=== PATIENT | female | born 1970 | race Caucasian/White ===

== ENCOUNTER 2024-01-29 08:41 | Outpatient (OUT) | payer BC, SELFPAY ==
--- NOTE | 2024-01-29 08:55 | NM_ITS ---
Patient Name: MATEUS CARMICHAEL MR#: [id number] : 1970 Exam Date: 01/29/2024 Ordering Doctor: DR JAN PETIT M.D. RADIOLOGY REPORT PROCEDURE: NM ISAURA PERF SPECT REST STR COMPARISON: None. INDICATIONS: PRE PROCEDURE CARDIOVASCULAR EXAM, DYSPNEA, LBBB TECHNIQUE: Exam Description: Stress/Rest two day protocol gated SPECT Rest Imagin.2 mCi Tc-99m Cardiolite IV on 01/29/2024 Stress Imaging 25.9 mCi Tc-99m Cardiolite IV on 01/30/2024 Exercise Protocol: 0.4 mg Lexiscan given IV Heart Rate (bpm): Rest: 75 Max: 106 PMHR: 63 Blood Pressure: Rest: 152/86 Max: 164/90 Symptoms: Rest and peak stress ECG findings were pending and the exercise portion of the study was pending per attending physician Dr. COLLIER . For more details please see separate cardiac stress test report. FINDINGS: QUALITY OF STUDY: Good. PERFUSION DEFECT: None. LOCATION: Mid-anterior. Apical anterior. [place]. SIZE: Medium (3-4 segments). SEVERITY: Moderate. TYPE: Persistent. WALL MOTION: Normal. LV SIZE: Normal. 110 mL. TID / TCD: None; 0.8 LVEF: Normal. Calculated EF 55%. SUMMARY: Myocardial perfusion imaging study has ABNORMAL findings. CONCLUSION: 1. Fixed defect anterior wall, RCA distribution 2. No redistribution Dictated by: Ronald Gonzales MD on 01/31/2024 at 10:57 Approved by: Ronald Gonzales MD on 01/31/2024 at 11:02
== END 2024-01-29 08:42 | disposition home or self-care (01) ==
PROVIDERS: PCP Internal Medicine; Visit Provider Internal Medicine Interventional Cardiology
DX: Z01.818 Encounter for other preprocedural examination (principal); R06.00 Dyspnea, unspecified
CPT/HCPCS: 78452; A9500

== ENCOUNTER 2024-01-30 08:23 | Outpatient (OUT) | payer BC, SELFPAY ==
--- NOTE | 2024-01-30 | PCN_ITS ---
CARDIAC STRESS TEST Requesting Physician: Sherry Watkins M.D. Procedure Date: 01/30/2024 PERFORMING PROVIDER: Kaylen Jacques M.D. INDICATION: Pre-surgical clearance. STRESS TEST PROTOCOL: Lexiscan myocardial perfusion scan. Resting heart rate: 77 beats per minute. Resting blood pressure: 152/86 Resting EKG: Sinus rhythm with left bundle branch block. CONCLUSION: 1. This is a non-diagnostic EKG stress test due to underlying left bundle branch block. 2. Please refer to separately interpreted and reported nuclear myocardial perfusion imaging. MTDD
--- NOTE | 2024-01-30 09:11 | PC.NURSE ---
Nursing Note Cardiac Stress Test Reviewed: Medication, allergies and patient history reviewed. Stress Test: [ x] Patient tolerated stress test well. [ ] Patient unable to tolerate walking on treadmill. Switched to Lexiscan stress test. [x ] No chest pain noted per patient [ ] Chest pain that resolved prior to leaving stress lab. [ x] No dyspnea noted. [ ] Dyspnea that resolved prior to leaving stress lab. [x ] Patient left stress lab asymptomatic and hemodynamically stable. [ ] Patient taken to the Emergency Room due to non-resolving symptoms following stress test. [x ] Patient achieved target heart rate. [ ] Patient unable to achieve target heart rate. [ ] Aminophylline administered as reversal agent to Lexiscan (Regadenoson). [ ] Nitro administered. Nursing Comments:
[2024-01-30] MEDS: REGADENOSON 0.4 MG/5 ML SYRINGE IV (09:12)
== END 2024-01-30 08:24 | disposition home or self-care (01) ==
LOC: CARD 08:23
PROVIDERS: PCP Internal Medicine; Visit Provider Internal Medicine Interventional Cardiology
DX: R06.00 Dyspnea, unspecified (principal); Z01.810 Encounter for preprocedural cardiovascular examination
CPT/HCPCS: 93017; J2785

== ENCOUNTER 2024-06-02 05:38 | Emergency (ER) | payer BC, SELFPAY ==
[2024-06-02 05:43] VITALS: BP 124/95; PULSE 99; TEMP 36.8; O2SAT 97; BMI 41.0
--- OUTSIDE RECORDS SUMMARY | 2024-06-02 05:47 | XMS_ITS | CCD ---
Author Organization [facility] Care Team Providers Care Lathe Operator Name Role Phone ORTEGA MERRITT Primary Care Physician [phone] SANTIAGO FRY Admitting Unavailable SANTIAGO FRY Attending Unavailable SELF, REFERRED Referring Unavailable ORTEGA MERRITT Primary Care Unavailable SELF, REFERRED Referring Unavailable OANH GOETZ Admitting Unavailable OANH GOETZ Attending Unavailable UNKNOWN, PHYSICIAN Primary Care Unavailable SHANICE NAVARRO Attending Unavailable ORTEGA MERRITT Primary Care Unavailable ORTEGA MERRITT Referring Unavailable SHANICE NAVARRO Admitting Unavailable CARLTON HAHN Admitting Unavailable SELF, REFERRED Referring Unavailable ORTEGA MERRITT Primary Care Unavailable GLORIA KHANNA Attending Unavailable Bryan [place] Unavailable GELACIO Merritt Primary Care Provider [phone] ASHWINI Sharpe Attending Provider ASHWINI Guevara Attending Provider GELACIO Merritt Primary Care Provider ASHWINI Sharpe Attending Provider ABEBA GUEVARA Attending Unavailable ABEBA GUEVARA Consulting Unavailable ABEBA GUEVARA Admitting Unavailable DR ORTEGA MERRITT Primary Care Unavailable GELACIO Merritt Primary Care Provider [phone] MD Porfirio Galvin Referring Provider ASHWINI Sharpe Attending Provider GELACIO Merritt Attending Provider MD Richie Galvin Referring Provider [phone] GELACIO Merritt Primary Care Provider MD Richie Galvin Attending Provider [phone] GELACIO Merritt Primary Care Provider [phone] ObASHWINI kern Attending Provider Ortega Merritt MD Unavailable [phone] HemAbeba Roy Primary Care Provider Ortega Merritt MD Primary Care Provider Hemmer Abeba CHEN Unavailable Brown, DO Gavin A Referring Unavailable Brown, DO Gavni A Admitting Unavailable Brown, DO Gavin A Attending Unavailable Brown, DO Gavin A Referring Unavailable Brown, DO Gavin A Admitting Unavailable Brown, DO Gavin A Attending Unavailable Lolis Bush Unavailable Unavailable Brown, Gavin A Referring Unavailable Brown, Gavin A Attending Unavailable Brown, Gavin A Admitting Unavailable Brown, Gavin A Admitting Unavailable Brown, Gavin A Attending Unavailable Brown, Gavin A Referring Unavailable Ortega Merritt II [facility] Care Provider [phone] Abeba Santillan Attending Provider [phone] Abeba Guevara Admitting Unavailable Abeba Guevara Attending Unavailable Ortega Merritt [facility] Unavailable Ortega Merritt [facility] Unavailable Maggie Sharpe Admitting Unavailable Maggie Sharpe Attending Unavailable Ortega Merritt [facility] Unavailable Richie Galvin Admanisha Unavailable Richie Galvin Attending Unavailable Ortega Merritt II [facility] Provider HemAbeba Gonzales Attending Provider Antoinette Kelley APRN Attending Provider SHANICE NAVARRO Attending Unavailable JAN PETIT Attending Unavailable LOLIS MENJIVAR Attending Unavailable BROWN, GAVIN A Referring Unavailable NIYA FREY Attending Unavailable BROWN, GAVIN A Referring Unavailable NIYA FREY Attending Unavailable BROWN, GAVIN A Referring Unavailable EMANUEL BEASLEY Referring Unavailable EMANUEL BEASLEY Attending Unavailable BROWN, GAVIN A Referring Unavailable JOSE J TRISTAN Attending Unavailable ABEBA GUEVARA Referring Unavailable LOLIS MENJIVAR Attending Unavailable BROWN, GAVIN A Referring Unavailable NIYA FREY Attending Unavailable BROWN, GAVIN A Referring Unavailable AMBRCOIO MAJORA Attending Unavailable BROWN, GAVIN A Referring Unavailable BRINKNIYA Attending Unavailable BROWN, GAVIN A Referring Unavailable KELBLEY, LOLIS Attending Unavailable BROWN, GAVIN A Referring Unavailable LORELEIJEFFREY Attending Unavailable BROWN, GAVIN A Referring Unavailable BRINKNIYA Attending Unavailable BROWN, GAVIN A Referring Unavailable HEMMER, ABEBA Canas Attending Unavailable KELBLEY, LOLIS Attending Unavailable BROWN, GAVIN A Referring Unavailable BRINK, NIYA Attending Unavailable BROWN, GAVIN A Referring Unavailable KELBLEY, LOLIS Attending Unavailable BROWN, GAVIN A Referring Unavailable CHANO GANNON Attending Unavailable HEMMER, ABEBA Canas Referring Unavailable MAJOR, SARAH Attending Unavailable BROWN, GAVIN A Referring Unavailable CHRISTYYJOSE J Attending Unavailable KELBLEY, LOLIS Attending Unavailable BROWN, GAVIN A Referring Unavailable BRINK, NIYA Attending Unavailable BROWN, GAVIN A Referring Unavailable MAJOR, SARAH Attending Unavailable BROWN, GAVIN A Referring Unavailable BRINK, NIYA Attending Unavailable BROWN, GAVIN A Referring Unavailable BROWN, GAVIN A Referring Unavailable BROWN, GAVIN A Attending Unavailable KELBLEY, LOLIS Attending Unavailable BROWN, GAVIN A Referring Unavailable MAJORSARAH Attending Unavailable BROWN, GAVIN A Referring Unavailable LORELEIJEFFREY Attending Unavailable BROWN, GAVIN A Referring Unavailable HEMMER, ABEBA Canas Attending Unavailable BROWN, GAVIN A Referring Unavailable BROWN, GAVIN A Attending Unavailable BROWN, GAVIN A Referring Unavailable HEMMER, ABEBA Canas Attending Unavailable BROWN, GAVIN A Referring Unavailable HEMMER, ABEBA Canas Attending Unavailable BROWN, GAVIN A Attending Unavailable HEMMER, ABEBA Canas Attending Unavailable PETITTICATALINA Attending Unavailable BROWN, GAVIN A Attending Unavailable PETITTICATALINA Attending Unavailable HEMMER, ABEBA Canas Attending Unavailable NORTHEIMJULIANA Attending Unavailable BROWN, GAVIN A Attending Unavailable HEMMER, ABEBA Canas Attending Unavailable BROWN, GAVIN A Attending Unavailable HEMMER, ABEBA Canas Referring Unavailable CELE CARO Attending Unavailable BROWN, GAVIN A Referring Unavailable CHANDLERRAFAEL Attending Unavailable BROWN, GAVIN A Referring Unavailable BROWN, GAVIN A Referring Unavailable BROWN, GAVIN A Attending Unavailable BROWN, GAVIN A Referring Unavailable CHANDLERRAFAEL SESAY Attending Unavailable BROWN, GAVIN A Referring Unavailable CHANDLERRAFAEL SESAY Attending Unavailable BROWN, GAVIN A Referring Unavailable HEMMER, ABEBA M Attending Unavailable RAFAEL CHANDLER Attending Unavailable BROWN, GAVIN A Referring Unavailable JEFFREY MOSELEY Attending Unavailable OSKAR, GAVIN A Referring Unavailable NIYA FREY Attending Unavailable BROWN, GAVIN A Referring Unavailable BROWN, GAVIN A Referring Unavailable LOLIS MENJIVAR Attending Unavailable JEFFREY MOSELEY Attending Unavailable OSKAR, GAVIN A Referring Unavailable SARAH MAJOR Attending Unavailable OSKAR, GAVIN A Referring Unavailable NIYA FREY Attending Unavailable OSKAR, GAVIN A Referring Unavailable SARAH MAJOR Attending Unavailable OSKAR, GAVIN A Referring Unavailable NIYA FREY Attending Unavailable BROWN, GAVIN A Referring Unavailable LOLIS MENJIVAR Attending Unavailable OSKAR, GAVIN A Referring Unavailable SARAH MAJOR Attending Unavailable OSKAR, GAVIN A Referring Unavailable Allergies Allergy Classification Reported Allergen(s) Allergy Type Date of Onset Reaction(s) Facility (20 sources) Chlorhexidine; Translations: [chlorhexidine topical] Drug Allergy 3 Other [facility] (20 sources) Meperidine; Translations: [meperidine] Drug Allergy 1 Vomiting (disorder) [facility] Other (20 sources) Morphine; Translations: [morphine] Drug Allergy 3 Vomiting (disorder), GI intolerance [facility] (20 sources) Nalbuphine; Translations: [nalbuphine] Drug Allergy [address] Other (1 source) Meperidine Drug Allergy [facility] Repository (1 source) Nalbuphine Drug Allergy 3 [facility] Repository (20 sources) Meperidine Drug Allergy 3 GI intolerance [facility] (20 sources) nabumetone; Translations: [NABUMETONE] Drug Allergy 2 Unknown [facility] (1 source) Meperidine Drug Allergy 5 [facility] Repository (1 source) Nalbuphine Drug Allergy 5 [facility] Repository Medications Current Medications Medication Drug Class(es) Dates Sig (Normalized) Sig (Original) acetaminophen 500 mg oral tablet (20 sources) Start: 03-15-2024 Acetaminophen 500 mg tablet Active MG PO March 15, 2024 1:00am Start: 02-27-2024 End: 03-08-2024 take 1 tablet by mouth every four hours for pain acetaminophen (Tylenol Extra Strength) 500 MG tablet Indications: Primary osteoarthritis of left knee Take 1 tablet (500 mg) by mouth every 4 (four) hours if needed for mild pain for up to 10 days 40 tablet 02/27/2024 03/08/2024 Active Start: 02-14-2024 take 1 tablet by monica every four hours acetaminophen 500 mg Tab 500 mg = 1 tab(s), Oral, q4hr, # 60 tab(s), Refills(s) 0, Pharmacy: [facility]/pharmacy #[id number], 166, cm, 02/02/24 8:04:00 EST, Height/Length Dosing, 122, kg, 02/02/24 8:04:00 EST, Weight Dosing Start Date: 02/14/24 Status: Ordered take 2 tablets by mo uth every six hours acetaminophen (Tylenol) 325 MG tablet Take 2 tablets every 6 hours by oral route. Active Ultracet (2 sources) Opioid Agonist Start: 05-24-2018 take 1 tablet by mouth every twelve hours Ultracet 1 tab(s), Oral, q12hr, Refill(s) 0, Pain Start Date: 05/24/18 Status: Ordered Airsupra 90-80 MCG/ACT aerosol (20 sources) Start: 03-15-2024 take 2 puff(s) by inhalation four times daily as needed Airsupra 90-80 MCG/ACT aerosol INHALE 2 PUFFS FOUR TIMES DAILY NEEDED FOR SHORTNESS OF BREATH 03/15/2024 Active [id number] 200 actuat albuterol 0.09 mg/actuat metered dose inhaler (20 sources) beta2-Adrenergi c Agonist Start: 03-15-2024 take 1 puff(s) by inhalation every six hours as needed Albuterol Sulfate 90 mcg/actuation HFA aerosol inhaler Active 2 PUFF INHALATION Every 6 hours as needed March 15, 2024 1:00am take 1 puff(s) by in halation every four hours for wheezing albuterol HFA 90 mcg/act inhaler Inhale 1 puff every 4 (four) hours if needed for wheezing or shortness of breath. Active take 1 puff(s) by in halation every four hours as needed Ventolin HFA 108 (90 Base) MCG/ACT 1 puf f as needed Inhalation every 4 hrs Active albuterol HFA 90 mcg/inh MDI (3 sources) Start: 05-24-2018 take 1 puff(s) by inhalation four times daily albuterol HFA 90 mcg/inh MDI 1 puff(s), Inhalation, QID Shortness of breath or wheezing, Refill(s) 0, Shortness of breath or wheezing Start Date: 05/24/18 Status: Ordered Albuterol-Budesonide (Airsupra) 90-80 mcg/actuation HFA aerosol inhaler (4 sources) Start: 03-15-2024 Albuterol-[place] sonide (Airsupra) 90-80 mcg/actuation HFA aerosol inhaler Active 2 INH INHALATION Four times daily as needed for shortness of breath 10.7 March 15, 2024 1:00am Start: 03-15-2024 Albuterol-[place] sonide (Airsupra) 90-80 mcg/actuation HFA aerosol inhaler Active 2 INH INHALATION Four times daily as needed for shortness of breath 10.7 March 15, 2024 12:00am aspirin 81 mg delayed release oral tablet (20 sources) Platelet Aggregation Inhibitor, Nonsteroidal Anti-inflammatory Drug Start: 02-14-2024 End: 04-14-2024 Aspirin 81 mg tablet,delayed release (DR/EC) Active MG PO March 15, 2024 1:00am azithromycin 250 mg oral tablet (4 sources) Macrolide Antimicrobial Start: 03-04-2024 End: 03-08-2024 take 2 tablets by mouth once daily, then take 1 tablet by mouth once daily azithromycin (Zithromax) 250 MG tablet Indications: Acute bronchitis, unspecified organism Take 2 tablets (500 mg) by mouth Daily for 1 day, THEN 1 tablet (250 mg) Daily for 4 days. 6 tablet 03/04/2024 03/08/2024 Active carvedilol 12.5 mg oral tablet (20 sources) alpha-Adrenergic Maria G, beta-Adrenergic Maria G Start: 03-15-2024 Carvedilol 12.5 mg tablet Active MG PO March 15, 2024 1:00am Start: 10-26-2022 End: 11-27-2023 take 1 tablet by mouth in the morning carvedilol (Coreg) 12.5 MG tablet Indications: Paroxysmal SVT (supraventricular tachycardia) (CMS/HCC) TAKE 1 TABLET BY MOUTH IN THE MORNING AND 1 TABLET IN THE EVENING WITH FOOD 200 tablet 3 11/27/2023 Active take 1 tablet by monica th every twelve hours Carvedilol 12.5 MG 1 tablet with food Orally Twice a day Active celecoxib 200 mg oral capsule (1 source) Nonsteroidal Anti-inflammatory Drug Start: 02-14-2024 End: 02-28-2024 CeleBREX 200 mg Cap 0 = 1 cap(s), Oral, Daily, X 14 day(s), # 14 cap(s), Refills(s) 0, Pharmacy: [facility]/pharmacy #[id number], 166, cm, 02/02/24 8:04:00 EST, Height/Length Dosing, 122, kg, 02/02/24 8:04:00 EST, Weight Dosing Start Date: 02/14/24 Stop Date: 02/28/24 Status: Ordered cephalexin 500 mg oral capsule (1 source) Cephalosporin Antibacterial Start: 02-14-2024 End: 02-21-2024 take 1 capsule by mouth every eight hours Keflex 500 mg Cap 500 mg = 1 cap(s), Oral, q8hr, X 7 day(s), # 21 cap(s), Refills(s) 0, Pharmacy: [facility]/pharmacy #[id number], 166, cm, 02/02/24 8:04:00 EST, Height/Length Dosing, 122, kg, 02/02/24 8:04:00 EST, Weight Dosing Start Date: 02/14/24 Stop Date: 02/21/24 Status: Ordered cholecalciferol 0.05 mg oral capsule (20 sources) Vitamin D Start: 03-15-2024 take 1 capsule by mouth once daily Cholecalciferol (Vitamin D3) 50 mcg (2,000 unit) capsule Active 50 MCG PO Daily March 15, 2024 1:00am take 1 tablet by mouth once uli y cholecalciferol (Vitamin D-3) 50 MCG (2000 UT) tablet Take 1 tablet by mouth. Once a day Active clindamycin 10 mg/ml topical lotion (20 sources) Lincosamide Antibacterial Start: 08-24-2023 clindamycin (Cleocin T) 1 % lotion Indications: Hidradenitis suppurativa Apply thin later to affected areas on the body during flares, 30 day supply 60 mL 11 08/24/2023 Active dicyclomine hydrochloride 20 mg oral tablet (2 sources) Anticholinergic Start: 09-22-2020 take 1 tablet by mouth every eight hours Dicyclomine HCl 20 MG 1 tablet Orally Three times a day for 30 day(s) Aug, Active docusate sodium 100 mg oral capsule (3 sources) Start: 02-14-2024 take 1 capsule by mouth twice daily as needed for constipation Colace 100 mg Cap 100 mg = 1 cap(s), Oral, BID, PRN for constipation, # 20 cap(s), Refills(s) 0, Pharmacy: [facility]/pharmacy #[id number], 166, cm, 02/02/24 8:04:00 EST, Height/Length Dosing, 122, kg, 02/02/24 8:04:00 EST, Weight Dosing Start Date: 02/14/24 Status: Ordered Start: 06-22-2018 take 1 capsule by mo [facility] twice daily as needed for constipation Colace 100 mg Cap 100 mg = 1 cap(s), Oral, BID, PRN for constipation, # 20 cap(s), Refills(s) 0 Start Date: 06/22/18 Status: Ordered doxycycline hyclate 100 mg oral capsule (4 sources) Tetracycline-class Drug Start: 03-15-2024 take 1 capsule by mouth twice daily Doxycycline Hyclate 100 mg capsule Active 100 MG PO Twice daily 16 12March 15, 2024 1:00am esomeprazole 40 mg delayed release oral capsule (2 sources) Proton Pump Inhibitor Start: 05-24-2018 take 1 capsule by mouth at bedtime Nexium 40 mg Cap-EC 40 mg = 1 cap(s), Oral, Bedtime, Refills(s) 0, Control of stomach acid Start Date: 05/24/18 Status: Ordered famotidine 20 mg oral tablet (20 sources) Histamine-2 Receptor Antagonist Start: 04-23-2024 End: 07-22-2024 take 1 tablet by mouth once daily at bedtime Famotidine 20 mg tablet Active 20 MG PO Daily at bedtime May 31, 2024 12:00am Ferric Maltol (4 sources) Start: 03-15-2024 Ferric Maltol (Accrufer) 30 mg capsule Active MG PO March 15, 2024 1:00am Start: 03-15-2024 Ferric Maltol (Accrufer) 30 mg capsule Active MG PO March 15, 2024 12:00am Ferric Maltol (ACCRUFeR) 30 MG capsule (20 sources) Start: 01-04-2024 take 1 capsule by mouth once daily Ferric Maltol (ACCRUFeR) 30 MG capsule Indications: Other iron deficiency anemia Take 30 mg by mouth Daily 90 capsule 3 01/04/2024 Active Start: 01-16-2023 End: 01-04-2024 take 1 capsule by mouth in the morning Ferric Maltol (ACCRUFeR) 30 MG capsule Indications: Other iron deficiency anemia Take 30 mg by mouth in the morning. 90 capsule 3 01/16/2023 01/04/2024 Discontinued (Reorder) Start: 01-16-2023 take 1 capsule by mo ut in the morning Ferric Maltol (ACCRUFeR) 30 MG capsule Indications: Other iron deficiency anemia Take 30 mg by mouth in the morning. 90 capsule 3 01/16/2023 Active ferric maltol 30 MG Oral Capsule [Accrufer] (2 sources) Start: 01-31-2024 take 1 capsule by mouth once daily Accrufer 30 mg oral capsule 30 mg = 1 cap(s), Oral, Daily, Refills(s) 0 Start Date: 01/31/24 Status: Ordered ferrous sulfate 325 mg oral tablet (2 sources) take 1 tablet by mouth every twenty-four hours Ferrous Sulfate 325 (65 Fe) MG 1 tablet Orally Once a day Active fluconazole 150 mg oral tablet (20 sources) Azole Antifungal Start: 03-15-2024 Fluconazole 1 50 mg tablet Active 150 MG PO Q3D March 15, 2024 1:00am Start: 03-04-2024 End: 03-05-2024 fluconazole (Diflucan) 150 M G tablet Indications: Acute bronchitis, unspecified organism Take 1 tablet (150 mg) by mouth Daily for 1 day, THEN 1 tablet (150 mg) Daily for 1 day. Take doses 3 days apart. 2 tablet 03/04/2024 03/05/2024 Active Start: 08-18-2023 End: 02-01-2024 fluconazole (Diflucan) 150 M G tablet Indications: Yeast infection Take 1 tablet wait three days if still having syptoms take other tablet if needed 2 tablet 08/18/2023 02/01/2024 Discontinued Start: 03-17-2023 End: 07-21-2023 fluconazole (Diflucan) 150 M G tablet Indications: Yeast infection Take 1 tablet wait three days if still having syptoms take other tablet if needed 2 tablet 03/17/2023 07/21/2023 Discontinued (Reorder) fluticasone propionate 0.05 mg/actuat metered dose nasal spray (20 sources) Corticosteroid take 2 spray(s) nasa l route once daily fluticasone (Flonase) 50 MCG/ACT nasal spray Administer 2 sprays into each nostril. Once a day Active take 2 spray(s) nasal route once daily Flonase 50 MCG/DOSE 2 SPRAYS Nasally Once a day Active Fluticasone Prp-Sod.Chl,Bica rb 50 mcg- 0.9 % kit,spray suspension and spray (4 sources) Start: 03-15-2024 Fluticasone Pr p-Sod.Chl,Bicarb 50 mcg- 0.9 % kit,spray suspension and spray Active EACH INTRANASAL March 15, 2024 1:00am Start: 03-15-2024 Fluticasone Pr p-Sod.Chl,Bicarb 50 mcg- 0.9 % kit,spray suspension and spray Active EACH INTRANASAL March 15, 2024 12:00am gabapentin 300 mg oral capsule (20 sources) Anti-epileptic Agent Start: 02-14-2024 End: 04-17-2024 Gabapentin 300 mg capsule Active MG PO March 15, 2024 1:00am hydroCHLOROthiazide 25 mg / triamterene 37.5 mg oral capsule (20 sources) Potassium-sparing Diuretic, Thiazide Diuretic Start: 05-24-2018 take 1 capsule by mouth once daily Triamterene-Hyd rochlorothiazid 37.5-25 mg capsule Active 1 CAP PO Daily March 15, 2024 1:00am take 1 capsule by [facility] once daily in the morning Dyazide 37.5-25 MG 1 capsule in the morning Orally Once a day PRN Active HYDROmorphone hydrochloride 2 mg oral tablet (1 source) Opioid Agonist Start: 06-22-2018 take 1 tablet by mouth every four hours as needed for pain Dilaudid 2 mg Tab 2 mg = 1 tab(s), Oral, q4hr, PRN for pain, # 30 tab(s), Refills(s) 0 Start Date: 06/22/18 Status: Ordered hydroxychloroquine sulfate 200 mg oral tablet (20 sources) Antimalarial, Antirheumatic Agent Start: 05-24-2018 Hydroxychloroquine 200 mg tablet Active MG PO March 15, 2024 1:00am levothyroxine sodium 0.15 mg oral tablet (20 sources) l-Thyroxine Start: 01-31-2024 take 150 ug by mouth once daily levothyroxine 150 mcg, Oral, Daily, Refills(s) 0, Thyroid Start Date: 01/31/24 Status: Ordered Start: 12-14-2023 Levothyroxine 150 mcg tablet Active MCG PO March 15, 2024 1:00am Start: 11-02-2023 take 1 tablet by monica th before mealtime levothyroxine (Synthroid) 150 MCG tablet Indications: Acquired hypothyroidism (CMS/HCC) Take 1 tablet (150 mcg) by mouth in the morning. Take before meals. 30 tablet 2 11/02/2023 Active Start: 01-03-2023 End: 07-10-2023 take 1 tablet by mouth once daily before mealtime levothyroxine (Synthroid, Levoxyl) 175 MCG tablet Indications: Acquired hypothyroidism (CMS/HCC) TAKE 1 TABLET BY MOUTH EVERY MORNING BEFORE A MEAL. 100 tablet 3 07/10/2023 Active meloxicam 15 mg oral tablet (1 source) Nonsteroidal Anti-inflammatory Drug Start: 06-22-2018 take 1 tablet by mouth once daily meloxicam 15 mg Tab 15 mg = 1 tab(s), Oral, Daily, # 30 tab(s), Refills(s) 0 Start Date: 06/22/18 Status: Ordered nebivolol 5 mg oral tablet (1 source) Start: 05-24-2018 take 1 tablet by mouth once daily Bystolic 5 mg Tab 5 mg = 1 tab(s), Oral, Daily, Refills(s) 0, High blood pressure Start Date: 05/24/18 Status: Ordered Nexium 40 mg Cap-EC (1 source) Start: 05-24-2018 take 1 capsule by mouth at bedtime Nexium 40 mg Cap-EC 40 mg = 1 cap(s), Oral, Bedtime, Refills(s) 0, Control of stomach acid Start Date: 05/24/18 Status: Ordered nystatin 800040 unt/ml topical cream (20 sources) Polyene Antifungal Start: 03-15-2024 Nystatin 100,000 unit/gram cream Active 1 APPLIC TOPICAL Daily March 15, 2024 1:00am Start: 06-23-2023 nystatin (Myco statin) cream Indications: Yeast infection APPLY 1 APPLICATION EXTERNALLY TWICE A DAY 45 g 2 06/23/2023 Active Start: 03-23-2023 End: 11-01-2023 Nyamyc [id number] UNIT/GM powder Indications: Intertrigo APPLY TO AFFECTED AREA TWICE A DAY 45 g 3 03/23/2023 11/01/2023 Discontinued (Other) omeprazole 40 mg delayed release oral capsule (20 sources) Proton Pump Inhibitor Start: 08-18-2022 End: 05-03-2025 Omeprazole 40 mg capsule,delayed release(DR/EC) Active MG PO March 15, 2024 1:00am take 1 capsule by mouth once [facility]an [facility] Omeprazole 40 MG 1 capsule 30 minutes before morning meal Orally Once a day Active ondansetron 4 mg disintegrating oral tablet (20 sources) Serotonin-3 Receptor Antagonist Start: 05-31-2024 take 1 tablet by mouth once daily as needed Ondansetron 4 mg tablet,disintegrating Active 4 MG PO Daily as needed May 31, 2024 12:00am Start: 12-03-2020 End: 04-17-2024 Ondansetron Hcl 4 mg tablet Active MG PO March 15, 2024 1:00am Start: 06-22-2018 take 1 tablet by monica th three times daily as needed for nausea Zofran ODT 4 mg Tab 4 mg = 1 tab(s), Oral, TID, PRN Nausea/Vomiting, # 30 tab(s), Refills(s) 0 Start Date: 06/22/18 Status: Ordered Ostomy Supplies (Adapt Lubricating Deodorant) liquid (20 sources) Start: 10-26-2022 Ostomy Supplies (Adapt Lubricating Deodorant) liquid Indications: Colostomy present (CMS/HCC) 1 application in the morning. 236 mL 5 10/26/2022 Active oxyCODONE hydrochloride 5 mg oral tablet (1 source) Opioid Agonist Start: 02-14-2024 take 1-2 tablets by mouth every four hours as needed for pain oxyCODONE 5 mg Tab See Instructions, PRN for pain, 1-2 tab(s) Oral q4hr, # 40 tab(s), Refills(s) 0, Pharmacy: [facility]/pharmacy #[id number], 166, cm, 02/02/24 8:04:00 EST, Height/Length Dosing, 122, kg, 02/02/24 8:04:00 EST, Weight Dosing Start Date: 02/14/24 Status: Ordered pantoprazole 40 mg delayed release oral tablet (19 sources) Proton Pump Inhibitor Start: 04-17-2024 take 1 tablet by mouth once daily pantoprazole (ProtoNix) 40 MG EC tablet Indications: Gastroesophageal reflux disease without esophagitis Take 1 tablet (40 mg) by mouth Daily Do not crush, chew, or split. 30 tablet 2 04/17/2024 Active predniSONE 10 mg oral tablet (2 sources) take 1 tablet by mouth every twenty-four hours predniSONE 10 MG 1 tablet Orally Once a day Active promethazine hydrochloride 25 mg oral tablet (1 source) Phenothiazine Start: 02-16-2024 take 1 tablet by mouth every six hours as needed for nausea promethazine 25 mg Tab 25 mg = 1 tab(s), Oral, q6hr, PRN Nausea, # 20 tab(s), Refills(s) 0, Pharmacy: [facility]/pharmacy #[id number], 166, cm, 02/02/24 8:04:00 EST, Height/Length Dosing, 122, kg, 02/02/24 8:04:00 EST, Weight Dosing Start Date: 02/16/24 Status: Ordered rizatriptan 10 mg disintegrating oral tablet (20 sources) Serotonin-1b and Serotonin-1d Receptor Agonist Start: 03-04-2024 Rizatriptan 10 mg tablet,disintegrating Active MG PO March 15, 2024 1:00am Start: 05-24-2018 Maxalt 10 mg T ab 10 mg = 1 tab(s), Oral, Once, PRN Migraine headache, may repeat dose once in 2 hours, Refills(s) 0, Migraine headache Start Date: 05/24/18 Status: Ordered End: 03-04-2024 rizatriptan RAILROAD FIRER (Maxalt-RAILROAD FIRER) 10 MG disintegrating tablet Take 10 mg by mouth. And place on top of tongue where it will dissolve, then swallow x1, may repeat at 2 hour intervals; do not exceed 30 mg in 24 hours 03/04/2024 Discontinued (Reorder) 72 hr scopolamine 0.0139 mg/hr transdermal system (20 sources) Anticholinergic Start: 01-31-2024 scopolamine 1 mg/72 hr transdermal film, extended release 1 patch(es), TransDermal, q72hr Nausea, Refill(s) 0 Start Date: 01/31/24 Status: Ordered Start: 04-01-2021 End: 03-26-2024 scopolamine (Transderm-Scop) 1 mg/72 hr patch 72 hour patch Indications: Nausea Place 1 patch on the skin every 3rd (third) day 10 patch 03/26/2024 Active Scopolamine Base 1 mg over 3 days patch 3 day (4 sources) Start: 03-15-2024 Scopolamine Ba se 1 mg over 3 days patch 3 day Active TRANSDERML March 15, 2024 1:00am Start: 03-15-2024 Scopolamine Ba se 1 mg over 3 days patch 3 day Active TRANSDERML March 15, 2024 12:00am tofacitinib 10 mg oral tablet (3 sources) Start: 05-24-2018 take 1 tablet by mouth at bedtime Xeljanz 10 mg oral tablet 10 mg = 1 tab(s), Oral, Bedtime, Refills(s) 0, Arthritis Start Date: 05/24/18 Status: Ordered take 1 tablet by [facility] every twenty-four hours Xeljanz 5 MG 1 tablet Orally qd Active traMADol hydrochloride 50 mg oral tablet (20 sources) Opioid Agonist Start: 03-15-2024 End: 04-02-2024 Tramadol 50 mg tablet Active MG PO March 15, 2024 1:00am Start: 02-16-2024 End: 03-05-2024 take 1-2 tablets by mouth every four hours traMADol (Ultram) 50 MG tablet Indications: Primary osteoarthritis of left knee Take 1-2 tablets (50-100 mg) by mouth every 4 (four) hours if needed (pain) for up to 7 days 40 tablet 02/27/2024 03/05/2024 Active Start: 06-22-2018 End: 03-04-2024 take 1-2 tablets by mouth every six hours as needed for pain traMADOL 50 mg Tab 1-2 tabs, Oral, q6hr, PRN Pain, # 40 tab(s), Refills(s) 0 Start Date: 06/22/18 Status: Ordered take 1 tablet by [facility] every twenty-four hours traMADol HCl 50 MG 1 tablet as needed Orally Once a day PRN Active triamcinolone acetonide 1 mg/ml topical cream (20 sources) Corticosteroid Start: 04-17-2024 triamcinolone (Kenalog) 0.1 % cream APPLY TO AFFECTED AREA TWICE A DAY FOR 14 DAYS 04/17/2024 Active Start: 04-17-2024 End: 05-01-2024 triamcinolone (Kenalog) 0.1 % cream Indications: Dry skin dermatitis Apply topically 2 (two) times a day for 14 days 45 g 04/17/2024 05/01/2024 Active Tylenol Sinus Congestion/Pain 5-325-200 MG (2 sources) take 2 tablets by mouth every four hours as needed, then take 5-325 tablets by mouth five times daily as needed Tylenol Sinus Congestion/Pain 5-325-200 MG 2 tablets may be given every 4 hours as needed Orally Five times a day Active Vitamin D (2 sources) Vitamin D Active Vitamin D3 5000 intl units oral capsule (3 sources) Start: 05-24-2018 take 1 capsule by mouth at mealtime Vitamin D3 5000 intl units oral capsule 250 mcg = 2 cap(s), Oral, Bedtime, with food, # 100 cap(s), Refills(s) 0, Arthritis Start Date: 05/24/18 Status: Ordered Start: 05-24-2018 take 1 capsule by [facility] at mealtime Vitamin D3 5000 intl units oral capsule 5,000 International_Unit = 1 cap(s), Oral, Bedtime, with food, # 100 cap(s), Refills(s) 0, Arthritis Start Date: 05/24/18 Status: Ordered Completed/Discontinued Medications Medication Drug Class(es) Dates Sig (Normalized) Sig (Original) aclidinium bromide 0.4 MG/ACTUAT Dry Powder Inhaler (1 source) Start: 05-24-2018 take 1 puff(s) by inhalation twice daily as needed for wheezing Tudorza Pressair 400 mcg/inh inhalation powder 400 microgram = 1 puff(s), Inhalation, BID, PRN Shortness of breath or wheezing, # 1 EA, Refills(s) 6, Shortness of breath or wheezing Start Date: 05/24/18 Status: Ordered benzonatate 200 mg oral capsule (10 sources) Non-narcotic Antitussive Start: 03-15-2024 End: 05-31-2024 Benzonatate 200 mg capsule Discontinued MG PO March 15, 2024 1:00am May 31, 2024 1:05pm Start: 03-04-2024 End: 03-11-2024 take 1 capsule by mouth three times daily as needed for cough benzonatate (Tessalon) 200 MG capsule Indications: Acute bronchitis, unspecified organism Take 1 capsule (200 mg) by mouth 3 (three) times a day as needed for cough for up to 7 days Do not crush or chew. 21 capsule 03/04/2024 03/11/2024 Active cholecalciferol 0.094 mg / folic acid 1 mg oral tablet (8 sources) Vitamin D End: 11-01-2023 take 1 tablet by mouth once daily Folic Acid-Cholecalciferol 1-5000 MG-UNIT tablet Take 1 tablet by mouth 1 (one) time each day at the same time. 11/01/2023 Discontinued (Other) Tudorza Pressair 400 mcg/inh inhalation powder (2 sources) Start: 05-24-2018 take 1 puff(s) by inhalation twice daily as needed for wheezing Tudorza Pressair 400 mcg/inh inhalation powder 400 microgram = 1 puff(s), Inhalation, BID, PRN Shortness of breath or wheezing, # 1 EA, Refills(s) 6, Shortness of breath or wheezing Start Date: 05/24/18 Status: Ordered Problems Active Problems Problem Classification Problem Date Documented Da te Episodic/Chronic Acute bronchitis (2 sources) Acute bronchitis; Translations: [Acute bronchitis, unspecified] 03-04-2024 Episodic Cardiac dysrhythmias (20 sources) Paroxysmal supraventricular tachycardia; Translations: [Paroxysmal SVT (supraventricular tachycardia)] Onset: 3 07-12-2022 Chronic Conduction disorders (20 sources) Left bundle branch block; Translations: [Left bundle-branch block, unspecified] Onset: 3 07-12-2022 Chronic Deficiency and other anemia (20 sources) Iron deficiency anemia; Translations: [Iron deficiency anemia, unspecified] Onset: 3 07-12-2022 Episodic Disorders of lipid metabolism (20 sources) Pure hyperglyceridemia; Translations: [Pure hyperglyceridemia] Onset: 3 07-12-2022 Chronic Diverticulosis and diverticulitis (20 sources) Diverticula of intestine; Translations: [Diverticulosis of large intestine without perforation or abscess without bleeding] Onset: 1 Resolved: 3 Chronic Esophageal disorders (20 sources) Gastroesophageal reflux disease; Translations: [Gastro-esophageal reflux disease without esophagitis] Onset: 9 07-12-2022 Chronic Essential hypertension (20 sources) Hypertensive disorder; Translations: [Benign essential hypertension] Onset: 3 Resolved: 5 05-24-2018 Chronic Genitourinary symptoms and ill-defined conditions (2 sources) Dysuria; Translations: [Dysuria] 05-31-2024 Episodic Headache; including migraine (20 sources) Migraine; Translations: [Migraine, unspecified, not intractable, without status migrainosus] Onset: 3 07-12-2022 Chronic Headache; including migraine (2 sources) Headache; Translations: [Nonintractable episodic headache, unspecified headache type] 04-17-2024 Episodic Immunizations and screening for infectious disease (2 sources) Patient encounter status; Translations: [Encounter for screening for human papillomavirus (HPV)] 03-26-2024 Episodic Joint disorders and dislocations; trauma-related (20 sources) Derangement of right knee; Translations: [Unspecified internal derangement of right knee] Onset: 3 07-12-2022 Chronic Joint disorders and dislocations; trauma-related (3 sources) Tear of meniscus of knee 05-24-2018 Episodic Comment on above: right Menopausal disorders (20 sources) Menopausal symptom; Translations: [Menopausal and female climacteric states] Onset: 3 07-12-2022 Chronic Miscellaneous mental health disorders (20 sources) Primary insomnia; Translations: [Primary insomnia] Onset: 5 04-17-2024 Chronic Nausea and vomiting (9 sources) Nausea; Translations: [Nausea] Onset: 1 Resolved: 1 Episodic Neoplasms of unspecified nature or uncertain behavior (4 sources) Neoplasm of uncertain behavior of skin; Translations: [Neoplasm of uncertain behavior of skin] 10-20-2023 Episodic Osteoarthritis (20 sources) Osteoarthritis of knee; Translations: [Osteoarthritis of knee, unspecified] Onset: 3 07-12-2022 Chronic Other circulatory disease (20 sources) Blood vessel finding; Translations: [Presence of other vascular implants and grafts] Onset: 2 10-26-2022 Chronic Other connective tissue disease (20 sources) History of total knee arthroplasty; Translations: [Presence of left artificial knee joint] Onset: 4 02-18-2024 Chronic Other endocrine disorders (3 sources) Polycystic ovaries 05-24-2018 Chronic Other endocrine disorders (20 sources) Polycystic ovary; Translations: [Polycystic ovarian syndrome] Onset: 9 07-12-2022 Chronic Other gastrointestinal disorders (20 sources) Colostomy present; Translations: [Colostomy status] Onset: 3 Chronic Other gastrointestinal disorders (4 sources) Dysphagia; Translations: [Dysphagia, unspecified] 05-31-2024 Episodic Other hereditary and degenerative nervous system conditions (20 sources) Restless legs; Translations: [Restless legs syndrome] Onset: 5 04-17-2024 Chronic Other liver diseases (20 sources) Steatosis of liver; Translations: [Fatty (change of) liver, not elsewhere classified] Onset: 3 07-12-2022 Chronic Other nervous system disorders (20 sources) Difficulty walking; Translations: [Difficulty in walking, not elsewhere classified] Onset: 4 02-18-2024 Chronic Other nervous system disorders (20 sources) Other acute postprocedural pain; Translations: [Pain in joint, lower leg] Onset: 4 02-18-2024 Episodic Other non-traumatic joint disorders (2 sources) Pain in right knee; Translations: [Pain in joint, lower leg] 07-04-2023 Episodic Other nutritional; endocrine; and metabolic disorders (20 sources) Morbid obesity; Translations: [Morbid (severe) obesity due to excess calories] Onset: 3 11-01-2023 Chronic Other nutritional; endocrine; and metabolic disorders (20 sources) Body mass index 40+ - severely obese; Translations: [Body mass index (BMI) 40.0-44.9, adult] Onset: 4 11-01-2023 Chronic Other nutritional; endocrine; and metabolic disorders (4 sources) Obesity; Translations: [Obesity, unspecified] Onset: 3 07-12-2022 Chronic Other skin disorders (2 sources) Dry skin dermatitis; Translations: [Xerosis cutis] 04-17-2024 Episodic Other upper respiratory disease (20 sources) Allergic rhinitis; Translations: [Allergic rhinitis, unspecified] Onset: 3 07-12-2022 Chronic Other upper respiratory disease (2 sources) Allergic rhinitis due to pollen; Translations: [Allergic rhinitis due to pollen] 11-01-2023 Chronic Other upper respiratory disease (2 sources) Chronic laryngitis; Translations: [Chronic laryngitis] 04-23-2024 Chronic Other upper respiratory disease (6 sources) Hoarse; Translations: [Dysphonia] 04-17-2024 Episodic Other upper respiratory infections (6 sources) Acute sinusitis; Translations: [Acute sinusitis, unspecified] 03-15-2024 Episodic Ovarian cyst (6 sources) Cyst of left ovary; Translations: [Unspecified ovarian cyst, left side] 03-27-2024 Episodic Residual codes; unclassified (2 sources) History of severe nausea and vomiting following administration of anesthetic agent; Translations: [Personal history of other specified conditions] 01-31-2024 Episodic Rheumatoid arthritis and related disease (20 sources) Rheumatoid arthritis; Translations: [Rheumatoid arthritis of multiple joints] Onset: 3 05-24-2018 Chronic Spondylosis; intervertebral disc disorders; other back problems (20 sources) Arthritis of lumbosacral spine; Translations: [Other spondylosis with radiculopathy, lumbosacral region] Onset: 8 07-12-2022 Chronic Thyroid disorders (20 sources) Acquired hypothyroidism; Translations: [Hypothyroidism, unspecified] Onset: 3 07-27-2022 Chronic Unclassified (1 source) Rheumatoid arthritis with rheumatoid factor of multiple sites without organ or systems involvement; Translations: [Rheumatoid arthritis with rheumatoid factor of multiple sites without organ or systems involvement] Onset: Past or Other Problems Problem Classification Problem Date Documented Date Episodic/Chronic Abdominal hernia (20 sources) Hiatal hernia; Translations: [Diaphragmatic hernia without obstruction or gangrene] Onset: 05-30-2018 05-24-2018 Episodic Administrative/social admission (20 sources) Counseling procedure with explicit context; Translations: [Dietary counseling and surveillance] Onset: 08-03-2021 Resolved: 11-01-2023 Episodic Bacterial infection; unspecified site (20 sources) Bacterial infection due to Proteus mirabilis; Translations: [Proteus (mirabilis) (morganii) as the cause of diseases classified elsewhere] Onset: 03-30-2021 Resolved: 11-01-2023 11-01-2023 Episodic Blindness and vision defects (20 sources) Presbyopia; Translations: [Presbyopia] Onset: 07-12-2022 07-12-2022 Episodic Cardiac dysrhythmias (20 sources) Palpitations; Translations: [Palpitations] Onset: 04-27-2023 04-27-2023 Episodic Diabetes mellitus without complication (20 sources) Impaired glucose tolerance; Translations: [Impaired glucose tolerance (oral)] Onset: 12-31-2015 Resolved: 01-26-2023 07-12-2022 Episodic Fluid and electrolyte disorders (20 sources) Hypokalemia; Translations: [Hypokalemia] Onset: 07-12-2022 07-12-2022 Episodic Inflammatory diseases of female pelvic organs (20 sources) Abscess of female pelvis; Translations: [Female pelvic inflammatory disease, unspecified] Onset: 04-07-2021 Resolved: 11-01-2023 11-01-2023 Episodic Other aftercare (20 sources) Surgical follow-up; Translations: [Encounter for surgical aftercare following surgery on the digestive system] Onset: 03-30-2021 Resolved: 11-01-2023 11-01-2023 Episodic Other connective tissue disease (2 sources) Muscle pain; Translations: [Myalgia, unspecified site] 11-01-2023 Episodic Other inflammatory condition of skin (20 sources) Intertrigo; Translations: [Erythema intertrigo] Onset: 10-26-2022 10-26-2022 Episodic Other lower respiratory disease (20 sources) Disorder of lung; Translations: [Other disorders of lung] Onset: 07-12-2022 07-12-2022 Episodic Other lower respiratory disease (2 sources) Dyspnea, unspecified; Translations: [Dyspnea, unspecified] Onset: 01-10-2024 Episodic Other nutritional; endocrine; and metabolic disorders (20 sources) Obese class II; Translations: [Class 2 obesity] Onset: 07-12-2022 Resolved: 07-27-2022 07-27-2022 Chronic Other screening for suspected conditions (not mental disorders or infectious disease) (20 sources) Mammography abnormal; Translations: [Other abnormal and inconclusive findings on diagnostic imaging of breast] Onset: 05-30-2018 07-12-2022 Episodic Other upper respiratory infections (20 sources) Sinusitis; Translations: [Chronic sinusitis, unspecified] Onset: 07-12-2022 Resolved: 07-27-2022 07-27-2022 Chronic Peritonitis and intestinal abscess (20 sources) Abscess of peritoneum; Translations: [Peritoneal abscess] Onset: 03-30-2021 Resolved: 11-01-2023 11-01-2023 Episodic Residual codes; unclassified (20 sources) Presence of other specified devices; Translations: [Other postprocedural status] Onset: 03-30-2021 10-26-2022 Episodic Residual codes; unclassified (20 sources) Bilateral lower limb edema; Translations: [Localized edema] Onset: 07-26-2023 07-26-2023 Episodic Spondylosis; intervertebral disc disorders; other back problems (20 sources) Acute back pain with sciatica; Translations: [Lumbago with sciatica, left side] Onset: 07-05-2017 07-12-2022 Episodic Results Test Name Value Interpretation Reference Range Facility Follow-Upon 05-29-2024 Follow-Up [id number] Mateus Carmichael 1970 F Date Provider Department Center 05/29/2024 SHANICE VIERA [facility] SURG [place] Family History Problem Relation Age of Onset Coronary artery disease Father Heart disease Father Family Status - Relation Status Age at Father Level of Service:16021 [place] OFFICE/OUTPATIENT ESTABLISHED LOW MDM 20 MIN Reason for Visit and Comments: Nausea [70] Normal [facility] CA 125on 04-18-2024 CA 125 9 U/mL Normal <35 [facility] Comment on above: Order Comment: FASTI NG:YES FASTING: YES Result Comment: This test was performed using the Siemens Chemiluminescent method. Values obtained from different assay methods cannot be used interchangeably. CA 125 levels, regardless of value, should not be interpreted as absolute evidence of the presence or absence of disease. Performed By: #### 2 [id number] #### [facility] [address], [address] [place] [address] Work From Home: Walter Comer MD XR Knee - left 3 [facility] Result: 03/26/2024: AP, LAT and Mccammon views of left knee showed surgical position and alignment of prosthetic components without evidence of loosening or wear to the femoral, tibial, or patellar components. The alignment appeared to be anatomic. There was no evidence of accelerated or asymmetric wear to the patellar button or tibial tray. There was no evidence of fracture and/or dislocation Impression: Stable LT TKA Emanuel Aiyana MAID CLEANING COOKING-NEWS COMMENTATOR [facility] Radiology Study observation (narrative) [facility] MM screening mammo BI w/CADo n 03-25-2024 MM screening mammo BI w/CAD [facility] [place] [address] Mammography Report Signed Patient: Mateus Carmichael MR#: [id number] : 1970 Acct:[id number] Age/Sex: 54 / F ADM Date: 03/25/24 Loc: [place] Room: Type: [facility] Attending Dr: Abeba Guevara SENIOR TREASURY ANALYST-C Copies to: MD Abeba Bonilla II, PA-C Ordering Provider: Abeba Guevara PA-C Date of Service: 03/25/24 MM/MM screening mammo BI w/CAD: SCREENING CLINICAL DATA: Screening for malignancy. SCREENING MAMMOGRAM - FULL FIELD DIGITAL WITH TOMOSYNTHESIS AND CAD COMPARISON:Mammograms dating back to 2015 Tomosynthesis craniocaudal and mediolateral oblique views of both breasts were obtained using low- dose digital technique. This examination was reviewed with the aid of CAD. FINDINGS: The breast tissue is composed of scattered fibroglandular densities. There are no dominant masses, typically malignant calcifications or architectural distortion. There has been no significant interval change. MM/MM screening mammo BI w/CAD IMPRESSION: NO MAMMOGRAPHIC EVIDENCE OF MALIGNANCY. ROUTINE FOLLOW-UP IS RECOMMENDED IN ONE YEAR. RESULT CODE: 1 Negative DENSITY CODE: 2 (approximately 25-50% glandular) FOLLOW UP: 1YR The false-negative rate of mammography is approximately 10-percent. Management of a palpable abnormality must be based on clinical grounds. Patient was entered into a reminder system with a target due date for the next mammogram. Impression dictated by: Deshawn Cazares Jr., D.O.03/25/2024 1:04 PM Dictation Location: [facility] Transcribed By: VINI 03/25/24 1304 Dictated By: Deshawn Cazraes Jr, DO 03/25/24 1303 Signed By: 03/25/24 1304 Normal [facility] Mammography reportOrdered By : Deshawn Cazares on 03-25-2024 Diagnostic imaging study [facility] [place] [address] Mammography Report Signed Patient: Mateus Carmichael MR#: [id number] : 1970 Acct:[id number] Age/Sex: 54 / F ADM Date: 5 Loc: [place] Room: Type: [facility] Attending Dr: Abeba MARADIAGA Copies to: MD Abeba Bonilla II, PA-C~ Ordering Provider: Abeba Guevara PA-C Date of Service: 03/25/24 MM/MM screening mammo BI w/CAD: SCREENING CLINICAL DATA: Screening for malignancy. SCREENING MAMMOGRAM - FULL FIELD DIGITAL WITH TOMOSYNTHESIS AND CAD COMPARISON:Mammograms dating back to 2015 Tomosynthesis craniocaudal and mediolateral oblique views of both breasts were obtained using low-dose digital technique. This examination was reviewed with the aid of CAD. FINDINGS: The breast tissue is composed of scattered fibroglandular densities. There are no dominant masses, typically malignant calcifications or architectural distortion. There has been no significant interval change. MM/MM screening mammo BI w/CAD IMPRESSION: NO MAMMOGRAPHIC EVIDENCE OF MALIGNANCY. ROUTINE FOLLOW-UP IS RECOMMENDED IN ONE YEAR. RESULT CODE: 1 Negative DENSITY CODE: 2 (approximately 25-50% glandular) FOLLOW UP: 1YR The false-negative rate of mammography is approximately 10-percent. Management of a palpable abnormality must be based on clinical grounds. Patient was entered into a reminder system with a target due date for the next mammogram. Impression dictated by: Deshawn Cazares Jr., DTeddyOTeddy03/25/2024 1:04 PM Dictation Location: [facility] Transcribed By: VINI 03/25/24 1304 Dictated By: Deshawn Cazares Jr, DO 03/25/24 1303 Signed By: 03/25/24 1304 [facility] XR Knee - left 3 [facility] Result: Three views, bilateral PA weight-bearing/sunris e/lateral left knee, taken today and saved to the permanent medical record are reviewed. Prosthesis is unchanged in position and alignment. No signs of prosthetic wear or loosening. No periprosthetic fractures. [facility] Radiology Study observation (narrative) [facility] Surgical Pathology Reporton 02-20-2024 Surgical Pathology Report [address] [place] [address]- Surgical Pathology Report Collected Date/Time: 02/14/2024 09:35 EST Pathologist: Christopher Bacon MD Received Date/Time: 02/14/2024 12:41 EST Gavin Schmitt DO, DO, Jason A 07 Surgical Pathology Report - 02/20/2024 15:12 EST - Auth (Verified) Final Diagnosis LEFT KNEE BONE AND SOFT TISSUE, ARTHROPLASTY: DEGENERATIVE OSTEOARTHRITIS (Electronic Signature) Christopher Bacon MD 02/20/2024 15:12 Clinical Information Degenerative arthritis left knee Pre-Op Diagnosis: Degenerative arthritis left knee Procedure: Robot assisted left total knee arthroplasty Post-Op Diagnosis: Advanced degenerative osteoarthrosis, left knee Specimen(s) Received Left knee bone and soft tissue Gross Description Received in formalin labeled with patient name, number, and left knee bone and soft tissue. The specimen consists of an assortment of fragments of yellowish-white fibrofatty tissue and osseous tissue which in aggregate measure 10 x 9.5 x 4.5 cm. Among the segments is a recognizable tibial plateau and crescent-shaped meniscal fibrocartilage. The osseous segments are in part covered by articular surface which is thin and rough with osteophyte formation present. Racing Mechanic portion is submitted in two cassettes: 1 - Soft tissue 2 - Bone after decalcification (DC) DC:MCA Microscopic Description Microscopic examination performed unless gross only specified. Normal [facility] Comment on above: Performed By: #### [id number] #### [facility] [address] [place] [address] BUNon 02-17-2024 Urea nitrogen [Mass/Vol] 12 mg/dL Normal - [facility] Comment on above: Performed By: #### 2 [id number] #### [facility] [address] [place] [id number] CBC w/ Auto Diffon 4 Basophils/100 WBC (Bld) 0.4 % Normal 0.0-2.0 [facility] Comment on above: Performed By: #### 2 [id number] #### [facility] [address] [place] [address] Erythrocyte distribution width (RBC) [Ratio] 14.6 % High 10.9-14.2 [facility] Comment on above: Performed By: #### 2 [id number] #### [facility] [address] [place] [address] Hematocrit (Bld) [Volume fraction] 32.8 % Low 34.0-46.0 [facility] Comment on above: Performed By: #### 2 [id number] #### [facility] [address] [place] [address] Lymphocytes/100 WBC (Bld) 24.5 % Normal 14.0-50.0 [facility] Comment on above: Performed By: #### 2 [id number] #### [facility] [address] [place] [address] Neutrophils/100 WBC (Bld) 60.4 % Normal 36.0-75.0 [facility] Comment on above: Performed By: #### 2 [id number] #### [facility] [address] [place] [address] Platelet mean volume (Bld) [Entitic vol] 7.7 fL Normal 6.4-10.8 [facility] Comment on above: Performed By: #### 2 [id number] #### [facility] [address] [place] [address] Basophils/Leukocytes Auto (Bld) [Pure # fraction] 0.0 E9/L Normal 0.0-0.2 [facility] Comment on above: Performed By: #### 2 [id number] #### [facility] [address] [place] [address] Eosinophils (Bld) [#/Vol] 0.2 E9/L Normal 0.0-0.5 [facility] Comment on above: Performed By: #### 2 [id number] #### [facility] [address] [place] [address] Eosinophils/100 WBC (Bld) 1.8 % Normal 0.0-8.0 [facility] Comment on above: Performed By: #### 2 [id number] #### [facility] [address] [place] [address] Hemoglobin (Bld) [Mass/Vol] 11.7 g/dL Low 12.0-16.0 [facility] Comment on above: Performed By: #### 2 [id number] #### [facility] [address] [place] [address] Lymphocytes (Bld) [#/Vol] 2.3 E9/L Normal 1.0-4.0 [facility] Comment on above: Performed By: #### 2 [id number] #### [facility] [address] [place] [address] MCH (RBC) [Entitic mass] 28.1 pg Normal 27.0-34.0 [facility] Comment on above: Performed By: #### 2 [id number] #### [facility] [address] [place] [address] MCHC (RBC) [Mass/Vol] 35.6 g/dL Normal 31.4-36.0 [facility] Comment on above: Performed By: #### 2 [id number] #### [facility] [address] [place] [address] MCV (RBC) [Entitic vol] 79.0 fL Low 80.0-100.0 [facility] Comment on above: Performed By: #### 2 [id number] #### [facility] [address] [place] [address] Monocytes (Bld) [#/Vol] 1.2 E9/L High 0.2-1.0 [facility] Comment on above: Performed By: #### 2 [id number] #### [facility] [address] [place] [address] Neutrophils (Bld) [#/Vol] 5.6 E9/L Normal 2.0-7.5 [facility] Comment on above: Performed By: #### 2 [id number] #### [facility] [address] [place] [address] Platelet 282.0 E9/L Normal 150.0-500.0 [facility] Comment on above: Performed By: #### 2 [id number] #### [facility] [address] [place] [address] RBC (Bld) [#/Vol] 4.2 E12/L Low 4.3-5.9 [facility] Comment on above: Performed By: #### 2 [id number] #### [facility] [address] [place] [address] WBC corrected for nucl RBC Auto (Bld) [#/Vol] 9.2 E9/L Normal 4.0-11.0 [facility] Comment on above: Performed By: #### 2 [id number] #### [facility] [address] [place] [address] CHEMISTRYOrdered By: SYSTEM SYSTEM on 02-17-2024 Anion gap [Moles/Vol] 13 mmol/L Normal 6 - 16 mEq/L [facility] Chloride [Moles/Vol] 98 mmol/L Low 101 - 1 11 mmol/L [facility] CO2 [Moles/Vol] 29 mmol/L Normal 21 - 31 mmol/L [facility] Creatinine [Mass/Vol] 0.6 mg/dL Normal 0.5 - 1.3 mg/dL [facility] eGFR 107 mL/min/1.73 m2 Normal >=59mL/mi n/ 1.73 m2 [facility] Potassium [Moles/Vol] 3.7 mmol/L Normal 3.5 - 5.3 mmol/L [facility] Sodium [Moles/Vol] 136 mmol/L Normal 135 - 145 mmol/L [facility] Urea nitrogen [Mass/Vol] 12 mg/dL Normal 5 - 21 mg/dL [facility] Creatinineon 02-17-2024 Creatinine [Mass/Vol] 0.6 mg/dL Normal 0.5-1.3 [facility] Comment on above: Performed By: #### 2 [id number] #### [facility] [address] [place] [address] Discharge Note-Nursingon Discharge Note-Nursing Discharge Note-Nursing CARMICHAELMATEUS :1970 Visit Date:02/14/2024 Inpatient Discharge Instructions Your Care Team Admitting Physician - Gavin Schmitt DO Referring Physician - Gavin Schmitt DO Reason for Your Visit LEFT KNEE OA Your Diagnosis Degenerative arthritis of left knee Tests Performed XR Knee 1 or 2 Views Left This Is Your Medications List acetaminophen (acetaminophen 500 mg Tab) aclidinium (Tudorza Pressair 400 mcg/inh inhalation powder) albuterol (albuterol HFA 90 mcg/inh MDI) aspirin (aspirin 81 mg Oral EC Tab) carvedilol (carvedilol 12.5 mg Tab) celecoxib (CeleBREX 200 mg Cap) cephalexin (Keflex 500 mg Cap) cholecalciferol (Vitamin D3 5000 intl units oral capsule) docusate (Colace 100 mg Cap) esomeprazole (Nexium 40 mg Cap-EC) ferric maltol (Accrufer 30 mg oral capsule) gabapentin (gabapentin 300 mg Cap) hydrochlorothiazide-t riamterene (Dyazide 25 mg-37.5 mg Cap) hydroxychloroquine (Plaquenil) levothyroxine ondansetron (Zofran ODT 4 mg Tab) oxycodone (oxyCODONE 5 mg Tab) promethazine (promethazine 25 mg Tab) rizatriptan (Maxalt 10 mg Tab) scopolamine (scopolamine 1 mg/72 hr transdermal film, extended release) tramadol (traMADOL 50 mg Tab) [Image Removed: STOP]Stop taking these medications acetaminophen-tramado l (Ultracet) Procedure History Total knee replacement (02/15/2024), Arthroscopy of knee (06/22/2018), breast cyst excision, Carpal tunnel release, excion of sebaceous from side, Excision of lesion of skin, FESS (functional endoscopic sinus surgery) anterior ethmoidectomy and frontal recess dissection, Hysterectomy, Large bowel resection, repair of laceration of thumb. Discharge Vitals Temperature (Oral) 36.7 ???C Heart Rate (Monitored) 75 Respiratory Rate 18 Blood Pressure 135/84 What to do next Instructions From Your Doctor Event Name Event Result Pending Diagnostic Test Results None New Follow Up Appointments after Discharge Follow Up with Gavin Schmitt When: 02/27/2024 08:45 AM EST Where: [address] [place] [address]- Business (1) Follow Up with ORTEGA MERRITT When: Comments: No need to see PCP at this time unless symptoms worsen. Where: [address] [place] [address]- Business (1) Medications What How Much When Instructions Next Dose New promethazine (promethazine 25 mg Tab) 1 Tablets By Mouth Every 6 hours as needed for Nausea Pickup at [facility]/pharmacy #6177 As needed Changed tramadol (traMADOL 50 mg Tab) See instructions 1-2 tab(s) Oral q4hr Pickup at [facility]/pharmacy #6177 As needed Unchanged acetaminophen (acetaminophen 500 mg Tab) 1 Tablets By Mouth Every 4 hours Pickup at [facility]/pharmacy #6108 Today at 5:00 PM Unchanged aclidinium (Tudorza Pressair 400 mcg/ inh inhalation powder) 1 Puffs Inhalation 2 times a day as needed for Shortness of breath or wheezing As needed Unchanged albuterol (albuterol HFA 90 mcg/ inh MDI) 1 Puffs Inhalation 4 times a day as needed for Shortness of breath or wheezing As needed Unchanged aspirin (aspirin 81 mg Oral EC Tab) 1 Tablets By Mouth Every day Duration: 60 Days Pickup at [facility]/pharmacy #6177 Resume 02/18/2024 Unchanged carvedilol (carvedilol 12.5 mg Tab) 1 Tablets By Mouth 2 times a day Tonight at 9:00 PM Unchanged celecoxib (CeleBREX 200 mg Cap) 1 Capsules By Mouth Every day Duration: 14 Days Pickup at [facility]/pharmacy #6177 Resume 02/18/2024 Unchanged cephalexin (Keflex 500 mg Cap) 1 Capsules By Mouth Every 8 hours Duration: 7 Days Pickup at [facility]/pharmacy #6177 Resume as before Unchanged cholecalciferol (Vitamin D3 5000 intl units oral capsule) 2 Capsules By Mouth At bedtime with food Resume tonight at bedtime Unchanged docusate (Colace 100 mg Cap) 1 Capsules By Mouth 2 times a day as needed for for constipation Pickup at [facility]/pharmacy #6177 As needed Unchanged esomeprazole (Nexium 40 mg Cap-EC) 1 Capsules By Mouth At bedtime Tonight at bedtime Unchanged ferric maltol (Accrufer 30 mg oral capsule) 1 Capsules By Mouth Every day 02/18/2024 Unchanged gabapentin (gabapentin 300 mg Cap) 1 Capsules By Mouth 3 times a day Duration: 14 Days Pickup at [facility]/pharmacy #6177 Today at 2:00 PM Unchanged hydrochlorothiazide-t riamterene (Dyazide 25 mg-37.5 mg Cap) 1 Capsules By Mouth Every day 02/18/2024 Unchanged hydroxychloroquine (Plaquenil) 200 Milligram By Mouth 2 times a day Tonight at 9:00 PM Unchanged levothyroxine 150 Microgram By Mouth Every day 02/18/2024 Unchanged ondansetron (Zofran ODT 4 mg Tab) 1 Tablets By Mouth Every 8 hours as needed for Nausea/Vomiting Pickup at [facility]/pharmacy #6177 As needed Unchanged oxycodone (oxyCODONE 5 mg Tab) See instructions 1-2 tab(s) Oral q4hr Pickup at [facility]/pharmacy #6177 As needed Unchanged rizatriptan (Maxalt 10 mg Tab) 1 Tablets By Mouth Once as needed for Migraine headache may repeat dose once in 2 hours As needed Unchanged scopolamine (scopolamine 1 mg/ 72 h (more content not included)... Normal [facility] CBC W/ AUTO DIFFon 01-28 EOSINOPHILS/100 LEUKOCYTES:NFR:PT:BLD:Q N:AUTOMATED COUNT 1.8 % 0.0 - 8.0 % [facility] EOSINOPHILS:NCNC:PT:BLD :QN: 0.2 [facility] BASOPHILS/LEUKOCYTES:NF R.DF:PT:BLD:QN:AUTOMATE D COUNT 0 [facility] ERYTHROCYTE MEAN CORPUSCULAR HEMOGLOBIN CONCENTRATION:MCNC:PT:R BC:QN 35.6 [facility] ERYTHROCYTE MEAN CORPUSCULAR HEMOGLOBIN:ENTMASS:PT:R BC:QN 28.1 pg 27.0 - 34.0 pg [facility] ERYTHROCYTE MEAN CORPUSCULAR VOLUME:ENTVOL:PT:RBC:QN :AUTOMATED COUNT 79 fL Low 80.0 - 100.0 fL [facility] ERYTHROCYTES:NCNC:PT:BL D:QN:AUTOMATED COUNT 4.2 Low [facility] HEMOGLOBIN:MCNC:PT:BLD: QN: 11.7 Low [facility] LEUKOCYTES 9.2 [facility] MONOCYTES:NCNC:PT:BLD:Q N:AUTOMATED COUNT 1.2 High [facility] NEUTROPHILS:NCNC:PT:BLD :QN:AUTOMATED COUNT 5.6 [facility] Interpretation and review of laboratory results Abnormal [facility] LYMPHOCYTES:NCNC:PT:BLD :QN: 2.3 [facility] Platelets (Bld) [#/Vol] 282 10*3/uL [facility] Original Ordering Provider: DO Gavin Schmitt [facility] HEMATOLOGYOrdered By: SYSTEM SYSTEM on 02-17-2024 Basophils/100 WBC (Bld) 0.4 % Normal 0.0 - 2.0 % [facility] Basophils/Leukocytes Auto (Bld) [Pure # fraction] 0.0 E9/L Normal 0.0 - 0.2 E9/L [facility] Eosinophils (Bld) [#/Vol] 0.2 E9/L Normal 0.0 - 0.5 E9/L [facility] Eosinophils/100 WBC (Bld) 1.8 % Normal 0.0 - 8.0 % [facility] Erythrocyte distribution width (RBC) [Ratio] 14.6 % High 10.9 - 14.2 % [facility] Hematocrit (Bld) [Volume fraction] 32.8 % Low 34.0 - 46.0 % [facility] Hemoglobin (Bld) [Mass/Vol] 11.7 g/dL Low 12.0 - 16.0 gm/dL [facility] Lymphocytes (Bld) [#/Vol] 2.3 E9/L Normal 1.0 - 4.0 E9/L [facility] Lymphocytes/100 WBC (Bld) 24.5 % Normal 14.0 - 50.0 % [facility] MCH (RBC) [Entitic mass] 28.1 pg Normal 27.0 - 34.0 pg [facility] MCHC (RBC) [Mass/Vol] 35.6 g/dL Normal 31.4 - 36.0 gm/dL [facility] MCV (RBC) [Entitic vol] 79.0 fL Low 80.0 - 100.0 fL [facility] Monocytes (Bld) [#/Vol] 1.2 E9/L High 0.2 - 1.0 E9/L [facility] Monocytes/100 WBC (Bld) 12.9 % Normal 4.0 - 14.0 % [facility] Neutrophils (Bld) [#/Vol] 5.6 E9/L Normal 2.0 - 7.5 E9/L [facility] Neutrophils/100 WBC (Bld) 60.4 % Normal 36.0 - 75.0 % [facility] Platelet 282.0 E9/L Normal 150.0 - 500.0 E9/L [facility] Platelet mean volume (Bld) [Entitic vol] 7.7 fL Normal 6.4 - 10.8 fL [facility] RBC (Bld) [#/Vol] 4.2 E12/L Low 4.3 - 5.9 E12/L [facility] WBC corrected for nucl RBC Auto (Bld) [#/Vol] 9.2 E9/L Normal 4.0 - 11.0 E9/L [facility] Lyteson 02-17-2024 Anion gap [Moles/Vol] 13 mmol/L Normal 6-16 [facility] Comment on above: Performed By: #### 2 [id number] #### [facility] [address] [place] [address] Chloride [Moles/Vol] 98 mmol/L Low 101-111 [facility] Comment on above: Performed By: #### 2 [id number] #### [facility] [address] [place] [address] CO2 [Moles/Vol] 29 mmol/L Normal 21-31 [facility] Comment on above: Performed By: #### 2 [id number] #### [facility] [address] [place] [address] Potassium [Moles/Vol] 3.7 mmol/L Normal 3.5-5.3 [facility] Comment on above: Performed By: #### 2 [id number] #### [facility] [address] [place] [address] Sodium [Moles/Vol] 136 mmol/L Normal 135-145 [facility] Comment on above: Performed By: #### 2 [id number] #### [facility] [address] [place] [address] eGFRon 02-17-2024 eGFR 107 mL/min/1.73 m2 Normal >=59 [facility] Comment on above: Performed By: #### 1 [id number] #### [facility] [address] [place] [address] BUNon 02-16-2024 Urea nitrogen [Mass/Vol] 14 mg/dL Normal 5-21 [facility] Comment on above: Performed By: #### 2 [id number] #### [facility] [address] [place] [address] CBC w/ Auto Diffon 4 Basophils/100 WBC (Bld) 0.4 % Normal 0.0-2.0 [facility] Comment on above: Performed By: #### 2 [id number] #### [facility] [address] [place] [address] Basophils/Leukocytes Auto (Bld) [Pure # fraction] 0.0 E9/L Normal 0.0-0.2 [facility] Comment on above: Performed By: #### 2 [id number] #### [facility] [address] [place] [address] Eosinophils (Bld) [#/Vol] 0.1 E9/L Normal 0.0-0.5 [facility] Comment on above: Performed By: #### 2 [id number] #### [facility] [address] [place] [address] Eosinophils/100 WBC (Bld) 0.8 % Normal 0.0-8.0 [facility] Comment on above: Performed By: #### 2 [id number] #### [facility] [address] [place] [address] Erythrocyte distribution width (RBC) [Ratio] 14.4 % High 10.9-14.2 [facility] Comment on above: Performed By: #### 2 [id number] #### [facility] [address] [place] [address] Hematocrit (Bld) [Volume fraction] 34.9 % Normal 34.0-46.0 [facility] Comment on above: Performed By: #### 2 [id number] #### [facility] [address] [place] [address] Hemoglobin (Bld) [Mass/Vol] 11.9 g/dL Low 12.0-16.0 [facility] Comment on above: Performed By: #### 2 [id number] #### [facility] [address] [place] [address] Lymphocytes (Bld) [#/Vol] 2.1 E9/L Normal 1.0-4.0 [facility] Comment on above: Performed By: #### 2 159139 #### [facility] [address] [place] [address] Lymphocytes/100 WBC (Bld) 21.5 % Normal 14.0-50.0 [facility] Comment on above: Performed By: #### 2 [id number] #### [facility] [address] [place] [address] MCH (RBC) [Entitic mass] 27.5 pg Normal 27.0-34.0 [facility] Comment on above: Performed By: #### 2 [id number] #### [facility] [address] [place] [address] MCHC (RBC) [Mass/Vol] 34.1 g/dL Normal 31.4-36.0 [facility] Comment on above: Performed By: #### 2 [id number] #### [facility] [address] [place] [address] MCV (RBC) [Entitic vol] 80.7 fL Normal 80.0-100.0 [facility] Comment on above: Performed By: #### 2 548405 #### [facility] [address] [place] [address] Monocytes (Bld) [#/Vol] 1.5 E9/L High 0.2-1.0 [facility] Comment on above: Performed By: #### 2 [id number] #### [facility] [address] [place] [address] Neutrophils (Bld) [#/Vol] 5.9 E9/L Normal 2.0-7.5 [facility] Comment on above: Performed By: #### 2 [id number] #### [facility] [address] [place] [address] Neutrophils/100 WBC (Bld) 61.2 % Normal 36.0-75.0 [facility] Comment on above: Performed By: #### 2 [id number] #### [facility] [address] [place] [address] Platelet mean volume (Bld) [Entitic vol] 7.5 fL Normal 6.4-10.8 [facility] Comment on above: Performed By: #### 2 [id number] #### [facility] [address] [place] [address] Platelets (Bld) [#/Vol] 272.0 E9/L Normal 150.0-500.0 [facility] Comment on above: Performed By: #### 2 [id number] #### [facility] [address] [place] [address] RBC (Bld) [#/Vol] 4.3 E12/L Normal 4.3-5.9 [facility] Comment on above: Performed By: #### 2 [id number] #### [facility] [address] [place] [address] WBC corrected for nucl RBC Auto (Bld) [#/Vol] 9.6 E9/L Normal 4.0-11.0 [facility] Comment on above: Performed By: #### 2 [id number] #### [facility] [address] [place] [address] CHEMISTRYOrdered By: SYSTEM SYSTEM on 02-16-2024 Anion gap [Moles/Vol] 12 mmol/L Normal 6 - 16 mEq/L [facility] Chloride [Moles/Vol] 101 mmol/L Normal 101 - 1 11 mmol/L [facility] CO2 [Moles/Vol] 29 mmol/L Normal 21 - 31 mmol/L [facility] Creatinine [Mass/Vol] 0.6 mg/dL Normal 0.5 - 1.3 mg/dL [facility] eGFR 107 mL/min/1.73 m2 Normal >=59mL/mi n/ 1.73 m2 [facility] Potassium [Moles/Vol] 3.8 mmol/L Normal 3.5 - 5.3 mmol/L [facility] Sodium [Moles/Vol] 138 mmol/L Normal 135 - 145 mmol/L [facility] Urea nitrogen [Mass/Vol] 14 mg/dL Normal 5 - 21 mg/dL [facility] Creatinineon 02-16-2024 Creatinine [Mass/Vol] 0.6 mg/dL Normal 0.5-1.3 [facility] Comment on above: Performed By: #### 2 [id number] #### [facility] [address] [place] [address] [facility] CBC W/ AUTO DIFFon 01-28 EOSINOPHILS/100 LEUKOCYTES:NFR:PT:BLD:Q N:AUTOMATED COUNT 0.8 % 0.0 - 8.0 % [facility] EOSINOPHILS:NCNC:PT:BLD :QN: 0.1 [facility] BASOPHILS/LEUKOCYTES:NF R.DF:PT:BLD:QN:AUTOMATE D COUNT 0 [facility] ERYTHROCYTE MEAN CORPUSCULAR HEMOGLOBIN CONCENTRATION:MCNC:PT:R BC:QN 34.1 [facility] ERYTHROCYTE MEAN CORPUSCULAR HEMOGLOBIN:ENTMASS:PT:R BC:QN 27.5 pg 27.0 - 34.0 pg [facility] ERYTHROCYTE MEAN CORPUSCULAR VOLUME:ENTVOL:PT:RBC:QN :AUTOMATED COUNT 80.7 fL 80.0 - 100.0 fL [facility] ERYTHROCYTES:NCNC:PT:BL D:QN:AUTOMATED COUNT 4.3 [facility] HEMOGLOBIN:MCNC:PT:BLD: QN: 11.9 Low [facility] LEUKOCYTES 9.6 [facility] MONOCYTES:NCNC:PT:BLD:Q N:AUTOMATED COUNT 1.5 High [facility] NEUTROPHILS:NCNC:PT:BLD :QN:AUTOMATED COUNT 5.9 [facility] PLATELETS:NCNC:PT:BLD:Q N:AUTOMATED COUNT 272 [facility] Interpretation and review of laboratory results Abnormal [facility] LYMPHOCYTES:NCNC:PT:BLD :QN: 2.1 [facility] Original Ordering Provider: DO Gavin Schmitt [facility] HEMATOLOGYOrdered By: SYSTEM SYSTEM on 02-16-2024 Basophils/100 WBC (Bld) 0.4 % Normal 0.0 - 2.0 % [facility] Basophils/Leukocytes Auto (Bld) [Pure # fraction] 0.0 E9/L Normal 0.0 - 0.2 E9/L [facility] Eosinophils (Bld) [#/Vol] 0.1 E9/L Normal 0.0 - 0.5 E9/L [facility] Eosinophils/100 WBC (Bld) 0.8 % Normal 0.0 - 8.0 % [facility] Erythrocyte distribution width (RBC) [Ratio] 14.4 % High 10.9 - 14.2 % [facility] Hematocrit (Bld) [Volume fraction] 34.9 % Normal 34.0 - 46.0 % [facility] Hemoglobin (Bld) [Mass/Vol] 11.9 g/dL Low 12.0 - 16.0 gm/dL [facility] Lymphocytes (Bld) [#/Vol] 2.1 E9/L Normal 1.0 - 4.0 E9/L [facility] Lymphocytes/100 WBC (Bld) 21.5 % Normal 14.0 - 50.0 % [facility] MCH (RBC) [Entitic mass] 27.5 pg Normal 27.0 - 34.0 pg [facility] MCHC (RBC) [Mass/Vol] 34.1 g/dL Normal 31.4 - 36.0 gm/dL [facility] MCV (RBC) [Entitic vol] 80.7 fL Normal 80.0 - 100.0 fL [facility] Monocytes (Bld) [#/Vol] 1.5 E9/L High 0.2 - 1.0 E9/L [facility] Monocytes/100 WBC (Bld) 16.1 % High 4.0 - 14.0 % [facility] Neutrophils (Bld) [#/Vol] 5.9 E9/L Normal 2.0 - 7.5 E9/L [facility] Neutrophils/100 WBC (Bld) 61.2 % Normal 36.0 - 75.0 % [facility] Platelet mean volume (Bld) [Entitic vol] 7.5 fL Normal 6.4 - 10.8 fL [facility] Platelets (Bld) [#/Vol] 272.0 E9/L Normal 150. 0 - 500.0 E9/L [facility] RBC (Bld) [#/Vol] 4.3 E12/L Normal 4.3 - 5.9 E12/L [facility] WBC corrected for nucl RBC Auto (Bld) [#/Vol] 9.6 E9/L Normal 4.0 - 11.0 E9/L [facility] Inpatient Clinical Summaryon 02-16-2024 Inpatient Clinical Summary Inpatient Clinical Summary [address] [address] Clinical Summary Person Information: Name: MATEUS CARMICHAEL Age: 54 Years : 1970 Sex: Female PCP: ORTEGA MERRITT MD Marital Status: Race: White Ethnicity: Non- or Language: [place]alander Visit Id: Visit Reason: LEFT KNEE OA Speciality: Acuity: Enc Type: Observation Med Service: Medical Arrival: 02/14/2024 06:17:09 Discharge: Dispo Type: Address: [address] [place] [id number] Provider Notes: Diagnosis: Degenerative arthritis of left knee Problems No Problems Documented Smoking Status: Functional Status: Sensory Deficits: History of Falls: Mobility Assistance Prior to Admission: ADLs: Minimal assistance Current Level of Assistance for Self-Care/Mobility: Cognitive Status: Allergies Nubain (Airway constriction) (Tongue swelling) Demerol (Vomiting) morphine (Vomiting) Chlorhexidine Gluconate (burning) Measurements: Height: Weight: Blood Pressure: 168 mmHg / 70 mmHg BMI: Procedures Total knee replacement (02/15/2024) Immunizations No Immunizations Documented This Visit Final Med List: acetaminophen (acetaminophen 500 mg Tab) 1 Tablets By Mouth every 4 hours. Refills: 0. aclidinium (Tudorza Pressair 400 mcg/inh inhalation powder) 1 Puffs Inhalation 2 times a day as needed Shortness of breath or wheezing. albuterol (albuterol HFA 90 mcg/inh MDI) 1 Puffs Inhalation 4 times a day as needed Shortness of breath or wheezing. aspirin (aspirin 81 mg Oral EC Tab) 1 Tablets By Mouth every day for 60 Days. Refills: 0. carvedilol (carvedilol 12.5 mg Tab) 1 Tablets By Mouth 2 times a day. celecoxib (CeleBREX 200 mg Cap) 1 Capsules By Mouth every day for 14 Days. Refills: 0. cephalexin (Keflex 500 mg Cap) 1 Capsules By Mouth every 8 hours for 7 Days. Refills: 0. cholecalciferol (Vitamin D3 5000 intl units oral capsule) 2 Capsules By Mouth at bedtime. with food. docusate (Colace 100 mg Cap) 1 Capsules By Mouth 2 times a day as needed for constipation. Refills: 0. esomeprazole (Nexium 40 mg Cap-EC) 1 Capsules By Mouth at bedtime. ferric maltol (Accrufer 30 mg oral capsule) 1 Capsules By Mouth every day. gabapentin (gabapentin 300 mg Cap) 1 Capsules By Mouth 3 times a day for 14 Days. Refills: 0. hydrochlorothiazide-t riamterene (Dyazide 25 mg-37.5 mg Cap) 1 Capsules By Mouth every day. hydroxychloroquine (Plaquenil) 200 Milligram By Mouth 2 times a day. levothyroxine 150 Microgram By Mouth every day. ondansetron (Zofran ODT 4 mg Tab) 1 Tablets By Mouth every 8 hours as needed Nausea/Vomiting. Refills: 0. oxycodone (oxyCODONE 5 mg Tab) 1-2 tab(s) Oral q4hr; as needed for pain. Refills: 0. promethazine (promethazine 25 mg Tab) 1 Tablets By Mouth every 6 hours as needed Nausea. Refills: 0. rizatriptan (Maxalt 10 mg Tab) 1 Tablets By Mouth Once as needed Migraine headache. may repeat dose once in 2 hours. scopolamine (scopolamine 1 mg/72 hr transdermal film, extended release) 1 Patches Transdermal every 72 hours as needed Nausea. tramadol (traMADOL 50 mg Tab) 1-2 tab(s) Oral q4hr; as needed for pain. Refills: 0. Care Team Members: Attending Physician: Gavin Schmitt DO Consulting Physician: Referring Physician: Gavin Schmitt DO Follow up: With: Address: When: Gavin Schmitt [address] [place], [place] [id number] Business (1) 02/27/2024 8:45 AM With: Address: When: OTREGA MERRITT [address] [place] [address] Business (1) Comments: No need to see PCP at this time unless symptoms worsen. Patient Education Information: Oz Schmitt - Total Knee Arthroplasty (Custom) Normal [facility] Inpatient Patient Summaryon 02-16-2024 Inpatient Patient Summary Inpatient Patient Summary [address] [address] Patient Discharge Instructions PERSON INFORMATION Name: MATEUS CARMICHAEL Date of : 1970 Current Date: 02/16/2024 17:56:30 PHYSICIANS Admitting Physician: Gavin Schmitt DO Primary Care Physician: ORTEGA MERRITT MD PCP Comment: Discharge Diagnosis: Degenerative arthritis of left knee Condition at Discharge: Improved MATEUS CARMICHAEL has been given the following list of follow-up instructions, prescriptions, and patient education materials: PATIENT FOLLOW-UP INFORMATION Diet: Discharge Activity: Discharge Restrictions: Wound Care Instructions: Remove Your Dressing In Days Call Your Doctor For: IF UNABLE TO CONTACT YOUR PHYSICIAN AND YOU FEEL IT IS AN EMERGENCY, GO TO THE NEAREST EMERGENCY ROOM OR CALL 911 Home Treatment: Devices/Equipment: Special Services: Additional Instructions: Primary Care Physician to provide the following pending test results: None Follow up: With: Address: When: Gavin Schmitt [address] [place] [address] Business (1) 02/27/2024 8:45 AM With: Address: When: ORTEGA MERRITT [address] [place], [place] [phone] Business (1) Comments: No need to see PCP at this time unless symptoms worsen. In the event that this physician does not participate in your insurance network, please consult with your insurance company to find a nearby participating provider. Comment: IAMOL MICHELLE A, have received the attached patient education materials/instruction s and have verbalized understanding: Patient Signature Date Clinican/Nurse Signature Date HERE ARE THE MEDICATION CHANGES THAT OCCURRED DURING YOUR HOSPITAL STAY New Medications [id number], [address], [place] [id number], [phone] promethazine (promethazine 25 mg Tab) 1 Tablets By Mouth every 6 hours as needed Nausea. Refills: 0. Last Dose: ____Next Dose: ____ Medications to Continue Taking That Have Changed [id number], [address], [place] [id number], [phone] START: tramadol (traMADOL 50 mg Tab) 1-2 tab(s) Oral q4hr; as needed for pain. Refills: 0. Last Dose: ____Next Dose: ____ STOP: tramadol (traMADOL 50 mg Tab) 1-2 tabs By Mouth every 6 hours as needed Pain. Refills: 0. Medications to Continue with No Changes [id number], [address], [place] [id number], [phone] acetaminophen (acetaminophen 500 mg Tab) 1 Tablets By Mouth every 4 hours. Refills: 0. Last Dose: ____Next Dose: ____ aspirin (aspirin 81 mg Oral EC Tab) 1 Tablets By Mouth every day for 60 Days. Refills: 0. Last Dose: ____Next Dose: ____ celecoxib (CeleBREX 200 mg Cap) 1 Capsules By Mouth every day for 14 Days. Refills: 0. Last Dose: ____Next Dose: ____ cephalexin (Keflex 500 mg Cap) 1 Capsules By Mouth every 8 hours for 7 Days. Refills: 0. Last Dose: ____Next Dose: ____ docusate (Colace 100 mg Cap) 1 Capsules By Mouth 2 times a day as needed for constipation. Refills: 0. Last Dose: ____Next Dose: ____ gabapentin (gabapentin 300 mg Cap) 1 Capsules By Mouth 3 times a day for 14 Days. Refills: 0. Last Dose: ____Next Dose: ____ ondansetron (Zofran ODT 4 mg Tab) 1 Tablets By Mouth every 8 hours as needed Nausea/Vomiting. Refills: 0. Last Dose: ____Next Dose: ____ oxycodone (oxyCODONE 5 mg Tab) 1-2 tab(s) Oral q4hr; as needed for pain. Refills: 0. Last Dose: ____Next Dose: ____ Other Medications aclidinium (Tudorza Pressair 400 mcg/inh inhalation powder) 1 Puffs Inhalation 2 times a day as needed Shortness of breath or wheezing., only uses when sick Last Dose: ____Next Dose: ____ albuterol (albuterol HFA 90 mcg/inh MDI) 1 Puffs Inhalation 4 times a day as needed Shortness of breath or wheezing., only uses when sick Last Dose: ____Next Dose: ____ carvedilol (carvedilol 12.5 mg Tab) 1 Tablets By Mouth 2 times a day. Last Dose: ____Next Dose: ____ cholecalciferol (Vitamin D3 5000 intl units oral capsule) 2 Capsules By Mouth at bedtime. with food. Last Dose: ____Next Dose: ____ esomeprazole (Nexium 40 mg Cap-EC) 1 Capsules By Mouth at bedtime. Last Dose: ____Next Dose: ____ ferric maltol (Accrufer 30 mg oral capsule) 1 Capsules By Mouth every day. Last Dose: ____ (more content not included)... Normal [facility] Interdisciplinary Note - Pantera e Manageron 02-16-2024 Interdisciplinary Note - Support Coordinator Interdisciplinary Note - Support Coordinator CRM to room 309 Patient is awake, alert and oriented. Patient is from home with his spouse. He is present in room. He is her transport at DC. Patient verified PCP, DME and insurance. Patient is here following Left TKA. Patient stayed 02/14 due to nausea. Patient is still with Nausea today. Patient DC plan is Ortho 360 and FWW. She has a FWW in room. Her spouse purchased her sock aide. Patient will continue work with PT/OT. Patient was provided CRM contact, emy board updated. CRM following Patient should DC home today if improved, awaiting Ortho Normal [facility] Comment on above: Result Comment: Elec tronically Signed By: Val Veras\.br\Date and Time Signed: 02/16/24 09:55 EST Flaquita 02-16-2024 Anion gap [Moles/Vol] 12 mmol/L Normal 6-16 [facility] Comment on above: Performed By: #### 2 [id number] #### [facility] [address] [place] [address] Chloride [Moles/Vol] 101 mmol/L Normal 101-111 [facility] Comment on above: Performed By: #### 2 [id number] #### [facility] [address] [place] [address] CO2 [Moles/Vol] 29 mmol/L Normal 21-31 [facility] Comment on above: Performed By: #### 2 [id number] #### [facility] [address] [place] [address] Potassium [Moles/Vol] 3.8 mmol/L Normal 3.5-5.3 [facility] Comment on above: Performed By: #### 2 [id number] #### [facility] [address] [place] [address] Sodium [Moles/Vol] 138 mmol/L Normal 135-145 [facility] Comment on above: Performed By: #### 2 [id number] #### [facility] [address] [place] [address] Main OR Intraoperative Recor rosalind 02-16-2024 Main OR Intraoperative Record Main OR Intraoperative Record IntraOp Document Type FT Summary Primary Physician: Gavin Schmitt DO Finalized Date/Time: 02/16/24 12:59:03 Pt. Name: MATEUS CARMICHAEL/Sex: 1970 Female Med Rec #: [id number] Physician: Gavin Schmitt DO Financial #: [id number] Pt. Type: O Room/Bed: N3/ Admit/Disch: 02/14/24 06:17:09 - Institution: Case Times FT Entry 1 Patient Times In Room 02/14/24 09:24:00 Out Room 02/14/24 11:50:00 Procedure Times Start 02/14/24 10:18:00 Stop 02/14/24 11:45:00 Anesthesia Times Start 02/14/24 09:24:00 Stop 02/14/24 11:50:00 Block Timeout w/ 02/14/24 08:08:00 Anesthesia Last Modified By: Wayne Jorge 02/14/24 11:50:54 General Comments: 0808 PREOP BLOCK BY Benjamín CASTRO CRNA WITH Kemi BORREGO RN ASSISTING. PATIENT TOLERATED WELL. HEART RATE 72, SPO2 97%. Kaila JORGE RN. 12/17/23 Chart opened to review and send charges [facility] CSFA Case Attendance FT Entry 1 Entry 2 Entry 3 Case Attendee Nicky Castro CRNA, DO, Gavin Lopez FISHING ROD MARKER, Leslie Heath Role Performed DIRECTOR COST Surgeon - Primary FISHING ROD MARKER/SA Time In 02/14/24 09:24:00 02/14/24 09:24:00 02/14/24 09:24:00 Time Out 02/14/24 11:50:00 02/14/24 11:37:00 02/14/24 11:50:00 Procedure KNEE TOTAL ROBOT KNEE TOTAL ROBOT KNEE TOTAL ROBOT ARTHROPLASTY(Left) ARTHROPLASTY(Left) ARTHROPLASTY(Left) Comments Last Modified By: Andre MOYER, Wayne Junior Terry T 02/16/24 12:56:19 02/14/24 11:50:55 02/14/24 11:50:55 Entry 4 Entry 5 Entry 6 Case Attendee Wayne Jorge CST, Ben Garg Role Performed Dining Room Attendant Cafeteria - Primary Scrub - Primary Staff - Other Time In 02/14/24 09:24:00 02/14/24 09:24:00 02/14/24 09:24:00 Time Out 02/14/24 11:40:00 02/14/24 11:50:00 02/14/24 09:58:00 Procedure KNEE TOTAL ROBOT KNEE TOTAL ROBOT KNEE TOTAL ROBOT ARTHROPLASTY(Left) ARTHROPLASTY(Left) ARTHROPLASTY(Left) Comments ROOM ASSIST Last Modified By: Wayne Jorge Terry T Sweene, Terry T 02/14/24 11:50:55 02/14/24 11:50:55 02/14/24 11:50:55 Entry 7 Case Attendee Soto HALEY, Марина Felton Role Performed Dining Room Attendant Cafeteria - Relief Time In 02/14/24 11:38:00 Time Out 02/14/24 11:50:00 Procedure KNEE TOTAL ROBOT ARTHROPLASTY(Left) Comments Last Modified By: Wayne Jorge 02/14/24 11:50:55 General Comments: JOAQUIM YA - 4TH YEAR RESIDENT HERE FOR CASE. MONIK VALLES/DEVAUGHN REP HERE FOR CASE. RHYS VALLES REP HERE FOR CASE. Kaila JORGE RN. Perioperative Protocols FT Pre-Care Text: Implements protective measures prior to operative or invasive procedure, confirms identity before the operative or invasive procedure, verifies operative procedure, surgical site, and laterality Entry 1 Procedure(s) KNEE TOTAL ROBOT Patient Identity Birthday, ID Band ARTHROPLASTY(Left) Verified (select at Check, Patient least 2): Participation Consents / H and P Anesthesia Consent, Operative Site Present Verified H&P, Surgery/Procedure Marking Verified Consent Surgical Site Yes Laterality Verified Yes Verified Procedure Verified Yes Correct Patient Yes Position Verified Availability Equipment, Implant, Prep Dry n/a Verified (If Medication Applicable) PreOp Antibiotic Yes Time Out Nicky Castro CRNA, Given Participants Gavin Schmitt DO, Leslie Lopez CST, Sweene, Terry T, Dent CST, Jorge Time Out Complete 02/14/24 10:16:00 Outcomes Met? Yes Last Modified By: Wayne Jorge 02/14/24 10:25:45 Post-Care Text: The patient is free from signs and symptoms of injury caused by extraneous objects Allergy Information FT Pre-Care Text: Verifies allergies Entry 1 Allergies Reviewed? Yes Allergies Reviewed Self/Patient With Outcomes Met? Yes Last Modified By: Wayne Jorge 02/14/24 10:25:53 Post-Care Text: The patient received appropriate medication(s) safely administered during the perioperative period Surgical Procedures FT Entry 1 Procedure Description Procedure KNEE TOTAL ROBOT Modifiers Left ARTHROPLASTY Surgeon Description ROBOT ASSISTED LEFT KNEE ARTHROPLASTY Primary Procedure Yes Primary Surgeon Gavin Schmitt DO Start 02/14/24 10:18:00 Stop 02/14/24 11:45:00 Anesthesia Type General Surgical Service Orthopedics Wound Class 1 - Clean Last Modified By: Ayesha Powell CST 02/16/24 12:56:28 General Case Data FT Pre-Care Text: Classifies surgical wound, implements aseptic technique, initiates traffic control Entry 1 Case Information OR OR 7 FT Case Level Level 6 Wound Class 1 - Clean Specialty Orthopedics ASA Class 3 Preop Diagnosis LEFT KNEE OSTEOARTHRITIS Postop Same As Preop Yes Postop Diagnosis LEFT KNEE OSTEOARTHRITIS Outcomes Met? Yes Last Modified By: Wayne Jorge 02/14/24 10:31:56 Post-Care Text: The patient is free from signs and symptoms of infection Skin Assessment (Pre Procedure) FT Pre-Care Text: Implements protective measures to prevent skin/ tissue injury (more content not included)... Normal [facility] eGFRon 02-16-2024 eGFR 107 mL/min/1.73 m2 Normal >=59 [facility] Comment on above: Performed By: #### 1 [id number] ####[facility] [id number] [place] [address] BUNon 02-15-2024 Urea nitrogen [Mass/Vol] 10 mg/dL Normal 5-21 [facility] Comment on above: Performed By: #### 2 [id number] #### [facility] [address] [place] [address] CBC w/ Auto Diffon 4 Basophils/100 WBC (Bld) 0.5 % Normal 0.0-2.0 [facility] Comment on above: Performed By: #### 2 [id number] #### [facility] [address] [place] [address] Basophils/Leukocytes Auto (Bld) [Pure # fraction] 0.1 E9/L Normal 0.0-0.2 [facility] Comment on above: Performed By: #### 2 [id number] #### [facility] [address] [place] [address] Eosinophils (Bld) [#/Vol] 0.0 E9/L Normal 0.0-0.5 [facility] Comment on above: Performed By: #### 2 [id number] #### [facility] [address] [place] [address] Eosinophils/100 WBC (Bld) 0.0 % Normal 0.0-8.0 [facility] Comment on above: Performed By: #### 2 [id number] #### [facility] [address] [place] [address] Erythrocyte distribution width (RBC) [Ratio] 14.5 % High 10.9-14.2 [facility] Comment on above: Performed By: #### 2 [id number] #### [facility] [address] [place] [address] Hematocrit (Bld) [Volume fraction] 36.2 % Normal 34.0-46.0 [facility] Comment on above: Performed By: #### 2 [id number] #### [facility] [address] [place] [address] Hemoglobin (Bld) [Mass/Vol] 12.3 g/dL Normal 12.0-16.0 [facility] Comment on above: Performed By: #### 2 [id number] #### [facility] [address] [place] [address] Lymphocytes (Bld) [#/Vol] 1.4 E9/L Normal 1.0-4.0 [facility] Comment on above: Performed By: #### 2 [id number] #### [facility] [address] [place] [address] Lymphocytes/100 WBC (Bld) 11.3 % Low 14.0-50.0 [facility] Comment on above: Performed By: #### 2 [id number] #### [facility] [address] [place] [address] MCH (RBC) [Entitic mass] 27.3 pg Normal 27.0-34.0 [facility] Comment on above: Performed By: #### 2 [id number] #### [facility] [address] [place] [address] MCHC (RBC) [Mass/Vol] 34.1 g/dL Normal 31.4-36.0 [facility] Comment on above: Performed By: #### 2 [id number] #### [facility] [address] [place] [address] MCV (RBC) [Entitic vol] 80.1 fL Normal 80.0-100.0 [facility] Comment on above: Performed By: #### 2 [id number] #### [facility] [address] [place] [address] Monocytes (Bld) [#/Vol] 1.2 E9/L High 0.2-1.0 [facility] Comment on above: Performed By: #### 2 [id number] #### [facility] [address] [place] [address] Neutrophils (Bld) [#/Vol] 9.4 E9/L High 2.0-7.5 [facility] Comment on above: Performed By: #### 2 [id number] #### [facility] [address] [place] [address] Neutrophils/100 WBC (Bld) 77.9 % High 36.0-75.0 [facility] Comment on above: Performed By: #### 2 [id number] #### [facility] [address] [place] [address] Platelet mean volume (Bld) [Entitic vol] 7.9 fL Normal 6.4-10.8 [facility] Comment on above: Performed By: #### 2 [id number] #### [facility] [address] [place] [address] Platelets (Bld) [#/Vol] 295.0 E9/L Normal 150.0-500.0 [facility] Comment on above: Performed By: #### 2 [id number] #### [facility] [address] [place] [address] RBC (Bld) [#/Vol] 4.5 E12/L Normal 4.3-5.9 [facility] Comment on above: Performed By: #### 2 [id number] #### [facility] [address] [place] [address] WBC corrected for nucl RBC Auto (Bld) [#/Vol] 12.1 E9/L High 4.0-11.0 [facility] Comment on above: Performed By: #### 2 [id number] #### [facility] [address] [place] [address] CHEMISTRYOrdered By: SYSTEM SYSTEM on 02-15-2024 Anion gap [Moles/Vol] 13 mmol/L Normal 6 - 16 mEq/L [facility] Chloride [Moles/Vol] 102 mmol/L Normal 101 - 1 11 mmol/L [facility] CO2 [Moles/Vol] 27 mmol/L Normal 21 - 31 mmol/L [facility] Creatinine [Mass/Vol] 0.6 mg/dL Normal 0.5 - 1.3 mg/dL [facility] eGFR 107 mL/min/1.73 m2 Normal >=59mL/mi n/ 1.73 m2 [facility] Potassium [Moles/Vol] 3.9 mmol/L Normal 3.5 - 5.3 mmol/L [facility] Sodium [Moles/Vol] 138 mmol/L Normal 135 - 145 mmol/L [facility] Urea nitrogen [Mass/Vol] 10 mg/dL Normal 5 - 21 mg/dL [facility] Creatinineon 02-15-2024 Creatinine [Mass/Vol] 0.6 mg/dL Normal 0.5-1.3 [facility] Comment on above: Performed By: #### 2 [id number] #### [facility] [address] [place], [place] [id number] [place] [address] CBC W/ AUTO DIFFon 01-27 EOSINOPHILS/100 LEUKOCYTES:NFR:PT:BLD:Q N:AUTOMATED COUNT 0 % 0.0 - 8.0 % [facility] EOSINOPHILS:NCNC:PT:BLD :QN: 0 [facility] BASOPHILS/LEUKOCYTES:NF R.DF:PT:BLD:QN:AUTOMATE D COUNT 0.1 [facility] ERYTHROCYTE MEAN CORPUSCULAR HEMOGLOBIN CONCENTRATION:MCNC:PT:R BC:QN 34.1 [facility] ERYTHROCYTE MEAN CORPUSCULAR HEMOGLOBIN:ENTMASS:PT:R BC:QN 27.3 pg 27.0 - 34.0 pg [facility] ERYTHROCYTE MEAN CORPUSCULAR VOLUME:ENTVOL:PT:RBC:QN :AUTOMATED COUNT 80.1 fL 80.0 - 100.0 fL [facility] ERYTHROCYTES:NCNC:PT:BL D:QN:AUTOMATED COUNT 4.5 [facility] HEMOGLOBIN:MCNC:PT:BLD: QN: 12.3 [facility] LEUKOCYTES 12.1 High [facility] MONOCYTES:NCNC:PT:BLD:Q N:AUTOMATED COUNT 1.2 High [facility] NEUTROPHILS:NCNC:PT:BLD :QN:AUTOMATED COUNT 9.4 High [facility] PLATELETS:NCNC:PT:BLD:Q N:AUTOMATED COUNT 295 [facility] Interpretation and review of laboratory results Abnormal [facility] LYMPHOCYTES:NCNC:PT:BLD :QN: 1.4 [facility] Original Ordering Provider: DO Gavin Schmitt [facility] HEMATOLOGYOrdered By: SYSTEM SYSTEM on 02-15-2024 Basophils/100 WBC (Bld) 0.5 % Normal 0.0 - 2.0 % [facility] Basophils/Leukocytes Auto (Bld) [Pure # fraction] 0.1 E9/L Normal 0.0 - 0.2 E9/L [facility] Eosinophils (Bld) [#/Vol] 0.0 E9/L Normal 0.0 - 0.5 E9/L [facility] Eosinophils/100 WBC (Bld) 0.0 % Normal 0.0 - 8.0 % [facility] Erythrocyte distribution width (RBC) [Ratio] 14.5 % High 10.9 - 14.2 % [facility] Hematocrit (Bld) [Volume fraction] 36.2 % Normal 34.0 - 46.0 % [facility] Hemoglobin (Bld) [Mass/Vol] 12.3 g/dL Normal 12.0 - 16.0 gm/dL [facility] Lymphocytes (Bld) [#/Vol] 1.4 E9/L Normal 1.0 - 4.0 E9/L [facility] Lymphocytes/100 WBC (Bld) 11.3 % Low 14.0 - 50.0 % [facility] MCH (RBC) [Entitic mass] 27.3 pg Normal 27.0 - 34.0 pg [facility] MCHC (RBC) [Mass/Vol] 34.1 g/dL Normal 31.4 - 36.0 gm/dL [facility] MCV (RBC) [Entitic vol] 80.1 fL Normal 80.0 - 100.0 fL [facility] Monocytes (Bld) [#/Vol] 1.2 E9/L High 0.2 - 1.0 E9/L [facility] Monocytes/100 WBC (Bld) 10.3 % Normal 4.0 - 14.0 % [facility] Neutrophils (Bld) [#/Vol] 9.4 E9/L High 2.0 - 7.5 E9/L [facility] Neutrophils/100 WBC (Bld) 77.9 % High 36.0 - 75.0 % [facility] Platelet mean volume (Bld) [Entitic vol] 7.9 fL Normal 6.4 - 10.8 fL [facility] Platelets (Bld) [#/Vol] 295.0 E9/L Normal 150. 0 - 500.0 E9/L [facility] RBC (Bld) [#/Vol] 4.5 E12/L Normal 4.3 - 5.9 E12/L [facility] WBC corrected for nucl RBC Auto (Bld) [#/Vol] 12.1 E9/L High 4.0 - 11.0 E9/L [facility] Interdisciplinary Note - Pantera e Manageron 02-15-2024 Interdisciplinary Note - Support Coordinator Interdisciplinary Note - Support Coordinator CRM to room 309 Patient is awake, alert and oriented. Patient is from home with his spouse. He is present in room. He is her transport at DC. Patient verified PCP, DME and insurance. Patient is here following Left TKA. Patient will stay today and plan for DC 02/14. Patient DC plan is Ortho 360 and FWW. She has a FWW in room. Patient will work with PT/OT. Patient was provided CRM contact, white board updated. CRM following Patient should DC home today, awaiting Ortho Normal [facility] Comment on above: Result Comment: Elec tronically Signed By: Val Veras\.br\Date and Time Signed: 02/15/24 11:41 EST Devoralakshmiseamus 02-15-2024 Anion gap [Moles/Vol] 13 mmol/L Normal 6-16 [facility] Comment on above: Performed By: #### 2 [id number] #### [facility] [address] [place] [address] Chloride [Moles/Vol] 102 mmol/L Normal 101-111 [facility] Comment on above: Performed By: #### 2 [id number] #### [facility] [address] [place] [address] CO2 [Moles/Vol] 27 mmol/L Normal 21-31 [facility] Comment on above: Performed By: #### 2 [id number] #### [facility] [address] [place] [address] Potassium [Moles/Vol] 3.9 mmol/L Normal 3.5-5.3 [facility] Comment on above: Performed By: #### 2 [id number] #### [facility] [address] [place] [address] Sodium [Moles/Vol] 138 mmol/L Normal 135-145 [facility] Comment on above: Performed By: #### 2 [id number] #### [facility] [address] [place] [address] eGFRon 02-15-2024 eGFR 107 mL/min/1.73 m2 Normal >=59 [facility] Comment on above: Performed By: #### 1 [id number] #### [facility] [address] [place] [address] ABO/Rhon 02-14-2024 ABO/Rh Positive Invalid Interpretation Code [facility] Comment on above: Performed By: #### 2 [id number] #### [facility] [address] [place] [address] ABO/Rh History Checkon 02-13 ABO/Rh History Check Verified Hx Blood Type Normal [facility] Comment on above: Performed By: #### 1 [id number] #### [facility] [address] [place] [address] ABSCon 02-14-2024 ABSC Gel Interp Negative Normal [facility] Comment on above: Performed By: #### 1 [id number] #### [facility] [address] [place] [address] BLOOD BANKOrdered By: Agustin Vital on 02-14-2024 ABO/Rh Interp Positive Invalid Interpretation Code [facility] BB Subsection ABSC Gel Interp Negative (02/14/24 7:09 AM) Normal [facility] BB Subsection Blood Bank ID#on 02-14-2024 BBID# [id number] Invalid Interpretation Code [facility] Comment on above: Performed By: #### 1 [id number] #### [facility] [address] [place] [address] CHEMISTRYOrdered By: Lab ROP User on 02-14-2024 Glucose [Mass/Vol] 161 mg/dL High 55 - 99 mg/dL [facility] POC Subsection Comment on above: Result Comment: Run Lab Confirmation POC Device SN [id number] 1 Invalid Interpretation Code [facility] POC Subsection POC User ID [id number] 1 Invalid Interpretation Code [facility] POC Subsection POC Username JOSE A LINARES Invalid Interpretation Code [facility] POC Subsection Glucose [Mass/Vol] 141 mg/dL High 55 - 99 mg/dL [facility] POC Subsection Comment on above: Result Comment: Robert PURI POC Device SN [id number] 1 Invalid Interpretation Code [facility] POC Subsection POC User ID [id number] 1 Invalid Interpretation Code [facility] POC Subsection POC Username CADENCE CEBALLOS Invalid Interpretation Code [facility] POC Subsection Glucose [Mass/Vol] 119 mg/dL High 55 - 99 mg/dL [facility] POC Subsection POC Device SN [id number] 1 Invalid Interpretation Code [facility] POC Subsection POC User ID [id number] 1 Invalid Interpretation Code [facility] POC Subsection POC Username JENIFER BELL Invalid Interpretation Code [facility] POC Subsection Capillary Glucose POCon 01-27 Glucose [Mass/Vol] 161 mg/dL High 55-99 [facility] Comment on above: Result Comment: Run Lab Confirmation Performed By: #### 2 [id number] #### [facility] [address] [place] [address] Glucose [Mass/Vol] 141 mg/dL High 55-99 [facility] Comment on above: Result Comment: Robert PURI Performed By: #### 2 [id number] #### [facility] [address] [place] [address] Glucose [Mass/Vol] 119 mg/dL High 55-99 [facility] Comment on above: Performed By: #### 2 [id number] #### [facility] [address] [place] [address] [facility] CAPILLARY GLUCOSE POCon 02-14-2024 Glucose [Mass/Vol] 119 mg/dL High 55 - 99 mg/dL [facility] Interpretation and review of laboratory results Abnormal [facility] Healthcare Original Ordering Provider: DO Gavin Schmitt [facility] Healthcare Inpatient Clinical Summaryon 02-14-2024 Inpatient Clinical Summary Inpatient Clinical Summary [address] [address] Clinical Summary Person Information: Name: MATEUS CARMICHAEL Age: 54 Years : 1970 Sex: Female PCP: ORTEGA MERRITT MD Marital Status: Race: White Ethnicity: Non- or Language: [place]alander Visit Id: Visit Reason: LEFT KNEE OA Speciality: Acuity: Enc Type: Outpatient in a Bed Med Service: Surgery Arrival: 02/14/2024 06:17:09 Discharge: Dispo Type: Address: [address] [place] [phone] Provider Notes: Diagnosis: Degenerative arthritis of left knee Problems No Problems Documented Smoking Status: Functional Status: Sensory Deficits: History of Falls: Mobility Assistance Prior to Admission: ADLs: Moderate assistance Current Level of Assistance for Self-Care/Mobility: Cognitive Status: Allergies Nubain (Airway constriction) (Tongue swelling) Demerol (Vomiting) morphine (Vomiting) Chlorhexidine Gluconate (burning) Measurements: Height: Weight: Blood Pressure: 145 mmHg / 81 mmHg BMI: Procedures No Procedures Documented Immunizations No Immunizations Documented This Visit Final Med List: acetaminophen (acetaminophen 500 mg Tab) 1 Tablets By Mouth every 4 hours. Refills: 0. aclidinium (Tudorza Pressair 400 mcg/inh inhalation powder) 1 Puffs Inhalation 2 times a day as needed Shortness of breath or wheezing. albuterol (albuterol HFA 90 mcg/inh MDI) 1 Puffs Inhalation 4 times a day as needed Shortness of breath or wheezing. aspirin (aspirin 81 mg Oral EC Tab) 1 Tablets By Mouth every day for 60 Days. Refills: 0. carvedilol (carvedilol 12.5 mg Tab) 1 Tablets By Mouth 2 times a day. celecoxib (CeleBREX 200 mg Cap) 1 Capsules By Mouth every day for 14 Days. Refills: 0. cephalexin (Keflex 500 mg Cap) 1 Capsules By Mouth every 8 hours for 7 Days. Refills: 0. cholecalciferol (Vitamin D3 5000 intl units oral capsule) 2 Capsules By Mouth at bedtime. with food. docusate (Colace 100 mg Cap) 1 Capsules By Mouth 2 times a day as needed for constipation. Refills: 0. docusate (Colace 100 mg Cap) 1 Capsules By Mouth 2 times a day as needed for constipation. Refills: 0. esomeprazole (Nexium 40 mg Cap-EC) 1 Capsules By Mouth at bedtime. ferric maltol (Accrufer 30 mg oral capsule) 1 Capsules By Mouth every day. gabapentin (gabapentin 300 mg Cap) 1 Capsules By Mouth 3 times a day for 14 Days. Refills: 0. hydrochlorothiazide-t riamterene (Dyazide 25 mg-37.5 mg Cap) 1 Capsules By Mouth every day. hydroxychloroquine (Plaquenil) 200 Milligram By Mouth 2 times a day. levothyroxine 150 Microgram By Mouth every day. ondansetron (Zofran ODT 4 mg Tab) 1 Tablets By Mouth 3 times a day as needed Nausea/Vomiting. Refills: 0. ondansetron (Zofran ODT 4 mg Tab) 1 Tablets By Mouth every 8 hours as needed Nausea/Vomiting. Refills: 0. oxycodone (oxyCODONE 5 mg Tab) 1-2 tab(s) Oral q4hr; as needed for pain. Refills: 0. rizatriptan (Maxalt 10 mg Tab) 1 Tablets By Mouth Once as needed Migraine headache. may repeat dose once in 2 hours. scopolamine (scopolamine 1 mg/72 hr transdermal film, extended release) 1 Patches Transdermal every 72 hours as needed Nausea. Care Team Members: Attending Physician: Gavin Schmitt DO Consulting Physician: Referring Physician: Gavin Schmitt DO Follow up: With: Address: When: Gavin Schmitt [address] [phone] Business (1) Patient Education Information: Oz Schmitt - Total Knee Arthroplasty (Custom) [facility] Inpatient Patient Summaryon 02-14-2024 Inpatient Patient Summary Inpatient Patient Summary [address] [address] Patient Discharge Instructions PERSON INFORMATION Name: MATEUS CARMICHAEL Date of : 1970 Current Date: 02/14/2024 15:00:23 PHYSICIANS Admitting Physician: Gavin Schmitt DO Primary Care Physician: RENÉ VIDES, ORTEGA Ambrose PCP Comment: Discharge Diagnosis: Degenerative arthritis of left knee Condition at Discharge: Improved MATEUS CARMICHAEL has been given the following list of follow-up instructions, prescriptions, and patient education materials: PATIENT FOLLOW-UP INFORMATION Diet: Discharge Activity: Discharge Restrictions: Wound Care Instructions: Remove Your Dressing In Days Call Your Doctor For: IF UNABLE TO CONTACT YOUR PHYSICIAN AND YOU FEEL IT IS AN EMERGENCY, GO TO THE NEAREST EMERGENCY ROOM OR CALL 911 Home Treatment: Devices/Equipment: Special Services: Additional Instructions: Primary Care Physician to provide the following pending test results: None Follow up: With: Address: When: [place] [address] Business (1) In the event that this physician does not participate in your insurance network, please consult with your insurance company to find a nearby participating provider. Comment: AMOL Pineda MICHELLE A, have received the attached patient education materials/instruction s and have verbalized understanding: Patient Signature Date Clinican/Nurse Signature Date HERE ARE THE MEDICATION CHANGES THAT OCCURRED DURING YOUR HOSPITAL STAY New Medications [id number], [address], [place] [id number], [phone] acetaminophen (acetaminophen 500 mg Tab) 1 Tablets By Mouth every 4 hours. Refills: 0. Last Dose: ____Next Dose: ____ aspirin (aspirin 81 mg Oral EC Tab) 1 Tablets By Mouth every day for 60 Days. Refills: 0. Last Dose: ____Next Dose: ____ celecoxib (CeleBREX 200 mg Cap) 1 Capsules By Mouth every day for 14 Days. Refills: 0. Last Dose: ____Next Dose: ____ cephalexin (Keflex 500 mg Cap) 1 Capsules By Mouth every 8 hours for 7 Days. Refills: 0. Last Dose: ____Next Dose: ____ gabapentin (gabapentin 300 mg Cap) 1 Capsules By Mouth 3 times a day for 14 Days. Refills: 0. Last Dose: ____Next Dose: ____ oxycodone (oxyCODONE 5 mg Tab) 1-2 tab(s) Oral q4hr; as needed for pain. Refills: 0. Last Dose: ____Next Dose: ____ Medications to Continue Taking That Have Changed [facility]/pharmacy #[id number], [address], [place] [phone], [phone] START: docusate (Colace 100 mg Cap) 1 Capsules By Mouth 2 times a day as needed for constipation. Refills: 0. Last Dose: ____Next Dose: ____ START: ondansetron (Zofran ODT 4 mg Tab) 1 Tablets By Mouth every 8 hours as needed Nausea/Vomiting. Refills: 0. Last Dose: ____Next Dose: ____ Other Medications START: docusate (Colace 100 mg Cap) 1 Capsules By Mouth 2 times a day as needed for constipation. Refills: 0. Last Dose: ____Next Dose: ____ START: ondansetron (Zofran ODT 4 mg Tab) 1 Tablets By Mouth 3 times a day as needed Nausea/Vomiting. Refills: 0. Last Dose: ____Next Dose: ____ Medications to Continue with No Changes Other Medications aclidinium (Tudorza Pressair 400 mcg/inh inhalation powder) 1 Puffs Inhalation 2 times a day as needed Shortness of breath or wheezing., only uses when sick Last Dose: ____Next Dose: ____ albuterol (albuterol HFA 90 mcg/inh MDI) 1 Puffs Inhalation 4 times a day as needed Shortness of breath or wheezing., only uses when sick Last Dose: ____Next Dose: ____ carvedilol (carvedilol 12.5 mg Tab) 1 Tablets By Mouth 2 times a day. Last Dose: ____Next Dose: ____ cholecalciferol (Vitamin D3 5000 intl units oral capsule) 2 Capsules By Mouth at bedtime. with food. Last Dose: ____Next Dose: ____ esomeprazole (Nexium 40 mg Cap-EC) 1 Capsules By Mouth at bedtime. Last Dose: ____Next Dose: ____ ferric maltol (Accrufer 30 mg oral capsule) 1 Capsules By Mouth every day. Last Dose: ____Next Dose: ____ hydrochlorothiazide-t riamterene (Dyazide 25 mg-37.5 mg Cap) 1 Capsules By Mouth every day. Last Dose: ____Next Dose: ____ hydroxychloroquine (Plaquenil) 200 Milligram By Mouth 2 times a day. Last Dose: ____Next Dose:____ (more content not included)... Normal [facility] Inpatient Patient Summary Inpatient Patient Summary [address] [address] [facility] Clinical Discharge Instructions PERSON INFORMATION Name: MATEUS CARMICHAEL PHYSICIANS Admitting Physician: Gavin Schmitt DO Attending Physician: Gavin Schmitt DO PCP: ORTEGA MERRITT MD Discharge Diagnosis: Degenerative arthritis of left knee Comment: PATIENT EDUCATION INFORMATION Instructions: Oz Schmitt - Total Knee Arthroplasty (Custom) Medication Leaflets: Follow up: With: Address: When: Gavin Schmitt [address] [place] [address] [facility] (1) MEDICATION LIST New Medications [facility]/pharmacy #[id number], [address], [place] [phone], [phone] acetaminophen (acetaminophen 500 mg Tab) 1 Tablets By Mouth every 4 hours. Refills: 0. aspirin (aspirin 81 mg Oral EC Tab) 1 Tablets By Mouth every day for 60 Days. Refills: 0. celecoxib (CeleBREX 200 mg Cap) 1 Capsules By Mouth every day for 14 Days. Refills: 0. cephalexin (Keflex 500 mg Cap) 1 Capsules By Mouth every 8 hours for 7 Days. Refills: 0. gabapentin (gabapentin 300 mg Cap) 1 Capsules By Mouth 3 times a day for 14 Days. Refills: 0. oxycodone (oxyCODONE 5 mg Tab) 1-2 tab(s) Oral q4hr; as needed for pain. Refills: 0. Medications to Continue Taking That Have Changed [facility]/pharmacy #[id number], [address], [place] [phone], [phone] START: docusate (Colace 100 mg Cap) 1 Capsules By Mouth 2 times a day as needed for constipation. Refills: 0. START: ondansetron (Zofran ODT 4 mg Tab) 1 Tablets By Mouth every 8 hours as needed Nausea/Vomiting. Refills: 0. Other Medications START: docusate (Colace 100 mg Cap) 1 Capsules By Mouth 2 times a day as needed for constipation. Refills: 0. START: ondansetron (Zofran ODT 4 mg Tab) 1 Tablets By Mouth 3 times a day as needed Nausea/Vomiting. Refills: 0. Medications to Continue with No Changes Other Medications aclidinium (Tudorza Pressair 400 mcg/inh inhalation powder) 1 Puffs Inhalation 2 times a day as needed Shortness of breath or wheezing., only uses when sick albuterol (albuterol HFA 90 mcg/inh MDI) 1 Puffs Inhalation 4 times a day as needed Shortness of breath or wheezing., only uses when sick carvedilol (carvedilol 12.5 mg Tab) 1 Tablets By Mouth 2 times a day. cholecalciferol (Vitamin D3 5000 intl units oral capsule) 2 Capsules By Mouth at bedtime. with food. esomeprazole (Nexium 40 mg Cap-EC) 1 Capsules By Mouth at bedtime. ferric maltol (Accrufer 30 mg oral capsule) 1 Capsules By Mouth every day. hydrochlorothiazide-t riamterene (Dyazide 25 mg-37.5 mg Cap) 1 Capsules By Mouth every day. hydroxychloroquine (Plaquenil) 200 Milligram By Mouth 2 times a day. levothyroxine 150 Microgram By Mouth every day. rizatriptan (Maxalt 10 mg Tab) 1 Tablets By Mouth Once as needed Migraine headache. may repeat dose once in 2 hours. scopolamine (scopolamine 1 mg/72 hr transdermal film, extended release) 1 Patches Transdermal every 72 hours as needed Nausea. No Longer Take the Following Medications acetaminophen-tramado l (Ultracet) 1 Tablets By Mouth every 12 hours., 50 mg tramadol (traMADOL 50 mg Tab) 1-2 tabs By Mouth every 6 hours as needed Pain. Refills: 0. Comment: Normal [facility] Interdisciplinary Note - Pantera e Manageron 02-14-2024 Interdisciplinary Note - Support Coordinator Interdisciplinary Note - Support Coordinator CRM to room 309 Patient is awake, alert and oriented. Patient is from home with his spouse. He is present in room. He is her transport at DC. Patient verified PCP, DME and insurance. Patient is here following Left TKA. Patient will stay today and plan for DC 02/14. Patient DC plan is [facility] and FWW. She has a FWW in room. Patient will work with PT/OT. Patient was provided CRM contact, white board updated. CRM following Normal [facility] Comment on above: Result Comment: Elec tronically Signed By: Val Veras\.br\Date and Time Signed: 02/14/24 14:23 EST Main OR Intraoperative Recor don 02-14-2024 Main OR Intraoperative Record Main OR Intraoperative Record IntraOp Document Type FT Summary Primary Physician: Gavin Schmitt DO Finalized Date/Time: 02/14/24 11:54:20 Pt. Name: MATEUS CARMICHAEL/Sex: 1970 Female Med Rec #: [id number] Physician: Gavin Schmitt DO Financial #: [id number] Pt. Type: A Room/Bed: [facility] Admit/Disch: 02/14/24 06:17:09 - Institution: Case Times FT Entry 1 Patient Times In Room 02/14/24 09:24:00 Out Room 02/14/24 11:50:00 Procedure Times Start 02/14/24 10:18:00 Stop 02/14/24 11:45:00 Anesthesia Times Start 02/14/24 09:24:00 Stop 02/14/24 11:50:00 Block Timeout w/ 02/14/24 08:08:00 Anesthesia Last Modified By: Wayne Jorge 02/14/24 11:50:54 General Comments: 0808 PREOP BLOCK BY Benjamín CASTRO CRNA WITH Kemi BORREGO RN ASSISTING. PATIENT TOLERATED WELL. HEART RATE 72, SPO2 97%. Kaila JORGE RN. Case Attendance FT Entry 1 Entry 2 Entry 3 Case Attendee Matthew TUBBS, Nicky Schmitt DO, Gavin Lopez FISHING ROD MARKER, Leslie Heath Role Performed Anesthesiologist Surgeon - Primary FISHING ROD MARKER/SA Certified Tumor Registrar Time In 02/14/24 09:24:00 02/14/24 09:24:00 02/14/24 09:24:00 Time Out 02/14/24 11:50:00 02/14/24 11:37:00 02/14/24 11:50:00 Procedure KNEE TOTAL ROBOT KNEE TOTAL ROBOT KNEE TOTAL ROBOT ARTHROPLASTY(Left) ARTHROPLASTY(Left) ARTHROPLASTY(Left) Comments Last Modified By: Wayne Jorge Terry T Sweene, Terry T 02/14/24 11:50:55 02/14/24 11:50:55 02/14/24 11:50:55 Entry 4 Entry 5 Entry 6 Case Attendee Wayne Jorge FISHING ROD MARKER, Ben Garg Role Performed Dining Room Attendant Cafeteria - Primary Scrub - Primary Staff - Other Time In 02/14/24 09:24:00 02/14/24 09:24:00 02/14/24 09:24:00 Time Out 02/14/24 11:40:00 02/14/24 11:50:00 02/14/24 09:58:00 Procedure KNEE TOTAL ROBOT KNEE TOTAL ROBOT KNEE TOTAL ROBOT ARTHROPLASTY(Left) ARTHROPLASTY(Left) ARTHROPLASTY(Left) Comments ROOM ASSIST Last Modified By: Wayne Jorge Terry T Sweene, Terry T 02/14/24 11:50:55 02/14/24 11:50:55 02/14/24 11:50:55 Entry 7 Case Attendee Soto HALEY, Марина Felton Role Performed Dining Room Attendant Cafeteria - Relief Time In 02/14/24 11:38:00 Time Out 02/14/24 11:50:00 Procedure KNEE TOTAL ROBOT ARTHROPLASTY(Left) Comments Last Modified By: Wayne Jorge 02/14/24 11:50:55 General Comments: JOAQUIM YA - 4TH YEAR RESIDENT HERE FOR CASE. MONIK VALLES/DEVAUGHN REP HERE FOR CASE. RHYS VALLES REP HERE FOR CASE. Kaila JORGE RN. Perioperative Protocols FT Pre-Care Text: Implements protective measures prior to operative or invasive procedure, confirms identity before the operative or invasive procedure, verifies operative procedure, surgical site, and laterality Entry 1 Procedure(s) KNEE TOTAL ROBOT Patient Identity Birthday, ID Band ARTHROPLASTY(Left) Verified (select at Check, Patient least 2): Participation Consents / H and P Anesthesia Consent, Operative Site Present Verified H&P, Surgery/Procedure Marking Verified Consent Surgical Site Yes Laterality Verified Yes Verified Procedure Verified Yes Correct Patient Yes Position Verified Availability Equipment, Implant, Prep Dry n/a Verified (If Medication Applicable) PreOp Antibiotic Yes Time Out Nicky Castro CRNA, Given Participants Gavin Schmitt DO, John MOYER, Leslie Heath, Wayne Jorge, Etelvina MOYER, Jorge Time Out Complete 02/14/24 10:16:00 Outcomes Met? Yes Last Modified By: Wayne Jorge 02/14/24 10:25:45 Post-Care Text: The patient is free from signs and symptoms of injury caused by extraneous objects Allergy Information FT Pre-Care Text: Verifies allergies Entry 1 Allergies Reviewed? Yes Allergies Reviewed Self/Patient With Outcomes Met? Yes Last Modified By: Wayne Jorge 02/14/24 10:25:53 Post-Care Text: The patient received appropriate medication(s) safely administered during the perioperative period Surgical Procedures FT Entry 1 Procedure Description Procedure KNEE TOTAL ROBOT Modifiers Left ARTHROPLASTY Surgeon Description ROBOT ASSISTED LEFT KNEE ARTHROPLASTY Primary Procedure Yes Primary Surgeon Gavin Schmitt DO Start 02/14/24 10:18:00 Stop 02/14/24 11:45:00 Anesthesia Type [facility] Surgical Service Orthopedics Wound Class 1 - Clean Last Modified By: Wayne Jorge 02/14/24 11:46:32 General Case Data FT Pre-Care Text: Classifies surgical wound, implements aseptic technique, initiates traffic control Entry 1 Case Information OR OR 7 FT Case Level Level 6 Wound Class 1 - Clean Specialty Orthopedics ASA Class 3 Preop Diagnosis LEFT KNEE OSTEOARTHRITIS Postop Same As Preop Yes Postop Diagnosis LEFT KNEE OSTEOARTHRITIS Outcomes Met? Yes Last Modified By: Wayne Jorge 02/14/24 10:31:56 Post-Care Text: The patient is free from signs and symptoms of infection Skin Assessment (Pre Procedure) FT Pre-Care Text: Implements protective measures to prevent skin/ tissue injury due to thermal or mechanical sources Evalua (more content not included)... Normal [facility] Main OR PACU I Recordon 01-27 Main OR PACU I Record Main OR PACU I Rec ord PACU Phase I Document Type FT Summary Primary Physician: Gavin Schmitt DO Finalized Date/Time: 02/14/24 13:18:50 Pt. Name: MATEUS CARMICHAEL/Sex: 1970 Female Med Rec #: [id number] Physician: Gavin Schmitt DO Financial #: [id number] Pt. Type: O Room/Bed: [id number] Admit/Disch: 02/14/24 06:17:09 - Institution: Case Times PACU I FT Pre-Care Text: Identifies barriers to communication and implements measures to provide psychological support Develops individualized plan of care, and ensures continuity of care Maintains patient's dignity and privacy, and maintains patient confidentiality Identifies and reports philosophical, cultural, and spiritual beliefs and values Identifies individual values and wishes concerning care Implements aseptic technique, and administers prescribed antibiotic therapy and immunizing agents as ordered Evaluates postoperative tissue perfusion Implements thermoregulation measures, and monitors body temperature Evaluates postoperative respiratory status Evaluates postoperative cardiac status Evaluates postoperative neurological status Assesses pain control, collaborated in initiating patient-controlled analgesia and implements alternative methods of pain control Verifies allergies, administers prescribed medications and solutions, evaluates response to medications Entry 1 In PACU I 02/14/24 11:52:00 Discharge from PACU 02/14/24 12:30:00 I Outcomes Met? Yes Last Modified By: Diann Hines RN 02/14/24 13:18:11 Post-Care Text: The patient demonstrates knowledge of the expected response to the operative or invasive procedure The patient's care is consistent with the individualized perioperative plan of care The patient's right to privacy is maintained The patient's value system, lifestyle, ethnicity, and culture are considered, respected, and incorporated into the perioperative plan of care The patient participates in decisions affecting his or her perioperative plan of care The patient is free from signs and symptoms of infection The patient has wound/tissue perfusion consistent with or improved from baseline levels established preoperatively The patient is at or returning to normothermia at the conclusion of the immediate postoperative period The patient's respiratory function is consistent with or improved from baseline levels established preoperatively The patient's cardiovascular status is consistent with or improved from baseline levels established preoperatively The patient's cardiovascular status is consistent with or improved from baseline levels established preoperatively The patient demonstrates and/or reports adequate pain control throughout the perioperative period The patient received appropriate medication(s), safely administered during the perioperative period Acuity Level PACU I FT Entry 1 Start Time 02/14/24 11:52:00 Stop Time 02/14/24 12:30:00 Acuity Level Acuity Level I Last Modified By: Diann Hines RN 02/14/24 13:18:32 Finalized By: Diann Hines RN Document Signatures Signed By: Diann Hines RN 02/14/24 13:18 Diann Hines RN 02/14/24 13:18 Normal [facility] Main OR Preoperative Recordo n 02-14-2024 Main OR Preoperative Record Main OR Preoperative Record PreOp Document Type FT Summary Primary Physician: Gavin Schmitt DO Finalized Date/Time: 02/14/24 14:44:34 Pt. Name: MATEUS CARMICHAEL/Sex: 1970 Female Med Rec #: [id number] Physician: Gavin Schmitt DO Financial #: [id number] Pt. Type: O Room/Bed: [place] [address] Admit/Disch: 02/14/24 06:17:09 - Institution: Case Times PreOp FT Pre-Care Text: Verifies consent for planned procedure, identifies individual values and wishes concerning care, includes family members in perioperative teaching Entry 1 Patient Times. In Pre Surgery 02/14/24 06:25:00 Out Pre Surgery 02/14/24 09:22:00 Outcomes Met? Yes Last Modified By: Wayne Jorge 02/14/24 14:44:33 Post-Care Text: The patient participates in decisions affecting his or her perioperative plan of care Finalized By: Wayne Jorge Document Signatures Signed By: Wayne Jorge 02/14/24 14:44 Normal [facility] Operative Reporton Operative Report Operative Report Patient: MATEUS CARMICHAEL Age: 54 years Sex: Female : 1970 Associated Diagnoses: None Author: Gavin Schmitt DO DATE OF SURGERY: 02/14/2024 SURGEON: Gavin Schmitt D.O. DIRECTOR OF OPTIMIZATION: Leslie Lopez CFA PREOPERATIVE DIAGNOSIS: Advanced degenerative osteoarthrosis, left knee POSTOPERATIVE DIAGNOSIS: Advanced degenerative osteoarthrosis, left knee OPERATION: Left total knee arthroplasty utilizing Gege DEVAUGHN robotic arm assistance compounded by obesity with BMI > 40 ANESTHESIA: Spinal + regional block ASSEMBLER FOR PULLER OVER MACHINE: Nicky Castro CRNA and Quirino Wright DO IMPLANTS USED: [place] [employer] Total Knee System 1. size 2 cruciate retaining cementless femur 2. Size 10 mm X3 CS polyethylene 3. Size 2 Tritanium cementless tibial baseplate 4. Size 29 mm asymmetric Tritanium cementless patella OPERATIVE INDICATIONS: Mateus is a 54-year-old female who has had persistent left knee pain despite numerous conservative measures. Her pain interferes with her activities of daily living, ability to sleep at night, and quality of life. Her pain has gotten progressively worse over time. She agreed to proceed with the above procedure after a discussion of the risks, benefits, complications, alternatives, and expectations. Please see office notes for further details. The patient's surgery was preplanned utilizing CT scan and [employer] software. This included the planned implant sizes and positions, bone resection, and ligament balancing. Modifications to the plan were made intraoperatively as appropriate. PROCEDURE: The correct operative site was identified and marked in the preoperative holding area. The patient was administered intravenous antibiotics in accordance with SCIP Protocol. She was also given a gram of tranexamic acid intravenously about 15 minutes prior to incision. She was transported to the Regional Anesthetic Block Room and administered a regional anesthetic nerve block by the anesthesiologist. I requested the nerve block to assist with intraoperative and postoperative pain control. She was transported to the Operating Room and administered a spinal anesthetic. She was then placed supine on the operating room table and a well padded tourniquet was applied to the operative upper thigh. The left upper extremity was secured across the patient's torso. The operative lower extremity was then prepped and draped in the usual sterile fashion. The foot was placed into a padded díaz and secured in the Elect[employer] knee positioner. Surgical time-out was performed with all required personnel present. The limb was exsanguinated with an Esmarch. Tourniquet was inflated to 300 mm Hg. A longitudinal incision over the anterior knee was made. Medial and lateral skin flaps were developed. Dissection was carried down through the subcutaneous layers. Medial parapatellar arthrotomy was performed and normal appearing joint fluid was encountered and suctioned. The intermeniscal ligament was then cut and soft tissue at the medial tibial plateau was peeled off of the bone with Bovie electrocautery. The fat pad was sharply excised. Tourniquet was deflated at 9 minutes and adequate perfusion was noted to return to the extremity. Areas of active bleeding were cauterized with the Bovie and Aquamantys. The tibial pins for the tibial array were placed through 2 stab incisions along the medial aspect of the proximal tibia. The tibial array was placed onto the pins and secured. The distal femoral pins for the femoral array were placed in the medial femoral condyle. The femoral array was affixed to the pins. The registration device was then placed into the distal femur just distal to the array pins along the medial femoral condyle. The tibial registration device was placed along the medial tibia distal to the planned tibial resection. The hip center, medial and lateral malleoli were registered. Registration points along the distal femur and proximal tibia were captured. Osteophytes were removed with a rongeur. Range of motion of the knee was then assessed with the computer. The patient had 1 degree of recurvatum and 6 degrees of varus. Preliminary ligament balancing was performed with the tensioning spoons in both flexion and extension and these values were captured by the computer. Adjustments to the planned resection were made to balance the ligaments. The self-retaining medial and lateral retractors were then placed and secured to the leg díaz. Bone resection was then performed with computer guidance using the saw attached to the [employer] robotic arm. Femoral cuts were made including anterior, posterior, and chamfer cuts. The tibial cut was then made in the same fashion. The resected bone fragments were removed with osteotomes and freed from tissue with the bovie. Lamina product applications engineer was placed into the joint. Remaining meniscus and soft tissue were removed from the medial and lateral (more content not included)... Normal [facility] Comment on above: Result Comment: Elec tronically Signed By: Gavin Schmitt DO\.br\Date and Time Signed: 02/14/24 14:59 EST Outpatient Surgery Discharge Instructionon 02-14-2024 Outpatient Surgery Discharge Instruction Outpatient Surgery Discharge Instruction [address] [address] Patient Discharge Instructions PERSON INFORMATION Name: MATEUS CARMICHAEL [place] Date of : 1970 Current Date: 02/14/2024 07:42:23 PHYSICIANS Admitting Physician: Gavin Schmitt DO Discharge Diagnosis: Degenerative arthritis of left knee MATEUS CARMICHAEL has been given the following list of follow-up instructions, prescriptions, and patient education materials: IF UNABLE TO CONTACT YOUR PHYSICIAN AND YOU FEEL IT IS AN EMERGENCY, GO TO THE NEAREST EMERGENCY ROOM OR CALL 911 I, MATEUS CARMICHAEL, have received the attached patient education materials/instruction s and have verbalized understanding: May we do a follow up call? Yes No I was present when discharge instructions were given Patient Signature Date Clinican/Nurse Signature Date Follow up: With: Address: When: Gavin Schmitt [address] [place] [address] Business (1) Pharmacy Information: You may receive a survey from Iain Garcia asking you to rate your care experience. Your feedback is important and will help us understand what we do well and how we can improve the quality of care we provide to you, your loved ones and our community. It???s an honor to serve you. Thank you for choosing [facility] HERE ARE THE MEDICATION CHANGES THAT OCCURRED DURING YOUR HOSPITAL STAY New Medications [facility]/pharmacy #[id number], [address], [place] [id number], [phone] acetaminophen (acetaminophen 500 mg Tab) 1 Tablets By Mouth every 4 hours. Refills: 0. aspirin (aspirin 81 mg Oral EC Tab) 1 Tablets By Mouth every day for 60 Days. Refills: 0. celecoxib (CeleBREX 200 mg Cap) 1 Capsules By Mouth every day for 14 Days. Refills: 0. cephalexin (Keflex 500 mg Cap) 1 Capsules By Mouth every 8 hours for 7 Days. Refills: 0. gabapentin (gabapentin 300 mg Cap) 1 Capsules By Mouth 3 times a day for 14 Days. Refills: 0. oxycodone (oxyCODONE 5 mg Tab) 1-2 tab(s) Oral q4hr; as needed for pain. Refills: 0. Medications to Continue Taking That Have Changed [facility]/pharmacy #[id number], [address] [place], [place] [id number], [phone] START: docusate (Colace 100 mg Cap) 1 Capsules By Mouth 2 times a day as needed for constipation. Refills: 0. START: ondansetron (Zofran ODT 4 mg Tab) 1 Tablets By Mouth every 8 hours as needed Nausea/Vomiting. Refills: 0. Other Medications START: docusate (Colace 100 mg Cap) 1 Capsules By Mouth 2 times a day as needed for constipation. Refills: 0. START: ondansetron (Zofran ODT 4 mg Tab) 1 Tablets By Mouth 3 times a day as needed Nausea/Vomiting. Refills: 0. Medications to Continue with No Changes Other Medications aclidinium (Tudorza Pressair 400 mcg/inh inhalation powder) 1 Puffs Inhalation 2 times a day as needed Shortness of breath or wheezing., only uses when sick albuterol (albuterol HFA 90 mcg/inh MDI) 1 Puffs Inhalation 4 times a day as needed Shortness of breath or wheezing., only uses when sick carvedilol (carvedilol 12.5 mg Tab) 1 Tablets By Mouth 2 times a day. cholecalciferol (Vitamin D3 5000 intl units oral capsule) 2 Capsules By Mouth at bedtime. with food. esomeprazole (Nexium 40 mg Cap-EC) 1 Capsules By Mouth at bedtime. ferric maltol (Accrufer 30 mg oral capsule) 1 Capsules By Mouth every day. hydrochlorothiazide-t riamterene (Dyazide 25 mg-37.5 mg Cap) 1 Capsules By Mouth every day. hydroxychloroquine (Plaquenil) 200 Milligram By Mouth 2 times a day. levothyroxine 150 Microgram By Mouth every day. rizatriptan (Maxalt 10 mg Tab) 1 Tablets By Mouth Once as needed Migraine headache. may repeat dose once in 2 hours. scopolamine (scopolamine 1 mg/72 hr transdermal film, extended release) 1 Patches Transdermal every 72 hours as needed Nausea. No Longer Take the Following Medications acetaminophen-tramado l (Ultracet) 1 Tablets By Mouth every 12 hours., 50 mg tramadol (traMADOL 50 mg Tab) 1-2 tabs By Mouth every 6 hours as needed Pain. Refills: 0. PATIENT EDUCATION INFORMATION Instructions: [place], [place] [facility] DISCHARGE INSTRUCTIONS: TOTAL KNEE ARTHROPLASTY INCISION CARE: The bandage may be changed by your home Physical Therapist at 7 days postoperatively and worn an additional 7 days. A new Mepilex bandage should then be placed. The bandage is waterproof, so you may shower at home. Steri-strips (paper tape strips) may be applied to the incision if any slight wound separation is noted. These should remain in place for five days and then they may come off in the (more content not included)... Normal [facility] Proceduralon 02-14-2024 Procedural Procedural Patient: MATEUS CARMICHAEL Age: 54 years Sex: Female : 1970 Associated Diagnoses: None Author: Nicky Castro CRNA Procedure Nerve Block Block Type: Adductor canal block. Laterality: Left. Informed consent for anesthesia management: Anesthesia options discussed including nerve block, Description of the procedure, risks, benefits, and alternatives was provided, The patient's questions were addressed. Time out: Confirmed correct patient, procedure and site. Time: Date/Time 02/14/2024 08:08:00. Indication: Block for postoperative pain management as requested by surgeon. Anesthesia Method: IV Sedation with monitored anesthesia care, The patient remained awake and able to interact in a meaningful way throughout the procedure. Preparation: The patient was placed in the following position Supine, Continuous pulse oximetry applied, Guidance (Ultrasound used to identify anatomical landmarks, Permanent image retained, Using sterile gel, probe cleansed with antibacterial wipe.), The site was prepped with Betadine. Procedure: Anesthetic Agent (Total volume: 20 ml, Ropivacaine 0.5%, Decadron PF 4 mg), Needle was inserted without pain or parasthesia in the conscious patient, Number of attempts 1, Negative attempt at aspiration for blood, Periodic negative attempts at aspiration of blood were made as the local was injected, No pain or parathesia were elicited with injection of the anesthetic in the conscious patient, It was idetified that the correct anesthetic agent was administered to the correct site. Complications: The patient tolerated the procedure as expected. Normal [facility] XR Knee 1 or 2 Views Lefton 02-14-2024 XR Knee 1 or 2 Views Left Exam Date/Time: 02/14/2024 12:16 EST Reason for Exam: Post-op evaluation;Other (please specify) Report IMPRESSION: NEGATIVE POSTOPERATIVE LEFT KNEE. CLINICAL HISTORY: Post-op evaluation COMPARISON: MRI knee, April 12, 2018 FINDINGS: Placement of bipolar noncemented left knee replacement. No fracture. No abnormal lucency bone prosthetic interface. Ordering Provider: Gavin Schmitt FINAL REPORT Dictated: 02/14/2024 12:37 pm Danilo Johansen MD Signed (Electronic Signature): 02/14/2024 12:37 pm Signed by: Danilo Johansen MD Transcribed by: VIOLETA Technologist: LANDON Technical Comments Radiation Dose: Ka,r in mGy = na DAP = na Normal [facility] US PELVISon 02-08-2024 US PELVIS EXAM: Pelvic Ultrasound, Transabdominal: REASON FOR EXAM: Adnexal cyst. COMPARISON: None. TECHNIQUE: Transabdominal scanning was performed, including color Doppler. FINDINGS: Bladder: Smooth, normal margins. No obvious masses or diverticula. Uterus and cervix: Status post hysterectomy. Cul-de-sac: No significant free fluid present. Right Ovary: Absent. Left Ovary: A simple cyst measures 4.3 x 2.6 x 4.0 cm. Blood flow is intact to the left ovary. Measurements: Uterus: Absent Right Ovary: Absent Left Ovary: 4.9 x 4.4 x 4.4 cm IMPRESSION, Transabdominal Pelvic Ultrasound: Cyst or cystic mass of the left ovary. Followup is recommended. *This report is generated using voice recognition reporting ([employer]). On occasion [employer] erroneously drops words from the report or replaces the spoken word with similar sounding words. Please call with any questions/concerns regarding this report.* Dictated and transcribed 02/09/2024/pao This report has been electronically signed and approved by the interpreting radiologist. Normal Not Available CT Lower Extremity w/o Contr ast Lefton 02-05-2024 CT Lower Extremity w/o Contrast Left Exam Date/Time: 01/31/2024 13:42 EST Reason for Exam: LEFT KNEE OA Report IMPRESSION: LEFT KNEE OSTEOARTHRITIS. LEFT ADNEXAL CYSTIC STRUCTURE MOST LIKELY REPRESENTS AN OVARIAN CYST HOWEVER PELVIC ULTRASOUND IS RECOMMENDED TO FURTHER EVALUATE. EXAMINATION: CT Lower Extremity w/o Contrast Left HISTORY: Left knee osteoarthritis TECHNIQUE: Multiple contiguous axial images were obtained of the left lower extremity utilizing Devaughn protocol. Multiplanar reformats were obtained. COMPARISON: None available FINDINGS: Degenerative changes including joint space narrowing and marginal osteophyte formation of the right knee. No acute fracture. Small knee joint effusion. Mild Achilles tendinosis. A 5 cm cystic lesion within the left adnexa is most likely an ovarian cyst however is incompletely evaluated on this examination. All CT scans at this facility use dose modulation, iterative reconstruction, and/or weight based dosing when appropriate to reduce radiation dose to as low as reasonably achievable. Ordering Provider: Gavin Schmitt FINAL REPORT Dictated: 02/05/2024 2:37 pm Christopher Stallworth DO Signed (Electronic Signature): 02/05/2024 2:37 pm Signed by: Christopher Stallworth DO Transcribed by: VIOLETA Technologist: ANNA Normal [facility] 36on 02-02-2024 36 Regarding stress lakshmi t result from 01/29/2024: MD Rochelle Maier MA Her stress test is nonischemic, she would be at acceptable risk to proceed with surgery with no further cardiovascular testing needed. Recommend strict heart rate and blood pressure control and avoidance of major fluid shifts perioperatively. Thanks Note faxed to GUZMAN Garcia. Normal [facility] ABO/Rh Retypeon 01-31-2024 ABO/Rh Retype Interp Positive Invalid Interpretation Code [facility] Comment on above: Performed By: #### 1 [id number] #### [facility] [address] [place] [address] BLOOD BANKOrdered By: Shiela Gibson on 01-31-2024 ABO/Rh Retype Interp Positive Invalid Interpretation Code [facility] BB Subsection CHEMISTRYOrdered By: SYSTEM SYSTEM on 01-31-2024 Anion gap [Moles/Vol] 13 mmol/L Normal 6 - 16 mEq/L [facility] Calcium [Mass/Vol] 9.0 mg/dL Normal 8.9 - 11. 1 mg/dL [facility] Chloride [Moles/Vol] 102 mmol/L Normal 101 - 1 11 mmol/L [facility] CO2 [Moles/Vol] 27 mmol/L Normal 21 - 31 mmol/L [facility] Creatinine [Mass/Vol] 0.6 mg/dL Normal 0.5 - 1.3 mg/dL [facility] Chem eGFR 107 mL/min/1.73 m2 Normal >=59mL/mi n/ 1.73 m2 [facility] Glucose [Mass/Vol] 171 mg/dL Normal 55 - 199 mg/dL [facility] Potassium [Moles/Vol] 3.6 mmol/L Normal 3.5 - 5.3 mmol/L [facility] Sodium [Moles/Vol] 138 mmol/L Normal 135 - 145 mmol/L [facility] Urea nitrogen [Mass/Vol] 9 mg/dL Normal 5 - 21 mg/dL [facility] Urea nitrogen/Creatinine [Mass ratio] 15 mg/mg Normal 10 - 20 [facility] Chem HEMATOLOGYOrdered By: SYSTEM SYSTEM on 01-31-2024 Basophils/100 WBC (Bld) 0.6 % Normal 0.0 - 2.0 % [facility]e Basophils/Leukocytes Auto (Bld) [Pure # fraction] 0.0 E9/L Normal 0.0 - 0.2 E9/L [facility] Eosinophils (Bld) [#/Vol] 0.2 E9/L Normal 0.0 - 0.5 E9/L [facility] Eosinophils/100 WBC (Bld) 3.0 % Normal 0.0 - 8.0 % [facility] Erythrocyte distribution width (RBC) [Ratio] 14.7 % High 10.9 - 14.2 % [facility] Hematocrit (Bld) [Volume fraction] 39.5 % Normal 34.0 - 46.0 % [facility] Hemoglobin (Bld) [Mass/Vol] 13.3 g/dL Normal 12.0 - 16.0 gm/dL [facility] Lymphocytes (Bld) [#/Vol] 2.4 E9/L Normal 1.0 - 4.0 E9/L [facility] Lymphocytes/100 WBC (Bld) 32.1 % Normal 14.0 - 50.0 % [facility] MCH (RBC) [Entitic mass] 26.9 pg Low 27.0 - 34.0 pg [facility] MCHC (RBC) [Mass/Vol] 33.7 g/dL Normal 31.4 - 36.0 gm/dL [facility] MCV (RBC) [Entitic vol] 80.0 fL Normal 80.0 - 100.0 fL [facility] Monocytes (Bld) [#/Vol] 0.7 E9/L Normal 0.2 - 1.0 E9/L [facility] Monocytes/100 WBC (Bld) 9.0 % Normal 4.0 - 14.0 % [facility] Neutrophils (Bld) [#/Vol] 4.2 E9/L Normal 2.0 - 7.5 E9/L [facility] Neutrophils/100 WBC (Bld) 55.3 % Normal 36.0 - 75.0 % [facility] Platelet 312.0 E9/L Normal 150.0 - 500.0 E9/L [facility] Platelet mean volume (Bld) [Entitic vol] 7.8 fL Normal 6.4 - 10.8 fL [facility] RBC (Bld) [#/Vol] 4.9 E12/L Normal 4.3 - 5.9 E12/L [facility] WBC corrected for nucl RBC Auto (Bld) [#/Vol] 7.5 E9/L Normal 4.0 - 11.0 E9/L [facility] URINALYSISOrdered By: SYSTEM SYSTEM on 01-31-2024 Bilirubin Ql (U) Negative Normal Negativemg/ dL [facility] UA Auto SS Clarity (U) Clear (01/31/24 1:10 PM) Normal Clear [facility] UA Auto SS Color (U) Colorless 1 *ABN* (01/31/24 1:10 PM) Invalid Interpretation Code Yellow [facility] Auto SS Comment on above: Interpretive Data: M icroscopic readings are only performed on those samples that meet specific criteria set forth by [facility]. Glucose Ql (U) Negative Normal Negativemg/ dL [facility] UA Auto SS Hemoglobin Auto test strip (U) [Mass/Vol] Negative Normal Negativemg/ dL [facility] UA Auto SS Ketones Auto test strip Ql (U) Negative Normal Negativemg/ dL [facility] UA Auto SS Leukocyte esterase Auto test strip Ql (U) Negative Normal NegativeLeu /uL [facility]A Auto SS Nitrite Auto test strip Ql (U) Negative Normal Negativemg/ dL [facility] UA Auto SS pH (U) 6.0 *NA* (01/31/24 1:10 PM) Invalid Interpretation Code 5.0 - 9.0 [facility] UA Auto SS Protein Ql (U) Negative Normal Negativemg/ dL [facility] UA Auto SS Specific gravity (U) [Rel density] 1.006 *NA* (01/31/24 1:10 PM) Invalid Interpretation Code 1.005 - 1.030 [facility] UA Auto SS Urobilinogen (U) [Mass/Vol] Negative Normal Negativemg/ dL [facility] UA Auto SS URINALYSISOrdered By: Ramon Mccauley on 01-31-2024 UA Spec Desc Clean Catch (01/31/24 1:10 PM) Normal [facility] UA Auto SS Office Visiton 01-10-2024 Follow-up visit [id number] Mateus Carmichael 1970 F Date Provider Department Center 01/10/2024 [facility]JAN [facility] Family History Problem Relation Age of Onset Coronary artery disease Father Heart disease Father Family Status - Relation Status Age at Father Level of Service:[address] [place] OFFICE/OUTPATIENT ESTABLISHED MOD MDM 30 MIN Normal [facility] Alanine aminotransferase [En zymatic activity/volume] in Serum or PlasmaOrdered By: Maggie Sharpe on 11-15-2023 ALT [Catalytic activity/Vol] 29 U/L Normal 7-52 [facility] Comment on above: Performed By: #### E SR, CMP, CBC #### [facility] [address] [place] [address] [place] Albumin [Mass/volume] in Ser um or Plasma by Bromocresol green (BCG) dye binding methoOrdered By: Maggie Sharpe on 11-15-2023 Albumin BCG dye [Mass/Vol] 4.4 g/dL 3.5-5.7 [facility] Alkaline phosphatase [Enzyma tic activity/volume] in Serum or PlasmaOrdered By: Maggie Sharpe on 11-15-2023 ALP [Catalytic activity/Vol] 73 U/L Normal 34-104 [facility] Comment on above: Result Comment: PERF ORMED BY: [place] [address] PATHOLOGIST FEED CRUSHER ANAT QUINN M.D. Performed By: #### E SR, CMP, CBC #### [facility] [address] [place] [address] Aspartate aminotransferase [ Enzymatic activity/volume] in Serum or PlasmaOrdered By: Maggie Sharpe on 11-15-2023 AST [Catalytic activity/Vol] 25 U/L Normal 13-39 [facility] Comment on above: Performed By: #### E SR, CMP, CBC #### [facility] [address] [place] [address] [place] Automated basophil %Ordered By: Maggie Sharpe on 11-15-2023 Basophils/100 WBC (Bld) 0.7 % Normal . [facility] Comment on above: Performed By: #### E SR, CMP, CBC #### [facility] [address] [place] [address] [place] Automated basophil countOrde red By: Maggie Sharpe on 11-15-2023 Basophils (Bld) [#/Vol] 0.1 10*3/uL Normal 0.0-0.2 [facility] Comment on above: Performed By: #### E SR, CMP, CBC #### [address] Automated blood monocyte cou ntOrdered By: Maggie Sharpe on 11-15-2023 Monocytes (Bld) [#/Vol] 0.7 10*3/uL Normal 0.0-0.8 [facility] Comment on above: Performed By: #### E SR, CMP, CBC #### [address] Automated eosinophil %Ordere d By: Maggie Sharpe on 11-15-2023 Eosinophils/100 WBC (Bld) 2.6 % Normal . [facility] Comment on above: Performed By: #### E SR, CMP, CBC #### [address] Automated eosinophil countOr dered By: Maggie Sharpe on 11-15-2023 Eosinophils (Bld) [#/Vol] 0.2 10*3/uL Normal 0.0-0.45 [facility] Comment on above: Performed By: #### E SR, CMP, CBC #### [address] Automated monocyte %Ordered By: Maggie Sharpe on 11-15-2023 Monocytes/100 WBC (Bld) 8.0 % Normal . [facility] Comment on above: Performed By: #### E SR, CMP, CBC #### [address] Automated neutrophil %Ordere d By: Maggie Sharpe on 11-15-2023 Neutrophils/100 WBC (Bld) 60.4 % Normal . [facility] Comment on above: Performed By: #### E SR, CMP, CBC #### [address] Bilirubin.total [Mass/volume ] in Serum or PlasmaOrdered By: Maggie Sharpe on 11-15-2023 Bilirubin [Mass/Vol] 0.5 mg/dL Normal 0.3-1.0 [facility] Comment on above: Performed By: #### E SR, CMP, CBC #### [address] Calcium [Mass/volume] in Ser um or PlasmaOrdered By: Maggie Sharpe on 11-15-2023 Calcium [Mass/Vol] 9.7 mg/dL Normal 8.6-10.3 [facility] Comment on above: Performed By: #### E SR, CMP, CBC #### [address] Carbon dioxide, total [Moles /volume] in Serum or PlasmaOrdered By: Maggie Sharpe on 11-15-2023 CO2 [Moles/Vol] 27.5 mmol/L Normal 21.0-31.0 [facility] Comment on above: Performed By: #### E SR, CMP, CBC #### [address] Chloride [Moles/volume] in S thompson or PlasmaOrdered By: Maggie Sharpe on 11-15-2023 Chloride [Moles/Vol] 102 mmol/L Normal 98-107 [facility] Comment on above: Performed By: #### E SR, CMP, CBC #### [address] Complete Blood Count Auto Di ffon 11-15-2023 Mean Corpuscular HGB Conc 33.3 g/dL Normal 32.0-35.0 [facility] Comment on above: Performed By: #### E SR, CMP, CBC #### [address] NRBC% 0.2 /100{WBC} Normal 0-0.5 [facility] Comment on above: Performed By: #### E SR, CMP, CBC #### [place] [address] Comprehensive Metabolic Pane ragini 11-15-2023 Albumin [Mass/Vol] 4.4 g/dL Normal 3.5-5.7 [facility] Comment on above: Performed By: #### E SR, CMP, CBC #### [address] GFR/1.73 sq M.predicted MDRD (S/P/Bld) [Vol rate/Area] mL/min/{1.73_m2} Normal [facility] Comment on above: Performed By: #### E SR, CMP, CBC #### [address] Creatinine [Mass/volume] in Serum or PlasmaOrdered By: Maggie Sharpe on 11-15-2023 Creatinine [Mass/Vol] 0.54 mg/dL Low 0.60-1.20 [facility] Comment on above: Performed By: #### E SR CMP, CBC #### [address] Erythrocyte Sedimentation Ra bandar 11-15-2023 ESR (Bld) [Velocity] 15 mm/h Normal 0-29 [facility] Comment on above: Result Comment: PERF ORMED BY: [place] [address] PATHOLOGIST FEED CRUSHER ANAT QUINN M.D. Performed By: #### E SR, CMP, CBC #### [address] Erythrocyte distribution wid th [Ratio] by Automated countOrdered By: Maggie Sharpe on 11-15-2023 Erythrocyte distribution width (RBC) [Ratio] 14.5 % Normal 11.9-15.3 [facility] Comment on above: Performed By: #### E SR, CMP, CBC #### [address] Erythrocyte sedimentation ra te by Photometric methodOrdered By: Maggie Sharpe on 11-15-2023 ESR Photometric method (Bld) [Velocity] 15 mm/hr 0-29 [facility] Erythrocytes [#/volume] in B lood by Automated countOrdered By: Maggie Sharpe on 11-15-2023 RBC (Bld) [#/Vol] 4.89 10*6/uL Normal 3.60-5.00 [facility] Comment on above: Performed By: #### E SR, CMP, CBC #### [facility] [address] [place] [address] [place] Glucose [Mass/volume] in Ser um or PlasmaOrdered By: Maggie Sharpe on 11-15-2023 Glucose [Mass/Vol] 132 mg/dL High 70-100 [facility] Comment on above: ADA recommended refe rence rangeRandom Glucose Reference Range is dependent on time and content of last meal. Glucose of more than 200 mg/dL in a nonstressed, ambulatory subject supports the diagnosis of Diabetes Mellitus. Result Comment: [place] Glucose Reference Range is dependent on time and content of last meal. Glucose of more than 200 mg/dL in a nonstressed, ambulatory subject supports the diagnosis of Diabetes Mellitus. ADA recommended reference range Performed By: #### E SR CMP, CBC #### [facility] [address] [place] [address] [place] Hematocrit [Volume Fraction] of Blood by Automated countOrdered By: Maggie Sharpe on 11-15-2023 Hematocrit (Bld) [Volume fraction] 39.1 % Normal 34.0-46.4 [facility] Comment on above: Performed By: #### E SR CMP, CBC #### [facility] [address] [place] [id number] [place] Hemoglobin [Mass/volume] in BloodOrdered By: Maggie Sharpe on 11-15-2023 Hemoglobin (Bld) [Mass/Vol] 13.0 g/dL Normal 11.8-15.4 [facility] Comment on above: Performed By: #### E SR, CMP, CBC #### [facility] [address] [place] [id number] [place] Leukocytes [#/volume] correc brandi for nucleated erythrocytes in Blood by Automated counOrdered By: Maggie Sharpe on 11-15-2023 WBC corrected for nucl RBC Auto (Bld) [#/Vol] 8.5 10*3/uL 3.8-11.6 [facility] Leukocytes [#/volume] in Blo od by Automated countOrdered By: Maggie Sharpe on 11-15-2023 WBC (Bld) [#/Vol] 8.5 10*3/uL Normal 3.8-11.6 [facility] Comment on above: Performed By: #### E SR, CMP, CBC #### [facility] [address] Lymphocytes [#/volume] in Bl ood by Automated countOrdered By: Maggie Sharpe on 11-15-2023 Lymphocytes (Bld) [#/Vol] 2.4 10*3/uL Normal 1.00-4.8 [facility] Comment on above: Performed By: #### E SR, CMP, CBC #### [facility] [address] [place] [address] [place] Lymphocytes/100 leukocytes i n Blood by Automated countOrdered By: Maggie Sharpe on 11-15-2023 Lymphocytes/100 WBC (Bld) 28.3 % Normal . [facility] Comment on above: Performed By: #### E SR, CMP, CBC #### [facility] [address] MCH [Entitic mass] by Automa brandi countOrdered By: Maggie Sharpe on 11-15-2023 MCH (RBC) [Entitic mass] 26.6 pg Normal 24.7-34.3 [facility] Comment on above: Performed By: #### E SR, CMP, CBC #### [facility] [address] [place] [address] MCHC Auto (RBC) [Mass/Vol]Or dered By: Maggie Sharpe on 11-15-2023 MCHC (RBC) [Mass/Vol] 33.3 g/dL 32.0-35.0 [facility] MCV [Entitic volume] by Auto mated countOrdered By: Maggie Sharpe on 11-15-2023 MCV (RBC) [Entitic vol] 80.0 fL Normal 80-100 [facility] Comment on above: Performed By: #### E SR, CMP, CBC #### [facility] [address] [place] [address] Neutrophils [#/volume] in Bl ood by Automated countOrdered By: Maggie Sharpe on 11-15-2023 Neutrophils (Bld) [#/Vol] 5.1 10*3/uL Normal 1.8-7.7 [facility] Comment on above: Performed By: #### E SR, CMP, CBC #### [facility] [address] [place] [address] No Panel InformationOrdered By: Maggie Sharpe on 11-15-2023 Estimated GFR (CKD-EPI) > 60.0 mL/Min [facility] Creatinine Clearance (Chem N/A [facility] Nucleated erythrocytes [Pres ence] in Blood by Automated countOrdered By: Maggie Sharpe on 11-15-2023 Nucleated RBC Auto Ql (Bld) 0.2 /100{WBC} 0-0.5 [facility] Platelet mean volume [Entiti c volume] in Blood by Automated countOrdered By: Maggie Sharpe on 11-15-2023 Platelet mean volume (Bld) [Entitic vol] 8.1 fL Normal 6.3-10.7 [facility] Comment on above: Performed By: #### E SR, CMP, CBC #### [facility] [address] [place] [address] Platelets [#/volume] in Bloo d by Automated countOrdered By: Maggie Sharpe on 11-15-2023 Platelets (Bld) [#/Vol] 327 10*3/uL Normal 150-450 [facility] Comment on above: Performed By: #### E SR, CMP, CBC #### [facility] [address] [place] [address] Potassium [Moles/volume] in Serum or PlasmaOrdered By: Maggie Sharpe on 11-15-2023 Potassium [Moles/Vol] 4.1 mmol/L Normal 3.5-5.1 [facility] Comment on above: Performed By: #### E GA WALKER, CBC #### [address] Protein [Mass/volume] in Ser um or PlasmaOrdered By: Maggie Sharpe on 11-15-2023 Protein [Mass/Vol] 7.0 g/dL Normal 6.4-8.9 [facility] Comment on above: Performed By: #### E SR CMP, CBC #### [address] Serum globulin measurement b y calculation (mass/volume)Ordered By: Maggie Sharpe on 11-15-2023 Globulin (S) [Mass/Vol] 2.6 g/dL Normal [facility] Comment on above: Performed By: #### E GA WALKER, CBC #### [address] Serum or plasma albumin/glob ulin mass ratioOrdered By: Maggie Sharpe on 11-15-2023 Albumin/Globulin [Mass ratio] 1.7 {ratio} Normal [facility] Comment on above: Performed By: #### E GA WALKER, CBC #### [address] Serum or plasma anion gap de terminationOrdered By: Maggie Sharpe on 11-15-2023 Anion gap [Moles/Vol] 13.6 mmol/L Normal 6.0-15.[address] [facility] Comment on above: Performed By: #### E SR CMP, CBC #### [place] [address] [place] Sodium [Moles/volume] in Ser um or PlasmaOrdered By: Maggie Sharpe on 11-15-2023 Sodium [Moles/Vol] 139 mmol/L Normal 136-145 [facility] Comment on above: Performed By: #### E SR CMP, CBC #### [address] Urea nitrogen [Mass/volume] in Serum or PlasmaOrdered By: Maggie Sharpe on 11-15-2023 Urea nitrogen [Mass/Vol] 9 mg/dL Normal 7-25 [facility] Comment on above: Performed By: #### E SR, CMP, CBC #### [facility] [address] [id number] [facility] No Panel Informationon 10-19 Lesion length (cm): 1.5 Lesion width (cm): 1.3 Margin per side (cm): 0.3 Total excision diameter (cm): 2.1 Informed consent: discussed and consent obtained Informed consent comment: Risks and possible complications were discussed as noted on the consent form. The consent form was signed prior to the procedure. Timeout: patient name, date of , surgical site, and procedure verified Timeout comment: Patient and provider identified site. Site was marked and excision was drawn out. Photo was taken and shown to patient, patient verified this is the correct site. Procedure prep: Patient was prepped and draped in usual sterile fashion (The planned incision lines were drawn along relaxed skin tension lines, if possible, to minimize scarring and deformity of surrounding structures.) Prep type: Chlorhexidine Anesthesia: the lesion was anesthetized in a standard fashion Anesthesia comment: The local anesthetic was injected to create a field block at the site of the procedure. Anesthetic: 1% lidocaine w/ epinephrine 1-100,000 buffered w/ 8.4% NaHCO3 Instrument used: #15 blade Instrument used comment: Incisions were made as drawn, and the surrounding tissue was undermined until the skin edges could be approximated without undue tension. Any tissue redundancies were removed. Hemostasis achieved with: electrodesiccation Additional details: Amount of lidocaine used: 7 ml Estimated blood loss: < 1 ml [facility] Healthcare Complexity: Intermediate Final length (cm): 3.5 Reason for type of repair: allow closure of the large defect Undermining: edges undermined Undermining comment: The surrounding tissue was undermined until the skin edges could be approximated without undue tension. Any tissue redundancies were removed. Subcutaneous layers (deep stitches): Suture size: 3-0 (Biosyn) Stitches: Buried horizontal mattress (Closure was performed in a layered fashion with subcutaneous tissue closed first using tension-bearing absorbable sutures to the level of the superficial fascia.) Fine/surface layer approximation (top stitches): Fine approximation suture size: Cheko. Suture removal (days): 14 Outcome: patient tolerated procedure well with no complications Post-procedure details: sterile dressing applied and wound care instructions given Post-procedure details comment: It was emphasized to the patient to contact the office for any signs of infection, uncontrollable bleeding, or complications. Dressing type: bandage [facility] MR KNEE LEFT WO IV CONTRASTo n 07-25-2023 MR KNEE LEFT WO IV CONTRAST Exam: MR KNEE LEFT WO IV CONTRAST History: Lateral knee pain. Meniscus tear. Technique: Multiplanar multisequence MRI of the knee was performed without contrast. Comparison: Radiographs July 04, 2023 Findings: Quadriceps and patellar tendons are intact. Small joint effusion. Anterior and posterior cruciate ligaments are intact. The medial collateral ligament, lateral collateral ligament, and popliteus are intact. Evaluation of the menisci is suboptimal secondary to motion artifact on the coronal proton density sequence. Horizontal tear of the body through posterior horn of the medial meniscus. No definitive tear of the lateral meniscus. 12 mm high-grade partial-thickness if not full-thickness cartilage defect of the medial tibial plateau. Similar-sized high-grade partial-thickness cartilage loss of the outer weightbearing medial femoral condyle. Full-thickness cartilage loss of the superior median patellar ridge and lateral patellar facet with multiple tiny foci of subcortical bone marrow edema. High-grade partial-thickness cartilage loss of the lateral femoral trochlea. Popliteal fossa structures are intact. Tiny Polanco cyst. IMPRESSION: Horizontal tear of the body through posterior horn of the medial meniscus. Osteoarthritis most significantly involving the patellofemoral compartment. ELECTRONICALLY SIGNED BY: Christopher Stallworth, DO Normal Not Available Comment on above: Order Comment: Kidne y disease Transdermal patch XR Knee - left 3 [facility] Result: X-rays of the knees, bilateral PA WB/sunrise/lateral taken today and saved to the permanent medical record show advanced arthritis in the right knee with complete loss of medial joint space, mild medial compartment joint space narrowing at the left knee, moderate PF arthritis bilaterally. [facility] XR Knee - right 3 [facility] Result: X-rays of the knees, bilateral PA WB/sunrise/lateral taken today and saved to the permanent medical record show advanced arthritis in the right knee with complete loss of medial joint space, mild medial compartment joint space narrowing at the left knee, moderate PF arthritis bilaterally. [facility] No Panel Informationon 07-03 Radiology Study observation (narrative) [facility] Alanine aminotransferase [En zymatic activity/volume] in Serum or PlasmaOrdered By: Maggie Sharpe on 04-04-2023 ALT [Catalytic activity/Vol] 44 U/L Normal 7-52 [facility] Comment on above: Performed By: #### C BC, ESR, CMP #### [facility] [address] Albumin [Mass/volume] in Ser um or Plasma by Bromocresol green (BCG) dye binding methoOrdered By: Maggie Sharpe on 04-04-2023 Albumin BCG dye [Mass/Vol] 4.6 g/dL 3.5-5.7 [facility] Alkaline phosphatase [Enzyma tic activity/volume] in Serum or PlasmaOrdered By: Maggie Sharpe on 04-04-2023 ALP [Catalytic activity/Vol] 71 U/L Normal 34-104 [facility] Comment on above: Result Comment: PERF ORMED BY: [place] [address] PATHOLOGIST FEED CRUSHER ANAT QUINN M.D. Performed By: #### C BC, ESR, CMP #### [address] Aspartate aminotransferase [ Enzymatic activity/volume] in Serum or PlasmaOrdered By: Maggie Sharpe on 04-04-2023 AST [Catalytic activity/Vol] 31 U/L Normal 13-39 [facility] Comment on above: Performed By: #### C BC, ESR, CMP #### [place] [address] [place] Automated basophil %Ordered By: Maggie Sharpe on 04-04-2023 Basophils/100 WBC (Bld) 0.5 % Normal . [facility] Comment on above: Performed By: #### C BC, ESR, CMP #### [place] [address] [place] Automated basophil countOrde red By: Maggie Sharpe on 04-04-2023 Basophils (Bld) [#/Vol] 0.0 10*3/uL Normal 0.0-0.2 [facility] Comment on above: Performed By: #### C BC, ESR, CMP #### [address] Automated blood monocyte cou ntOrdered By: Maggie Sharpe on 04-04-2023 Monocytes (Bld) [#/Vol] 0.7 10*3/uL Normal 0.0-0.8 [facility] Comment on above: Performed By: #### C BC, ESR, CMP #### [address] Automated eosinophil %Ordere d By: Maggie Sharpe on 04-04-2023 Eosinophils/100 WBC (Bld) 4.1 % Normal . [facility] Comment on above: Performed By: #### C BC, ESR, CMP #### [address] Automated eosinophil countOr dered By: Maggie Sharpe on 04-04-2023 Eosinophils (Bld) [#/Vol] 0.3 10*3/uL Normal 0.0-0.45 [facility] Comment on above: Performed By: #### C BC, ESR, CMP #### [address] Automated monocyte %Ordered By: Maggie Sharpe on 04-04-2023 Monocytes/100 WBC (Bld) 10.8 % Normal . [facility] Comment on above: Performed By: #### C BC, ESR, CMP #### [address] Automated neutrophil %Ordere d By: Maggie Sharpe on 04-04-2023 Neutrophils/100 WBC (Bld) 53.0 % Normal . [facility] Comment on above: Performed By: #### C BC, ESR, CMP #### [address] [place] [address] [place] Bilirubin.total [Mass/volume ] in Serum or PlasmaOrdered By: Maggie Sharpe on 04-04-2023 Bilirubin [Mass/Vol] 0.6 mg/dL Normal 0.3-1.0 [facility] Comment on above: Performed By: #### C BC, ESR, CMP #### [address] Calcium [Mass/volume] in Ser um or PlasmaOrdered By: Maggie Sharpe on 04-04-2023 Calcium [Mass/Vol] 9.8 mg/dL Normal 8.6-10.3 [facility] Comment on above: Performed By: #### C BC, ESR, CMP #### [address] Carbon dioxide, total [Moles /volume] in Serum or PlasmaOrdered By: Maggie Sharpe on 04-04-2023 CO2 [Moles/Vol] 30.4 mmol/L Normal 21.0-31.0 [facility] Comment on above: Performed By: #### C BC, ESR, CMP #### [address] Chloride [Moles/volume] in S thompson or PlasmaOrdered By: Maggie Sharpe on 04-04-2023 Chloride [Moles/Vol] 103 mmol/L Normal 98-107 [facility] Comment on above: Performed By: #### C BC, ESR, CMP #### [address] Complete Blood Count Auto Di ffon 04-04-2023 Mean Corpuscular HGB Conc 32.9 g/dL Normal 32.0-35.0 [facility] Comment on above: Performed By: #### C BC, ESR, CMP #### [address] NRBC% 0.2 /100{WBC} Normal 0-0.5 [facility] Comment on above: Performed By: #### C BC, ESR, CMP #### [address] Comprehensive Metabolic Pane ragini 04-04-2023 Albumin [Mass/Vol] 4.6 g/dL Normal 3.5-5.7 [facility] Comment on above: Performed By: #### C BC, ESR, CMP #### [address] GFR/1.73 sq M.predicted MDRD (S/P/Bld) [Vol rate/Area] mL/min/{1.73_m2} Normal [facility] Comment on above: Performed By: #### C BC, ESR, CMP #### [address] Creatinine [Mass/volume] in Serum or PlasmaOrdered By: Maggie Sharpe on 04-04-2023 Creatinine [Mass/Vol] 0.65 mg/dL Normal 0.60-1.20 [facility] Comment on above: Performed By: #### C BC, ESR, CMP #### [address] Erythrocyte Sedimentation Ra bandar 04-04-2023 ESR (Bld) [Velocity] 19 mm/h Normal 0-29 [facility] Comment on above: Result Comment: PERF ORMED BY: [place] [address] PATHOLOGIST FEED CRUSHER ANAT QUINN M.D. Performed By: #### C BC, ESR, CMP #### [address] Erythrocyte distribution wid th [Ratio] by Automated countOrdered By: Maggie Sharpe on 04-04-2023 Erythrocyte distribution width (RBC) [Ratio] 15.3 % Normal 11.9-15.3 [facility] Comment on above: Performed By: #### C BC, ESR, CMP #### [address] Erythrocyte sedimentation ra te by Photometric methodOrdered By: Maggie Sharpe on 04-04-2023 ESR Photometric method (Bld) [Velocity] 19 mm/hr 0-29 [facility] Erythrocytes [#/volume] in B lood by Automated countOrdered By: Maggie Sharpe on 04-04-2023 RBC (Bld) [#/Vol] 5.40 10*6/uL High 3.60-5.00 [facility] Comment on above: Performed By: #### C BC, ESR, CMP #### [facility] [address] Glucose [Mass/volume] in Ser um or PlasmaOrdered By: Maggie Sharpe on 04-04-2023 Glucose [Mass/Vol] 83 mg/dL Normal 70-100 [facility] Comment on above: ADA recommended refe rence rangeRandom Glucose Reference Range is dependent on time and content of last meal. Glucose of more than 200 mg/dL in a nonstressed, ambulatory subject supports the diagnosis of Diabetes Mellitus. Result Comment: [place] Glucose Reference Range is dependent on time and content of last meal. Glucose of more than 200 mg/dL in a nonstressed, ambulatory subject supports the diagnosis of Diabetes Mellitus. ADA recommended reference range Performed By: #### C BC, ESR, CMP #### [facility] [address] [place] [address] [place] Hematocrit [Volume Fraction] of Blood by Automated countOrdered By: Maggie Sharpe on 04-04-2023 Hematocrit (Bld) [Volume fraction] 41.3 % Normal 34.0-46.4 [facility] Comment on above: Performed By: #### C BC, ESR, CMP #### [facility] [address] Hemoglobin [Mass/volume] in BloodOrdered By: Maggie Sharpe on 04-04-2023 Hemoglobin (Bld) [Mass/Vol] 13.6 g/dL Normal 11.8-15.4 [facility] Comment on above: Performed By: #### C BC, ESR, CMP #### [facility] [address] [place] [address] [place] Leukocytes [#/volume] correc brandi for nucleated erythrocytes in Blood by Automated counOrdered By: Maggie Sharpe on 04-04-2023 WBC corrected for nucl RBC Auto (Bld) [#/Vol] 6.4 10*3/uL 3.8-11.6 [facility] Leukocytes [#/volume] in Blo od by Automated countOrdered By: Maggie Sharpe on 04-04-2023 WBC (Bld) [#/Vol] 6.4 10*3/uL Normal 3.8-11.6 [facility] Comment on above: Performed By: #### C BC, ESR, CMP #### [place] [address] [place] Lymphocytes [#/volume] in Bl ood by Automated countOrdered By: Maggie Sharpe on 04-04-2023 Lymphocytes (Bld) [#/Vol] 2.0 10*3/uL Normal 1.00-4.8 [facility] Comment on above: Performed By: #### C BC, ESR, CMP #### [address] Lymphocytes/100 leukocytes i n Blood by Automated countOrdered By: Maggie Sharpe on 04-04-2023 Lymphocytes/100 WBC (Bld) 31.6 % Normal . [facility] Comment on above: Performed By: #### C BC, ESR, CMP #### [address] MCH [Entitic mass] by Automa brandi countOrdered By: Maggie Sharpe on 04-04-2023 MCH (RBC) [Entitic mass] 25.2 pg Normal 24.7-34.3 [facility] Comment on above: Performed By: #### C BC, ESR, CMP #### [address] MCHC Auto (RBC) [Mass/Vol]Or dered By: Maggie Sharpe on 04-04-2023 MCHC (RBC) [Mass/Vol] 32.9 g/dL 32.0-35.0 [facility] MCV [Entitic volume] by Auto mated countOrdered By: Maggie Sharpe on 04-04-2023 MCV (RBC) [Entitic vol] 76.5 fL Low 80-100 [facility] Comment on above: Performed By: #### C BC, ESR, CMP #### [address] Neutrophils [#/volume] in Bl ood by Automated countOrdered By: Maggie Sharpe on 04-04-2023 Neutrophils (Bld) [#/Vol] 3.4 10*3/uL Normal 1.8-7.7 [facility] Comment on above: Performed By: #### C BC, ESR, CMP #### [address] No Panel InformationOrdered By: Maggie Sharpe on 04-04-2023 Estimated GFR (CKD-EPI) > 60.0 mL/Min [facility] Creatinine Clearance (Chem N/A [facility] Nucleated erythrocytes [Pres ence] in Blood by Automated countOrdered By: Maggie Sharpe on 04-04-2023 Nucleated RBC Auto Ql (Bld) 0.2 /100{WBC} 0-0.5 [facility] Platelet mean volume [Entiti c volume] in Blood by Automated countOrdered By: aMggie Sharpe on 04-04-2023 Platelet mean volume (Bld) [Entitic vol] 8.2 fL Normal 6.3-10.7 [facility] Comment on above: Performed By: #### C BC, ESR, CMP #### [address] Platelets [#/volume] in Bloo d by Automated countOrdered By: Maggie Sharpe on 04-04-2023 Platelets (Bld) [#/Vol] 311 10*3/uL Normal 150-450 [facility] Comment on above: Performed By: #### C BC, ESR, CMP #### [address] Potassium [Moles/volume] in Serum or PlasmaOrdered By: Maggie Sharpe on 04-04-2023 Potassium [Moles/Vol] 4.4 mmol/L Normal 3.5-5.1 [facility] Comment on above: Performed By: #### C BC, ESR, CMP #### [address] Protein [Mass/volume] in Ser um or PlasmaOrdered By: Maggie Sharpe on 04-04-2023 Protein [Mass/Vol] 7.2 g/dL Normal 6.4-8.9 [facility] Comment on above: Performed By: #### C BC, ESR, CMP #### [address] Serum globulin measurement b y calculation (mass/volume)Ordered By: Maggie Sharpe on 04-04-2023 Globulin (S) [Mass/Vol] 2.6 g/dL Normal [facility] Comment on above: Performed By: #### C BC, ESR, CMP #### [address] Serum or plasma albumin/glob ulin mass ratioOrdered By: Maggie Sharpe on 04-04-2023 Albumin/Globulin [Mass ratio] 1.8 {ratio} Normal [facility] Comment on above: Performed By: #### C BC, ESR, CMP #### [address] Serum or plasma anion gap de terminationOrdered By: Maggie Sharpe on 04-04-2023 Anion gap [Moles/Vol] 12.0 mmol/L Normal 6.0-15.[address] [facility] Comment on above: Performed By: #### C BC, ESR, CMP #### [address] Sodium [Moles/volume] in Ser um or PlasmaOrdered By: Maggie Sharpe on 04-04-2023 Sodium [Moles/Vol] 141 mmol/L Normal 136-145 [facility] Comment on above: Performed By: #### C BC, ESR, CMP #### [address] [id number] [facility] Urea nitrogen [Mass/volume] in Serum or PlasmaOrdered By: Maggie Sharpe on 04-04-2023 Urea nitrogen [Mass/Vol] 12 mg/dL Normal 7-25 [facility] Comment on above: Performed By: #### C BC, ESR, CMP #### [facility] [address] Alanine aminotransferase [En zymatic activity/volume] in Serum or PlasmaOrdered By: Maggie Sharpe on 12-29-2022 ALT [Catalytic activity/Vol] 40 U/L 7-52 [facility] Albumin [Mass/volume] in Ser um or Plasma by Bromocresol green (BCG) dye binding methoOrdered By: Maggie Sharpe on 12-29-2022 Albumin BCG dye [Mass/Vol] 4.4 g/dL 3.5-5.7 [facility] Alkaline phosphatase [Enzyma tic activity/volume] in Serum or PlasmaOrdered By: Maggie Sharpe on 12-29-2022 ALP [Catalytic activity/Vol] 69 U/L 34-104 [facility] Aspartate aminotransferase [ Enzymatic activity/volume] in Serum or PlasmaOrdered By: Maggie Sharpe on 12-29-2022 AST [Catalytic activity/Vol] 32 U/L 13-39 [facility] Basophils Auto (Bld) [#/Vol] Ordered By: Maggie Sharpe on 12-29-2022 Basophils (Bld) [#/Vol] 0.1 10*3/uL 0.0-0.2 [facility] Basophils/100 WBC Auto (Bld) Ordered By: Maggie Sharpe on 12-29-2022 Basophils/100 WBC (Bld) 0.8 % . [facility] Bilirubin.total [Mass/volume ] in Serum or PlasmaOrdered By: Maggie Sharpe on 12-29-2022 Bilirubin [Mass/Vol] 0.5 mg/dL 0.3-1.0 [facility] Calcium [Mass/volume] in Ser um or PlasmaOrdered By: Maggie Sharpe on 12-29-2022 Calcium [Mass/Vol] 9.6 mg/dL 8.6-10.3 [facility] Carbon dioxide, total [Moles /volume] in Serum or PlasmaOrdered By: Maggie Sharpe on 12-29-2022 CO2 [Moles/Vol] 30.0 mmol/L 21.0-31.0 [facility] Chloride [Moles/volume] in S thompson or PlasmaOrdered By: Maggie Sharpe on 12-29-2022 Chloride [Moles/Vol] 101 mmol/L 98-107 [facility] Creatinine [Mass/volume] in Serum or PlasmaOrdered By: Maggie Sharpe on 12-29-2022 Creatinine [Mass/Vol] 0.60 mg/dL 0.60-1.20 [facility] Eosinophils Auto (Bld) [#/Vo l]Ordered By: Maggie Sharpe on 12-29-2022 Eosinophils (Bld) [#/Vol] 0.2 10*3/uL 0.0-0.45 [facility] Eosinophils/100 WBC Auto (Bl d)Ordered By: Maggie Sharpe on 12-29-2022 Eosinophils/100 WBC (Bld) 3.6 % . [facility] Erythrocyte distribution wid th Auto (RBC) [Ratio]Ordered By: Maggie Sharpe on 12-29-2022 Erythrocyte distribution width (RBC) [Ratio] 15.4 % 11.9-15.3 [facility] Erythrocyte sedimentation ra te by Photometric methodOrdered By: Maggie Sharpe on 12-29-2022 ESR Photometric method (Bld) [Velocity] 22 mm/hr 0-29 [facility] Globulin Calc (S) [Mass/Vol] Ordered By: Maggie Sharpe on 12-29-2022 Globulin (S) [Mass/Vol] 2.6 g/dL [facility] Glucose [Mass/volume] in Ser um or PlasmaOrdered By: Maggie Sharpe on 12-29-2022 Glucose [Mass/Vol] 158 mg/dL 70-100 [facility] Comment on above: ADA recommended refe rence rangeRandom Glucose Reference Range is dependent on time and content of last meal. Glucose of more than 200 mg/dL in a nonstressed, ambulatory subject supports the diagnosis of Diabetes Mellitus. Hematocrit Auto (Bld) [Volum e fraction]Ordered By: Maggie Sharpe on 12-29-2022 Hematocrit (Bld) [Volume fraction] 39.1 % 34.0-46.4 [facility] Hemoglobin [Mass/volume] in BloodOrdered By: Maggie Sharpe on 12-29-2022 Hemoglobin (Bld) [Mass/Vol] 12.8 g/dL 11.8-15.4 [facility] Leukocytes [#/volume] correc brandi for nucleated erythrocytes in Blood by Automated counOrdered By: Maggie Sharpe on 12-29-2022 WBC corrected for nucl RBC Auto (Bld) [#/Vol] 6.6 10*3/uL 3.8-11.6 [facility] Lymphocytes Auto (Bld) [#/Vo l]Ordered By: Maggie Sharpe on 12-29-2022 Lymphocytes (Bld) [#/Vol] 1.9 10*3/uL 1.00-4.8 [facility] Lymphocytes/100 WBC Auto (Bl d)Ordered By: Maggie Sharpe on 12-29-2022 Lymphocytes/100 WBC (Bld) 29.1 % . [facility] MCH Auto (RBC) [Entitic mass ]Ordered By: Maggie Sharpe on 12-29-2022 MCH (RBC) [Entitic mass] 24.9 pg 24.7-34.3 [facility] MCHC Auto (RBC) [Mass/Vol]Or dered By: Maggie Sharpe on 12-29-2022 MCHC (RBC) [Mass/Vol] 32.8 g/dL 32.0-35.0 [facility] MCV Auto (RBC) [Entitic vol] Ordered By: Maggie Sharpe on 12-29-2022 MCV (RBC) [Entitic vol] 75.9 fL 80-100 [facility] Monocytes Auto (Bld) [#/Vol] Ordered By: Maggie Sharpe on 12-29-2022 Monocytes (Bld) [#/Vol] 0.6 10*3/uL 0.0-0.8 [facility] Monocytes/100 WBC Auto (Bld) Ordered By: Maggie Sharpe on 12-29-2022 Monocytes/100 WBC (Bld) 8.5 % . [facility] Neutrophils Auto (Bld) [#/Vo l]Ordered By: Maggie Sharpe on 12-29-2022 Neutrophils (Bld) [#/Vol] 3.8 10*3/uL 1.8-7.7 [facility] Neutrophils/100 WBC Auto (Bl d)Ordered By: Maggie Sharpe on 12-29-2022 Neutrophils/100 WBC (Bld) 58.0 % . [facility] No Panel InformationOrdered By: Maggie Sharpe on 12-29-2022 Estimated GFR (CKD-EPI) > 60.0 mL/Min [facility] Creatinine Clearance (Chem N/A [facility] Nucleated erythrocytes [Pres ence] in Blood by Automated countOrdered By: Maggie Sharpe on 12-29-2022 Nucleated RBC Auto Ql (Bld) 0.1 /100{WBC} 0-0.5 [facility] Platelet mean volume Auto (B ld) [Entitic vol]Ordered By: Maggie Sharpe on 12-29-2022 Platelet mean volume (Bld) [Entitic vol] 8.1 fL 6.3-10.7 [facility] Platelets Auto (Bld) [#/Vol] Ordered By: Maggie Sharpe on 12-29-2022 Platelets (Bld) [#/Vol] 325 10*3/uL 150-450 [facility] Potassium [Moles/volume] in Serum or PlasmaOrdered By: Maggie Sharpe on 12-29-2022 Potassium [Moles/Vol] 3.6 mmol/L 3.5-5.1 [facility] Protein [Mass/volume] in Ser um or PlasmaOrdered By: Maggie Sharpe on 12-29-2022 Protein [Mass/Vol] 7.0 g/dL 6.4-8.9 [facility] RBC Auto (Bld) [#/Vol]Ordere d By: Maggie Sharpe on 12-29-2022 RBC (Bld) [#/Vol] 5.15 10*6/uL 3.60-5.00 [facility] Serum or plasma albumin/glob ulin mass ratioOrdered By: Maggie Sharpe on 12-29-2022 Albumin/Globulin [Mass ratio] 1.7 {ratio} [facility] Serum or plasma anion gap de terminationOrdered By: Maggie Sharpe on 12-29-2022 Anion gap [Moles/Vol] 11.6 mmol/L 6.0-15.[address] [facility] Sodium [Moles/volume] in Ser um or PlasmaOrdered By: Maggie Sharpe on 12-29-2022 Sodium [Moles/Vol] 139 mmol/L 136-145 [facility] Urea nitrogen [Mass/volume] in Serum or PlasmaOrdered By: Maggie Sharpe on 12-29-2022 Urea nitrogen [Mass/Vol] 13 mg/dL 7-25 [facility] WBC Auto (Bld) [#/Vol]Ordere d By: Maggie Sharpe on 12-29-2022 WBC (Bld) [#/Vol] 6.6 10*3/uL 3.8-11.6 [facility] Cholesterol [Mass/volume] in Serum or PlasmaOrdered By: Ortega Merritt on 10-05-2022 Cholesterol [Mass/Vol] 173 mg/dL 140-[address] [facility] Comment on above: Chol less than 200 m g/dl low riskChol 201-239 mg/dl borderline riskChol 240 mg/dl and greater high risk Cholesterol in LDL Calc [Mas s/Vol]Ordered By: Ortega Merritt on 10-05-2022 Cholesterol in LDL [Mass/Vol] 78 mg/dL 0-100 [facility] Comment on above: LDL ATP III CLASSIFI CATIONLDL less than 100 mg/dL OptimalLDL 100-129 mg/dL Near or above optimalLDL 130-159 mg/dL Borderline highLDL 160-189 mg/dL HighLDL greater than 189 mg/dL Very high Cholesterol in VLDL Calc [Ma ss/Vol]Ordered By: Ortega Merritt on 10-05-2022 Cholesterol in VLDL [Mass/Vol] 37 mg/dL [facility] Serum or plasma high density lipoprotein (HDL) cholesterol measurementOrdered By: Ortega Merritt on 10-05-2022 Cholesterol in HDL [Mass/Vol] 58 mg/dL 23-92 [facility] Comment on above: HDL CHOL ATP-III CLA SSIFICATION Cardiovascular RiskHDL > or equal to 60 mg/dL LOWHDL < 40 mg/dL HIGH Serum or plasma total choles terol/high density lipoprotein (HDL) cholesterol mass ratOrdered By: Ortega Merritt on 10-05-2022 Cholesterol.total/Verito sterol in HDL [Mass ratio] 3.0 {ratio} <5.0 [facility] Triglyceride [Mass/volume] i n Serum or PlasmaOrdered By: Ortega Merritt on 10-05-2022 Triglyceride [Mass/Vol] 187 mg/dL 0-149 [facility] Comment on above: TRIG ATP III CLASSIF ICATIONTRIG less than 150 mg/dL NormalTRIG 150-199 mg/dL Borderline highTRIG 200-500 mg/dL High TRIG greater than 500 mg/dL Very highStandard traceable to the Center for Disease Conrtrol and Prevention (CDC) test method. Alanine aminotransferase [En zymatic activity/volume] in Serum or PlasmaOrdered By: Maggie Sharpe on 10-04-2022 ALT [Catalytic activity/Vol] 55 U/L 7-52 [facility] Albumin [Mass/volume] in Ser um or Plasma by Bromocresol green (BCG) dye binding methoOrdered By: Maggie Sharpe on 10-04-2022 Albumin BCG dye [Mass/Vol] 4.2 g/dL 3.5-5.7 [facility] Alkaline phosphatase [Enzyma tic activity/volume] in Serum or PlasmaOrdered By: Maggie Sharpe on 10-04-2022 ALP [Catalytic activity/Vol] 76 U/L 34-104 [facility] Aspartate aminotransferase [ Enzymatic activity/volume] in Serum or PlasmaOrdered By: Maggie Sharpe on 10-04-2022 AST [Catalytic activity/Vol] 48 U/L 13-39 [facility] Basophils Auto (Bld) [#/Vol] Ordered By: Maggie Sharpe on 10-04-2022 Basophils (Bld) [#/Vol] 0.1 10*3/uL 0.0-0.2 [facility] Basophils/100 WBC Auto (Bld) Ordered By: Maggie Sharpe on 10-04-2022 Basophils/100 WBC (Bld) 0.8 % . [facility] Bilirubin.total [Mass/volume ] in Serum or PlasmaOrdered By: Maggie Sharpe on 10-04-2022 Bilirubin [Mass/Vol] 0.4 mg/dL 0.3-1.0 [facility] Calcium [Mass/volume] in Ser um or PlasmaOrdered By: Maggie Sharpe on 10-04-2022 Calcium [Mass/Vol] 9.7 mg/dL 8.6-10.3 [facility] Carbon dioxide, total [Moles /volume] in Serum or PlasmaOrdered By: Maggie Sharpe on 10-04-2022 CO2 [Moles/Vol] 30.9 mmol/L 21.0-31.0 [facility] Chloride [Moles/volume] in S thompson or PlasmaOrdered By: Maggie Sharpe on 10-04-2022 Chloride [Moles/Vol] 102 mmol/L 98-107 [facility] Creatinine [Mass/volume] in Serum or PlasmaOrdered By: Maggie Sharpe on 10-04-2022 Creatinine [Mass/Vol] 0.62 mg/dL 0.60-1.20 [facility] Eosinophils Auto (Bld) [#/Vo l]Ordered By: Maggie Sharpe on 10-04-2022 Eosinophils (Bld) [#/Vol] 0.3 10*3/uL 0.0-0.45 [facility] Eosinophils/100 WBC Auto (Bl d)Ordered By: Maggie Sharpe on 10-04-2022 Eosinophils/100 WBC (Bld) 3.7 % . [facility] Erythrocyte distribution wid th Auto (RBC) [Ratio]Ordered By: Maggie Sharpe on 10-04-2022 Erythrocyte distribution width (RBC) [Ratio] 13.3 % 11.9-15.3 [facility] Erythrocyte sedimentation ra te by Photometric methodOrdered By: Maggie Sharpe on 10-04-2022 ESR Photometric method (Bld) [Velocity] 22 mm/hr 0-29 [facility] Globulin Calc (S) [Mass/Vol] Ordered By: Maggie Sharpe on 10-04-2022 Globulin (S) [Mass/Vol] 2.7 g/dL [facility] Glucose [Mass/volume] in Ser um or PlasmaOrdered By: Maggie Sharpe on 10-04-2022 Glucose [Mass/Vol] 119 mg/dL 70-100 [facility] Comment on above: ADA recommended refe rence rangeRandom Glucose Reference Range is dependent on time and content of last meal. Glucose of more than 200 mg/dL in a nonstressed, ambulatory subject supports the diagnosis of Diabetes Mellitus. Hematocrit Auto (Bld) [Volum e fraction]Ordered By: Maggie Sharpe on 10-04-2022 Hematocrit (Bld) [Volume fraction] 39.0 % 34.0-46.4 [facility] Hemoglobin [Mass/volume] in BloodOrdered By: Maggie Sharpe on 10-04-2022 Hemoglobin (Bld) [Mass/Vol] 12.6 g/dL 11.8-15.4 [facility] Leukocytes [#/volume] correc brandi for nucleated erythrocytes in Blood by Automated counOrdered By: Maggie Sharpe on 10-04-2022 WBC corrected for nucl RBC Auto (Bld) [#/Vol] 7.1 10*3/uL 3.8-11.6 [facility] Lymphocytes Auto (Bld) [#/Vo l]Ordered By: Maggie Sharpe on 10-04-2022 Lymphocytes (Bld) [#/Vol] 2.3 10*3/uL 1.00-4.8 [facility] Lymphocytes/100 WBC Auto (Bl d)Ordered By: Maggie Sharpe on 10-04-2022 Lymphocytes/100 WBC (Bld) 31.9 % . [facility] MCH Auto (RBC) [Entitic mass ]Ordered By: Maggie Sharpe on 10-04-2022 MCH (RBC) [Entitic mass] 25.9 pg 24.7-34.3 [facility] MCHC Auto (RBC) [Mass/Vol]Or dered By: Maggie Sharpe on 10-04-2022 MCHC (RBC) [Mass/Vol] 32.3 g/dL 32.0-35.0 [facility] MCV Auto (RBC) [Entitic vol] Ordered By: Maggie Sharpe on 10-04-2022 MCV (RBC) [Entitic vol] 80.0 fL 80-100 [facility] Monocytes Auto (Bld) [#/Vol] Ordered By: Maggie Sharpe on 10-04-2022 Monocytes (Bld) [#/Vol] 0.7 10*3/uL 0.0-0.8 [facility] Monocytes/100 WBC Auto (Bld) Ordered By: Maggie Sharpe on 10-04-2022 Monocytes/100 WBC (Bld) 10.0 % . [facility] Neutrophils Auto (Bld) [#/Vo l]Ordered By: Maggie Sharpe on 10-04-2022 Neutrophils (Bld) [#/Vol] 3.8 10*3/uL 1.8-7.7 [facility] Neutrophils/100 WBC Auto (Bl d)Ordered By: Maggie Sharpe on 10-04-2022 Neutrophils/100 WBC (Bld) 53.6 % . [facility] No Panel InformationOrdered By: Maggie Sharpe on 10-04-2022 Estimated GFR (CKD-EPI) > 60.0 mL/Min [facility] Creatinine Clearance (Chem N/A [facility] Nucleated erythrocytes [Pres ence] in Blood by Automated countOrdered By: Maggie Sharpe on 10-04-2022 Nucleated RBC Auto Ql (Bld) 0.2 /100{WBC} 0-0.5 [facility] Platelet mean volume Auto (B ld) [Entitic vol]Ordered By: Maggie Sharpe on 10-04-2022 Platelet mean volume (Bld) [Entitic vol] 8.1 fL 6.3-10.7 [facility] Platelets Auto (Bld) [#/Vol] Ordered By: Maggie Sharpe on 10-04-2022 Platelets (Bld) [#/Vol] 333 10*3/uL 150-450 [facility] Potassium [Moles/volume] in Serum or PlasmaOrdered By: Maggie Sharpe on 10-04-2022 Potassium [Moles/Vol] 4.4 mmol/L 3.5-5.1 [facility] Protein [Mass/volume] in Ser um or PlasmaOrdered By: Maggie Sharpe on 10-04-2022 Protein [Mass/Vol] 6.9 g/dL 6.4-8.9 [facility] RBC Auto (Bld) [#/Vol]Ordere d By: Maggie Sharpe on 10-04-2022 RBC (Bld) [#/Vol] 4.87 10*6/uL 3.60-5.00 [facility] Serum or plasma albumin/glob ulin mass ratioOrdered By: Maggie Sharpe on 10-04-2022 Albumin/Globulin [Mass ratio] 1.6 {ratio} [facility] Serum or plasma anion gap de terminationOrdered By: Maggie Sharpe on 10-04-2022 Anion gap [Moles/Vol] 10.5 mmol/L 6.0-15.[address] [facility] Sodium [Moles/volume] in Ser um or PlasmaOrdered By: Maggie Sharpe on 10-04-2022 Sodium [Moles/Vol] 139 mmol/L 136-145 [facility] Urea nitrogen [Mass/volume] in Serum or PlasmaOrdered By: Maggie Sharpe on 10-04-2022 Urea nitrogen [Mass/Vol] 9 mg/dL 7-25 [facility] WBC Auto (Bld) [#/Vol]Ordere d By: Maggie Sharpe on 10-04-2022 WBC (Bld) [#/Vol] 7.1 10*3/uL 3.8-11.6 [facility] ECHOCARDIO M/2D COMPLETEon 0 07-11-2022 ECHOCARDIO M/2D COMPLETE Patient: MATEUS CARMICHAEL Exam Date: 07/11/2022 : 1970 Gender:F Ordering : DR ABEBA GUEVARA PA Admission #: [id number] Family : Order #: [id number] CLICK HERE TO VIEW EXAM ECHOCARDIOGRAM REPORT PROCEDURE: CARDIO PULMONARY ECHOCARDIO M/2D COMP INDICATIONS: Dyspnea on exertion, edema, hypertension, diabetes COMPARISON: None. DESCRIPTION: COMPLETE ECHOCARDIOGRAM Real-time transthoracic echocardiography with 2D, M-mode, spectral and color flow Doppler performed. QUALITY: Technically difficult due to patients condition. LEFT VENTRICLE: Normal chamber size. Normal left ventricular wall thickness. LV EF: Normal left ventricular ejection fraction, (>55%). DIASTOLIC: Normal diastolic function. ATRIAL SEPTUM: LEFT ATRIUM: Normal chamber size. RIGHT ATRIUM: Normal chamber size. RIGHT VENTRICLE: Normal chamber size. Normal right ventricular systolic function. TRICUSPID VALVE: Normal mobility and thickness. No stenosis with no regurgitation. Unable to assess right-sided pressures due to lack of measurable tricuspid regurgitation. MITRAL VALVE: Normal mobility and thickness. No evidence of mitral valve stenosis. There is no mitral annular calcification. Trivial mitral regurgitation. AORTIC VALVE: Normal trileaflet appearance. No visible sclerosis. Normal leaflet mobility. No evidence of aortic valve stenosis. No aortic regurgitation. AORTIC ROOT: Normal diameter and appearance. PULMONIC VALVE: Not well visualized. No stenosis. No regurgitation. PERICARDIUM: No evidence of pericardial effusion. IVC: Not well visualized. PLEURA: CONCLUSION: 1. Normal ventricular function. LVEF is 55 to 60% 2. No significant valvular dysfunction. 3. No pericardial effusion. 4. Unable to assess right-sided pressures due to lack of measurable tricuspid regurgitation. Adult Echocardiography Procedure Report Left Ventricle LVEDD (3.7 - 5.6 cm): 4.68 cm LVESD (2.2 - 4.0 cm): 3.23 cm LVIVS thickness (0.6 - 1.2 cm): 0.96 cm LVPW thickness (0.5 - 1.0 cm): 0.84 cm e': 0.09 m/s E - e': 9.37 LVOT Max Gradient: 4.01 mm[Hg] Peak Velocity (LVOT): 1.00 m/s LVOT Diameter 2.21 cm Left Ventricular Ejection Fraction: 55-60 % Left Atrium LA Volume Index (2D A2C): 78.08 ml, 78.08 ml Left Atrium Systolic Dimension: 3.10 cm Mitral Valve MV E to A Ratio: 1.16 Mitral Valve A-Wave Peak Velocity: 0.75 m/s Mitral Valve E-Wave Peak Velocity: 0.86 m/s Right Ventricle Aorta AO Root Diam: 2.98 cm Ascending Ao Diam: 3.34 cm Aortic Valve AoV Area (Peak Axel): 2.79 cm2, 2.79 cm2 Peak Velocity(Antegrade Flow): 1.38 m/s Peak Gradient(Antegrade Flow): 7.59 mm[Hg] Tricuspid Valve Peak Velocity: 0.56 m/s Pulmonic Valve Peak Velocity: 0.93 m/s, 0.84 m/s Peak Gradient: 3.47 mm[Hg], 2.84 mm[Hg] Right Atrium Right Atrium Systolic Pressure: 34.22 ml, 34.22 ml Dictated by: Amrit Henriquez M.D. on 07/12/2022 at 19:42 Approved by: Amrit Henriquez M.D. on 07/12/2022 at 19:44 Normal [facility] Alanine aminotransferase [En zymatic activity/volume] in Serum or PlasmaOrdered By: Maggie Sharpe on 06-22-2022 ALT [Catalytic activity/Vol] 56 U/L 7-52 [facility] Albumin [Mass/volume] in Ser um or Plasma by Bromocresol green (BCG) dye binding methoOrdered By: Maggie Sharpe on 06-22-2022 Albumin BCG dye [Mass/Vol] 4.6 g/dL 3.5-5.7 [facility] Alkaline phosphatase [Enzyma tic activity/volume] in Serum or PlasmaOrdered By: Maggie Sharpe on 06-22-2022 ALP [Catalytic activity/Vol] 72 U/L 34-104 [facility] Aspartate aminotransferase [ Enzymatic activity/volume] in Serum or PlasmaOrdered By: Maggie Sharpe on 06-22-2022 AST [Catalytic activity/Vol] 54 U/L 13-39 [facility] Basophils Auto (Bld) [#/Vol] Ordered By: Maggie Sharpe on 06-22-2022 Basophils (Bld) [#/Vol] 0.1 10*3/uL 0.0-0.2 [facility] Basophils/100 WBC Auto (Bld) Ordered By: Maggie Sharpe on 06-22-2022 Basophils/100 WBC (Bld) 1.1 % . [facility] Bilirubin.total [Mass/volume ] in Serum or PlasmaOrdered By: Maggie Sharpe on 06-22-2022 Bilirubin [Mass/Vol] 0.6 mg/dL 0.3-1.0 [facility] Calcium [Mass/volume] in Ser um or PlasmaOrdered By: Maggie Sharpe on 06-22-2022 Calcium [Mass/Vol] 9.2 mg/dL 8.6-10.3 [facility] Carbon dioxide, total [Moles /volume] in Serum or PlasmaOrdered By: Maggie Sharpe on 06-22-2022 CO2 [Moles/Vol] 28.0 mmol/L 21.0-31.0 [facility] Chloride [Moles/volume] in S thompson or PlasmaOrdered By: Maggie Sharpe on 06-22-2022 Chloride [Moles/Vol] 100 mmol/L 98-107 [facility] Creatinine [Mass/volume] in Serum or PlasmaOrdered By: Maggie Sharpe on 06-22-2022 Creatinine [Mass/Vol] 0.93 mg/dL 0.60-1.20 [facility] Eosinophils Auto (Bld) [#/Vo l]Ordered By: Maggie Sharpe on 06-22-2022 Eosinophils (Bld) [#/Vol] 0.4 10*3/uL 0.0-0.45 [facility] Eosinophils/100 WBC Auto (Bl d)Ordered By: Maggie Sharpe on 06-22-2022 Eosinophils/100 WBC (Bld) 4.8 % . [facility] Erythrocyte distribution wid th Auto (RBC) [Ratio]Ordered By: Maggie Sharpe on 06-22-2022 Erythrocyte distribution width (RBC) [Ratio] 15.5 % 11.9-15.3 [facility] Erythrocyte sedimentation ra te by Photometric methodOrdered By: Maggie Sharpe on 06-22-2022 ESR Photometric method (Bld) [Velocity] 21 mm/hr 0-29 [facility] Globulin Calc (S) [Mass/Vol] Ordered By: Maggie Sharpe on 06-22-2022 Globulin (S) [Mass/Vol] 3.0 g/dL [facility] Glucose [Mass/volume] in Ser um or PlasmaOrdered By: Maggie Sharpe on 06-22-2022 Glucose [Mass/Vol] 148 mg/dL 70-100 [facility] Comment on above: ADA recommended refe rence rangeRandom Glucose Reference Range is dependent on time and content of last meal. Glucose of more than 200 mg/dL in a nonstressed, ambulatory subject supports the diagnosis of Diabetes Mellitus. Hematocrit Auto (Bld) [Volum e fraction]Ordered By: Maggie Sharpe on 06-22-2022 Hematocrit (Bld) [Volume fraction] 40.8 % 34.0-46.4 [facility] Hemoglobin [Mass/volume] in BloodOrdered By: Maggie Sharpe on 06-22-2022 Hemoglobin (Bld) [Mass/Vol] 13.6 g/dL 11.8-15.4 [facility] Leukocytes [#/volume] correc brandi for nucleated erythrocytes in Blood by Automated counOrdered By: Maggie Sharpe on 06-22-2022 WBC corrected for nucl RBC Auto (Bld) [#/Vol] 8.1 10*3/uL 3.8-11.6 [facility] Lymphocytes Auto (Bld) [#/Vo l]Ordered By: Maggie Sharpe on 06-22-2022 Lymphocytes (Bld) [#/Vol] 2.3 10*3/uL 1.00-4.8 [facility] Lymphocytes/100 WBC Auto (Bl d)Ordered By: Maggie Sharpe on 06-22-2022 Lymphocytes/100 WBC (Bld) 28.1 % . [facility] MCH Auto (RBC) [Entitic mass ]Ordered By: Maggie Sharpe on 06-22-2022 MCH (RBC) [Entitic mass] 27.8 pg 24.7-34.3 [facility] MCHC Auto (RBC) [Mass/Vol]Or dered By: Maggie Sharpe on 06-22-2022 MCHC (RBC) [Mass/Vol] 33.3 g/dL 32.0-35.0 [facility] MCV Auto (RBC) [Entitic vol] Ordered By: Maggie Sharpe on 06-22-2022 MCV (RBC) [Entitic vol] 83.5 fL 80-100 [facility] Monocytes Auto (Bld) [#/Vol] Ordered By: Maggie Sharpe on 06-22-2022 Monocytes (Bld) [#/Vol] 0.5 10*3/uL 0.0-0.8 [facility] Monocytes/100 WBC Auto (Bld) Ordered By: Maggie Sharpe on 06-22-2022 Monocytes/100 WBC (Bld) 6.5 % . [facility] Neutrophils Auto (Bld) [#/Vo l]Ordered By: Maggie Sharpe on 06-22-2022 Neutrophils (Bld) [#/Vol] 4.8 10*3/uL 1.8-7.7 [facility] Neutrophils/100 WBC Auto (Bl d)Ordered By: Maggie Sharpe on 06-22-2022 Neutrophils/100 WBC (Bld) 59.5 % . [facility] No Panel InformationOrdered By: Maggie Sharpe on 06-22-2022 Estimated GFR (CKD-EPI) > 60.0 mL/Min [facility] Creatinine Clearance (Chem N/A [facility] Nucleated erythrocytes [Pres ence] in Blood by Automated countOrdered By: Maggie Sharpe on 06-22-2022 Nucleated RBC Auto Ql (Bld) 0.1 /100{WBC} 0-0.5 [facility] Platelet mean volume Auto (B ld) [Entitic vol]Ordered By: Maggie Sharpe on 06-22-2022 Platelet mean volume (Bld) [Entitic vol] 8.9 fL 6.3-10.7 [facility] Platelets Auto (Bld) [#/Vol] Ordered By: Maggie Sharpe on 06-22-2022 Platelets (Bld) [#/Vol] 293 10*3/uL 150-450 [facility] Potassium [Moles/volume] in Serum or PlasmaOrdered By: Maggie Sharpe on 06-22-2022 Potassium [Moles/Vol] 3.9 mmol/L 3.5-5.1 [facility] Protein [Mass/volume] in Ser um or PlasmaOrdered By: Maggie Sharpe on 06-22-2022 Protein [Mass/Vol] 7.6 g/dL 6.4-8.9 [facility] RBC Auto (Bld) [#/Vol]Ordere d By: Maggie Sharpe on 06-22-2022 RBC (Bld) [#/Vol] 4.89 10*6/uL 3.60-5.00 [facility] Serum or plasma albumin/glob ulin mass ratioOrdered By: Maggie Sharpe on 06-22-2022 Albumin/Globulin [Mass ratio] 1.5 {ratio} [facility] Serum or plasma anion gap de terminationOrdered By: Maggie Sharpe on 06-22-2022 Anion gap [Moles/Vol] 14.9 mmol/L 6.0-15.[address] [facility] Sodium [Moles/volume] in Ser um or PlasmaOrdered By: Maggie Sharpe on 06-22-2022 Sodium [Moles/Vol] 139 mmol/L 136-145 [facility] Urea nitrogen [Mass/volume] in Serum or PlasmaOrdered By: Maggie Sharpe on 06-22-2022 Urea nitrogen [Mass/Vol] 15 mg/dL 7-25 [facility] WBC Auto (Bld) [#/Vol]Ordere d By: Maggie Sharpe on 06-22-2022 WBC (Bld) [#/Vol] 8.1 10*3/uL 3.8-11.6 [facility] Basophils Auto (Bld) [#/Vol] Ordered By: Maggie Sharpe on 2022 Basophils (Bld) [#/Vol] 0.1 10*3/uL 0.0-0.2 [facility] Basophils/100 WBC Auto (Bld) Ordered By: Maggie Sharpe on 2022 Basophils/100 WBC (Bld) 0.7 % . [facility] Body fluid albumin measureme nt (mass/volume)Ordered By: Maggie Sharpe on 2022 Albumin (Body fld) [Mass/Vol] 4.3 g/dL 3.2-5.5 [facility] Creatinine and Glomerular fi ltration rate.predicted panel (S/P/Bld)Ordered By: Maggie Sharpe on 2022 Creatinine [Mass/Vol] 0.81 mg/dL 0.44-1.03 [facility] Eosinophils Auto (Bld) [#/Vo l]Ordered By: Maggie Sharpe on 2022 Eosinophils (Bld) [#/Vol] 0.4 10*3/uL 0.0-0.45 [facility] Eosinophils/100 WBC Auto (Bl d)Ordered By: Maggie Sharpe on 2022 Eosinophils/100 WBC (Bld) 5.8 % . [facility] Erythrocyte distribution wid th Auto (RBC) [Ratio]Ordered By: Maggie Sharpe on 2022 Erythrocyte distribution width (RBC) [Ratio] 14.7 % 11.9-15.3 [facility] Erythrocyte sedimentation ra te by Photometric methodOrdered By: Maggie Sharpe on 2022 ESR Photometric method (Bld) [Velocity] 24 mm/hr 0-29 [facility] Estimated glomerular filtrat ion rate (GFR) non- AmericanOrdered By: Maggie Sharpe on 2022 GFR/1.73 sq M.predicted among non-blacks MDRD (S/P/Bld) [Vol rate/Area] > 60 mL/Min [facility] Globulin Calc (S) [Mass/Vol] Ordered By: Maggie Sharpe on 2022 Globulin (S) [Mass/Vol] 2.8 g/dL [facility] Hematocrit Auto (Bld) [Volum e fraction]Ordered By: Maggie Sharpe on 2022 Hematocrit (Bld) [Volume fraction] 42.5 % 34.0-46.4 [facility] Hemoglobin [Mass/volume] in BloodOrdered By: Maggie Sharpe on 2022 Hemoglobin (Bld) [Mass/Vol] 13.8 g/dL 11.8-15.4 [facility] Laboratory - Hematology and Cell countsOrdered By: Maggie Sharpe on 2022 Nucleated RBC/100 WBC (Bld) [Ratio] 0.1 % 0-0.5 [facility] Leukocytes [#/volume] in Blo od by Automated countOrdered By: Maggie Sharpe on 2022 WBC (Bld) [#/Vol] 7.2 10*3/uL 4.5-11.0 [facility] Lymphocytes Auto (Bld) [#/Vo l]Ordered By: Maggie Sharpe on 2022 Lymphocytes (Bld) [#/Vol] 2.1 10*3/uL 1.00-4.8 [facility] Lymphocytes/100 WBC Auto (Bl d)Ordered By: Maggie Sharpe on 2022 Lymphocytes/100 WBC (Bld) 28.6 % . [facility] MCH Auto (RBC) [Entitic mass ]Ordered By: Maggie Sharpe on 2022 MCH (RBC) [Entitic mass] 26.1 pg 24.7-34.3 [facility] MCHC Auto (RBC) [Mass/Vol]Or dered By: Maggie Sharpe on 2022 MCHC (RBC) [Mass/Vol] 32.5 g/dL 32.0-35.0 [facility] MCV Auto (RBC) [Entitic vol] Ordered By: Maggie Sharpe on 2022 MCV (RBC) [Entitic vol] 80.5 fL 80-100 [facility] Monocytes Auto (Bld) [#/Vol] Ordered By: Maggie Sharpe on 2022 Monocytes (Bld) [#/Vol] 0.7 10*3/uL 0.0-0.8 [facility] Monocytes/100 WBC Auto (Bld) Ordered By: Maggie Sharpe on 2022 Monocytes/100 WBC (Bld) 9.8 % . [facility] Neutrophils Auto (Bld) [#/Vo l]Ordered By: Maggie Sharpe on 2022 Neutrophils (Bld) [#/Vol] 4.0 10*3/uL 1.8-7.7 [facility] Neutrophils/100 WBC Auto (Bl d)Ordered By: Maggie Sharpe on 2022 Neutrophils/100 WBC (Bld) 55.1 % . [facility] No Panel InformationOrdered By: Maggie Sharpe on 2022 Estimated GFR () > 60 mL/Min [facility] Comment on above: GFR estimated refere nce range: According to KDOQI guidelines, <60 ml/min/1.73m2 is sufficient to diagnose a patient with chronic kidney disease. Pharmacy Creatinine Clearance (Chem N/A [facility] Platelet mean volume Auto (B ld) [Entitic vol]Ordered By: Maggie Sharpe on 2022 Platelet mean volume (Bld) [Entitic vol] 8.3 fL 6.3-10.7 [facility] Platelets Auto (Bld) [#/Vol] Ordered By: Maggie Sharpe on 2022 Platelets (Bld) [#/Vol] 371 10*3/uL 150-450 [facility] Protein [Mass/volume] in Ser um or PlasmaOrdered By: Maggie Sharpe on 2022 Protein [Mass/Vol] 7.1 g/dL 6.1-7.9 [facility] RBC Auto (Bld) [#/Vol]Ordere d By: Maggie Sharpe on 2022 RBC (Bld) [#/Vol] 5.29 10*6/uL 3.60-5.00 [facility] Serum or plasma alanine markham otransferase measurement without P-5'-P (enzymatic activiOrdered By: Maggie Sharpe on 2022 ALT No additional P-5'-P [Catalytic activity/Vol] 58 U/L 10-60 [facility] Serum or plasma albumin/glob ulin mass ratioOrdered By: Maggie Sharpe on 2022 Albumin/Globulin [Mass ratio] 1.5 {ratio} [facility] Serum or plasma alkaline daxa sphatase measurement (enzymatic activity/volume)Ordered By: Maggie Sharpe on 2022 ALP [Catalytic activity/Vol] 97 U/L 32-92 [facility] Serum or plasma anion gap de terminationOrdered By: Maggie Sharpe on 2022 Anion gap [Moles/Vol] 17.9 mmol/L 6.0-15.[address] [facility] Serum or plasma aspartate am inotransferase measurement (enzymatic activity/volume)Ordered By: Maggie Sharpe on 2022 AST [Catalytic activity/Vol] 53 U/L 10-42 [facility] Serum or plasma calcium jacinta urement (mass/volume)Ordered By: Maggie Sharpe on 2022 Calcium [Mass/Vol] 9.9 mg/dL 8.2-10.2 [facility] Serum or plasma chloride sidney surement (moles/volume)Ordered By: Maggie Sharpe on 2022 Chloride [Moles/Vol] 97 mmol/L 95-114 [facility] Serum or plasma glucose jacinta urement (mass/volume)Ordered By: Maggie Sharpe on 2022 Glucose [Mass/Vol] 97 mg/dL 70-100 [facility] Comment on above: ADA recommended refe rence rangeRandom Glucose Reference Range is dependent on time and content of last meal. Glucose of more than 200 mg/dL in a nonstressed, ambulatory subject supports the diagnosis of Diabetes Mellitus. Serum or plasma potassium me asurement (moles/volume)Ordered By: Maggie Sharpe on 2022 Potassium [Moles/Vol] 4.2 mmol/L 3.5-5.1 [facility] Serum or plasma sodium measu rement (moles/volume)Ordered By: Maggie Sharpe on 2022 Sodium [Moles/Vol] 136 mmol/L 136-146 [facility] Serum or plasma total biliru bin measurement (mass/volume)Ordered By: Maggie Sharpe on 2022 Bilirubin [Mass/Vol] 0.7 mg/dL 0.3-1.2 [facility] Serum or plasma total carbon dioxide measurement (moles/volume)Ordered By: Maggie Sharpe on 2022 CO2 [Moles/Vol] 25.3 mmol/L 22.0-30.0 [facility] Serum or plasma urea nitroge n measurement (mass/volume)Ordered By: Maggie Sharpe on 2022 Urea nitrogen [Mass/Vol] 17 mg/dL 9 [facility] CBC W/DIFFon 07-30-2021 ABS IMM GRANS 0.0 10*3/uL Normal 0.0-0.2 [facility] Comment on above: Performed By: [id number] #### [facility] [address] ABS NEUTROPHILS 3.6 10*3/uL Normal 1.6-7.6 [facility] Comment on above: Performed By: [id number] #### [facility] [address] [place] [address], [facility] Basophils (Bld) [#/Vol] 0.0 10*3/uL Normal 0.0-0.2 [facility] Comment on above: Performed By: #### 8 [id number] #### [facility] [address] [place] [address], [facility] Basophils/100 WBC (Bld) 0.4 % Normal 0.0-1.0 T usha [facility] Comment on above: Performed By: #### 8 [id number] #### [facility] [address] [place] [address], [facility] Eosinophils (Bld) [#/Vol] 0.3 10*3/uL Normal 0.0-0.5 The [facility] Comment on above: Performed By: #### 8 [id number] #### [facility] [address] [facility] [place] [address], [facility] Eosinophils/100 WBC (Bld) 4.3 % Normal 0.0-6.0 The [facility] Comment on above: Performed By: #### 8 [id number] #### [facility] [address] [facility]. [address] Erythrocyte distribution width (RBC) [Ratio] 13.8 % Normal 11.5-15.0 The [facility] Comment on above: Performed By: #### 8 [id number] #### [facility] [address] [facility]. [address] Hematocrit (Bld) [Volume fraction] 40.3 % Normal 36.0-45.0 The [facility] Comment on above: Performed By: #### 8 [id number] #### [facility] [address] [facility]. [address] Hemoglobin (Bld) [Mass/Vol] 13.1 g/dL Normal 12.0-15.0 The [facility] Comment on above: Performed By: #### 8 [id number] #### [facility] [address] [facility]. [address] IMMATURE GRANS 0.3 % Normal 0.0-1.0 The [facility] Comment on above: Performed By: #### 8 [id number] #### [facility] [address] [facility] [place] [address], [facility] Lymphocytes (Bld) [#/Vol] 2.2 10*3/uL Normal 1.2-4.0 The [facility] Comment on above: Performed By: #### 8 [id number] #### [facility] [address] [place] [address], [facility] Lymphocytes/100 WBC (Bld) 31.6 % Normal 20.0-45.0 The [facility] Comment on above: Performed By: #### 8 [id number] #### [facility] [address] [facility] [place] [address], [facility] MCH (RBC) [Entitic mass] 26.1 pg Low 27.0-33.0 The [facility] Comment on above: Performed By: #### 8 [id number] #### [facility] [address] [facility] [place] [address], [facility] MCHC (RBC) [Mass/Vol] 32.5 g/dL Normal 32.0-35.0 The [facility] Comment on above: Performed By: #### 8 [id number] #### [facility] [address] [facility] [place] [address], [facility] MCV (RBC) [Entitic vol] 80.3 fL Low 82.0-98.0 T he [facility] Comment on above: Performed By: #### 8 [id number] #### [facility] [address] [facility] [place] [address], [facility] Monocytes (Bld) [#/Vol] 0.8 10*3/uL Normal 0.1-1.0 The [facility] Comment on above: Performed By: #### 8 [id number] #### [facility] [address] [facility] [place] [address], [facility] MONOS 11.1 % Normal 5.0-12.0 The [facility] Comment on above: Performed By: #### 8 [id number] #### [facility] [address] [facility] [place] [address], [facility] Neutrophils/100 WBC (Bld) 52.3 % Normal 40.0-72.0 The [facility] Comment on above: Performed By: #### 8 [id number] #### [facility] [address] [facility] [place] [address], [facility] Nucleated RBC/100 WBC (Bld) [Ratio] 0 % Normal 0-0 The [facility] Comment on above: Performed By: #### 8 [id number] #### [facility] [address] [place] [address], [facility] PLAT CNT 334 10*3/uL Normal 150-400 The [facility] Comment on above: Performed By: #### 8 [id number] #### [facility] [address] [place] [address], [facility] RBC (Bld) [#/Vol] 5.02 10*6/uL High 3.80-5.00 The [facility] Comment on above: Performed By: #### 8 [id number] #### [facility] [address] [place] [address], [facility] WBC (Bld) [#/Vol] 6.92 10*3/uL Normal 4.00-10.60 The [facility] Comment on above: Performed By: #### 8 [id number] #### [facility] [address] [place] [id number], [facility] COMP METABOLIC PANELon 07-30 Albumin [Mass/Vol] 4.5 g/dL Normal 3.5-5.7 The [facility] Comment on above: Performed By: #### 6 [id number] #### [facility] [address] [facility] [place] [address], [facility] ALKALINE PHOSPH 116 IU/L High 34-104 The [facility] Comment on above: Performed By: #### 6 [id number] #### [facility] [address] [place] [address], [facility] ALT [Catalytic activity/Vol] 29 U/L Normal 7-52 The [facility] Comment on above: Performed By: #### 6 [id number] #### [facility] [address] [place] [id number], [facility] AST [Catalytic activity/Vol] 19 U/L Normal 13-39 The [facility] Comment on above: Performed By: #### 6 [id number] #### [facility] [address] [place] [address], [facility] Bilirubin [Mass/Vol] 0.4 mg/dL Normal 0.3-1.0 The [facility] Comment on above: Performed By: #### 6 [id number] #### [facility] [address] [place] [address], [place] Calcium [Mass/Vol] 9.9 mg/dL Normal 8.6-10.3 The [facility] Comment on above: Performed By: #### 6 [id number] #### [facility] [address] [place] [address], [place] Chloride [Moles/Vol] 102 mmol/L Normal 98-107 The [facility] Comment on above: Performed By: #### 6 2586 #### [facility] [address] [place] [address], [place] CO2 [Moles/Vol] 29 mmol/L Normal 21-31 The [facility] Comment on above: Performed By: #### 6 2586 #### [facility] [address] [place] [address], [place] Creatinine [Mass/Vol] 0.62 mg/dL Normal 0.60-1.20 The [facility] Comment on above: Performed By: #### 6 2586 #### [facility] [address] [place] [address], [place] GFR/1.73 sq M.predicted among blacks MDRD (S/P/Bld) [Vol rate/Area] mL/min/{1.73_m2} Normal >60 The [facility] Comment on above: Performed By: #### 6 2586 #### [facility] [address] [place] [address], [place] GFR/1.73 sq M.predicted among non-blacks MDRD (S/P/Bld) [Vol rate/Area] mL/min/{1.73_m2} Normal >60 The [facility] Comment on above: Performed By: #### 6 2586 #### [facility] [address] [place] [address], [place] Glucose [Mass/Vol] 103 mg/dL High 70-100 The [facility] Comment on above: Performed By: #### 6 2586 #### [facility] [address] [place] [address], [place] Potassium [Moles/Vol] 3.9 mmol/L Normal 3.5-5.1 The [facility] Comment on above: Performed By: #### 6 2586 #### [facility] [address] [place] [address], [place] Protein [Mass/Vol] 7.4 g/dL Normal 6.0-8.3 The [facility] Comment on above: Performed By: #### 6 2586 #### [facility] [address] [place] [address], [place] Sodium [Moles/Vol] 139 mmol/L Normal 136-145 The [facility] Comment on above: Performed By: #### 6 2586 #### [facility] [address] [place] [address], [place] Urea nitrogen [Mass/Vol] 10 mg/dL Normal 7-25 The [facility] Comment on above: Performed By: #### 6 2586 #### [facility] [address] [place] [address], [facility] CT ABDOMEN AND PELVIS WO CON TRASTon 07-30-2021 CT ABDOMEN AND PELVIS WO CONTRAST [facility] Department of Radiology [address] [place] [address] [phone] Patient Name: MATEUS CARMICHAEL : 1970 Sex: F Age: Race: White Pt. 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 noticed bulge around stoma tonight, evaluate for parastomal hernia. QUESTION FOR THE RADIOLOGIST: Obstruction, evaluate for parastomal hernia PROTOCOL: Axial CT images of the abdomen and pelvis were obtained without IV contrast. TECHNIQUE: Multidetector CT axial slices of the abdomen and pelvis without IV contrast. Multiplanar reformats were performed and viewed on a separate workstation and reviewed to further define anatomy and possible pathology. All CT scans at this facility use dose modulation, iterative reconstruction, and/or weight based dosing when appropriate to reduce radiation dose to as low as reasonably achievable COMPARISON: 03/24/2021 FINDINGS: No lower lung consolidations. No pleural effusion. Colostomy in the left lower quadrant. There has been interval parastomal herniation of fat and a single loop of colon. No acute osseous abnormalities. Degenerative changes at L5-S1. The visualized portions of the heart and pericardium are unremarkable. No significant vascular calcifications. No aneurysms. The liver and gallbladder are unremarkable. The kidneys and adrenal glands are unremarkable. The spleen is unremarkable. The pancreas is unremarkable. The uterus is surgically absent. No abnormalities noted in the adnexa. The bladder and ureters are unremarkable. Colonic diverticulosis without diverticulitis. There is no evidence of free air or bowel obstruction. The appendix is unremarkable. No enlarged lymph nodes. 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 No evidence of bowel obstruction. Approved by:Enrique Smithon07/30/2021 6:33 AM. I, Anthony Arzate,have reviewed the image(s) and agree with the findings in this report. Electronically signed: Anthony Arzate. Transcribed by: [email or web address], User Resident: ENRIQUE SMITH Electronically Signed by: ANTHONY ARZATE @ 07/30/2021 07:01 AM I personally read this/these film(s) with this resident Normal The [facility] Comment on above: Order Comment: Obstr uction, evaluate for parastomal hernia LACTATE BLOODon 07-30-2021 Lactate [Moles/Vol] 0.8 mmol/L Normal .5-2.2 The [facility] Comment on above: Performed By: #### 1 0054 ####[facility] [facility] [place] [address], [facility] LIPASE BLOODon 07-30-2021 LIPASE 31 Units/L Normal 11-82 The [facility] Comment on above: Performed By: #### 6 [id number] #### [facility] [address] [facility] [place] [address], [facility] URINALYSIS REFLEXon 07-31-19 22 Appearance (U) CLEAR Normal CLEAR The [facility] Comment on above: Order Comment: Crite rakesh for reflexing a culture was not met. Please call the lab [id number] within 24 hours of collection time if culture is needed Performed By: #### 8 [id number] #### [facility] [address] [place] [address], [facility] Bilirubin Ql (U) Negative Normal NEGATIVE The [facility] Comment on above: Order Comment: Crite rakesh for reflexing a culture was not met. Please call the lab [id number] within 24 hours of collection time if culture is needed Performed By: #### 8 [id number] #### [facility] [address] [place] [address], [place] Color (U) STRAW Abnormal YELLOW The [facility] Comment on above: Order Comment: Crite rakesh for reflexing a culture was not met. Please call the lab [id number] within 24 hours of collection time if culture is needed Performed By: #### 8 [id number] #### [facility] [address] [place] [address], [place] Glucose Ql (U) Negative Normal NEGATIVE The [facility] Comment on above: Order Comment: Crite rakesh for reflexing a culture was not met. Please call the lab [id number] within 24 hours of collection time if culture is needed Performed By: #### 8 [id number] #### [facility] [address] [place] [address], [place] Hemoglobin Ql (U) Negative Normal NEGATIVE The [facility] Comment on above: Order Comment: Crite rakesh for reflexing a culture was not met. Please call the lab [id number] within 24 hours of collection time if culture is needed Performed By: #### 8 [id number] #### [facility] [address] [facility] [address], [place] KETONE Negative Normal NEGATIVE The [facility] Comment on above: Order Comment: Crite rakesh for reflexing a culture was not met. Please call the lab [id number] within 24 hours of collection time if culture is needed Performed By: #### 8 [id number] #### [facility] [address] [place] [address], [place] LEUK CELSO Negative Normal NEGATIVE The [facility] Comment on above: Order Comment: Crite rakesh for reflexing a culture was not met. Please call the lab [id number] within 24 hours of collection time if culture is needed Performed By: #### 8 [id number] #### [facility] [address] [place] [address], [place] MICRO NOT DONE Normal The [facility] Comment on above: Order Comment: Crite rakesh for reflexing a culture was not met. Please call the lab [id number] within 24 hours of collection time if culture is needed Result Comment: Micr oscopics not performed on urines with negative chemical reactions unless requested in original order Performed By: #### 8 [id number] #### [facility] [address] Nitrite Ql (U) Negative Normal NEGATIVE The [facility] Comment on above: Order Comment: Crite rakesh for reflexing a culture was not met. Please call the lab [id number] within 24 hours of collection time if culture is needed Performed By: #### 8 [id number] #### [facility] [address] pH (U) 6.0 [pH] Normal 5.0-8.0 The [facility] Comment on above: Order Comment: Crite rakesh for reflexing a culture was not met. Please call the lab [id number] within 24 hours of collection time if culture is needed Performed By: #### 8 [id number] #### [facility] [address] Protein Ql (U) Negative Normal NEGATIVE The [facility] Comment on above: Order Comment: Crite rakesh for reflexing a culture was not met. Please call the lab [id number] within 24 hours of collection time if culture is needed Performed By: #### 8 5499 #### [address] SPEC GRAV 1.006 Low 1.015-1.020 The [facility] Comment on above: Order Comment: Crite rakesh for reflexing a culture was not met. Please call the lab [id number] within 24 hours of collection time if culture is needed Performed By: #### 8 [id number] #### [facility] [address] Diabetic Self Management [facility] 05-13-2021 Diabetic Self Management Education [id number] .00CD:127 Normal [facility] Coding Summary.on 05-12-2021 Coding Summary. [id number] G h0bWw+PGhlYWQ+XW2AIYG tR24dcVYauH4RK1zLUK9E BUGNRIADKO3HSX3onYU1N ThzF1BnjwFe DuyllJLkUL10YDf7LZT8d SplSGkbwQ1zmZXdA5r7Wn VsLY75yN96NEwkZGUnPxE 3LjZpbjsgbWFy V9jbDnUscDOcJbl+PHRhY mxlIHdpZHRoPScxMDAlJy WsmTqnON0oVa2iPHLoHIN vbGxhcHNlOiBj w3cnYOJcTRglPB8jmZrpK 5OrqXG5AYUun4q3Rt59gO I+BYLnAYN5dJglVMaqy02 8QkTpk9pgZAZ4 hUNtBMqeYGS4T87oq4V9Y UVxKWZlNXP6uQQ0lS9weB ozcgghP2FbjNBgWmS1IQZ 5xUDywH1dbUqz fvqgjS7lXno+U44XPY0BT VNWIL5ZLwm8H3EhAzgcvS I+IF40QRMnYK30aYXlqHA ad0xdfQf0YpDx DHYmDTP3zDfeGVqhr7EhT PJkM81glJViy4B1JRYuvV jpeFXtLwGatBZ4zF3nXNl fvqjwx7hxphmo Bpeln5ifux26oV02I12cA PbiTGLjUEH2LXCqXDPmlP vmxt9flQ2vYx9+WQxbt1w iq9djxTs0QkFg FGWhpyArlBhaYZX2c8BmX d21W2VkeGwic4LiJwj9iu 30pLVfn1P5iKF9ZNgxRYD rsB1xGFhuJpW3 YTFfTiMioV74wDAkUGqfN u4uzCapsZuvPM7uQLLyqq plUBAvaK3zZEKdrKEbmCe qEK3bRQDccsul g821BoIfUIQ2TVQwaHNkN 4QieD6uQwXnMCCoXPRrS0 AoeIAaCRvkJ994TRwvZrC 8QASgndSwO8Jn WMOorNmtPgN5b0I3Op5Ca 8QakihtCUR2ACgiHJZzQq F9LnJqHaG6Y0WpMke7DKW nrBtoLX2lQ2Fs VHUweuaasqlzyRE3BFFgM RPwoN01wRDtSMndFm3zk2 Y7f781FQFkCOWdxS12Lk9 udDogMTBwdCBU bS9hwznwz7ldfdfnHfDkD OKxPIn0CSb6IQPmrAbjMi JeSVJ8QyZ3MAT8oPXtdG8 ylXkmkghgwC9f Oyc+O51poY2zOGG8EIN4i hvdZSQxqiNwZC09YN79O4 RyPjwvdGFibGU+PGRpdiB qxFdzBY1cFxGz b2emt5JuOLncB4BhOCJvT GyoXdc7UEMhJPH4wNO7dD 6kTWGeGXmyc4S0fKO1I2O reiVzly0wd3as SBBiEPvrS65weQPce4G3Z DLqrTB6HJBcqEvrShBfuU 93Oyc+CXXolJnzf5GpDzv gk5vep4mryFc6 ZvRoUGYaybCnqTpcZGI6x 1HpVh15C15rJToiPEAcAR EzEWWiRAXthSigkd6cnZ7 wIi8+PGNvbCB3 yOM7lH0eNNZtPaZ5MFbnZ 287RjEjxLBnHpwsg1tlb5 qbfGc3RyOqVNHkwbShqKh wCTX7w1KcNy03 R43rTZygHQBeFFCqIJArU KLauAyjxl5qdL8gMl3+PC 0pt7wmeo65yI02xQS+PHR pUQJ0wSgmSOex JCNawM4zOPdxBuQ6KLVzQ mEihL39hOWqGHunBr2cbC vulAqeUA1kAAVnksvax70 3JhGni1xxOGUp bMNvWQqeHJM1M48fq2V9E JBxIAGlIFG4wOF6mH8ruZ lnbjogbGVmdDsgdmVydGl iHLpdFRnqL166 IHRvcDsnPlBhdGllbnQgT fWrURp3D9MmXbv6SMTttC dtZN6jhDItVSsbSx8wmHw ngLsxGA7rEXBw tvzni393GrHry3mkFXBnd MEqIHdtCLD7Y60ih2I2ID GqCSBmWIW5rSY3wS0gnFu nbjogbGVmdDsg gnTayGbyWXxoJAmnE188R HRvcDsnPkJpcnRoIERhdG E2RN00FR99iEWzo0P2jAV 3C6IqLCEcwwkh mtjsxFL4EQMfVPTjcP08V i1ofLwxOa0zXHFwCUJ5OM XtfJDlN3XnvW1dYmVsCGZ pBMXeY1GykVPp BUnoZ245URjxOrR1HHLow hDkB1ZbRXFskPuuQdP4e2 O7Ig7RH9C5DT23CG36fYL ff0U4lTG5Y0Oz RDKyhbywzvdbjOL0UCWoU EGzfJ22Ed1dtRrtLq8zIL RvABX1LYEzgANbY5LruA5 yOiAjMDAwMDAw S9ObiMYaVJrmW658RKrmR pG1PTVkgzFvU2ZaLVQnmL tsYfG9d9U5Kf0CPWo4ZY5 9WN79eYIth5L1 kJD2Q1EiHIEdcnzyazlwr SI5ZXSiKQTmqB36Do0xfI siQh6uVLPuQMF3JHGqhMU yM9DpkR8hLfHp TWEjWLXuB3QliYKxMShzF 120OWihXnG0PKLfdhEuQ9 ViFIIgdXyeGrV2o2X7Ej2 PTDKyRL79CGZ9 kKS5WW24RS18L6KgBwlkk GFibGU+PHRhYmxlIHdpZH RoPScxMDAlJyBzdHlsZT0 wLa5aNRAtBLVs xGuqkIYdEzBlw2gzQGKlY XfoLS1gqImpQ0FmfPU4UI Fxb7e3Kg40Z99aC7HioMT +BNYpuES4gAT2 lT4cYtFvZhF2VNqcE019N lIviMFkZatps8vlb1gnfE j8LbD5FKYufxQtfEhbSPO 1h9MvQf38T28e IHdpZHRoPSIxNSUiIHZhb Ujakr8adV3iTt6+PGNvbC O2oTK4hG2cJxXwVlQ9CJn tF672ZmXriDGf Jqfue2pzn4kmqUo2MtMuR ARdvoQppMdkCQT5b7IlNe 46N6KzrYqxq8FgGck8xj4 4iWWrv8O7jIY3 S9EmOQSqgrcufMJcuJerF L4xDYQywuatEZCueV4oQP UnM4m0WaObQmB6QFaiO3X fhdU7KVSxpBVs DHhoKDX6H74gd7T9UHTyS RHaIOD6iLC6fI9agLhraw ogbGVmdDsgdmVydGljYWw fBKnoX655CPFm tYxzFPKroD8wOWFynMAbr RjvUJ5wZNAamwyeCbXVIX POE88WUMJYONMGLFpHVLJ RYN97VO18yUKb j4A0lEL0U0LoZDVibhalk ersjFE1CJSsNLAxeE40iB VrXMopSj8pj3D4i819NGB tTNDspI51Mr7t sYipCTDdbBICwU8cfdksi 2vqvvmrJgUkIHYeQDy0KH p2AGGniRmhTtFuRSS7RhE 6VZV6fKWvwC9f eSodoxwnqX9mLox+MTEvM LymBGg9SYqiuIZ+PHRkIH T6qNeiFKbnOVUnaZ4sDFA pQ4f9VdIwLrY6 HGpyQ7ZeMNMatloaRz67e Q9cHuMcZoC2SHlhZ2Eeda V4NKKrzKQyICmcMMP4T52 jk5Z1QKGpHYMj YGU8xHP7pJ1ysFqbsihun GVmdDsgdmVydGljYWwtYW avH904LESxsTegFvKqKPd mBNBpOX05FV71 aIJfn2Z2rRQ1P3HyROSpw ugqjqsouHA6HMCwSWYsfU 42oRKzBSrzGg1nf6P1d77 3POHaMWTidY64 Nj9ejIliFGSljRJCaI8zl kpjz6axijubTjXgMTMjAL x0UMs6PPDesEngXjHyLFX 2KbE1HKN6zLFe rU8mpPlpzzqutY8rSqu+R iPkAOsuCX37WX78vIUni9 M1xGV4C4RkBWYhzwrgcje dhUU5GQRsUJBa oN19oRFdVSejOt5rq8V8e 889NMCkRKMrlB78Ps7deH jaOJFxyYJCpI9ywyzjr2v vcjogIzAwMDAw DPf8DUi9BQCemGcoOgGyH MT8DdK7UFC1yFAbcW5oiH tqmmueoN1nClo+UmVjdXJ tvZ3dEB64HB29 H5HoSpojzMNhzZA+PHRhY mxlIHdpZHRoPScxMDAlJy UsfDcpTR1wNa6xGAAmEMC vbGxhcHNlOiBj a1jkYFHuWQiwRY8drInxV 1RvkAJ9HKJlv5p4Xn46H3 1iG5ZptQQ+OGAcxZS8mAC 5kM4hTrBuAiN5 WWrdE700YsCliDZoSwyeg 4glf5wqaAa7IzOgAXIvpe KdnLajCBK9l6XcKe56Z85 sIHdpZHRoPSIy KGDsJAVylBxunl6kyJ4rS i8+GRKswOQ8eEE4yW3mGi SuApU1LEueN338JvXmiMT lZjsnE44cY0Ru dXA+BMNdIzp4ZEPpsMwqG U9dsGWcDCukIo9wODS2Tm QtPpZiIJywO0OqRATlvat hlmhdtNU1QYMm ZEIxxO77Ug4pjZgjDa3oA LYhOQG0SVZrjHHdB1GhzM 3nUsCnKWAfNDYnF3YauSV lTAfoR348PHof SuR2IUDytfVeT7ZdUHTce SlxAqM6g5U1Zq6TeWtxsE ElAQ6wUzPtDTi2W2OvZqe 1AWEkfPxnJK1k oWQkMWckJg5xaLfklSbqV A1yRIQruupet086QzDon7 tnIXDwhRWxEWelVZG1W21 qk2D3UCUgROWo WAG1yXL8cY7qpMqlowsof GVmdDsgdmVydGljYWwtYW noV484ZTDblKqcBgUFIub 1U2EnQdu1XCWt zBoqVL4ttTKbMBvkWw9qy FuhtMosWL6tGDNtyahey5 65FqRmf6duTFRytJLeSDi mYKX8K79ao5J8 FNMzKTVzFVV6nPP5uZ8cs GlnbjogbGVmdDsgdmVydG reHXpjIPitU487VKWwgCs vWh6CFhn3Y1Ib Zyc7QNTjbAdoRN1ikZQbM XynLc9lcGxjvXxgWG3sFZ Pciizus762EnVvj9pgKBC wcHQgVGltZXM7 Y31zh8B3RFQxUVGuGCR6o TL3kL7niElqaqrnsMMmyO nqgpXseNaqFXwvPBcxU63 6IHRvcDsnPlBh eWVyOjwvdGQ+OO69ef79W 6ObWotiJkc1ZRPpTCC0kJ K0uK6qGSPiXLqpi4I7zKB 7O7DjwmUrfg9e b2xs (more content not included)... Normal [facility] 05-06-2021 Consent [id number]#1. 00CD:127 Normal [facility] Physician Orderon 05-04-2021 Physician Order [id number]# 1.00CD:127 Normal [facility] BASIC METABOLIC PANELon 02-28 Calcium [Mass/Vol] 8.3 mg/dL Low 8.6-10.3 [facility] Comment on above: Order Comment: Fluid Collection, left mid abdomen Performed By: #### 1 0070, [id number], [id number] ####[facility] [place] [address], [facility] Chloride [Moles/Vol] 99 mmol/L Normal 98-107 [facility] Comment on above: Order Comment: Fluid Collection, left mid abdomen Performed By: #### 1 0070, [id number], [id number] ####[facility] [place] [address], [place] CO2 [Moles/Vol] 31 mmol/L Normal 21-31 [facility] Comment on above: Order Comment: Fluid Collection, left mid abdomen Performed By: #### 1 0070, [id number], [id number] ####[facility] [place] [address], [place] Creatinine [Mass/Vol] 0.50 mg/dL Low 0.60-1.20 [facility] Comment on above: Order Comment: Fluid Collection, left mid abdomen Performed By: #### 1 0070, 11073, [id number] ####[facility] [place] [address], [place] GFR/1.73 sq M.predicted among blacks MDRD (S/P/Bld) [Vol rate/Area] mL/min/{1.73_m2} Normal >60 [facility] Comment on above: Order Comment: Fluid Collection, left mid abdomen Performed By: #### 1 0, 69435, [id number] ####[facility] [place] [address], [facility] GFR/1.73 sq M.predicted among non-blacks MDRD (S/P/Bld) [Vol rate/Area] mL/min/{1.73_m2} Normal >60 [facility] Comment on above: Order Comment: Fluid Collection, left mid abdomen Performed By: #### 1 0, 89503, [id number] ####[facility] [place] [address], [place] Glucose [Mass/Vol] 125 mg/dL High 70-100 [facility] Comment on above: Order Comment: Fluid Collection, left mid abdomen Performed By: #### 1 0, 09997, 10959 ####[facility] [place] [address], [place] Potassium [Moles/Vol] 4.2 mmol/L Normal 3.5-5.1 [facility] Comment on above: Order Comment: Fluid Collection, left mid abdomen Performed By: #### 1 0, [id number], [id number] ####[facility] [place] [address], [place] Sodium [Moles/Vol] 137 mmol/L Normal 136-145 [facility] Comment on above: Order Comment: Fluid Collection, left mid abdomen Performed By: #### 1 0, [id number], [id number] ####[facility] [place] [address], [place] Urea nitrogen [Mass/Vol] 7 mg/dL Normal 7-25 [facility] Comment on above: Order Comment: Fluid Collection, left mid abdomen Performed By: #### 1 0, 75553, [id number] ####[facility] [place] [address], [place] CBC COMPLETE BLOOD COUNTon 0 03-27-2021 Erythrocyte distribution width (RBC) [Ratio] 14.7 % Normal 11.5-15.0 [facility] Comment on above: Order Comment: No: D o not add to previous drawNurse draw Carmichael Performed By: #### 8 [id number] #### [facility] [address] [place] [address], [facility] Hematocrit (Bld) [Volume fraction] 29.5 % Low 36.0-45.0 [facility] Comment on above: Order Comment: No: D o not add to previous drawNurse draw Carmichael Performed By: #### 8 [id number] #### [facility] [address] [place] [address], [facility] Hemoglobin (Bld) [Mass/Vol] 9.0 g/dL Low 12.0-15.0 [facility] Comment on above: Order Comment: No: D o not add to previous drawNurse draw Carmichael Performed By: #### 8 [id number] #### [facility] [address] [place] [address], [facility] MCH (RBC) [Entitic mass] 25.6 pg Low 27.0-33.0 [facility] Comment on above: Order Comment: No: D o not add to previous drawNurse draw Carmichael Performed By: #### 8 [id number] #### [facility] [address] [place] [address], [facility] MCHC (RBC) [Mass/Vol] 30.5 g/dL Low 32.0-35.0 [facility] Comment on above: Order Comment: No: D o not add to previous drawNurse draw Carmichael Performed By: #### 8 [id number] #### [facility] [address] [place] [address], [facility] MCV (RBC) [Entitic vol] 84.0 fL Normal 82.0-98.0 T usha [facility] Comment on above: Order Comment: No: D o not add to previous drawNurse draw Carmichael Performed By: #### 8 [id number] #### [facility] [address] [facility] [place] [address], [facility] Nucleated RBC/100 WBC (Bld) [Ratio] 0 % Normal 0-0 [facility] Comment on above: Order Comment: No: D o not add to previous drawNurse draw Carmichael Performed By: #### 8 [id number] #### [facility] [address] [facility] [place] [address], [facility] PLAT CNT 602 10*3/uL High 150-400 [facility] Comment on above: Order Comment: No: D o not add to previous drawNurse draw Carmichael Performed By: #### 8 [id number] #### [facility] [address] [place] [address], [facility] RBC (Bld) [#/Vol] 3.51 10*6/uL Low 3.80-5.00 [facility] Comment on above: Order Comment: No: D o not add to previous drawNurse draw Carmichael Performed By: #### 8 [id number] #### [facility] [address] [facility] [place] [address], [facility] WBC (Bld) [#/Vol] 10.88 10*3/uL High 4.00-10.60 [facility] Comment on above: Order Comment: No: D o not add to previous drawNurse draw Carmichael Performed By: #### 8 [id number] #### [facility] [address] [place] [address], [facility] MAGNESIUM BLOODon 03-27-2021 Magnesium [Mass/Vol] 1.8 mg/dL Low 1.9-2.7 [facility] Comment on above: Order Comment: No: D o not add to previous draw Criteria for reflexing a culture was not met. Please call the lab at [phone] within 24 hours of collection time if culture is needed Performed By: #### 3 0965 #### [facility] [address] [facility] [place] [address], [facility] PHOSPHORUS BLOODon Phosphate [Mass/Vol] 3.9 mg/dL Normal 2.5-5.0 [facility] Comment on above: Order Comment: Fluid Collection, left mid abdomen Performed By: #### 1 0070, 26162, 15051 ####[facility] [place] [address], [place] BASIC METABOLIC PANELon -2 Calcium [Mass/Vol] 8.0 mg/dL Low 8.6-10.3 [facility] Comment on above: Order Comment: No: D o not add to previous draw Performed By: #### 6 2586 #### [facility] [address] [place] [address], [place] Chloride [Moles/Vol] 99 mmol/L Normal 98-107 [facility] Comment on above: Order Comment: No: D o not add to previous draw Performed By: #### 6 2586 #### [facility] [address] [place] [address], [place] CO2 [Moles/Vol] 32 mmol/L High 21-31 [facility] Comment on above: Order Comment: No: D o not add to previous draw Performed By: #### 6 2586 #### [facility] [address] [place] [address], [place] Creatinine [Mass/Vol] 0.43 mg/dL Low 0.60-1.20 [facility] Comment on above: Order Comment: No: D o not add to previous draw Performed By: #### 6 2586 #### [facility] [address] [place] [address], [place] GFR/1.73 sq M.predicted among blacks MDRD (S/P/Bld) [Vol rate/Area] mL/min/{1.73_m2} Normal >60 [facility] Comment on above: Order Comment: No: D o not add to previous draw Performed By: #### 6 2586 #### [facility] [address] [place] [address], [place] GFR/1.73 sq M.predicted among non-blacks MDRD (S/P/Bld) [Vol rate/Area] mL/min/{1.73_m2} Normal >60 [facility] Comment on above: Order Comment: No: D o not add to previous draw Performed By: #### 6 2586 #### [facility] [address] [place] [address], [place] Glucose [Mass/Vol] 108 mg/dL High 70-100 [facility] Comment on above: Order Comment: No: D o not add to previous draw Performed By: #### 6 2586 #### [facility] [address] [place] [address], [place] Potassium [Moles/Vol] 3.5 mmol/L Normal 3.5-5.1 [facility] Comment on above: Order Comment: No: D o not add to previous draw Performed By: #### 6 2586 #### [facility] [address] [place] [address], [place] Sodium [Moles/Vol] 136 mmol/L Normal 136-145 [facility] Comment on above: Order Comment: No: D o not add to previous draw Performed By: #### 6 2586 #### [facility] [address] [place] [address], [place] Urea nitrogen [Mass/Vol] 8 mg/dL Normal 7-25 [facility] Comment on above: Order Comment: No: D o not add to previous draw Performed By: #### 6 2586 #### [facility] [address] [place] [address], [place] CBC COMPLETE BLOOD COUNTon 0 - Erythrocyte distribution width (RBC) [Ratio] 14.5 % Normal 11.5-15.0 [facility] Comment on above: Order Comment: No: D o not add to previous draw Performed By: #### 8 [id number] #### [facility] [address] [place] [address], [place] Hematocrit (Bld) [Volume fraction] 28.7 % Low 36.0-45.0 [facility] Comment on above: Order Comment: No: D o not add to previous draw Performed By: #### 8 [id number] #### [facility] [address] [place] [address], [facility] Hemoglobin (Bld) [Mass/Vol] 8.8 g/dL Low 12.0-15.0 [facility] Comment on above: Order Comment: No: D o not add to previous draw Performed By: #### 8 [id number] #### [facility] [address] [facility] [place] [address], [facility] MCH (RBC) [Entitic mass] 25.7 pg Low 27.0-33.0 [facility] Comment on above: Order Comment: No: D o not add to previous draw Performed By: #### 8 [id number] #### [facility] [address] MCHC (RBC) [Mass/Vol] 30.7 g/dL Low 32.0-35.0 [facility] Comment on above: Order Comment: No: D o not add to previous draw Performed By: #### 8 [id number] #### [facility] [address] [facility] [place] [address], [facility] MCV (RBC) [Entitic vol] 83.9 fL Normal 82.0-98.0 T [facility] Comment on above: Order Comment: No: D o not add to previous draw Performed By: #### 8 [id number] #### [facility] [address] [facility] [place] [address], [facility] Nucleated RBC/100 WBC (Bld) [Ratio] 0 % Normal 0-0 [facility] Comment on above: Order Comment: No: D o not add to previous draw Performed By: #### 8 [id number] #### [facility] [address] [place] [address], [facility] PLAT CNT 570 10*3/uL High 150-400 [facility] Comment on above: Order Comment: No: D o not add to previous draw Performed By: #### 8 [id number] #### [facility] [address] [place] [address], [facility] RBC (Bld) [#/Vol] 3.42 10*6/uL Low 3.80-5.00 [facility] Comment on above: Order Comment: No: D o not add to previous draw Performed By: #### 8 [id number] #### [facility] [address] [place] [address], [facility] WBC (Bld) [#/Vol] 9.82 10*3/uL Normal 4.00-10.60 [facility] Comment on above: Order Comment: No: D o not add to previous draw Performed By: #### 8 [id number] #### [facility] [address] [facility]. [address] MAGNESIUM BLOODon 03-26-2021 Magnesium [Mass/Vol] 1.8 mg/dL Low 1.9-2.7 [facility] Comment on above: Order Comment: No: D o not add to previous draw Performed By: #### 6 2586 #### [facility] [address] [facility] [place] [address], [facility] PHOSPHORUS BLOODon Phosphate [Mass/Vol] 3.2 mg/dL Normal 2.5-5.0 [facility] Comment on above: Order Comment: No: D o not add to previous draw Performed By: #### 6 2586 #### [facility] [address] [facility] [place] [address], [facility] BASIC METABOLIC PANELon 02-28 Calcium [Mass/Vol] 8.1 mg/dL Low 8.6-10.3 [facility] Comment on above: Order Comment: No: D o not add to previous draw Criteria for reflexing a culture was not met. Please call the lab at [phone] within 24 hours of collection time if culture is needed Performed By: #### 3 0965 #### [facility] [address] [place] [address], [facility] Chloride [Moles/Vol] 98 mmol/L Normal 98-107 [facility] Comment on above: Order Comment: No: D o not add to previous draw Criteria for reflexing a culture was not met. Please call the lab at [phone] within 24 hours of collection time if culture is needed Performed By: #### 3 0965 #### [facility] [address] [place] [address], [facility] CO2 [Moles/Vol] 30 mmol/L Normal 21-31 [facility] Comment on above: Order Comment: No: D o not add to previous draw Criteria for reflexing a culture was not met. Please call the lab at [phone] within 24 hours of collection time if culture is needed Performed By: #### 3 0965 #### [facility] [address] [facility] [place] [address], [facility] Creatinine [Mass/Vol] 0.43 mg/dL Low 0.60-1.20 [facility] Comment on above: Order Comment: No: D o not add to previous draw Criteria for reflexing a culture was not met. Please call the lab at [phone] within 24 hours of collection time if culture is needed Performed By: #### 3 0965 #### [facility] [address] [facility] [place] [address], [facility] GFR/1.73 sq M.predicted among blacks MDRD (S/P/Bld) [Vol rate/Area] mL/min/{1.73_m2} Normal >60 [facility] Comment on above: Order Comment: No: D o not add to previous draw Criteria for reflexing a culture was not met. Please call the lab at [phone] within 24 hours of collection time if culture is needed Performed By: #### 3 0965 #### [facility] [address] [place] [address], [facility] GFR/1.73 sq M.predicted among non-blacks MDRD (S/P/Bld) [Vol rate/Area] mL/min/{1.73_m2} Normal >60 [facility] Comment on above: Order Comment: No: D o not add to previous draw Criteria for reflexing a culture was not met. Please call the lab at [phone] within 24 hours of collection time if culture is needed Performed By: #### 3 0965 #### [facility] [address] [place] [address], [facility] Glucose [Mass/Vol] 92 mg/dL Normal 70-100 [facility] Comment on above: Order Comment: No: D o not add to previous draw Criteria for reflexing a culture was not met. Please call the lab at [phone] within 24 hours of collection time if culture is needed Performed By: #### 3 0965 #### [facility] [address] [place] [address], [facility] Potassium [Moles/Vol] 3.8 mmol/L Normal 3.5-5.1 [facility] Comment on above: Order Comment: No: D o not add to previous draw Criteria for reflexing a culture was not met. Please call the lab at [phone] within 24 hours of collection time if culture is needed Performed By: #### 3 0965 #### [facility] [address] [place] [address], [place] Sodium [Moles/Vol] 135 mmol/L Low 136-145 [facility] Comment on above: Order Comment: No: D o not add to previous draw Criteria for reflexing a culture was not met. Please call the lab at [phone] within 24 hours of collection time if culture is needed Performed By: #### 3 0965 #### [facility] [address] [place] [address], [place] Urea nitrogen [Mass/Vol] 6 mg/dL Low 7-25 [facility] Comment on above: Order Comment: No: D o not add to previous draw Criteria for reflexing a culture was not met. Please call the lab at [phone] within 24 hours of collection time if culture is needed Performed By: #### 3 0965 #### [facility] [address] [place] [address], [facility] CBC COMPLETE BLOOD COUNTon 03-25-2021 Erythrocyte distribution width (RBC) [Ratio] 14.2 % Normal 11.5-15.0 [facility] Comment on above: Order Comment: No: D o not add to previous draw Performed By: #### 3 1595 #### [facility] [address] [place] [address], [facility] Hematocrit (Bld) [Volume fraction] 29.7 % Low 36.0-45.0 [facility] Comment on above: Order Comment: No: D o not add to previous draw Performed By: #### 3 1595 #### [facility] [address] [place] [id number], [facility] Hemoglobin (Bld) [Mass/Vol] 8.9 g/dL Low 12.0-15.0 [facility] Comment on above: Order Comment: No: D o not add to previous draw Performed By: #### 3 1595 #### [facility] [address] [place] [address], [facility] MCH (RBC) [Entitic mass] 25.9 pg Low 27.0-33.0 [facility] Comment on above: Order Comment: No: D o not add to previous draw Performed By: #### 3 1595 #### [facility] [address] [place] [address], [facility] MCHC (RBC) [Mass/Vol] 30.0 g/dL Low 32.0-35.0 [facility] Comment on above: Order Comment: No: D o not add to previous draw Performed By: #### 3 1595 #### [facility] [address] [place] [id number], [facility] MCV (RBC) [Entitic vol] 86.6 fL Normal 82.0-98.0 T usha [facility] Comment on above: Order Comment: No: D o not add to previous draw Performed By: #### 3 1595 #### [facility] [address] [place] [address], [facility] Nucleated RBC/100 WBC (Bld) [Ratio] 0 % Normal 0-0 [facility] Comment on above: Order Comment: No: D o not add to previous draw Performed By: #### 3 1595 #### [facility] [address] [place] [address], [facility] PLAT CNT 557 10*3/uL High 150-400 [facility] Comment on above: Order Comment: No: D o not add to previous draw Performed By: #### 3 1595 #### [facility] [address] [facility] [address], [facility] RBC (Bld) [#/Vol] 3.43 10*6/uL Low 3.80-5.00 [facility] Comment on above: Order Comment: No: D o not add to previous draw Performed By: #### 3 1595 #### [facility] [address] [facility] [place] [address], [facility] WBC (Bld) [#/Vol] 11.48 10*3/uL High 4.00-10.60 [facility] Comment on above: Order Comment: No: D o not add to previous draw Performed By: #### 3 1595 #### [facility] [address] [place] [address], [facility] MAGNESIUM BLOODon 03-25-2021 Magnesium [Mass/Vol] 1.9 mg/dL Normal 1.9-2.7 [facility] Comment on above: Order Comment: No: D o not add to previous draw Criteria for reflexing a culture was not met. Please call the lab at [phone] within 24 hours of collection time if culture is needed Performed By: #### 3 0965 #### [facility] [address] [place] [id number], [facility] PHOSPHORUS BLOODon 01-27-202 2 Phosphate [Mass/Vol] 2.8 mg/dL Normal 2.5-5.0 [facility] Comment on above: Order Comment: No: D o not add to previous draw Criteria for reflexing a culture was not met. Please call the lab at [phone] within 24 hours of collection time if culture is needed Performed By: #### 3 0965 #### [facility] [address] [facility] [place] [address], [facility] PROTHROMBIN TIMEon 2 INR Coag (PPP) [Relative time] 1.46 {INR} High 0.91-1.16 [facility] Comment on above: Order Comment: Yes: Add to Previous draw if able Result Comment: ACCC P RECOMMENDED INR FOR WARFARIN THERAPY ------- CONDITION INR PROPHYLAXIS OF VENOUS THROMBOSIS 2-3 (HIGH-RISK SURGERY) TREATMENT OF VENOUS THROMBOSIS 2-3 TREATMENT OF PULMONARY EMBOLISM 2-3 PREVENTION OF SYSTEMIC EMBOLISM: 2-3 ACUTE MYOCARDIAL INFARCTION TISSUE HEART VALVES VALVULAR HEART DISEASE ATRIAL FIBRILLATION RECURRENT SYSTEMIC EMBOLISM MECHANICAL HEART VALVE 2.5-3.5 FROM: ORAL ANTICOAGULANTS. MECHANISM OF ACTION, CLINICAL EFFECTIVENESS, AND OPTIMAL THERAPEUTIC RANGE. CHEST 1995;108:[id number]. Performed By: #### 8 [id number] #### [facility] [address] [facility] [place] [address], [facility] PT Coag (PPP) [Time] 17.7 s High 12.3-14.8 [facility] Comment on above: Order Comment: Yes: Add to Previous draw if able Result Comment: ALL RESULTS MUST BE INTERPRETED WITH RESPECT TO BLOOD DRAWING ARTIFACT OR DILUTION ERROR OF ANTICOAGULANT AT THE TIME OF SAMPLING. Performed By: #### 8 [id number] #### [facility] [address] *ANAEROBIC CULTUREon 022 *ANAEROBIC CULTURE Clinical Report: (D) Specimen/Source: FLUID/PERITONEAL FLUID Collected: 03/24/2021 15:45 Status: Final Last Updated: 03/29/2021 08:46 CULT RES (Final) No Anaerobes Isolated 5 Days Normal [facility] Comment on above: Performed By: #### 3 1595 #### [facility] [address] *BODY FLUID CULTUREon 2021 *BODY FLUID CULTURE Clinical Report: (D) Specimen/Source: FLUID/PERITONEAL FLUID Collected: 03/24/2021 15:45 Status: Final Last Updated: 03/29/2021 08:19 GRAM (Final) Many Polys No Bacteria Seen CULT RES (Final) No Growth Day 5 Normal [facility] Comment on above: Performed By: #### 3 1595 #### [facility] [address] APTTon 03-24-2021 aPTT Coag (Bld) [Time] 42.0 s High 25.0-35.0 Th e [facility] Comment on above: Order Comment: No: D o not add to previous draw Result Comment: ALL RESULTS MUST BE INTERPRETED WITH RESPECT TO BLOOD DRAWING ARTIFACT OR DILUTION ERROR OF ANTICOAGULANT AT THE TIME OF SAMPLING. THE APTT SHOULD NOT BE USED TO MONITOR UNFRACTIONATED HEPARIN THERAPY, THIS LABORATORY NO LONGER HAS AN ESTABLISHED THERAPEUTIC RANGE BASED ON THE APTT. IT IS RECOMMENDED THAT THE [facility] - HEPARIN ASSAY (ANTI-XA ACTIVITY) BE USED FOR THIS PURPOSE. Performed By: #### 8 [id number] #### [facility] [address] BASIC METABOLIC PANELon 02-28 Calcium [Mass/Vol] 8.0 mg/dL Low 8.6-10.3 [facility] Comment on above: Order Comment: No: D o not add to previous draw Performed By: #### 8 [id number] #### [facility] [address] [place] [address], [place] Chloride [Moles/Vol] 100 mmol/L Normal 98-107 [facility] Comment on above: Order Comment: No: D o not add to previous draw Performed By: #### 8 [id number] #### [facility] [address] [place] [address], [place] CO2 [Moles/Vol] 27 mmol/L Normal 21-31 [facility] Comment on above: Order Comment: No: D o not add to previous draw Performed By: #### 8 [id number] #### [facility] [address] [place] [address], [place] Creatinine [Mass/Vol] 0.56 mg/dL Low 0.60-1.20 [facility] Comment on above: Order Comment: No: D o not add to previous draw Performed By: #### 8 [id number] #### [facility] [address] [place] [address], [place] GFR/1.73 sq M.predicted among blacks MDRD (S/P/Bld) [Vol rate/Area] mL/min/{1.73_m2} Normal >60 [facility] Comment on above: Order Comment: No: D o not add to previous draw Performed By: #### 8 [id number] #### [facility] [address] [place] [address], [place] GFR/1.73 sq M.predicted among non-blacks MDRD (S/P/Bld) [Vol rate/Area] mL/min/{1.73_m2} Normal >60 [facility] Comment on above: Order Comment: No: D o not add to previous draw Performed By: #### 8 [id number] #### [facility] [address] [place] [address], [place] Glucose [Mass/Vol] 93 mg/dL Normal 70-100 [facility] Comment on above: Order Comment: No: D o not add to previous draw Performed By: #### 8 [id number] #### [facility] [address] [place] [address], [facility] Potassium [Moles/Vol] 3.5 mmol/L Normal 3.5-5.1 The [facility] Comment on above: Order Comment: No: D o not add to previous draw Performed By: #### 8 [id number] #### [facility] [address] [place] [address], [facility] Sodium [Moles/Vol] 136 mmol/L Normal 136-145 The [facility] Comment on above: Order Comment: No: D o not add to previous draw Performed By: #### 8 [id number] #### [facility] [address] [place] [address], [facility] Urea nitrogen [Mass/Vol] 6 mg/dL Low 7-25 The [facility] Comment on above: Order Comment: No: D o not add to previous draw Performed By: #### 8 [id number] #### [facility] [address] [place] [address], [facility] CBC COMPLETE BLOOD COUNTon 03-24-2021 Erythrocyte distribution width (RBC) [Ratio] 14.1 % Normal 11.5-15.0 The [facility] Comment on above: Order Comment: No: D o not add to previous draw Performed By: #### 8 [id number] #### [facility] [address] [place] [address], [facility] Hematocrit (Bld) [Volume fraction] 28.4 % Low 36.0-45.0 The [facility] Comment on above: Order Comment: No: D o not add to previous draw Performed By: #### 8 [id number] #### [facility] [address] [place] [address], [facility] Hemoglobin (Bld) [Mass/Vol] 8.8 g/dL Low 12.0-15.0 The [facility] Comment on above: Order Comment: No: D o not add to previous draw Performed By: #### 8 [id number] #### [facility] [address] MCH (RBC) [Entitic mass] 26.3 pg Low 27.0-33.0 The [facility] Comment on above: Order Comment: No: D o not add to previous draw Performed By: #### 8 [id number] #### [facility] [address] [place] [address], [facility] MCHC (RBC) [Mass/Vol] 31.0 g/dL Low 32.0-35.0 The [facility] Comment on above: Order Comment: No: D o not add to previous draw Performed By: #### 8 [id number] #### [facility] [address] [place] [address], [facility] MCV (RBC) [Entitic vol] 85.0 fL Normal 82.0-98.0 T [facility] Comment on above: Order Comment: No: D o not add to previous draw Performed By: #### 8 [id number] #### [facility] 3000 [facility]. [address] Nucleated RBC/100 WBC (Bld) [Ratio] 0 % Normal 0-0 The [facility] Comment on above: Order Comment: No: D o not add to previous draw Performed By: #### 8 [id number] #### [facility] [address] [place] [address], [facility] PLAT CNT 465 10*3/uL High 150-400 The [facility] Comment on above: Order Comment: No: D o not add to previous draw Performed By: #### 8 [id number] #### [facility] [address] [facility] [place] [address], [facility] RBC (Bld) [#/Vol] 3.34 10*6/uL Low 3.80-5.00 The [facility] Comment on above: Order Comment: No: D o not add to previous draw Performed By: #### 8 [id number] #### [facility] [address] WBC (Bld) [#/Vol] 10.07 10*3/uL Normal 4.00-10.60 The [facility] Comment on above: Order Comment: No: D o not add to previous draw Performed By: #### 8 [id number] #### [facility] [address] [place], [place] [id number] [place] [address] [address] DRAINAGE PERITONEAL [facility] Department of Radiology [address] [place] [phone] Patient Name: MATEUS CARMICHAEL : 1970 Sex: F Age: Race: White Pt. Location: [id number] Patient Status: I Ordered Date: 03/24/2021 12:00:00 PM Completed Date: 03/24/2021 04:42 PM Requesting Provider: BRIAN DONALD Attending Provider: OANH GOETZ Report Copy To: Signs & Symptoms: Abscess History: See Comments Comments: Other, reattempt for IR drain Exam: CT DRAINAGE PERITONEAL CT DRAINAGE PERITONEAL 03/24/2021 4:42 PM CLINICAL INDICATIONS: Abscess drainage under CT guidance for 2 fluid collections TECHNOLOGIST COMMENTS: drainage from left peritoneal and rt pelvic area presumed abscess QUESTION FOR RADIOLOGISTS: Other, reattempt for IR drain PROTOCOL: All CT scans at this facility use dose modulation, iterative reconstruction, and/or weight based dosing when appropriate to reduce radiation dose to as low as reasonably achievable. INFORMED CONSENT: Reason for procedure was discussed with the patient. The procedure expectations risks benefits options and alternatives were discussed. All the questions were answered. The patient understood that results cannot be guaranteed. The procedure is indicated and risks are acceptable. Consent was obtained. Timeout: Section protocol timeout verification performed. MEDICATIONS: 4 mg of versed and 200 micrograms of Fentanyl were administered for conscious sedation. Vital signs were continuously monitored by nursing staff throughout the procedure. Performing physician:Dr. MELLO.. Total conscious sedation time is 1 hour and 2 minutes Start time: 1528 End time: 1630 PROCEDURE: Estimated blood loss: 3 mL FINDINGS: Left abdominal fluid catheter drainage: The fluid collection in the left mid abdomen was localized. The skin was prepped in sterile fashion. 1% lidocaine was used for local anesthesia. Using one step 5 Nauruan angiocatheter, access into the fluid collection was achieved and aspiration of 20 mL redish fluid in the syringe was made and the sample was sent for laboratory evaluation. Over 0.035 guidewire, 8 Nauruan catheter was placed and secured with stay fix. It was connected to a vacuum bulb. Right deep pelvic abscess catheter drainage: The skin was prepped in sterile fashion and 1% lidocaine was used for local anesthesia. Using 20-gauge 20 cm Chiba needle, access into the fluid collection was achieved under CT guidance. 0.018 guidewire was placed through the needle followed by dilator and then followed by 0.035 guidewire. Finally, 8 Nauruan drainage catheter was placed and pigtail was formed within the deep pelvic abscess. The catheter was secured in place with stay fix and connected to a vacuum bulb. Patient tolerated both procedures well. IMPRESSION: CT guidance was utilized for procedure. Successful CT-guided abscess drainage from the left mid abdomen and from the deep right pelvis without complications Electronically signed: Nanci Mello. Transcribed by: [email or web address], User Resident: Electronically Signed by: NANCI MELLO @ 03/25/2021 07:32 AM Normal The [facility] Comment on above: Order Comment: Other , reattempt for IR drain CT DRAINAGE RETROPERITONEALo n 03-24-2021 CT DRAINAGE RETROPERITONEAL [facility] Department of Radiology [address] [place] [phone] Patient Name: MATEUS CARMICHAEL : 1970 Sex: F Age: Race: White Pt. Location: [id number] Patient Status: I Ordered Date: 03/24/2021 12:05:00 PM Completed Date: 03/24/2021 04:42 PM Requesting Provider: BRIAN DONALD Attending Provider: OANH GOETZ Report Copy To: Signs & Symptoms: Abscess History: See Comments Comments: Fluid Collection, left mid abdomen Exam: CT DRAINAGE RETROPERITONEAL CT DRAINAGE RETROPERITONEAL 03/24/2021 4:42 PM SIGN AND SYMPTOMS: Abscess TECHNOLOGIST COMMENTS: drainage from left peritoneal and rt pelvic area QUESTION FOR RADIOLOGISTS: Fluid Collection, left mid abdomen FINDINGS: Please refer to CT guided catheter drainage report from the same day which includes both abscess drainages in the left mid abdomen and right deep pelvis. IMPRESSION: Successful CT-guided drainage. Please refer to full report of both procedures from the same day All CT scans at this facility use dose modulation, iterative reconstruction, and/or weight based dosing when appropriate to reduce radiation dose to as low as reasonably achievable Electronically signed: Nanci Mello. Transcribed by: [email or web address], User Resident: Electronically Signed by: NANCI MELLO @ 03/25/2021 08:30 AM Normal The [facility] Comment on above: Order Comment: Fluid Collection, left mid abdomen MAGNESIUM BLOODon 03-24-2021 Magnesium [Mass/Vol] 1.8 mg/dL Low 1.9-2.7 The [facility] Comment on above: Order Comment: No: D o not add to previous draw Performed By: #### 8 [id number] #### [facility] [address] [facility]. [address] PROTHROMBIN TIMEon 2 INR Coag (PPP) [Relative time] 1.47 {INR} High 0.91-1.16 The [facility] Comment on above: Order Comment: No: D o not add to previous draw Result Comment: ACCC P RECOMMENDED INR FOR WARFARIN THERAPY ------- CONDITION INR PROPHYLAXIS OF VENOUS THROMBOSIS 2-3 (HIGH-RISK SURGERY) TREATMENT OF VENOUS THROMBOSIS 2-3 TREATMENT OF PULMONARY EMBOLISM 2-3 PREVENTION OF SYSTEMIC EMBOLISM: 2-3 ACUTE MYOCARDIAL INFARCTION TISSUE HEART VALVES VALVULAR HEART DISEASE ATRIAL FIBRILLATION RECURRENT SYSTEMIC EMBOLISM MECHANICAL HEART VALVE 2.5-3.5 FROM: ORAL ANTICOAGULANTS. MECHANISM OF ACTION, CLINICAL EFFECTIVENESS, AND OPTIMAL THERAPEUTIC RANGE. CHEST 1995;108:231S-246S. Performed By: #### 8 [id number] #### [facility] [address] [facility] [place] [address], [facility] PT Coag (PPP) [Time] 17.8 s High 12.3-14.8 The [facility] Comment on above: Order Comment: No: D o not add to previous draw Result Comment: ALL RESULTS MUST BE INTERPRETED WITH RESPECT TO BLOOD DRAWING ARTIFACT OR DILUTION ERROR OF ANTICOAGULANT AT THE TIME OF SAMPLING. Performed By: #### 8 [id number] #### [facility] [address] [facility] [place], [place] [address] *ABSCESS CULTUREon 2 *ABSCESS CULTURE Clinical Report: (D) Specimen: ABSCESS Collected: 03/23/2021 16:00 Status: Final Last Updated: 03/28/2021 07:31 (1) Pelvic Abscess GRAM (Final) Many Polys Many Gram Positive Cocci In Pairs, Chains and Clusters Many Gram Negative Bacilli ISO (Final) Proteus mirabilis Moderate Growth ISO (Final) Enterococcus faecalis Moderate Growth ISO (Final) Escherichia coli Moderate Growth ISO (Final) Enterococcus avium Moderate Growth ISOLATE: ISOLATE: Proteus mirabilis Enterococcus faecalis --- --- NARCISA (mcg/ml) AMP./SULBAC (AMS) <=1/0.5 Susceptible AMPICILLIN (AM) <=4 Susceptible 2 Susceptible AZTREONAM (AZM) <=2 Susceptible CEFAZOLIN (CZ) 4 Susceptible CEFTRIAXONE (TECHNICAL CLERK) <=1 Susceptible CIPROFLOXACIN (CIP) <=0.25 Susceptible GENTAMICIN (GM) 4 Susceptible PIP/TAZO (TZP) <=2/4 Susceptible TOBRAMYCIN (TOB) <=2 Susceptible TRIMETH/SULFA (SXT) <=0.5/9.5 Susceptible VANCOMYCIN (VA) 2 Susceptible ISOLATE: Escherichia coli --- NARCISA (mcg/ml) AMP./SULBAC (AMS) >16/8 Resistant AMPICILLIN (AM) >16 Resistant AZTREONAM (AZM) <=2 Susceptible CEFAZOLIN (CZ) 4 Susceptible CEFTRIAXONE (TECHNICAL CLERK) <=1 Susceptible CIPROFLOXACIN (CIP) <=0.25 Susceptible ESBL (-/+) (ESBL) Negative GENTAMICIN (GM) <=2 Susceptible PIP/TAZO (TZP) 4/4 Susceptible TOBRAMYCIN (TOB) <=2 Susceptible TRIMETH/SULFA (SXT) <=0.5/9.5 Susceptible Antibiotic Summary Grid: AMS AM AZM CZ TECHNICAL CLERK CIP GM TZP TOB SXT VA Proteus mirabilis S S S S S S S S S S Enterococcus S S faecalis Escherichia coli R R S S S S S S S S ESBL Proteus mirabilis Enterococcus faecalis Escherichia coli N Normal The [facility] Comment on above: Order Comment: Pelvi c Abscess Performed By: #### 3 1595 #### [facility] [address] *ANAEROBIC CULTUREon 022 *ANAEROBIC CULTURE Clinical Report: (D) Specimen/Source: FLUID/INTRAOP SPEC Collected: 03/23/2021 16:00 Status: Final Last Updated: 03/26/2021 07:48 (1) Pelvic Abscess ISO (Final) Bacteroides fragilis Beta-Lactamase Positive Result changed by HUNTER on 03/26/2021 07:48. The previous result was: ISO (Prelim) Bacteroides fragilis Normal The [facility] Comment on above: Order Comment: Pelvi c Abscess Performed By: #### 8 [id number] #### [facility] [address] APTTon 03-23-2021 aPTT Coag (Bld) [Time] 41.5 s High 25.0-35.0 Th e [facility] Comment on above: Order Comment: Added on per RN request Result Comment: ALL RESULTS MUST BE INTERPRETED WITH RESPECT TO BLOOD DRAWING ARTIFACT OR DILUTION ERROR OF ANTICOAGULANT AT THE TIME OF SAMPLING. THE APTT SHOULD NOT BE USED TO MONITOR UNFRACTIONATED HEPARIN THERAPY, THIS LABORATORY NO LONGER HAS AN ESTABLISHED THERAPEUTIC RANGE BASED ON THE APTT. IT IS RECOMMENDED THAT THE [facility] - HEPARIN ASSAY (ANTI-XA ACTIVITY) BE USED FOR THIS PURPOSE. Performed By: #### 8 [id number] #### [facility] [address] [facility]. [address] BASIC METABOLIC PANELon 02-28 Calcium [Mass/Vol] 8.0 mg/dL Low 8.6-10.3 The [facility] Comment on above: Order Comment: Fluid Collection, left mid abdomen Performed By: #### 1 0070, [id number] ####[facility] Chloride [Moles/Vol] 100 mmol/L Normal 98-107 The [facility] Comment on above: Order Comment: Fluid Collection, left mid abdomen Performed By: #### 1 69, 70714 ####[facility] [place] [address], [facility] CO2 [Moles/Vol] 30 mmol/L Normal 21-31 The [facility] Comment on above: Order Comment: Fluid Collection, left mid abdomen Performed By: #### 1 69, 47333 ####[facility] [place] [address], [place] Creatinine [Mass/Vol] 0.48 mg/dL Low 0.60-1.20 The [facility] Comment on above: Order Comment: Fluid Collection, left mid abdomen Performed By: #### 1 69, 92877 ####[facility] [place] [address], [place] GFR/1.73 sq M.predicted among blacks MDRD (S/P/Bld) [Vol rate/Area] mL/min/{1.73_m2} Normal >60 The [facility] Comment on above: Order Comment: Fluid Collection, left mid abdomen Performed By: #### 1 69, 65447 ####[facility] [place] [address], [place] GFR/1.73 sq M.predicted among non-blacks MDRD (S/P/Bld) [Vol rate/Area] mL/min/{1.73_m2} Normal >60 The [facility] Comment on above: Order Comment: Fluid Collection, left mid abdomen Performed By: #### 1 69, 93225 ####[facility] [place] [address], [place] Glucose [Mass/Vol] 111 mg/dL High 70-100 The [facility] Comment on above: Order Comment: Fluid Collection, left mid abdomen Performed By: #### 1 69, 00882 ####[facility] [place] [address], [place] Potassium [Moles/Vol] 3.8 mmol/L Normal 3.5-5.1 The [facility] Comment on above: Order Comment: Fluid Collection, left mid abdomen Performed By: #### 1 69, 95739 ####[facility] [place] [address], [place] Sodium [Moles/Vol] 137 mmol/L Normal 136-145 The [facility] Comment on above: Order Comment: Fluid Collection, left mid abdomen Performed By: #### 1 69, 17151 ####[facility] [place] [address], [facility] Urea nitrogen [Mass/Vol] 6 mg/dL Low 7-25 The [facility] Comment on above: Order Comment: Fluid Collection, left mid abdomen Performed By: #### 1 69, 02531 ####[facility] [place] [address], [facility] CBC COMPLETE BLOOD COUNTon 0 03-23-2021 Erythrocyte distribution width (RBC) [Ratio] 14.3 % Normal 11.5-15.0 The [facility] Comment on above: Order Comment: No: D o not add to previous draw Performed By: #### 8 6154 #### [facility] [address] [place] [address], [place] Hematocrit (Bld) [Volume fraction] 29.2 % Low 36.0-45.0 The [facility] Comment on above: Order Comment: No: D o not add to previous draw Performed By: #### 8 7033 #### [facility] [address] [place] [address], [place] Hemoglobin (Bld) [Mass/Vol] 9.3 g/dL Low 12.0-15.0 The [facility] Comment on above: Order Comment: No: D o not add to previous draw Performed By: #### 8 9404 #### [facility] [address] [place] [address], [place] MCH (RBC) [Entitic mass] 26.6 pg Low 27.0-33.0 The [facility] Comment on above: Order Comment: No: D o not add to previous draw Performed By: #### 8 5499 #### [facility] [address] [place] [id number], [facility] MCHC (RBC) [Mass/Vol] 31.8 g/dL Low 32.0-35.0 The [facility] Comment on above: Order Comment: No: D o not add to previous draw Performed By: #### 8 [id number] #### [facility] [address] [place] [id number], [facility] MCV (RBC) [Entitic vol] 83.4 fL Normal 82.0-98.0 T he [facility] Comment on above: Order Comment: No: D o not add to previous draw Performed By: #### 8 [id number] #### [facility] [address] [place] [address], [facility] Nucleated RBC/100 WBC (Bld) [Ratio] 0 % Normal 0-0 The [facility] Comment on above: Order Comment: No: D o not add to previous draw Performed By: #### 8 [id number] #### [facility] [address] [place] [id number], [facility] PLAT CNT 451 10*3/uL High 150-400 The [facility] Comment on above: Order Comment: No: D o not add to previous draw Performed By: #### 8 [id number] #### [facility] [address] [place] [id number], [facility] RBC (Bld) [#/Vol] 3.50 10*6/uL Low 3.80-5.00 The [facility] Comment on above: Order Comment: No: D o not add to previous draw Performed By: #### 8 [id number] #### [facility] [address] [place] [id number], [facility] WBC (Bld) [#/Vol] 10.78 10*3/uL High 4.00-10.60 The [facility] Comment on above: Order Comment: No: D o not add to previous draw Performed By: #### 8 [id number] #### [address] DRAINAGE PERITONEALon CT DRAINAGE PERITONEAL [facility] Department of Radiology [address] [place] [phone] Patient Name: MATEUS CARMICHAEL : 1970 Sex: F Age: Race: White Pt. Location: [id number] Patient Status: I Ordered Date: 03/22/2021 7:55:00 AM Completed Date: 03/23/2021 04:52 PM Requesting Provider: BRIAN DONALD Attending Provider: OANH GOETZ Report Copy To: Signs & Symptoms: Abscess History: See Comments Comments: Fluid Collection, drain for pelvic abscess Exam: CT DRAINAGE PERITONEAL CT DRAINAGE PERITONEAL 03/23/2021 4:54 PM CLINICAL INDICATIONS: Right pelvic Abscess TECHNOLOGIST COMMENTS: right sided pelvic abscess drainage QUESTION FOR RADIOLOGISTS: Fluid Collection, drain for pelvic abscess PROTOCOL: All CT scans at this facility use dose modulation, iterative reconstruction, and/or weight based dosing when appropriate to reduce radiation dose to as low as reasonably achievable. INFORMED CONSENT: Reason for procedure was discussed with the patient. The procedure expectations risks benefits options and alternatives were discussed. All the questions were answered. The patient understood that results cannot be guaranteed. The procedure is indicated and risks are acceptable. Consent was obtained. Timeout: Section protocol timeout verification performed. MEDICATIONS: 3 mg of versed and 200 micrograms of Fentanyl were administered for conscious sedation. Vital signs were continuously monitored by nursing staff throughout the procedure. Performing physician:Dr. MELLO. Total conscious sedation time is 58 minutes. Start time: 1457 End time: 1555 PROCEDURE: Estimated blood loss: 2 mL FINDINGS: Patient was placed in the left lateral decubitus position. The procedure was explained in details the patient and informed consent was obtained. The skin was prepped in sterile fashion. 1% lidocaine was used for local anesthesia. Using AccuStick puncture set and 22-gauge long Chiba needle, access into the pathologic right pelvic fluid collection was achieved and pus was aspirated. Over a thin guidewire, a dilator was placed followed by 0.035 guidewire. Finally, 8.5 Nauruan drainage catheter was placed and pigtail was formed within the abscess and connected to a vacuum bulb with approximately 30 mL seen within the bulb and 20 mL of pus aspirated by syringe and submitted for laboratory evaluation. Patient tolerated the procedure well. While transferring the patient from the CT table to her bed, the vacuum bulb was called on the CT table and the entire catheter was withdrawn and removed unfortunately. Due to the significant amount of fluid aspirated from the abscess which has likely significantly decreased in size, repeat attempt was not performed at this time and can be performed at the later if needed and if there is reexamination of fluid within the cavity. IMPRESSION: CT guidance was utilized for procedure. Successful CT-guided abscess drainage from the right pelvic deep abscess and placement of drainage catheter which was unfortunately removed in error during transporting the patient. Repeat CT can be performed next day to evaluate if there is need for placement of another catheter or if the abscess is completely drained. Electronically signed: Nanci Mello. Transcribed by: [email or web address], User Resident: Electronically Signed by: NANCI MELLO @ 03/24/2021 09:08 AM Normal The [facility] Comment on above: Order Comment: Fluid Collection, drain for pelvic abscess MAGNESIUM BLOODon 03-23-2021 Magnesium [Mass/Vol] 1.9 mg/dL Normal 1.9-2.7 The [facility] Comment on above: Order Comment: Fluid Collection, left mid abdomen Performed By: #### 1 0070, [id number] ####[facility] PROTHROMBIN TIMEon INR Coag (PPP) [Relative time] 1.50 {INR} High 0.91-1.16 The [facility] Comment on above: Order Comment: No: D o not add to previous draw Result Comment: ACCC P RECOMMENDED INR FOR WARFARIN THERAPY ------- CONDITION INR PROPHYLAXIS OF VENOUS THROMBOSIS 2-3 (HIGH-RISK SURGERY) TREATMENT OF VENOUS THROMBOSIS 2-3 TREATMENT OF PULMONARY EMBOLISM 2-3 PREVENTION OF SYSTEMIC EMBOLISM: 2-3 ACUTE MYOCARDIAL INFARCTION TISSUE HEART VALVES VALVULAR HEART DISEASE ATRIAL FIBRILLATION RECURRENT SYSTEMIC EMBOLISM MECHANICAL HEART VALVE 2.5-3.5 FROM: ORAL ANTICOAGULANTS. MECHANISM OF ACTION, CLINICAL EFFECTIVENESS, AND OPTIMAL THERAPEUTIC RANGE. CHEST 1995;108:231S-246S. Performed By: #### 8 [id number] #### [facility] [address] [facility] [place] [address], [facility] PT Coag (PPP) [Time] 18.1 s High 12.3-14.8 The [facility] Comment on above: Order Comment: No: D o not add to previous draw Result Comment: ALL RESULTS MUST BE INTERPRETED WITH RESPECT TO BLOOD DRAWING ARTIFACT OR DILUTION ERROR OF ANTICOAGULANT AT THE TIME OF SAMPLING. Performed By: #### 8 [id number] #### [facility] [address] [facility] [place] [address], [facility] TYPE AND SCREENon 03-23-2021 ABO INTERPRETATION B Normal [facility] Comment on above: Performed By: #### 8 [id number] #### [facility] [address] [place] [address], [facility] RH INTERPRETATION Positive Normal [facility] Comment on above: Performed By: #### 8 [id number] #### [facility] [address] [place] [id number], [facility] APTTon 03-22-2021 aPTT Coag (Bld) [Time] 35.7 s High 25.0-35.0 Th e [facility] Comment on above: Result Comment: ALL RESULTS MUST BE INTERPRETED WITH RESPECT TO BLOOD DRAWING ARTIFACT OR DILUTION ERROR OF ANTICOAGULANT AT THE TIME OF SAMPLING. THE APTT SHOULD NOT BE USED TO MONITOR UNFRACTIONATED HEPARIN THERAPY, THIS LABORATORY NO LONGER HAS AN ESTABLISHED THERAPEUTIC RANGE BASED ON THE APTT. IT IS RECOMMENDED THAT THE [facility] - HEPARIN ASSAY (ANTI-XA ACTIVITY) BE USED FOR THIS PURPOSE. Performed By: #### 8 [id number] #### [facility] [address] [place] [address], [facility] BASIC METABOLIC PANELon 02-28 Calcium [Mass/Vol] 8.2 mg/dL Low 8.6-10.3 [facility] Comment on above: Order Comment: No: D o not add to previous draw Performed By: #### 6 [id number] #### [facility] [address] [place] [address], [facility] Chloride [Moles/Vol] 99 mmol/L Normal 98-107 [facility] Comment on above: Order Comment: No: D o not add to previous draw Performed By: #### 6 [id number] #### [facility] [address] [place] [address], [facility] CO2 [Moles/Vol] 31 mmol/L Normal 21-31 [facility] Comment on above: Order Comment: No: D o not add to previous draw Performed By: #### 6 2586 #### [facility] [address] [place] [address], [facility] Creatinine [Mass/Vol] 0.50 mg/dL Low 0.60-1.20 [facility] Comment on above: Order Comment: No: D o not add to previous draw Performed By: #### 6 2586 #### [facility] [address] [place] [address], [place] GFR/1.73 sq M.predicted among blacks MDRD (S/P/Bld) [Vol rate/Area] mL/min/{1.73_m2} Normal >60 The [facility] Comment on above: Order Comment: No: D o not add to previous draw Performed By: #### 6 2586 #### [facility] [address] [place] [address], [place] GFR/1.73 sq M.predicted among non-blacks MDRD (S/P/Bld) [Vol rate/Area] mL/min/{1.73_m2} Normal >60 The [facility] Comment on above: Order Comment: No: D o not add to previous draw Performed By: #### 6 2586 #### [facility] [address] [place] [address], [place] Glucose [Mass/Vol] 111 mg/dL High 70-100 [facility] Comment on above: Order Comment: No: D o not add to previous draw Performed By: #### 6 2586 #### [facility] [address] [place] [address], [place] Potassium [Moles/Vol] 3.5 mmol/L Normal 3.5-5.1 [facility] Comment on above: Order Comment: No: D o not add to previous draw Performed By: #### 6 2586 #### [facility] [address] [place] [address], [place] Sodium [Moles/Vol] 137 mmol/L Normal 136-145 [facility] Comment on above: Order Comment: No: D o not add to previous draw Performed By: #### 6 2586 #### [facility] [address] [place] [address], [facility] Urea nitrogen [Mass/Vol] 6 mg/dL Low 7-25 [facility] Comment on above: Order Comment: No: D o not add to previous draw Performed By: #### 6 2586 #### [facility] [address] [place] [address], [facility] CBC COMPLETE BLOOD COUNTon 0 - Erythrocyte distribution width (RBC) [Ratio] 14.3 % Normal 11.5-15.0 [facility] Comment on above: Order Comment: No: D o not add to previous draw Performed By: #### 8 [id number] #### [facility] [address] [place] [address], [facility] Hematocrit (Bld) [Volume fraction] 29.1 % Low 36.0-45.0 [facility] Comment on above: Order Comment: No: D o not add to previous draw Performed By: #### 8 [id number] #### [facility] [address] [place] [address], [facility] Hemoglobin (Bld) [Mass/Vol] 9.2 g/dL Low 12.0-15.0 [facility] Comment on above: Order Comment: No: D o not add to previous draw Performed By: #### 8 [id number] #### [facility] [address] [place] [address], [facility] MCH (RBC) [Entitic mass] 26.4 pg Low 27.0-33.0 [facility] Comment on above: Order Comment: No: D o not add to previous draw Performed By: #### 8 [id number] #### [facility] [address] [place] [address], [facility] MCHC (RBC) [Mass/Vol] 31.6 g/dL Low 32.0-35.0 [facility] Comment on above: Order Comment: No: D o not add to previous draw Performed By: #### 8 [id number] #### [facility] [address] [place] [address], [facility] MCV (RBC) [Entitic vol] 83.4 fL Normal 82.0-98.0 T he [facility] Comment on above: Order Comment: No: D o not add to previous draw Performed By: #### 8 [id number] #### [facility] [address] [facility] [place] [address], [facility] Nucleated RBC/100 WBC (Bld) [Ratio] 0 % Normal 0-0 [facility] Comment on above: Order Comment: No: D o not add to previous draw Performed By: #### 8 [id number] #### [facility] [address] [place] [address], [facility] PLAT CNT 433 10*3/uL High 150-400 [facility] Comment on above: Order Comment: No: D o not add to previous draw Performed By: #### 8 [id number] #### [facility] [address] [facility] [place] [address], [facility] RBC (Bld) [#/Vol] 3.49 10*6/uL Low 3.80-5.00 [facility] Comment on above: Order Comment: No: D o not add to previous draw Performed By: #### 8 [id number] #### [facility] [address] [facility] [place] [address], [facility] WBC (Bld) [#/Vol] 12.01 10*3/uL High 4.00-10.60 [facility] Comment on above: Order Comment: No: D o not add to previous draw Performed By: #### 8 [id number] #### [facility] [address] [facility] [place] [address], [facility] MAGNESIUM BLOODon 03-22-2021 Magnesium [Mass/Vol] 1.8 mg/dL Low 1.9-2.7 [facility] Comment on above: Order Comment: No: D o not add to previous draw Performed By: #### 8 [id number] #### [facility] [address] [facility] [address], [facility] PHOSPHORUS BLOODon 2 Phosphate [Mass/Vol] 3.6 mg/dL Normal 2.5-5.0 [facility] Comment on above: Order Comment: No: D o not add to previous draw Performed By: #### 6 [id number] #### [facility] [address] [facility] [place] [address], [facility] PROTHROMBIN TIMEon 2 INR Coag (PPP) [Relative time] 1.64 {INR} High 0.91-1.16 [facility] Comment on above: Order Comment: No: D o not add to previous draw Result Comment: ACCC P RECOMMENDED INR FOR WARFARIN THERAPY ------- CONDITION INR PROPHYLAXIS OF VENOUS THROMBOSIS 2-3 (HIGH-RISK SURGERY) TREATMENT OF VENOUS THROMBOSIS 2-3 TREATMENT OF PULMONARY EMBOLISM 2-3 PREVENTION OF SYSTEMIC EMBOLISM: 2-3 ACUTE MYOCARDIAL INFARCTION TISSUE HEART VALVES VALVULAR HEART DISEASE ATRIAL FIBRILLATION RECURRENT SYSTEMIC EMBOLISM MECHANICAL HEART VALVE 2.5-3.5 FROM: ORAL ANTICOAGULANTS. MECHANISM OF ACTION, CLINICAL EFFECTIVENESS, AND OPTIMAL THERAPEUTIC RANGE. CHEST 1995;108:231S-246S. Performed By: #### 8 [id number] #### [facility] [address] [facility] [place] [address], [facility] PT Coag (PPP) [Time] 19.4 s High 12.3-14.8 [facility] Comment on above: Order Comment: No: D o not add to previous draw Result Comment: ALL RESULTS MUST BE INTERPRETED WITH RESPECT TO BLOOD DRAWING ARTIFACT OR DILUTION ERROR OF ANTICOAGULANT AT THE TIME OF SAMPLING. Performed By: #### 8 [id number] #### [facility] [address] INR Coag (PPP) [Relative time] 1.61 {INR} High 0.91-1.16 [facility] Comment on above: Order Comment: No: D o not add to previous draw Result Comment: ACCC P RECOMMENDED INR FOR WARFARIN THERAPY ------- CONDITION INR PROPHYLAXIS OF VENOUS THROMBOSIS 2-3 (HIGH-RISK SURGERY) TREATMENT OF VENOUS THROMBOSIS 2-3 TREATMENT OF PULMONARY EMBOLISM 2-3 PREVENTION OF SYSTEMIC EMBOLISM: 2-3 ACUTE MYOCARDIAL INFARCTION TISSUE HEART VALVES VALVULAR HEART DISEASE ATRIAL FIBRILLATION RECURRENT SYSTEMIC EMBOLISM MECHANICAL HEART VALVE 2.5-3.5 FROM: ORAL ANTICOAGULANTS. MECHANISM OF ACTION, CLINICAL EFFECTIVENESS, AND OPTIMAL THERAPEUTIC RANGE. CHEST 1995;108:231S-246S. Performed By: #### 8 [id number] #### [facility] [address] [facility] [place] [address], [facility] PT Coag (PPP) [Time] 19.1 s High 12.3-14.8 [facility] Comment on above: Order Comment: No: D o not add to previous draw Result Comment: ALL RESULTS MUST BE INTERPRETED WITH RESPECT TO BLOOD DRAWING ARTIFACT OR DILUTION ERROR OF ANTICOAGULANT AT THE TIME OF SAMPLING. Performed By: #### 8 [id number] #### [facility] [address] [place] [address], [facility] BASIC METABOLIC PANELon 02-28 Calcium [Mass/Vol] 8.1 mg/dL Low 8.6-10.3 [facility] Comment on above: Order Comment: No: D o not add to previous draw Performed By: #### 8 [id number] #### [facility] [address] [place] [address], [place] Chloride [Moles/Vol] 99 mmol/L Normal 98-107 [facility] Comment on above: Order Comment: No: D o not add to previous draw Performed By: #### 8 [id number] #### [facility] [address] [place] [address], [place] CO2 [Moles/Vol] 31 mmol/L Normal 21-31 [facility] Comment on above: Order Comment: No: D o not add to previous draw Performed By: #### 8 [id number] #### [facility] [address] [place] [address], [place] Creatinine [Mass/Vol] 0.46 mg/dL Low 0.60-1.20 [facility] Comment on above: Order Comment: No: D o not add to previous draw Performed By: #### 8 [id number] #### [facility] [address] [place] [address], [place] GFR/1.73 sq M.predicted among blacks MDRD (S/P/Bld) [Vol rate/Area] mL/min/{1.73_m2} Normal >60 The [facility] Comment on above: Order Comment: No: D o not add to previous draw Performed By: #### 8 [id number] #### [facility] [address] [place] [address], [place] GFR/1.73 sq M.predicted among non-blacks MDRD (S/P/Bld) [Vol rate/Area] mL/min/{1.73_m2} Normal >60 The [facility] Comment on above: Order Comment: No: D o not add to previous draw Performed By: #### 8 [id number] #### [facility] [address] [place] [address], [place] Glucose [Mass/Vol] 107 mg/dL High 70-100 [facility] Comment on above: Order Comment: No: D o not add to previous draw Performed By: #### 8 [id number] #### [facility] [address] [place] [address], [facility] Potassium [Moles/Vol] 3.7 mmol/L Normal 3.5-5.1 [facility] Comment on above: Order Comment: No: D o not add to previous draw Performed By: #### 8 [id number] #### [facility] [address] [place] [address], [facility] Sodium [Moles/Vol] 137 mmol/L Normal 136-145 [facility] Comment on above: Order Comment: No: D o not add to previous draw Performed By: #### 8 [id number] #### [facility] [address] [place] [address], [facility] Urea nitrogen [Mass/Vol] 6 mg/dL Low 7-25 [facility] Comment on above: Order Comment: No: D o not add to previous draw Performed By: #### 8 [id number] #### [facility] [address] [place] [address], [facility] CBC COMPLETE BLOOD COUNTon 0 - Erythrocyte distribution width (RBC) [Ratio] 13.8 % Normal 11.5-15.0 [facility] Comment on above: Order Comment: No: D o not add to previous draw Performed By: #### 8 [id number] #### [facility] [address] [place] [address], [facility] Hematocrit (Bld) [Volume fraction] 30.6 % Low 36.0-45.0 [facility] Comment on above: Order Comment: No: D o not add to previous draw Performed By: #### 8 [id number] #### [facility] [address] [place] [address], [place] Hemoglobin (Bld) [Mass/Vol] 9.3 g/dL Low 12.0-15.0 [facility] Comment on above: Order Comment: No: D o not add to previous draw Performed By: #### 8 [id number] #### [facility] [address] [facility] [place] [address], [facility] MCH (RBC) [Entitic mass] 26.1 pg Low 27.0-33.0 [facility] Comment on above: Order Comment: No: D o not add to previous draw Performed By: #### 8 [id number] #### [facility] [address] [address], [facility] MCHC (RBC) [Mass/Vol] 30.4 g/dL Low 32.0-35.0 [facility] Comment on above: Order Comment: No: D o not add to previous draw Performed By: #### 8 [id number] #### [facility] [address] [facility] [place] [address], [facility] MCV (RBC) [Entitic vol] 86.0 fL Normal 82.0-98.0 T he [facility] Comment on above: Order Comment: No: D o not add to previous draw Performed By: #### 8 [id number] #### [facility] [address] [facility]. [address] Nucleated RBC/100 WBC (Bld) [Ratio] 0 % Normal 0-0 [facility] Comment on above: Order Comment: No: D o not add to previous draw Performed By: #### 8 [id number] #### [facility] [address] [place] [address], [facility] PLAT CNT 420 10*3/uL High 150-400 [facility] Comment on above: Order Comment: No: D o not add to previous draw Performed By: #### 8 [id number] #### [facility] [address] [place] [address], [facility] RBC (Bld) [#/Vol] 3.56 10*6/uL Low 3.80-5.00 [facility] Comment on above: Order Comment: No: D o not add to previous draw Performed By: #### 8 [id number] #### [address] WBC (Bld) [#/Vol] 11.58 10*3/uL High 4.00-10.60 [facility] Comment on above: Order Comment: No: D o not add to previous draw Performed By: #### 8 [id number] #### [address] ABDOMEN AND PELVIS W IV C ONTRASTon 03-21-2021 CT ABDOMEN AND PELVIS W IV CONTRAST [facility] Department of Radiology [address] [place] [id number] Patient Name: MATEUS CARMICHAEL : 1970 Sex: F Age: Race: White Pt. Location: [id number] Patient Status: I Ordered Date: 03/21/2021 12:45:00 PM Completed Date: 03/21/2021 01:31 PM Requesting Provider: MICHAEL BERGMAN Attending Provider: OANH GOETZ Report Copy To: Signs & Symptoms: Abscess History: See Comments Comments: Retroperitoneal Mass/Abscess, s/p diverting colostomy; eval for abdominal abscess Exam: CT ABDOMEN AND PELVIS W IV CONTRAST CT ABDOMEN AND PELVIS W IV CONTRAST 03/21/2021 1:31 PM CLINICAL INDICATION: Abscess TECHNOLOGIST COMMENTS: s/p 1 week post op colostomy hx of a fistula discontinued wound vac abd pain QUESTION FOR THE RADIOLOGIST: Retroperitoneal Mass/Abscess, s/p diverting colostomy; eval for abdominal abscess PROTOCOL: Axial CT images of the abdomen/pelvis were obtained with IV contrast. CONTRAST: Contrast: OMNIPAQUE 350 (LOCM), 100 milliliter, Intravenous TECHNIQUE: Multiple detector CT axial slices of the abdomen/pelvis were obtained with IV contrast. Multiplanar reformats were performed and viewed on a separate workstation and reviewed to further define anatomy and possible pathology. All CT scans at this facility use dose modulation, iterative reconstruction, and/or weight based dosing when appropriate to reduce radiation dose to as low as reasonably achievable COMPARISON: 03/14/2021 FINDINGS: Visualized lung bases are unremarkable. Hepatic steatosis. The gallbladder, spleen, adrenal glands, pancreas, and kidneys are unremarkable. No enlarged abdominal or pelvic lymph nodes. The bladder is unremarkable. Status post hysterectomy. Postsurgical changes from partial distal colectomy and creation of left lower quadrant colostomy. The small and large bowel are of normal caliber. There is a rim-enhancing fluid collection within the pelvis measuring 7.5 x 5.0 cm (axial image 68). There is also an organizing fluid collection in the left abdomen measuring 13.2 x 11.5 x 3.9 cm. Postsurgical changes in the abdominal wall, with open midline abdominal wound and several foci of air within the subcutaneous tissues of the wound. Edematous changes in the omentum and mesentery. Nodular density in the inferior left breast (axial image 10). IMPRESSION: 1. Irregular, developing intra-abdominal fluid collection/abscess in the left abdomen measuring 13.2 x 11.5 x 3.9 cm and more developed rim-enhancing fluid collection/abscess in the pelvis measuring 7.5 x 5.0 cm. 2. Postsurgical changes from partial colectomy and creation of left lower quadrant colostomy. No bowel obstruction. 3. Nodular density in the inferior left breast. Further characterization with diagnostic mammography and ultrasound recommended on a nonemergent basis. Electronically signed: Soraya Kelly. Transcribed by: [email or web address], User Resident: Electronically Signed by: SORAYA KELLY @ 03/22/2021 12:57 AM Normal [facility] Comment on above: Order Comment: Retro peritoneal Mass/Abscess, s/p diverting colostomy; eval for abdominal abscess MAGNESIUM BLOODon 03-21-2021 Magnesium [Mass/Vol] 1.8 mg/dL Low 1.9-2.7 [facility] Comment on above: Order Comment: No: D o not add to previous draw Performed By: #### 8 [id number] #### [facility] [address] [place] [address], [facility] PHOSPHORUS BLOODon Phosphate [Mass/Vol] 3.7 mg/dL Normal 2.5-5.0 [facility] Comment on above: Order Comment: No: D o not add to previous draw Performed By: #### 8 [id number] #### [facility] [address] [place] [address], [place] BASIC METABOLIC PANELon 02-28 Calcium [Mass/Vol] 8.0 mg/dL Low 8.6-10.3 [facility] Comment on above: Order Comment: Fluid Collection, left mid abdomen Performed By: #### 4 1000, 11313, 10322 ####[facility] [place] [address], [place] Chloride [Moles/Vol] 100 mmol/L Normal 98-107 [facility] Comment on above: Order Comment: Fluid Collection, left mid abdomen Performed By: #### 4 1000, [id number], [id number] ####[facility] [place] [address], [place] CO2 [Moles/Vol] 31 mmol/L Normal 21-31 [facility] Comment on above: Order Comment: Fluid Collection, left mid abdomen Performed By: #### 4 1000, 89033, 21742 ####[facility] [place] [address], [place] Creatinine [Mass/Vol] 0.50 mg/dL Low 0.60-1.20 [facility] Comment on above: Order Comment: Fluid Collection, left mid abdomen Performed By: #### 4 1000, 55114, 57565 ####[facility] [place] [address], [place] GFR/1.73 sq M.predicted among blacks MDRD (S/P/Bld) [Vol rate/Area] mL/min/{1.73_m2} Normal >60 [facility] Comment on above: Order Comment: Fluid Collection, left mid abdomen Performed By: #### 4 999, 00273, 78611 ####[facility] [place] [address], [place] GFR/1.73 sq M.predicted among non-blacks MDRD (S/P/Bld) [Vol rate/Area] mL/min/{1.73_m2} Normal >60 [facility] Comment on above: Order Comment: Fluid Collection, left mid abdomen Performed By: #### 4 999, 83771, 81165 ####[facility] [place] [address], [place] Glucose [Mass/Vol] 100 mg/dL Normal 70-100 [facility] Comment on above: Order Comment: Fluid Collection, left mid abdomen Performed By: #### 4 999, 15232, 04040 ####[facility] [place] [address], [place] Potassium [Moles/Vol] 3.7 mmol/L Normal 3.5-5.1 [facility] Comment on above: Order Comment: Fluid Collection, left mid abdomen Performed By: #### 4 999, 34061, 91234 ####[facility] [place] [address], [place] Sodium [Moles/Vol] 137 mmol/L Normal 136-145 [facility] Comment on above: Order Comment: Fluid Collection, left mid abdomen Performed By: #### 4 999, 02076, [id number] ####[facility] [place] [address], [place] Urea nitrogen [Mass/Vol] 4 mg/dL Low 7-25 [facility] Comment on above: Order Comment: Fluid Collection, left mid abdomen Performed By: #### 4 1000, 77243, 20871 ####[facility] [place] [address], [facility] CBC W/DIFFon 03-20-2021 ABS IMM GRANS 0.1 10*3/uL Normal 0.0-0.2 [facility] Comment on above: Order Comment: No: D o not add to previous draw Performed By: #### 8 [id number] #### [facility] [address] [place] [address], [facility] ABS NEUTROPHILS 5.9 10*3/uL Normal 1.6-7.6 [facility] Comment on above: Order Comment: No: D o not add to previous draw Performed By: #### 8 [id number] #### [facility] [address] [place] [address], [facility] Basophils (Bld) [#/Vol] 0.0 10*3/uL Normal 0.0-0.2 [facility] Comment on above: Order Comment: No: D o not add to previous draw Performed By: #### 8 [id number] #### [facility] [address] [facility] [place] [address], [facility] Basophils/100 WBC (Bld) 0.4 % Normal 0.0-1.0 T he [facility] Comment on above: Order Comment: No: D o not add to previous draw Performed By: #### 8 [id number] #### [facility] [address] [facility] [place] [address], [facility] Eosinophils (Bld) [#/Vol] 0.6 10*3/uL High 0.0-0.5 [facility] Comment on above: Order Comment: No: D o not add to previous draw Performed By: #### 8 [id number] #### [facility] [address] [place] [id number], [facility] Eosinophils/100 WBC (Bld) 6.0 % Normal 0.0-6.0 [facility] Comment on above: Order Comment: No: D o not add to previous draw Performed By: #### 8 [id number] #### [facility] [address] [place] [address], [facility] Erythrocyte distribution width (RBC) [Ratio] 13.7 % Normal 11.5-15.0 The [facility] Comment on above: Order Comment: No: D o not add to previous draw Performed By: #### 8 [id number] #### [facility] [address] [place] [address], [facility] Hematocrit (Bld) [Volume fraction] 29.5 % Low 36.0-45.0 The [facility] Comment on above: Order Comment: No: D o not add to previous draw Performed By: #### 8 [id number] #### [facility] [address] [place] [address], [facility] Hemoglobin (Bld) [Mass/Vol] 9.1 g/dL Low 12.0-15.0 The [facility] Comment on above: Order Comment: No: D o not add to previous draw Performed By: #### 8 [id number] #### [facility] [address] [address], [facility] IMMATURE GRANS 0.9 % Normal 0.0-1.0 The [facility] Comment on above: Order Comment: No: D o not add to previous draw Performed By: #### 8 [id number] #### [facility] [address] [facility] [place] [address], [facility] Lymphocytes (Bld) [#/Vol] 1.9 10*3/uL Normal 1.2-4.0 The [facility] Comment on above: Order Comment: No: D o not add to previous draw Performed By: #### 8 [id number] #### [facility] [address] [place] [address], [facility] Lymphocytes/100 WBC (Bld) 19.4 % Low 20.0-45.0 [facility] Comment on above: Order Comment: No: D o not add to previous draw Performed By: #### 8 [id number] #### [facility] [address] [place] [address], [facility] MCH (RBC) [Entitic mass] 26.5 pg Low 27.0-33.0 [facility] Comment on above: Order Comment: No: D o not add to previous draw Performed By: #### 8 [id number] #### [facility] [address] [place] [address], [facility] MCHC (RBC) [Mass/Vol] 30.8 g/dL Low 32.0-35.0 The [facility] Comment on above: Order Comment: No: D o not add to previous draw Performed By: #### 8 [id number] #### [facility] [address] [place] [address], [facility] MCV (RBC) [Entitic vol] 86.0 fL Normal 82.0-98.0 T he [facility] Comment on above: Order Comment: No: D o not add to previous draw Performed By: #### 8 [id number] #### [facility] [address] [facility] [place] [address], [facility] Monocytes (Bld) [#/Vol] 1.0 10*3/uL Normal 0.1-1.0 The [facility] Comment on above: Order Comment: No: D o not add to previous draw Performed By: #### 8 [id number] #### [facility] [address] [place] [address], [facility] MONOS 10.9 % Normal 5.0-12.0 The [facility] Comment on above: Order Comment: No: D o not add to previous draw Performed By: #### 8 [id number] #### [facility] [address] [place] [address], [facility] Neutrophils/100 WBC (Bld) 62.4 % Normal 40.0-72.0 [facility] Comment on above: Order Comment: No: D o not add to previous draw Performed By: #### 8 [id number] #### [facility] [address] [place] [address], [facility] Nucleated RBC/100 WBC (Bld) [Ratio] 0 % Normal 0-0 The [facility] Comment on above: Order Comment: No: D o not add to previous draw Performed By: #### 8 [id number] #### [facility] [address] [place] [address], [place] PLAT CNT 382 10*3/uL Normal 150-400 [facility] Comment on above: Order Comment: No: D o not add to previous draw Performed By: #### 8 [id number] #### [facility] [address] [place] [address], [facility] RBC (Bld) [#/Vol] 3.43 10*6/uL Low 3.80-5.00 [facility] Comment on above: Order Comment: No: D o not add to previous draw Performed By: #### 8 [id number] #### [facility] [address] [address], [facility] WBC (Bld) [#/Vol] 9.52 10*3/uL Normal 4.00-10.60 The [facility] Comment on above: Order Comment: No: D o not add to previous draw Performed By: #### 8 [id number] #### [facility] [address] [place] [address], [place] MAGNESIUM BLOODon 03-20-2021 Magnesium [Mass/Vol] 2.0 mg/dL Normal 1.9-2.7 The [facility] Comment on above: Order Comment: Fluid Collection, left mid abdomen Performed By: #### 4 1000, [id number], [id number] ####[facility] [place] [address], [facility] PHOSPHORUS BLOODon Phosphate [Mass/Vol] 3.5 mg/dL Normal 2.5-5.0 The [facility] Comment on above: Order Comment: Fluid Collection, left mid abdomen Performed By: #### 4 1000, [id number], [id number] ####[facility] [place] [address], [place] BASIC METABOLIC PANELon -2 Calcium [Mass/Vol] 8.2 mg/dL Low 8.6-10.3 The [facility] Comment on above: Order Comment: No: D o not add to previous draw Performed By: #### 8 [id number] #### [facility] [address] [place] [address], [place] Chloride [Moles/Vol] 99 mmol/L Normal 98-107 [facility] Comment on above: Order Comment: No: D o not add to previous draw Performed By: #### 8 [id number] #### [facility] [address] [place] [address], [place] CO2 [Moles/Vol] 32 mmol/L High 21-31 [facility] Comment on above: Order Comment: No: D o not add to previous draw Performed By: #### 8 [id number] #### [facility] [address] [place] [address], [place] Creatinine [Mass/Vol] 0.50 mg/dL Low 0.60-1.20 The [facility] Comment on above: Order Comment: No: D o not add to previous draw Performed By: #### 8 [id number] #### [facility] [address] [place] [address], [place] GFR/1.73 sq M.predicted among blacks MDRD (S/P/Bld) [Vol rate/Area] mL/min/{1.73_m2} Normal >60 The [facility] Comment on above: Order Comment: No: D o not add to previous draw Performed By: #### 8 [id number] #### [facility] [address] [place] [address], [place] GFR/1.73 sq M.predicted among non-blacks MDRD (S/P/Bld) [Vol rate/Area] mL/min/{1.73_m2} Normal >60 The [facility] Comment on above: Order Comment: No: D o not add to previous draw Performed By: #### 8 [id number] #### [facility] [address] [place] [address], [place] Glucose [Mass/Vol] 90 mg/dL Normal 70-100 [facility] Comment on above: Order Comment: No: D o not add to previous draw Performed By: #### 8 [id number] #### [facility] [address] [place] [address], [place] Potassium [Moles/Vol] 3.5 mmol/L Normal 3.5-5.1 [facility] Comment on above: Order Comment: No: D o not add to previous draw Performed By: #### 8 [id number] #### [facility] [address] [place] [address], [place] Sodium [Moles/Vol] 137 mmol/L Normal 136-145 [facility] Comment on above: Order Comment: No: D o not add to previous draw Performed By: #### 8 [id number] #### [facility] [address] [place] [address], [place] Urea nitrogen [Mass/Vol] 4 mg/dL Low 7-25 [facility] Comment on above: Order Comment: No: D o not add to previous draw Performed By: #### 8 [id number] #### [facility] [address] [place] [address], [place] CBC COMPLETE BLOOD COUNTon 0 - Erythrocyte distribution width (RBC) [Ratio] 13.6 % Normal 11.5-15.0 [facility] Comment on above: Order Comment: No: D o not add to previous draw Performed By: #### 3 1595 #### [facility] [address] [place] [address], [place] Hematocrit (Bld) [Volume fraction] 28.2 % Low 36.0-45.0 [facility] Comment on above: Order Comment: No: D o not add to previous draw Performed By: #### 3 1595 #### [facility] [address] [place] [address], [facility] Hemoglobin (Bld) [Mass/Vol] 9.0 g/dL Low 12.0-15.0 [facility] Comment on above: Order Comment: No: D o not add to previous draw Performed By: #### 3 1595 #### [facility] [address] [place] [address], [facility] MCH (RBC) [Entitic mass] 26.6 pg Low 27.0-33.0 [facility] Comment on above: Order Comment: No: D o not add to previous draw Performed By: #### 3 1595 #### [facility] [address] MCHC (RBC) [Mass/Vol] 31.9 g/dL Low 32.0-35.0 [facility] Comment on above: Order Comment: No: D o not add to previous draw Performed By: #### 3 1595 #### [facility] [address] [place] [address], [facility] MCV (RBC) [Entitic vol] 83.4 fL Normal 82.0-98.0 [facility] Comment on above: Order Comment: No: D o not add to previous draw Performed By: #### 3 1595 #### [facility] [address] [place] [address], [facility] Nucleated RBC/100 WBC (Bld) [Ratio] 0 % Normal 0-0 [facility] Comment on above: Order Comment: No: D o not add to previous draw Performed By: #### 3 1595 #### [facility] [address] [place] [address], [facility] PLAT CNT 409 10*3/uL High 150-400 [facility] Comment on above: Order Comment: No: D o not add to previous draw Performed By: #### 3 1595 #### [facility] [address] [place] [address], [facility] RBC (Bld) [#/Vol] 3.38 10*6/uL Low 3.80-5.00 [facility] Comment on above: Order Comment: No: D o not add to previous draw Performed By: #### 3 1595 #### [facility] [address] [facility] [place] [address], [facility] WBC (Bld) [#/Vol] 9.56 10*3/uL Normal 4.00-10.60 [facility] Comment on above: Order Comment: No: D o not add to previous draw Performed By: #### 3 1595 #### [facility] [address] [facility]. [address] MAGNESIUM BLOODon 03-19-2021 Magnesium [Mass/Vol] 1.8 mg/dL Low 1.9-2.7 [facility] Comment on above: Order Comment: No: D o not add to previous draw Performed By: #### 8 [id number] #### [facility] [address] [facility] [place] [address], [facility] URINALYSIS REFLEXon 03-19-19 22 Appearance (U) CLEAR Normal CLEAR [facility] Comment on above: Order Comment: No: D o not add to previous draw Criteria for reflexing a culture was not met. Please call the lab at [phone] within 24 hours of collection time if culture is needed Performed By: #### 3 0965 #### [facility] [address] [facility] [place] [address], [facility] Bilirubin Ql (U) Negative Normal NEGATIVE The [facility] Comment on above: Order Comment: No: D o not add to previous draw Criteria for reflexing a culture was not met. Please call the lab at [phone] within 24 hours of collection time if culture is needed Performed By: #### 3 0965 #### [facility] [address] [place] [address], [facility] Color (U) STRAW Abnormal YELLOW [facility] Comment on above: Order Comment: No: D o not add to previous draw Criteria for reflexing a culture was not met. Please call the lab at [phone] within 24 hours of collection time if culture is needed Performed By: #### 3 0965 #### [facility] [address] [place] [address], [place] EPIS MANY Abnormal FEW,OCC,NON E SEEN [facility] Comment on above: Order Comment: No: D o not add to previous draw Criteria for reflexing a culture was not met. Please call the lab at [phone] within 24 hours of collection time if culture is needed Performed By: #### 3 0965 #### [facility] [address] [place] [address], [facility] Glucose Ql (U) Negative Normal NEGATIVE The [facility] Comment on above: Order Comment: No: D o not add to previous draw Criteria for reflexing a culture was not met. Please call the lab at [phone] within 24 hours of collection time if culture is needed Performed By: #### 3 0965 #### [facility] [address] [place] [address], [place] Hemoglobin Ql (U) LARGE Abnormal NEGATIVE The [facility] Comment on above: Order Comment: No: D o not add to previous draw Criteria for reflexing a culture was not met. Please call the lab at [phone] within 24 hours of collection time if culture is needed Performed By: #### 3 0965 #### [facility] [address] [place] [address], [place] KETONE Negative Normal NEGATIVE The [facility] Comment on above: Order Comment: No: D o not add to previous draw Criteria for reflexing a culture was not met. Please call the lab at [phone] within 24 hours of collection time if culture is needed Performed By: #### 3 0965 #### [facility] [address] [place] [address], [facility] LEUK CELSO TRACE Abnormal NEGATIVE The [facility] Comment on above: Order Comment: No: D o not add to previous draw Criteria for reflexing a culture was not met. Please call the lab at [phone] within 24 hours of collection time if culture is needed Performed By: #### 3 0965 #### [facility] [address] [place] [address], [facility] MUCUS THREADS OCC Abnormal NONE SEEN The [facility] Comment on above: Order Comment: No: D o not add to previous draw Criteria for reflexing a culture was not met. Please call the lab at [phone] within 24 hours of collection time if culture is needed Performed By: #### 3 0965 #### [facility] [address] [place] [address], [facility] Nitrite Ql (U) Negative Normal NEGATIVE The [facility] Comment on above: Order Comment: No: D o not add to previous draw Criteria for reflexing a culture was not met. Please call the lab at [phone] within 24 hours of collection time if culture is needed Performed By: #### 3 0965 #### [facility] [address] [address], [facility] pH (U) 7.0 [pH] Normal 5.0-8.0 [facility] Comment on above: Order Comment: No: D o not add to previous draw Criteria for reflexing a culture was not met. Please call the lab at [phone] within 24 hours of collection time if culture is needed Performed By: #### 3 0965 #### [facility] [address] [place] [address], [place] Protein Ql (U) Negative Normal NEGATIVE [facility] Comment on above: Order Comment: No: D o not add to previous draw Criteria for reflexing a culture was not met. Please call the lab at [phone] within 24 hours of collection time if culture is needed Performed By: #### 3 0965 #### [facility] [address] [place] [address], [facility] RBC 0-2 Abnormal NONE SEEN The [facility] Comment on above: Order Comment: No: D o not add to previous draw Criteria for reflexing a culture was not met. Please call the lab at [phone] within 24 hours of collection time if culture is needed Performed By: #### 3 0965 #### [facility] [address] [place] [id number], [facility] SPEC GRAV 1.004 Low 1.015-1.020 [facility] Comment on above: Order Comment: No: D o not add to previous draw Criteria for reflexing a culture was not met. Please call the lab at [phone] within 24 hours of collection time if culture is needed Performed By: #### 3 0965 #### [facility] [address] [place] [address], [facility] WBC UA 6-10 Abnormal NONE SEEN [facility] Comment on above: Order Comment: No: D o not add to previous draw Criteria for reflexing a culture was not met. Please call the lab at [phone] within 24 hours of collection time if culture is needed Performed By: #### 3 0965 #### [facility] [address] [facility] [place] [address], [facility] BASIC METABOLIC PANELon 01-2 0-2021 Calcium [Mass/Vol] 8.0 mg/dL Low 8.6-10.3 [facility] Comment on above: Order Comment: No: D o not add to previous draw Performed By: #### 8 [id number] #### [facility] [address] [place] [id number], [facility] Chloride [Moles/Vol] 102 mmol/L Normal 98-107 [facility] Comment on above: Order Comment: No: D o not add to previous draw Performed By: #### 8 [id number] #### [facility] [address] [place] [id number], [facility] CO2 [Moles/Vol] 32 mmol/L High 21-31 [facility] Comment on above: Order Comment: No: D o not add to previous draw Performed By: #### 8 [id number] #### [facility] [address] [place] [address], [place] Creatinine [Mass/Vol] 0.55 mg/dL Low 0.60-1.20 [facility] Comment on above: Order Comment: No: D o not add to previous draw Performed By: #### 8 [id number] #### [facility] [address] [place] [address], [place] GFR/1.73 sq M.predicted among blacks MDRD (S/P/Bld) [Vol rate/Area] mL/min/{1.73_m2} Normal >60 [facility] Comment on above: Order Comment: No: D o not add to previous draw Performed By: #### 8 [id number] #### [facility] [address] [place] [address], [place] GFR/1.73 sq M.predicted among non-blacks MDRD (S/P/Bld) [Vol rate/Area] mL/min/{1.73_m2} Normal >60 [facility] Comment on above: Order Comment: No: D o not add to previous draw Performed By: #### 8 [id number] #### [facility] [address] [place] [address], [place] Glucose [Mass/Vol] 88 mg/dL Normal 70-100 [facility] Comment on above: Order Comment: No: D o not add to previous draw Performed By: #### 8 [id number] #### [facility] [address] [place] [address], [place] Potassium [Moles/Vol] 3.6 mmol/L Normal 3.5-5.1 [facility] Comment on above: Order Comment: No: D o not add to previous draw Performed By: #### 8 [id number] #### [facility] [address] [place] [address], [place] Sodium [Moles/Vol] 139 mmol/L Normal 136-145 [facility] Comment on above: Order Comment: No: D o not add to previous draw Performed By: #### 8 [id number] #### [facility] [address] [place] [address], [facility] Urea nitrogen [Mass/Vol] 5 mg/dL Low 7-25 [facility] Comment on above: Order Comment: No: D o not add to previous draw Performed By: #### 8 [id number] #### [facility] [address] [place] [address], [facility] CBC COMPLETE BLOOD COUNTon 0 - Erythrocyte distribution width (RBC) [Ratio] 13.7 % Normal 11.5-15.0 [facility] Comment on above: Order Comment: No: D o not add to previous draw Performed By: #### 8 [id number] #### [facility] [address] [place] [address], [facility] Hematocrit (Bld) [Volume fraction] 26.6 % Low 36.0-45.0 [facility] Comment on above: Order Comment: No: D o not add to previous draw Performed By: #### 8 [id number] #### [facility] [address] [place] [address], [facility] Hemoglobin (Bld) [Mass/Vol] 8.4 g/dL Low 12.0-15.0 [facility] Comment on above: Order Comment: No: D o not add to previous draw Performed By: #### 8 [id number] #### [facility] [address] [place] [address], [facility] MCH (RBC) [Entitic mass] 27.0 pg Normal 27.0-33.0 [facility] Comment on above: Order Comment: No: D o not add to previous draw Performed By: #### 8 [id number] #### [facility] [address] [place] [address], [place] MCHC (RBC) [Mass/Vol] 31.6 g/dL Low 32.0-35.0 [facility] Comment on above: Order Comment: No: D o not add to previous draw Performed By: #### 8 [id number] #### [facility] [address] [place] [address], [facility] MCV (RBC) [Entitic vol] 85.5 fL Normal 82.0-98.0 T he [facility] Comment on above: Order Comment: No: D o not add to previous draw Performed By: #### 8 [id number] #### [facility] [address] [place] [address], [facility] Nucleated RBC/100 WBC (Bld) [Ratio] 0 % Normal 0-0 [facility] Comment on above: Order Comment: No: D o not add to previous draw Performed By: #### 8 [id number] #### [facility] [address] [address], [facility] PLAT CNT 375 10*3/uL Normal 150-400 [facility] Comment on above: Order Comment: No: D o not add to previous draw Performed By: #### 8 [id number] #### [facility] [address] [facility] [place] [address], [facility] RBC (Bld) [#/Vol] 3.11 10*6/uL Low 3.80-5.00 [facility] Comment on above: Order Comment: No: D o not add to previous draw Performed By: #### 8 [id number] #### [facility] [address] [place] [address], [facility] WBC (Bld) [#/Vol] 9.56 10*3/uL Normal 4.00-10.60 [facility] Comment on above: Order Comment: No: D o not add to previous draw Performed By: #### 8 [id number] #### [facility] [address] [place] [id number], [facility] BASIC METABOLIC PANELon 02-27 Calcium [Mass/Vol] 8.0 mg/dL Low 8.6-10.3 [facility] [facility] Comment on above: Order Comment: No: D o not add to previous draw Criteria for reflexing a culture was not met. Please call the lab at [phone] within 24 hours of collection time if culture is needed Performed By: #### 3 0965 #### [facility] [address] [place] [address], [place] Chloride [Moles/Vol] 105 mmol/L Normal 98-107 The [facility] Comment on above: Order Comment: No: D o not add to previous draw Criteria for reflexing a culture was not met. Please call the lab at [phone] within 24 hours of collection time if culture is needed Performed By: #### 3 0965 #### [facility] [address] [place] [address], [place] CO2 [Moles/Vol] 32 mmol/L High 21-31 The [facility] Comment on above: Order Comment: No: D o not add to previous draw Criteria for reflexing a culture was not met. Please call the lab at [phone] within 24 hours of collection time if culture is needed Performed By: #### 3 0965 #### [facility] [address] [place] [address], [place] Creatinine [Mass/Vol] 0.50 mg/dL Low 0.60-1.20 The [facility] Comment on above: Order Comment: No: D o not add to previous draw Criteria for reflexing a culture was not met. Please call the lab at [phone] within 24 hours of collection time if culture is needed Performed By: #### 3 0965 #### [facility] [address] [place] [address], [place] GFR/1.73 sq M.predicted among blacks MDRD (S/P/Bld) [Vol rate/Area] mL/min/{1.73_m2} Normal >60 The [facility] Comment on above: Order Comment: No: D o not add to previous draw Criteria for reflexing a culture was not met. Please call the lab at [phone] within 24 hours of collection time if culture is needed Performed By: #### 3 0965 #### [facility] [address] [place] [address], [facility] GFR/1.73 sq M.predicted among non-blacks MDRD (S/P/Bld) [Vol rate/Area] mL/min/{1.73_m2} Normal >60 The [facility] Comment on above: Order Comment: No: D o not add to previous draw Criteria for reflexing a culture was not met. Please call the lab at [phone] within 24 hours of collection time if culture is needed Performed By: #### 3 0965 #### [facility] [address] [place] [address], [facility] Glucose [Mass/Vol] 117 mg/dL High 70-100 The [facility] Comment on above: Order Comment: No: D o not add to previous draw Criteria for reflexing a culture was not met. Please call the lab at [phone] within 24 hours of collection time if culture is needed Performed By: #### 3 0965 #### [facility] [address] [place] [address], [facility] Potassium [Moles/Vol] 3.4 mmol/L Low 3.5-5.1 The [facility] Comment on above: Order Comment: No: D o not add to previous draw Criteria for reflexing a culture was not met. Please call the lab at [phone] within 24 hours of collection time if culture is needed Performed By: #### 3 0965 #### [facility] [address] [place] [address], [facility] Sodium [Moles/Vol] 142 mmol/L Normal 136-145 The [facility] Comment on above: Order Comment: No: D o not add to previous draw Criteria for reflexing a culture was not met. Please call the lab at [phone] within 24 hours of collection time if culture is needed Performed By: #### 3 0965 #### [facility] [address] [place] [address], [place] Urea nitrogen [Mass/Vol] 6 mg/dL Low 7-25 [facility] Comment on above: Order Comment: No: D o not add to previous draw Criteria for reflexing a culture was not met. Please call the lab at [phone] within 24 hours of collection time if culture is needed Performed By: #### 3 0584 #### [facility] [address] [place] [address], [facility] CBC COMPLETE BLOOD COUNTon 0 - Erythrocyte distribution width (RBC) [Ratio] 13.7 % Normal 11.5-15.0 The [facility] Comment on above: Order Comment: No: D o not add to previous draw Performed By: #### 3 1595 #### [facility] [address] [place] [id number], [facility] Hematocrit (Bld) [Volume fraction] 27.2 % Low 36.0-45.0 The [facility] Comment on above: Order Comment: No: D o not add to previous draw Performed By: #### 3 1595 #### [facility] [address] [place] [id number], [facility] Hemoglobin (Bld) [Mass/Vol] 8.3 g/dL Low 12.0-15.0 [facility] Comment on above: Order Comment: No: D o not add to previous draw Performed By: #### 3 1595 #### [facility] [address] [place] [id number], [facility] MCH (RBC) [Entitic mass] 26.7 pg Low 27.0-33.0 The [facility] Comment on above: Order Comment: No: D o not add to previous draw Performed By: #### 3 1595 #### [facility] [address] [place] [address], [facility] MCHC (RBC) [Mass/Vol] 30.5 g/dL Low 32.0-35.0 [facility] Comment on above: Order Comment: No: D o not add to previous draw Performed By: #### 3 1595 #### [facility] [address] [place] [address], [facility] MCV (RBC) [Entitic vol] 87.5 fL Normal 82.0-98.0 T he [facility] Comment on above: Order Comment: No: D o not add to previous draw Performed By: #### 3 1595 #### [facility] [address] [place] [address], [facility] Nucleated RBC/100 WBC (Bld) [Ratio] 0 % Normal 0-0 [facility] Comment on above: Order Comment: No: D o not add to previous draw Performed By: #### 3 1595 #### [facility] [address] [place] [address], [facility] PLAT CNT 375 10*3/uL Normal 150-400 The [facility] Comment on above: Order Comment: No: D o not add to previous draw Performed By: #### 3 1595 #### [facility] [address] [place] [address], [facility] RBC (Bld) [#/Vol] 3.11 10*6/uL Low 3.80-5.00 [facility] Comment on above: Order Comment: No: D o not add to previous draw Performed By: #### 3 1595 #### [facility] [address] [place] [address], [facility] WBC (Bld) [#/Vol] 11.68 10*3/uL High 4.00-10.60 [facility] Comment on above: Order Comment: No: D o not add to previous draw Performed By: #### 3 1595 #### [facility] [address] [place] [id number], [facility] MAGNESIUM BLOODon 03-17-2021 Magnesium [Mass/Vol] 2.1 mg/dL Normal 1.9-2.7 The [facility] Comment on above: Order Comment: No: D o not add to previous draw Criteria for reflexing a culture was not met. Please call the lab at [phone] within 24 hours of collection time if culture is needed Performed By: #### 3 0965 #### [facility] [address] [place] [address], [facility] PHOSPHORUS BLOODon Phosphate [Mass/Vol] 2.0 mg/dL Low 2.5-5.0 The [facility] Comment on above: Order Comment: No: D o not add to previous draw Performed By: #### 3 1976 #### [facility] [address] [place] [address], [facility] VITAMIN D 25-HYDROXYon 03-17 VITAMIN D 25-OH 44.8 ng/mL Normal 30.0-80.0 The [facility] Comment on above: Result Comment: >80. 0 Toxicity possible Performed By: #### 3 1976 #### [facility] [address] [place] [address], [place] BASIC METABOLIC PANELon 02-27 Calcium [Mass/Vol] 8.3 mg/dL Low 8.6-10.3 The [facility] Comment on above: Order Comment: No: D o not add to previous draw Performed By: #### 8 [id number] #### [facility] [address] [place] [address], [place] Chloride [Moles/Vol] 101 mmol/L Normal 98-107 [facility] Comment on above: Order Comment: No: D o not add to previous draw Performed By: #### 8 [id number] #### [facility] [address] [place] [address], [place] CO2 [Moles/Vol] 31 mmol/L Normal 21-31 [facility] Comment on above: Order Comment: No: D o not add to previous draw Performed By: #### 8 5499 #### [facility] [address] [place] [address], [place] Creatinine [Mass/Vol] 0.61 mg/dL Normal 0.60-1.20 The [facility] Comment on above: Order Comment: No: D o not add to previous draw Performed By: #### 8 5499 #### [facility] [address] [place] [address], [place] GFR/1.73 sq M.predicted among blacks MDRD (S/P/Bld) [Vol rate/Area] mL/min/{1.73_m2} Normal >60 The [facility] Comment on above: Order Comment: No: D o not add to previous draw Performed By: #### 8 5499 #### [facility] [address] [place] [address], [place] GFR/1.73 sq M.predicted among non-blacks MDRD (S/P/Bld) [Vol rate/Area] mL/min/{1.73_m2} Normal >60 The [facility] Comment on above: Order Comment: No: D o not add to previous draw Performed By: #### 8 5499 #### [facility] [address] [place] [address], [place] Glucose [Mass/Vol] 144 mg/dL High 70-100 [facility] Comment on above: Order Comment: No: D o not add to previous draw Performed By: #### 8 5499 #### [facility] [address] [place] [address], [place] Potassium [Moles/Vol] 3.9 mmol/L Normal 3.5-5.1 [facility] Comment on above: Order Comment: No: D o not add to previous draw Performed By: #### 8 5499 #### [facility] [address] [place] [address], [place] Sodium [Moles/Vol] 138 mmol/L Normal 136-145 The [facility] Comment on above: Order Comment: No: D o not add to previous draw Performed By: #### 8 5499 #### [facility] [address] [place] [address], [place] Urea nitrogen [Mass/Vol] 10 mg/dL Normal 7-25 [facility] Comment on above: Order Comment: No: D o not add to previous draw Performed By: #### 8 [id number] #### [facility] [address] [place] [address], [facility] CBC COMPLETE BLOOD COUNTon 0 - Erythrocyte distribution width (RBC) [Ratio] 13.6 % Normal 11.5-15.0 [facility] Comment on above: Order Comment: No: D o not add to previous draw Performed By: #### 8 [id number] #### [facility] [address] [place] [address], [facility] Hematocrit (Bld) [Volume fraction] 34.2 % Low 36.0-45.0 The [facility] Comment on above: Order Comment: No: D o not add to previous draw Performed By: #### 8 5499 #### [facility] [address] [place] [address], [facility] Hemoglobin (Bld) [Mass/Vol] 10.7 g/dL Low 12.0-15.0 [facility] Comment on above: Order Comment: No: D o not add to previous draw Performed By: #### 8 [id number] #### [facility] [address] [place] [address], [facility] MCH (RBC) [Entitic mass] 26.8 pg Low 27.0-33.0 [facility] Comment on above: Order Comment: No: D o not add to previous draw Performed By: #### 8 [id number] #### [facility] [address] [place] [address], [facility] MCHC (RBC) [Mass/Vol] 31.3 g/dL Low 32.0-35.0 [facility] Comment on above: Order Comment: No: D o not add to previous draw Performed By: #### 8 [id number] #### [facility] [address] [place] [id number], [facility] MCV (RBC) [Entitic vol] 85.5 fL Normal 82.0-98.0 T [facility] Comment on above: Order Comment: No: D o not add to previous draw Performed By: #### 8 [id number] #### [facility] [address] [place] [address], [facility] Nucleated RBC/100 WBC (Bld) [Ratio] 0 % Normal 0-0 [facility] Comment on above: Order Comment: No: D o not add to previous draw Performed By: #### 8 [id number] #### [facility] [address] [place] [address], [facility] PLAT CNT 498 10*3/uL High 150-400 [facility] Comment on above: Order Comment: No: D o not add to previous draw Performed By: #### 8 [id number] #### [facility] [address] [address], [facility] RBC (Bld) [#/Vol] 4.00 10*6/uL Normal 3.80-5.00 The [facility] Comment on above: Order Comment: No: D o not add to previous draw Performed By: #### 8 5499 #### [facility] [address] [place] [address], [facility] WBC (Bld) [#/Vol] 15.34 10*3/uL High 4.00-10.60 [facility] Comment on above: Order Comment: No: D o not add to previous draw Performed By: #### 8 [id number] #### [facility] [address] [place] [address], [facility] MAGNESIUM BLOODon 03-16-2021 Magnesium [Mass/Vol] 1.8 mg/dL Low 1.9-2.7 The [facility] Comment on above: Order Comment: No: D o not add to previous draw Performed By: #### 8 5499 #### [facility] [address] [place] [address], [facility] PHOSPHORUS BLOODon Phosphate [Mass/Vol] 3.4 mg/dL Normal 2.5-5.0 The [facility] Comment on above: Order Comment: No: D o not add to previous draw Performed By: #### 8 [id number] #### [facility] [address] [facility]. [address] *ABSCESS CULTUREon *ABSCESS CULTURE Clinical Report: (D) Specimen/Source: ABSCESS/INTRAOP SPEC Collected: 03/15/2021 03:57 Status: Final Last Updated: 03/19/2021 08:53 (1) 1. PELVIC ABSCESS GRAM (Final) Many Polys No Bacteria Seen ISO (Final) Pseudomonas aeruginosa Rare Growth Unable to isolate for susceptibility testing due to overgrowth of mixed organisms in culture. ISO (Final) Multiple species of Gram Negative and Gram Positive [place] Consistent with Enteric [place]. No Predominant Organism Isolated. The findings indicate a mixed culture and may represent colonization or contamination. Susceptibilities have not been performed. Please notify the lab within 7 days if additional workup is required. Moderate Growth Result [facility] on 03/19/2021 08:53. The previous result was: ISO (Prelim) Pseudomonas aeruginosa Rare Growth Normal The [facility] Comment on above: Order Comment: 1. PE LVIC ABSCESS Performed By: #### 8 [id number] #### [facility] [address] [facility]. [address] *ANAEROBIC CULTUREon 022 *ANAEROBIC CULTURE Clinical Report: (D) Specimen/Source: FLUID/INTRAOP SPEC Collected: 03/15/2021 03:57 Status: Final Last Updated: 03/19/2021 11:21 (1) 1. PELVIC ABSCESS ISO (Final) Bacteroides fragilis Beta-Lactamase Positive Normal The [facility] Comment on above: Order Comment: 1. PE LVIC ABSCESS Performed By: #### 3 1595 #### [facility] [address] [facility]. [address] *FUNGAL CULTUREon 03-15-2021 *FUNGAL CULTURE Clinical Report: (D) Specimen/Source: FLUID/INTRAOP SPEC Collected: 03/15/2021 03:57 Status: Final Last Updated: 04/15/2021 07:45 (1) 1. PELVIC ABSCESS FS (Final) No Yeast or Fungal Elements Seen CULT RES (Final) Culture negative for fungus Normal The [facility] Comment on above: Order Comment: 1. PE LVIC ABSCESS Performed By: #### 8 [id number] #### [facility] [address] [place] [address], [facility] BASIC METABOLIC PANELon 02-27 Calcium [Mass/Vol] 8.9 mg/dL Normal 8.6-10.3 [facility] Comment on above: Order Comment: No: D o not add to previous draw Performed By: #### 1 0070, 03518, [id number] ####[facility] [facility] [place] [address], [facility] Chloride [Moles/Vol] 101 mmol/L Normal 98-107 [facility] Comment on above: Order Comment: No: D o not add to previous draw Performed By: #### 1 0070, [id number], [id number] ####[facility] [facility] [place] [address], [facility] CO2 [Moles/Vol] 25 mmol/L Normal 21-31 [facility] Comment on above: Order Comment: No: D o not add to previous draw Performed By: #### 1 0070, 75913, 56368 ####[facility] [facility] [place] [address], [facility] Creatinine [Mass/Vol] 0.70 mg/dL Normal 0.60-1.20 The [facility] Comment on above: Order Comment: No: D o not add to previous draw Performed By: #### 1 0070, [id number], [id number] ####[facility] [facility] [place] [address], [facility] GFR/1.73 sq M.predicted among blacks MDRD (S/P/Bld) [Vol rate/Area] mL/min/{1.73_m2} Normal >60 The [facility] Comment on above: Order Comment: No: D o not add to previous draw Performed By: #### 1 0, 71192, 84170 ####[facility] [place] [address], [facility] GFR/1.73 sq M.predicted among non-blacks MDRD (S/P/Bld) [Vol rate/Area] mL/min/{1.73_m2} Normal >60 The [facility] Comment on above: Order Comment: No: D o not add to previous draw Performed By: #### 1 0, 55655, 94108 ####[facility] [place] [address], [facility] Glucose [Mass/Vol] 206 mg/dL High 70-100 [facility] Comment on above: Order Comment: No: D o not add to previous draw Performed By: #### 1 69, 41950, 12393 ####[facility] [place] [address], [facility] Potassium [Moles/Vol] 4.7 mmol/L Normal 3.5-5.1 [facility] Comment on above: Order Comment: No: D o not add to previous draw Performed By: #### 1 69, 68509, 11075 ####[facility] [place] [address], [place] Sodium [Moles/Vol] 136 mmol/L Normal 136-145 [facility] Comment on above: Order Comment: No: D o not add to previous draw Performed By: #### 1 69, 78424, 75965 ####[facility] [place] [address], [place] Urea nitrogen [Mass/Vol] 11 mg/dL Normal 7-25 [facility] Comment on above: Order Comment: No: D o not add to previous draw Performed By: #### 1 69, 10480, 38482 ####[facility] [place] [address], [place] CBC W/DIFFon 03-15-2021 ABS NEUTROPHILS 23.9 10*3/uL High 1.6-7.6 [facility] Comment on above: Performed By: #### 8 5499 #### [facility] [address] [place] [address], [facility] Basophils (Bld) [#/Vol] 0.0 10*3/uL Normal 0.0-0.2 The [facility] Comment on above: Performed By: #### 8 5499 #### [facility] [address] [place] [address], [facility] Basophils/100 WBC (Bld) 0.0 % Normal 0.0-1.0 T [facility] Comment on above: Performed By: #### 8 5499 #### [facility] [address] [place] [address], [facility] Eosinophils (Bld) [#/Vol] 0.0 10*3/uL Normal 0.0-0.5 [facility] Comment on above: Performed By: #### 8 5499 #### [facility] [address] [address], [facility] Eosinophils/100 WBC (Bld) 0.0 % Normal 0.0-6.0 [facility] Comment on above: Performed By: #### 8 5499 #### [facility] [address] [place] [address], [facility] Erythrocyte distribution width (RBC) [Ratio] 13.4 % Normal 11.5-15.0 [facility] Comment on above: Performed By: #### 8 5499 #### [facility] [address] [place] [address], [facility] Hematocrit (Bld) [Volume fraction] 41.0 % Normal 36.0-45.0 [facility] Comment on above: Performed By: #### 8 5499 #### [facility] [address] [place] [id number], [facility] Hemoglobin (Bld) [Mass/Vol] 12.8 g/dL Normal 12.0-15.0 [facility] Comment on above: Performed By: #### 8 5499 #### [facility] [address] [facility] [place] [address], [facility] Lymphocytes (Bld) [#/Vol] 0.5 10*3/uL Low 1.2-4.0 [facility] Comment on above: Performed By: #### 8 5499 #### [facility] [address] [facility] [place] [address], [facility] Lymphocytes/100 WBC (Bld) 1.8 % Low 20.0-45.0 [facility] Comment on above: Performed By: #### 8 5499 #### [facility] [address] [facility]. [address] MCH (RBC) [Entitic mass] 26.6 pg Low 27.0-33.0 [facility] Comment on above: Performed By: #### 8 5499 #### [facility] [address] [facility]. [address] MCHC (RBC) [Mass/Vol] 31.2 g/dL Low 32.0-35.0 [facility] Comment on above: Performed By: #### 8 5499 #### [facility] [address] [facility] [place] [address], [facility] MCV (RBC) [Entitic vol] 85.2 fL Normal 82.0-98.0 T [facility] Comment on above: Performed By: #### 8 5499 #### [facility] [address] [facility] [place] [address], [facility] Monocytes (Bld) [#/Vol] 1.2 10*3/uL High 0.1-1.0 [facility] Comment on above: Performed By: #### 8 5499 #### [facility] [address] [facility] [place] [address], [facility] MONOS 4.6 % Low 5.0-12.0 [facility] Comment on above: Performed By: #### 8 5499 #### [facility] [address] [facility] [place] [address], [facility] Neutrophils/100 WBC (Bld) 93.6 % High 40.0-72.0 [facility] Comment on above: Performed By: #### 8 5499 #### [facility] [address] [facility] [place] [address], [facility] Nucleated RBC/100 WBC (Bld) [Ratio] 0 % Normal 0-0 [facility] Comment on above: Performed By: #### 8 [id number] #### [facility] [address] [place] [address], [facility] PLAT CNT 624 10*3/uL High 150-400 [facility] Comment on above: Performed By: #### 8 [id number] #### [facility] [address] [place] [address], [facility] RBC (Bld) [#/Vol] 4.81 10*6/uL Normal 3.80-5.00 [facility] Comment on above: Performed By: #### 8 [id number] #### [facility] [address] [place] [address], [facility] WBC (Bld) [#/Vol] 25.50 10*3/uL High 4.00-10.60 [facility] Comment on above: Performed By: #### 8 [id number] #### [facility] [address] [place] [address], [facility] MAGNESIUM BLOODon 03-15-2021 Magnesium [Mass/Vol] 1.9 mg/dL Normal 1.9-2.7 [facility] Comment on above: Order Comment: No: D o not add to previous draw Performed By: #### 1 0070, [id number], [id number] ####[facility] [place], [place] [address] Operative Reporton 2 Operative Report MR#: [id number] I [facility] Pt. Name: Mateus Carmichael Room #: [id number] Discharge Date: Birthdate: 1970 OPERATIVE REPORT DATE OF SURGERY: 03/15/2021 SURGEON: Oanh Goetz MD Operative report: Exploratory laparotomy, end colostomy creation Location: [facility] main or Date: March 14, 2021 Preoperative diagnosis: Anastomotic leak Postoperative diagnosis: Anastomotic leak Operation performed: 1. Exploratory laparotomy 2. Takedown of colorectal anastomosis and creation of end colostomy 3. Cystoscopy and placement of left ureteral stent by urology team Surgeon: 1. Oanh Goetz MD 2. Foster Fine MD (Dr. Fine from urology was intraoperatively consulted to evaluate left ureter) Certified Tumor Registrar: Ramez COBOS, James Goetz MD (I called in my partner Dr. Goetz for 2nd opinion intraoperatively) Estimated blood loss: 100 mL Wound classification: Infected Specimens: Sigmoid colon for permanent specimen, pelvic abscess fluid for culture Tubes and drains: Urinary catheter Anesthesia: General anesthesia Indication: This is a 51-year-old woman who presented to the emergency department on March 14, 2021 with complaint of abdominal pain. Patient had history of recurrent sigmoid colon diverticulitis and recently underwent open sigmoidectomy with primary anastomosis on February 25, [address] Navarro[address] On [address] evaluation today, patient was found to have large volume of free intra-abdominal air as well as evidence of anastomotic leak at the colorectal anastomosis. Decision was made to emergently to proceed with operative exploration and diversion of stool. Details of the procedure: The patient was greeted in the preoperative holding area. History and physical and surgical consent was completed. Preoperative antibiotic with Zosyn was administered. The patient was brought to the operating suite and placed on the surgical table in a supine position with both arms out. Safety straps and SCDs were applied. General anesthesia was induced without complications. The patient was placed in a lithotomy position. Urinary catheter was placed. Skin of the abdomen was prepped with wet Betadine prep. Abdominal surgical site was squared off with sterile surgical towels. Leg drapes and laparotomy drape was applied in the usual sterile fashion. Preincision safety timeout was performed. Patient already has a midline wound that is open. The wound was explored along the midline in order to identify the PDS suture material. The knot of the suture was cut and the PDS suture was removed along the length of the incision. The centimeters along the midline fascia was becoming fused at this time and thus the midline fascia had to be divided using straight Alvarado scissors. The midline incision was extended superiorly and inferiorly to a length of approximately 30 cm. There was significant amount of omental adhesions to the anterior abdominal wall, with this the transverse colon was also densely adhered to the midline. Using mostly blunt pushing, the omentum was mobilized from the anterior abdominal wall. The transverse colon did have a partial thickness serosal injury from adhesiolysis. The transverse colon serosal injury was repaired using interrupted 3-0 Vicryl suture Nikky. Bookwalter retractor was placed. With the omentum reflected cephalad, we were able to visualize small bowel which did not appear overly adhesed to each other. Several loops of small bowel was tethered to the pelvis. The points of tethering was not at the location of prior colorectal anastomosis. These adhesions were very tenacious and difficult to take down. Using mix of finger fracture and sharp dissection using Metzenbaum scissors, loops of small bowel were mobilized from the pelvis. The areas affected was felt to be firm and inflamed, however the other than irritation from adjacent infection, the small bowel did appear viable and overall uninjured. There was 1 area of small serosal injury on the small bowel, this was repaired with Lembert 3-0 Vicryl sutures. The small bowel was retracted cephalad using wet surgical towel. The prior colorectal anastomosis was palpated, with blunt finger dissection I was able to feel a window at the level of the anastomosis. I attempted to divide the anastomosis with a contour stapler, however due to thickened tissue secondary to inflammation, this segment of colon did not fit into the contour stapler. Thus I used monopolar electrocautery to divide the rectosigmoid just below the area of anastomosis. The rectal stump was closed using running 2-0 PDS sutures. Another strand of 2-0 Prolene suture was used to tag the end of rectal stump for future identification. The distal sigmoid colon and descending colon was mobilized laterally. Adjacent to the end of divided colon, there appeared to be a thin tubular organ that (more content not included)... Normal [facility] Operative Report MR#: [id number] I [facility] Pt. Name: Mateus Carmichael Room #: [id number] Discharge Date: Birthdate: 1970 OPERATIVE REPORT DATE OF SURGERY: 03/15/2021 SURGEON: Foster Fine MD PREOPERATIVE DIAGNOSIS: Concern for ureteral injury. POSTOPERATIVE DIAGNOSIS: Need for intraoperative recognition of ureter. PROCEDURES PERFORMED: 1. Exploration of left retroperitoneum. 2. Cystourethroscopy. 3. Placement of left 5-Nauruan ureteral catheter. DRAINS: 16-Nauruan catheter with a 5-Nauruan left ureteral stent. FINDINGS: No obvious injury to the left ureter upon exploration of the left retroperitoneum, the descending colon had already been medialized and there was no extravasation of urine seen on exploration of field or identification of the ureter with any transection or injury. On cystoscopy, the bladder distended easily. There was no bladder injury noted. No foreign bodies. The ureteral orifices were in the orthotopic location. A 5-Nauruan ureteral catheter was easily inserted up to the level of the expected renal pelvis. The Simmons catheter was inserted without issue. INDICATIONS: The patient is a 51-year-old female. She recently had a sigmoidectomy, who presented to the ER with abdominal pain. On further workup, imaging was noted to be free of air under the diaphragm. Therefore, she was taken for exploratory laparotomy. Dr. Goetz was concerned that there may be a ureteral injury in the surgical field. Therefore, we were called for further evaluation and management. BLOOD LOSS: Per general surgery and Anesthesia records. ANESTHESIA: General. PROCEDURE IN DETAIL: The patient has already had a midline laparotomy incision and the left retroperitoneum exposed. We did dissect in this area. The expected location of the ureter did not find any ureteral injury to the left ureter but there was concern due to the exploration. At this time, we decided it would be prudent to perform a cystoscopy. The patient was placed in stirrups and prepped and draped in her genitals. A 22-Nauruan cystoscope with 30-degree lens was inserted into the bladder, which distended well. The bladder was inspected in its entirety of the dome and posterior left and right lateral canales as well as the trigone and ureteral orifices were in orthotopic location without mucosal abnormality or tumor. In the left ureteral orifice, a 5-Nauruan ureteral catheter was inserted. This easily was advanced up to the expected level of the renal pelvis. The cystoscope was then removed and the Simmons catheter was inserted. This was tied to the 5-Nauruan ureteral catheters using a suture and placed to drainage. The field was then returned to the General Surgery team who completed the procedure. For more details, please see their operative report. DISPOSITION: The patient is to have her ureteral catheters removed later today, and if she needs a catheter more than 24 hours, this should be exchanged as there was a slight hole cut to insert the 5-Nauruan catheter in the lumen of the indwelling Simmons. Dr. Fine was scrubbed and present for the procedure. Electronically Signed by: Foster Fine MD 03/25/2021 11:43 A Foster Fine MD I was present for the wadsworth and critical portions of the procedure and a second attending surgeon was immediately available to assist in my absence as documented. Date Dict: 03/15/2021/06:35 A/Idris Prasad MD Date Trans: 03/15/2021 08:06 Eloina/azam [id number] Normal [facility] PHOSPHORUS BLOODon 2 Phosphate [Mass/Vol] 6.2 mg/dL High 2.5-5.0 [facility] Comment on above: Order Comment: No: D o not add to previous draw Performed By: #### 1 0070, [id number], [id number] ####[facility] [facility] [place] [address], [facility] POC SARS COV2 ANTIGEN NEGATI VEon 03-15-2021 POC SARS COV2 ANTIGEN NEG Negative Normal NEGATIVE The [facility] Comment on above: Result Comment: Nega tive results should be treated as presumptive and confirmation with a molecular assay, if necessary, for patient management, may be performed. Negative results do not rule out SARS-CoV-2 infection and not should be used as the sole basis for treatment or patient management decisions, including infection control decisions. Negative results should be considered in the context of a patient's recent exposures, history, and the presence of clinical signs and symptoms consistent with COVID-19. The Clarity COVID-19 Antigen Rapid Test Cassette is a rapid chromatographic immunoassay intended for the qualitative detection of the nucleocapsid protein antigen from SARS-CoV-2 in direct nasopharyngeal swab (SENIOR TREASURY ANALYST) specimens from individuals who are suspected of COVID-19 by their healthcare provider within the first six days of symptom onset. Testing is limited to laboratories certified under the Clinical Laboratory Improvement Amendments of 1988 (CLIA), 42 U.S.C. ???263a, that meet the requirements to perform moderate complexity, high complexity, or waived tests. This test is authorized for use at the Point of Care (POC), i.e., in patient care settings operating under a CLIA Certificate of Waiver, Certificate of Compliance, or Certificate of Accreditation. Performed By: #### 8 [id number] #### [facility] [address] TYPE AND SCREENon 03-15-2021 ABO INTERPRETATION B Normal [facility] Comment on above: Performed By: #### 6 2586 #### [facility] [address] RH INTERPRETATION Positive Normal [facility] Comment on above: Performed By: #### 6 2586 #### [facility] [address] BASIC METABOLIC PANELon 02-27 Calcium [Mass/Vol] 9.3 mg/dL Normal 8.6-10.3 [facility] Comment on above: Performed By: #### 6 2586 #### [facility] [address] Chloride [Moles/Vol] 98 mmol/L Normal 98-107 [facility] Comment on above: Performed By: #### 6 2586 #### [facility] [address] [place] [address], [place] CO2 [Moles/Vol] 31 mmol/L Normal 21-31 [facility] Comment on above: Performed By: #### 6 2586 #### [facility] [address] [place] [address], [facility] Creatinine [Mass/Vol] 0.53 mg/dL Low 0.60-1.20 [facility] Comment on above: Performed By: #### 6 2586 #### [facility] [address] [place] [address], [facility] GFR/1.73 sq M.predicted among blacks MDRD (S/P/Bld) [Vol rate/Area] mL/min/{1.73_m2} Normal >60 [facility] Comment on above: Performed By: #### 6 2586 #### [facility] [address] [place] [address], [facility] GFR/1.73 sq M.predicted among non-blacks MDRD (S/P/Bld) [Vol rate/Area] mL/min/{1.73_m2} Normal >60 [facility] Comment on above: Performed By: #### 6 2586 #### [facility] [address] [facility] [address], [facility] Glucose [Mass/Vol] 107 mg/dL High 70-100 [facility] Comment on above: Performed By: #### 6 2586 #### [facility] [address] [place] [address], [facility] Potassium [Moles/Vol] 4.6 mmol/L Normal 3.5-5.1 [facility] Comment on above: Performed By: #### 6 2586 #### [facility] [address] [place] [id number], [facility] Sodium [Moles/Vol] 137 mmol/L Normal 136-145 [facility] Comment on above: Performed By: #### 6 2586 #### [facility] [address] Urea nitrogen [Mass/Vol] 9 mg/dL Normal 7-25 [facility] Comment on above: Performed By: #### 6 2586 #### [facility] [address] [place] [address], [facility] CBC W/DIFFon 03-14-2021 ABS IMM GRANS 0.1 10*3/uL Normal 0.0-0.2 [facility] Comment on above: Performed By: #### 8 [id number] #### [facility] [address] [place] [address], [facility] ABS NEUTROPHILS 7.4 10*3/uL Normal 1.6-7.6 [facility] Comment on above: Performed By: #### 8 5499 #### [facility] [address] [place] [address], [facility] Basophils (Bld) [#/Vol] 0.1 10*3/uL Normal 0.0-0.2 [facility] Comment on above: Performed By: #### 8 5499 #### [facility] [address] [place] [address], [facility] Basophils/100 WBC (Bld) 0.7 % Normal 0.0-1.0 T usha [facility] Comment on above: Performed By: #### 8 5499 #### [facility] [address] [place] [address], [facility] Eosinophils (Bld) [#/Vol] 1.5 10*3/uL High 0.0-0.5 [facility] Comment on above: Performed By: #### 8 5499 #### [facility] [address] [place] [address], [facility] Eosinophils/100 WBC (Bld) 11.7 % High 0.0-6.0 [facility] Comment on above: Performed By: #### 8 5499 #### [facility] [address] Erythrocyte distribution width (RBC) [Ratio] 13.4 % Normal 11.5-15.0 [facility] Comment on above: Performed By: #### 8 [id number] #### [facility] [address] [facility] Hematocrit (Bld) [Volume fraction] 39.9 % Normal 36.0-45.0 [facility] Comment on above: Performed By: #### 8 [id number] #### [facility] [address] [facility]. [address] Hemoglobin (Bld) [Mass/Vol] 12.8 g/dL Normal 12.0-15.0 [facility] Comment on above: Performed By: #### 8 5499 #### [facility] [address] IMMATURE GRANS 0.9 % Normal 0.0-1.0 [facility] Comment on above: Performed By: #### 8 5499 #### [facility] [address] [place] [address], [facility] Lymphocytes (Bld) [#/Vol] 2.5 10*3/uL Normal 1.2-4.0 [facility] Comment on above: Performed By: #### 8 5499 #### [facility] [address] [facility] [place] [address], [facility] Lymphocytes/100 WBC (Bld) 19.3 % Low 20.0-45.0 [facility] Comment on above: Performed By: #### 8 5499 #### [facility] [address] [facility] [place] [address], [facility] MCH (RBC) [Entitic mass] 26.8 pg Low 27.0-33.0 [facility] Comment on above: Performed By: #### 8 [id number] #### [facility] [address] [facility] [place] [address], [facility] MCHC (RBC) [Mass/Vol] 32.1 g/dL Normal 32.0-35.0 [facility] Comment on above: Performed By: #### 8 5499 #### [facility] [address] [place] [id number], [facility] MCV (RBC) [Entitic vol] 83.6 fL Normal 82.0-98.0 T he [facility] Comment on above: Performed By: #### 8 [id number] #### [facility] [address] [facility] [place] [address], [facility] Monocytes (Bld) [#/Vol] 1.1 10*3/uL High 0.1-1.0 [facility] Comment on above: Performed By: #### 8 [id number] #### [facility] [address] [facility] [place] [address], [facility] MONOS 8.8 % Normal 5.0-12.0 [facility] Comment on above: Performed By: #### 8 [id number] #### [facility] [address] [facility] [place] [address], [facility] Neutrophils/100 WBC (Bld) 58.6 % Normal 40.0-72.0 [facility] Comment on above: Performed By: #### 8 [id number] #### [facility] [address] [facility] [place] [address], [facility] Nucleated RBC/100 WBC (Bld) [Ratio] 0 % Normal 0-0 [facility] Comment on above: Performed By: #### 8 [id number] #### [facility] [address] [facility] [address], [facility] PLAT CNT 635 10*3/uL High 150-400 [facility] Comment on above: Performed By: #### 8 [id number] #### [facility] [address] [place] [address], [facility] RBC (Bld) [#/Vol] 4.77 10*6/uL Normal 3.80-5.00 [facility] Comment on above: Performed By: #### 8 5499 #### [address] WBC (Bld) [#/Vol] 12.67 10*3/uL High 4.00-10.60 [facility] Comment on above: Performed By: #### 8 [id number] #### [facility] [address] ABDOMEN AND PELVIS W IV A ND ORAL CONTRASTon 03-14-2021 CT ABDOMEN AND PELVIS W IV AND ORAL CONTRAST [facility] Department of Radiology [address] [place] [id number] Patient Name: MATEUS CARMICHAEL : 1970 Sex: F Age: Race: White Pt. Location: [facility] Patient Status: E Ordered Date: 03/14/2021 4:15:00 PM Completed Date: 03/14/2021 07:28 PM Requesting Provider: CRESCENCIO MAHER Attending Provider: CINTHYA BANG Report Copy To: Signs & Symptoms: Fistula History: See Comments Comments: Fistula, Sigmoid resection 02/25, D'c'd with wound vac. Presents with brown vaginal discharge that smells like stool. Exam: CT ABDOMEN AND PELVIS W IV AND ORAL CONTRAST CT ABDOMEN AND PELVIS W IV AND ORAL CONTRAST 03/14/2021 7:28 PM CLINICAL INDICATION: Fistula, brown vaginal discharge, sigmoid resection in January, colovaginal fistula. TECHNOLOGIST COMMENTS: Fistula, Sigmoid resection 02/25, D'c'd with wound vac. Presents with brown vaginal discharge that smells like stool per order QUESTION FOR THE RADIOLOGIST: Fistula, Sigmoid resection 02/25, D'c'd with wound vac. Presents with brown vaginal discharge that smells like stool. PROTOCOL: Axial CT images of the abdomen/pelvis were obtained with IV contrast. CONTRAST: Contrast: OMNIPAQUE 350 (LOCM), 100 milliliter, Intravenous Contrast: OMNIPAQUE 300 (LOCM), 30 milliliter, Oral TECHNIQUE: Multiple detector CT axial slices of the abdomen and pelvis were obtained with IV contrast. Multiplanar reformats were performed and viewed on a separate workstation and reviewed to further define anatomy and possible pathology. All CT scans at this facility use dose modulation, iterative reconstruction, and/or weight based dosing when appropriate to reduce radiation dose to as low as reasonably achievable COMPARISON: CT dated December 28, 2020 FINDINGS: Large amount of free air in the upper abdomen suspicious for bowel perforation. No focal lesion seen in the liver, spleen, adrenal glands, pancreas, gallbladder, or kidneys. There is a multiloculated abscess in the pelvis adjacent to the sigmoid, and abutting the vaginal wall, this may be responsible for the brown vaginal discharge. There is mucosal wall thickening of the sigmoid, and 2 foci of possible minimal extraluminal contrast on axial slice #67 and 70, indicating perforation in the sigmoid. Postsurgical changes in the anterior abdomen and pelvis. IMPRESSION: 1. Large amount of free air suspicious for bowel perforation. 2. Multiloculated pelvic abscess abutting the vaginal cuff, probably responsible for the brown vaginal discharge. 3. Mucosal wall thickening in the sigmoid, and tiny amount of extraluminal contrast adjacent to the sigmoid suspicious for perforation. Findings discussed with Amanda physician assistant professor of education in ED. Electronically signed: LOUISE NEFF. Transcribed by: [email or web address], User Resident: Electronically Signed by: LOUISE NEFF @ 03/14/2021 07:50 PM Normal [facility] Comment on above: Order Comment: Fistu la, Sigmoid resection 02/25, D'c'd with wound vac. Presents with brown vaginal discharge that smells like stool. LACTATE BLOODon 03-14-2021 Lactate [Moles/Vol] 0.4 mmol/L Low .5-2.2 [facility] Comment on above: Performed By: #### 1 0054 ####[facility] [place] [address], [place] LIPASE BLOODon 03-14-2021 LIPASE 80 Units/L Normal 11-82 [facility] Comment on above: Performed By: #### 6 2586 #### [facility] [address] [place] [address], [place] LIVER BATTERYon 03-14-2021 Albumin [Mass/Vol] 3.5 g/dL Normal 3.5-5.7 [facility] Comment on above: Performed By: #### 6 2586 #### [facility] [address] [place] [address], [place] ALKALINE PHOSPH 75 IU/L Normal 34-104 [facility] Comment on above: Performed By: #### 6 2586 #### [facility] [address] [place] [address], [place] ALT [Catalytic activity/Vol] 20 U/L Normal 7-52 [facility] Comment on above: Performed By: #### 6 2586 #### [facility] [address] [place] [address], [place] AST [Catalytic activity/Vol] 22 U/L Normal 13-39 [facility] Comment on above: Performed By: #### 6 2586 #### [facility] [address] [place] [address], [place] Bilirubin [Mass/Vol] 0.4 mg/dL Normal 0.3-1.0 [facility] [facility] Comment on above: Performed By: #### 6 [id number] #### [facility] [address] [place] [address], [place] Bilirubin.direct [Mass/Vol] 0.1 mg/dL Normal 0.0-0.2 [facility] Comment on above: Performed By: #### 6 2586 #### [facility] [address] [place] [address], [facility] Protein [Mass/Vol] 7.6 g/dL Normal 6.0-8.3 The [facility] Comment on above: Performed By: #### 6 2586 #### [facility] [address] [place] [address], [facility] URINALYSISon 03-14-2021 Appearance (U) SL CLOUDY Abnormal CLEAR [facility] Comment on above: Performed By: #### 8 [id number] #### [facility] [address] [place] [address], [facility] Bilirubin Ql (U) Negative Normal NEGATIVE [facility] Comment on above: Performed By: #### 8 [id number] #### [facility] [address] [place] [address], [facility] Color (U) YELLOW Normal YELLOW [facility] Comment on above: Performed By: #### 8 [id number] #### [facility] [address] [place] [address], [facility] EPIS FEW Normal FEW,OCC,NON E SEEN [facility] Comment on above: Performed By: #### 8 [id number] #### [facility] [address] [place] [address], [place] Glucose Ql (U) Negative Normal NEGATIVE The [facility] Comment on above: Performed By: #### 8 [id number] #### [facility] [address] [place] [address], [place] Hemoglobin Ql (U) SMALL Abnormal NEGATIVE The [facility] Comment on above: Performed By: #### 8 [id number] #### [facility] [address] [place] [address], [place] KETONE Negative Normal NEGATIVE The [facility] Comment on above: Performed By: #### 8 [id number] #### [facility] [address] [facility]. [address] [place] CELSO LARGE Abnormal NEGATIVE The [facility] Comment on above: Performed By: #### 8 [id number] #### [facility] [address] [facility]. [address] MUCUS THREADS FEW Abnormal NONE SEEN The [facility] Comment on above: Performed By: #### 8 [id number] #### [facility] [address] [facility]. [address] Nitrite Ql (U) Negative Normal NEGATIVE [facility] Comment on above: Performed By: #### 8 [id number] #### [facility] [address] [facility]. [address] pH (U) 6.0 [pH] Normal 5.0-8.0 The [facility] Comment on above: Performed By: #### 8 [id number] #### [facility] [address] Protein Ql (U) Negative Normal NEGATIVE The [facility] Comment on above: Performed By: #### 8 [id number] #### [facility] [address] RBC 3-5 Abnormal NONE SEEN The [facility] Comment on above: Performed By: #### 8 [id number] #### [facility] [address] SPEC GRAV 1.009 Low 1.015-1.020 [facility] Comment on above: Performed By: #### 8 [id number] #### [facility] [address] WBC UA 21-50 Abnormal NONE SEEN The [facility] Comment on above: Performed By: #### 8 [id number] #### [facility] [address] [facility]. [address] BASIC METABOLIC PANELon 01-0 Calcium [Mass/Vol] 8.3 mg/dL Low 8.6-10.3 The [facility] Comment on above: Order Comment: No: D o not add to previous draw Performed By: #### 0 0071 ####[facility] [place] [address], [facility] Chloride [Moles/Vol] 100 mmol/L Normal 98-107 The [facility] Comment on above: Order Comment: No: D o not add to previous draw Performed By: #### 0 0071 ####[facility] [place] [address], [place] CO2 [Moles/Vol] 28 mmol/L Normal 21-31 The [facility] Comment on above: Order Comment: No: D o not add to previous draw Performed By: #### 0 0071 ####[facility] [place] [address], [facility] Creatinine [Mass/Vol] 0.47 mg/dL Low 0.60-1.20 The [facility] Comment on above: Order Comment: No: D o not add to previous draw Performed By: #### 0 0071 ####[facility] [facility] [place] [address], [place] GFR/1.73 sq M.predicted among blacks MDRD (S/P/Bld) [Vol rate/Area] mL/min/{1.73_m2} Normal >60 The [facility] Comment on above: Order Comment: No: D o not add to previous draw Performed By: #### 0 0071 ####[facility] [id number], [place] GFR/1.73 sq M.predicted among non-blacks MDRD (S/P/Bld) [Vol rate/Area] mL/min/{1.73_m2} Normal >60 The [facility] Comment on above: Order Comment: No: D o not add to previous draw Performed By: #### 0 0071 ####[facility] [place] [address], [place] Glucose [Mass/Vol] 129 mg/dL High 70-100 The [facility] Comment on above: Order Comment: No: D o not add to previous draw Performed By: #### 0 0071 ####[facility] [place] [address], [place] Potassium [Moles/Vol] 3.5 mmol/L Normal 3.5-5.1 The [facility] Comment on above: Order Comment: No: D o not add to previous draw Performed By: #### 0 0071 ####[facility] [place] [address], [place] Sodium [Moles/Vol] 137 mmol/L Normal 136-145 The [facility] Comment on above: Order Comment: No: D o not add to previous draw Performed By: #### 0 0071 ####[facility] [place] [address], [place] Urea nitrogen [Mass/Vol] 5 mg/dL Low 7-25 The [facility] Comment on above: Order Comment: No: D o not add to previous draw Performed By: #### 0 0071 ####[facility] [facility] [place] [address], [place] CBC COMPLETE BLOOD COUNTon 0 - Erythrocyte distribution width (RBC) [Ratio] 13.2 % Normal 11.5-15.0 The [facility] Comment on above: Order Comment: No: D o not add to previous draw Performed By: #### 8 [id number] #### [facility] [address] [place] [address], [place] Hematocrit (Bld) [Volume fraction] 35.9 % Low 36.0-45.0 The [facility] Comment on above: Order Comment: No: D o not add to previous draw Performed By: #### 8 [id number] #### [facility] [address] Hemoglobin (Bld) [Mass/Vol] 11.6 g/dL Low 12.0-15.0 The [facility] Comment on above: Order Comment: No: D o not add to previous draw Performed By: #### 8 [id number] #### [facility] [address] [place] [address], [facility] MCH (RBC) [Entitic mass] 27.2 pg Normal 27.0-33.0 The [facility] Comment on above: Order Comment: No: D o not add to previous draw Performed By: #### 8 [id number] #### [facility] [address] [facility] [place] [address], [facility] MCHC (RBC) [Mass/Vol] 32.3 g/dL Normal 32.0-35.0 The [facility] Comment on above: Order Comment: No: D o not add to previous draw Performed By: #### 8 [id number] #### [facility] [address] [place] [address], [facility] MCV (RBC) [Entitic vol] 84.3 fL Normal 82.0-98.0 T [facility] Comment on above: Order Comment: No: D o not add to previous draw Performed By: #### 8 [id number] #### [facility] [address] [facility] [address] Nucleated RBC/100 WBC (Bld) [Ratio] 0 % Normal 0-0 [facility] Comment on above: Order Comment: No: D o not add to previous draw Performed By: #### 8 [id number] #### [facility] [address] [facility] [place] [address], [facility] PLAT CNT 391 10*3/uL Normal 150-400 The [facility] Comment on above: Order Comment: No: D o not add to previous draw Performed By: #### 8 [id number] #### [facility] [address] [place] [address], [facility] RBC (Bld) [#/Vol] 4.26 10*6/uL Normal 3.80-5.00 [facility] Comment on above: Order Comment: No: D o not add to previous draw Performed By: #### 8 [id number] #### [facility] [address] [place] [id number], [facility] WBC (Bld) [#/Vol] 9.93 10*3/uL Normal 4.00-10.60 [facility] Comment on above: Order Comment: No: D o not add to previous draw Performed By: #### 8 [id number] #### [facility] [address] [facility] [place] [address], [facility] POC GLUCOSE LABon 03-05-2021 Glucose [Mass/Vol] 121 mg/dL High 70-100 The [facility] Comment on above: Performed By: #### 3 1977 #### [facility] [address] [facility] [place] [address], [facility] Glucose [Mass/Vol] 129 mg/dL High 70-100 The [facility] Comment on above: Performed By: #### 8 [id number] #### [facility] [address] [facility] [place] [address], [facility] Glucose [Mass/Vol] 130 mg/dL High 70-100 The [facility] Comment on above: Performed By: #### 8 [id number] #### [facility] [address] [facility] [place] [address], [facility] BASIC METABOLIC PANELon Calcium [Mass/Vol] 8.2 mg/dL Low 8.6-10.3 The [facility] Comment on above: Order Comment: No: D o not add to previous draw Performed By: #### 1 0070, [id number] ####[facility] [facility] [place] [address], [facility] Chloride [Moles/Vol] 101 mmol/L Normal 98-107 The [facility] Comment on above: Order Comment: No: D o not add to previous draw Performed By: #### 1 69, [id number] ####[facility] [place] [address], [facility] CO2 [Moles/Vol] 29 mmol/L Normal 21-31 The [facility] Comment on above: Order Comment: No: D o not add to previous draw Performed By: #### 1 69, [id number] ####[facility] [place] [address], [facility] Creatinine [Mass/Vol] 0.45 mg/dL Low 0.60-1.20 The [facility] Comment on above: Order Comment: No: D o not add to previous draw Performed By: #### 1 69, [id number] ####[facility] [facility] [place] [address], [facility] GFR/1.73 sq M.predicted among blacks MDRD (S/P/Bld) [Vol rate/Area] mL/min/{1.73_m2} Normal >60 The [facility] Comment on above: Order Comment: No: D o not add to previous draw Performed By: #### 1 69, [id number] ####[facility] [facility] [place] [address], [facility] GFR/1.73 sq M.predicted among non-blacks MDRD (S/P/Bld) [Vol rate/Area] mL/min/{1.73_m2} Normal >60 The [facility] Comment on above: Order Comment: No: D o not add to previous draw Performed By: #### 1 69, [id number] ####[facility] [facility] [place] [address], [facility] Glucose [Mass/Vol] 125 mg/dL High 70-100 The [facility] Comment on above: Order Comment: No: D o not add to previous draw Performed By: #### 1 69, [id number] ####[facility] [facility] [place] [address], [facility] Potassium [Moles/Vol] 3.6 mmol/L Normal 3.5-5.1 The [facility] Comment on above: Order Comment: No: D o not add to previous draw Performed By: #### 1 69, 19126 ####[facility] [place] [address], [facility] Sodium [Moles/Vol] 137 mmol/L Normal 136-145 The [facility] Comment on above: Order Comment: No: D o not add to previous draw Performed By: #### 1 69, 22239 ####[facility] [facility] [place] [address], [facility] Urea nitrogen [Mass/Vol] 6 mg/dL Low 7-25 The [facility] Comment on above: Order Comment: No: D o not add to previous draw Performed By: #### 1 69, [id number] ####[facility] [facility] CBC COMPLETE BLOOD COUNTon 0 - Erythrocyte distribution width (RBC) [Ratio] 13.1 % Normal 11.5-15.0 [facility] Comment on above: Order Comment: No: D o not add to previous draw Performed By: #### 8 6691 #### [facility] [address] [place] [address], [facility] Hematocrit (Bld) [Volume fraction] 35.2 % Low 36.0-45.0 The [facility] Comment on above: Order Comment: No: D o not add to previous draw Performed By: #### 8 1453 #### [facility] [address] [place] [address], [facility] Hemoglobin (Bld) [Mass/Vol] 11.5 g/dL Low 12.0-15.0 [facility] Comment on above: Order Comment: No: D o not add to previous draw Performed By: #### 8 4346 #### [facility] [address] [place] [address], [facility] MCH (RBC) [Entitic mass] 27.4 pg Normal 27.0-33.0 The [facility] Comment on above: Order Comment: No: D o not add to previous draw Performed By: #### 8 [id number] #### [facility] [address] [place] [address], [facility] MCHC (RBC) [Mass/Vol] 32.7 g/dL Normal 32.0-35.0 [facility] Comment on above: Order Comment: No: D o not add to previous draw Performed By: #### 8 [id number] #### [facility] [address] [place] [address], [facility] MCV (RBC) [Entitic vol] 84.0 fL Normal 82.0-98.0 T he [facility] Comment on above: Order Comment: No: D o not add to previous draw Performed By: #### 8 [id number] #### [facility] [address] [place] [id number], [facility] Nucleated RBC/100 WBC (Bld) [Ratio] 0 % Normal 0-0 [facility] Comment on above: Order Comment: No: D o not add to previous draw Performed By: #### 8 [id number] #### [facility] [address] [place] [address], [facility] PLAT CNT 353 10*3/uL Normal 150-400 The [facility] Comment on above: Order Comment: No: D o not add to previous draw Performed By: #### 8 [id number] #### [facility] [address] [facility] [place] [address], [facility] RBC (Bld) [#/Vol] 4.19 10*6/uL Normal 3.80-5.00 The [facility] Comment on above: Order Comment: No: D o not add to previous draw Performed By: #### 8 [id number] #### [facility] [address] [place] [address], [facility] WBC (Bld) [#/Vol] 9.49 10*3/uL Normal 4.00-10.60 The [facility] Comment on above: Order Comment: No: D o not add to previous draw Performed By: #### 8 [id number] #### [facility] [address] [place] [address], [place] MAGNESIUM BLOODon 03-04-2021 Magnesium [Mass/Vol] 2.0 mg/dL Normal 1.9-2.7 The [facility] Comment on above: Order Comment: No: D o not add to previous draw Performed By: #### 1 0070, [id number] ####[facility] [place] [address], [facility] POC GLUCOSE LABon 03-04-2021 Glucose [Mass/Vol] 109 mg/dL High 70-100 The [facility] Comment on above: Performed By: #### 8 [id number] #### [facility] [address] [place] [address], [place] Glucose [Mass/Vol] 144 mg/dL High 70-100 [facility] Comment on above: Performed By: #### 8 [id number] #### [facility] [address] [place] [address], [place] BASIC METABOLIC PANELon Calcium [Mass/Vol] 8.1 mg/dL Low 8.6-10.3 The [facility] Comment on above: Order Comment: No: D o not add to previous draw Performed By: #### 8 [id number] #### [facility] [address] [place] [address], [place] Chloride [Moles/Vol] 98 mmol/L Normal 98-107 [facility] Comment on above: Order Comment: No: D o not add to previous draw Performed By: #### 8 [id number] #### [facility] [address] [place] [address], [place] CO2 [Moles/Vol] 28 mmol/L Normal 21-31 [facility] Comment on above: Order Comment: No: D o not add to previous draw Performed By: #### 8 [id number] #### [facility] [address] [place] [address], [facility] Creatinine [Mass/Vol] 0.41 mg/dL Low 0.60-1.20 The [facility] Comment on above: Order Comment: No: D o not add to previous draw Performed By: #### 8 [id number] #### [facility] [address] [place] [address], [place] GFR/1.73 sq M.predicted among blacks MDRD (S/P/Bld) [Vol rate/Area] mL/min/{1.73_m2} Normal >60 The [facility] Comment on above: Order Comment: No: D o not add to previous draw Performed By: #### 8 [id number] #### [facility] [address] [place] [address], [facility] GFR/1.73 sq M.predicted among non-blacks MDRD (S/P/Bld) [Vol rate/Area] mL/min/{1.73_m2} Normal >60 The [facility] Comment on above: Order Comment: No: D o not add to previous draw Performed By: #### 8 [id number] #### [facility] [address] [place] [address], [place] Glucose [Mass/Vol] 96 mg/dL Normal 70-100 The [facility] Comment on above: Order Comment: No: D o not add to previous draw Performed By: #### 8 [id number] #### [facility] [address] [place] [address], [place] Potassium [Moles/Vol] 3.1 mmol/L Low 3.5-5.1 [facility] Comment on above: Order Comment: No: D o not add to previous draw Performed By: #### 8 [id number] #### [facility] [address] [place] [id number], [facility] Sodium [Moles/Vol] 134 mmol/L Low 136-145 The [facility] Comment on above: Order Comment: No: D o not add to previous draw Performed By: #### 8 [id number] #### [facility] [address] [place] [address], [facility] Urea nitrogen [Mass/Vol] 7 mg/dL Normal 7-25 [facility] Comment on above: Order Comment: No: D o not add to previous draw Performed By: #### 8 [id number] #### [facility] [address] [place] [address], [facility] CBC COMPLETE BLOOD COUNTon 03-03-2021 Erythrocyte distribution width (RBC) [Ratio] 13.2 % Normal 11.5-15.0 [facility] Comment on above: Order Comment: No: D o not add to previous draw Performed By: #### 3 1595 #### [facility] [address] [place] [address], [facility] Hematocrit (Bld) [Volume fraction] 34.6 % Low 36.0-45.0 [facility] Comment on above: Order Comment: No: D o not add to previous draw Performed By: #### 3 1595 #### [facility] [address] [place] [address], [facility] Hemoglobin (Bld) [Mass/Vol] 11.7 g/dL Low 12.0-15.0 [facility] Comment on above: Order Comment: No: D o not add to previous draw Performed By: #### 3 1595 #### [facility] [address] [place] [address], [facility] MCH (RBC) [Entitic mass] 27.7 pg Normal 27.0-33.0 [facility] Comment on above: Order Comment: No: D o not add to previous draw Performed By: #### 3 1595 #### [facility] [address] MCHC (RBC) [Mass/Vol] 33.8 g/dL Normal 32.0-35.0 [facility] Comment on above: Order Comment: No: D o not add to previous draw Performed By: #### 3 1595 #### [facility] [address] [place] [id number], [facility] MCV (RBC) [Entitic vol] 82.0 fL Normal 82.0-98.0 T he [facility] Comment on above: Order Comment: No: D o not add to previous draw Performed By: #### 3 1595 #### [facility] [address] [place] [address], [facility] Nucleated RBC/100 WBC (Bld) [Ratio] 0 % Normal 0-0 [facility] Comment on above: Order Comment: No: D o not add to previous draw Performed By: #### 3 1595 #### [facility] [address] [place] [address], [facility] PLAT CNT 303 10*3/uL Normal 150-400 [facility] Comment on above: Order Comment: No: D o not add to previous draw Performed By: #### 3 1595 #### [facility] [address] [place] [address], [facility] RBC (Bld) [#/Vol] 4.22 10*6/uL Normal 3.80-5.00 [facility] Comment on above: Order Comment: No: D o not add to previous draw Performed By: #### 3 1595 #### [facility] [address] [facility] [place] [id number], [facility] WBC (Bld) [#/Vol] 10.65 10*3/uL High 4.00-10.60 The [facility] Comment on above: Order Comment: No: D o not add to previous draw Performed By: #### 3 1595 #### [facility] [address] [place] [address], [facility] MAGNESIUM BLOODon 2022 Magnesium [Mass/Vol] 1.8 mg/dL Low 1.9-2.7 [facility] Comment on above: Order Comment: No: D o not add to previous draw Performed By: #### 8 [id number] #### [facility] [address] [place] [address], [facility] PHOSPHORUS BLOODon 2 Phosphate [Mass/Vol] 3.2 mg/dL Normal 2.5-5.0 The [facility] Comment on above: Order Comment: No: D o not add to previous draw Performed By: #### 8 [id number] #### [facility] [address] [facility] [place] [address], [facility] POC GLUCOSE LABon 03-03-2021 Glucose [Mass/Vol] 110 mg/dL High 70-100 The [facility] Comment on above: Performed By: #### 8 [id number] #### [facility] [address] [facility] [place] [address], [facility] [facility] Glucose [Mass/Vol] 152 mg/dL High 70-100 [facility] Comment on above: Performed By: #### 3 1976 #### [facility] [address] [facility] [place] [address], [facility] Glucose [Mass/Vol] 110 mg/dL High 70-100 [facility] Comment on above: Performed By: #### 8 [id number] #### [facility] [address] [facility] [place] [id number], [facility] Glucose [Mass/Vol] 105 mg/dL High 70-100 [facility] Comment on above: Performed By: #### 3 1976 #### [facility] [address] [facility] [place] [address], [facility] POC SARS COV2 ANTIGEN NEGATI VEon 03-03-2021 POC SARS COV2 ANTIGEN NEG Negative Normal NEGATIVE [facility] Comment on above: Result Comment: Nega tive results from patients with symptom onset beyond seven days, should be treated presumptive and confirmation with a molecular assay, if necessary, for patient management, may be performed. Negative results do not rule out SARS-CoV-2 infection and should not be used as the sole basis for treatment or patient management decisions, including infection control decisions. Negative results should be considered in the context of a patient?s recent exposures, history and the presence of clinical signs and symptoms consistent with COVID-19. The [employer] COVID-19 Ag Card is a lateral flow immunoassay intended for the qualitative detection of nucleocapsid protein antigen from SARS-CoV-2 in direct nasal swabs from individuals within the first seven days of symptom onset. Testing is limited to laboratories certified under the Clinical Laboratory Improvement Amendments of 1988 (CLIA), 42 U.S.C. ???263a, that meet the requirements to perform moderate, high or waived complexity tests. This test is authorized for use at the Point of Care (POC), i.e., in patient care settings operating under a CLIA Certificate of Waiver, Certificate of Compliance, or Certificate of Accreditation. Performed By: #### 3 1977 #### [facility] [address] [place] [address], [facility] BASIC METABOLIC PANELon 01-0 -2021 Calcium [Mass/Vol] 8.6 mg/dL Normal 8.6-10.3 [facility] Comment on above: Order Comment: No: D o not add to previous draw Performed By: #### 8 [id number] #### [facility] [address] [place] [address], [facility] Chloride [Moles/Vol] 96 mmol/L Low 98-107 [facility] Comment on above: Order Comment: No: D o not add to previous draw Performed By: #### 8 [id number] #### [facility] [address] [place] [address], [place] CO2 [Moles/Vol] 31 mmol/L Normal 21-31 [facility] Comment on above: Order Comment: No: D o not add to previous draw Performed By: #### 8 [id number] #### [facility] [address] [place] [address], [place] Creatinine [Mass/Vol] 0.41 mg/dL Low 0.60-1.20 [facility] Comment on above: Order Comment: No: D o not add to previous draw Performed By: #### 8 [id number] #### [facility] [address] [place] [address], [place] GFR/1.73 sq M.predicted among blacks MDRD (S/P/Bld) [Vol rate/Area] mL/min/{1.73_m2} Normal >60 [facility] Comment on above: Order Comment: No: D o not add to previous draw Performed By: #### 8 [id number] #### [facility] [address] [place] [address], [place] GFR/1.73 sq M.predicted among non-blacks MDRD (S/P/Bld) [Vol rate/Area] mL/min/{1.73_m2} Normal >60 [facility] Comment on above: Order Comment: No: D o not add to previous draw Performed By: #### 8 [id number] #### [facility] [address] [place] [address], [place] Glucose [Mass/Vol] 95 mg/dL Normal 70-100 [facility] Comment on above: Order Comment: No: D o not add to previous draw Performed By: #### 8 [id number] #### [facility] [address] [place] [address], [place] Potassium [Moles/Vol] 3.1 mmol/L Low 3.5-5.1 [facility] Comment on above: Order Comment: No: D o not add to previous draw Performed By: #### 8 [id number] #### [facility] [address] [place] [address], [place] Sodium [Moles/Vol] 136 mmol/L Normal 136-145 [facility] Comment on above: Order Comment: No: D o not add to previous draw Performed By: #### 8 [id number] #### [facility] [address] [facility] [place] [address], [facility] Urea nitrogen [Mass/Vol] 7 mg/dL Normal 7-25 [facility] Comment on above: Order Comment: No: D o not add to previous draw Performed By: #### 8 [id number] #### [facility] [address] [facility] [place] [address], [facility] CBC W/DIFFon 03-02-2021 ABS IMM GRANS 0.1 10*3/uL Normal 0.0-0.2 [facility] Comment on above: Order Comment: No: D o not add to previous draw Performed By: #### 3 1595 #### [facility] [address] [place] [address], [facility] ABS NEUTROPHILS 7.5 10*3/uL Normal 1.6-7.6 [facility] Comment on above: Order Comment: No: D o not add to previous draw Performed By: #### 3 1595 #### [facility] [address] [facility] [address], [facility] Basophils (Bld) [#/Vol] 0.0 10*3/uL Normal 0.0-0.2 [facility] Comment on above: Order Comment: No: D o not add to previous draw Performed By: #### 3 1595 #### [facility] [address] [facility] [place] [address], [facility] Basophils/100 WBC (Bld) 0.3 % Normal 0.0-1.0 T [facility] Comment on above: Order Comment: No: D o not add to previous draw Performed By: #### 3 1595 #### [facility] [address] [facility] [place] [address], [facility] Eosinophils (Bld) [#/Vol] 0.4 10*3/uL Normal 0.0-0.5 [facility] Comment on above: Order Comment: No: D o not add to previous draw Performed By: #### 3 1595 #### [facility] [address] [place] [address], [facility] Eosinophils/100 WBC (Bld) 4.0 % Normal 0.0-6.0 [facility] Comment on above: Order Comment: No: D o not add to previous draw Performed By: #### 3 1595 #### [facility] [address] [place] [address], [facility] Erythrocyte distribution width (RBC) [Ratio] 13.0 % Normal 11.5-15.0 [facility] Comment on above: Order Comment: No: D o not add to previous draw Performed By: #### 3 1595 #### [facility] [address] [place] [address], [facility] Hematocrit (Bld) [Volume fraction] 38.0 % Normal 36.0-45.0 [facility] Comment on above: Order Comment: No: D o not add to previous draw Performed By: #### 3 1595 #### [facility] [address] [place] [address], [facility] Hemoglobin (Bld) [Mass/Vol] 12.9 g/dL Normal 12.0-15.0 [facility] Comment on above: Order Comment: No: D o not add to previous draw Performed By: #### 3 1595 #### [facility] [address] [place] [id number], [facility] IMMATURE GRANS 0.7 % Normal 0.0-1.0 [facility] Comment on above: Order Comment: No: D o not add to previous draw Performed By: #### 3 1595 #### [facility] [address] [place] [id number], [facility] Lymphocytes (Bld) [#/Vol] 1.6 10*3/uL Normal 1.2-4.0 [facility] Comment on above: Order Comment: No: D o not add to previous draw Performed By: #### 3 1595 #### [facility] [address] [place] [address], [facility] Lymphocytes/100 WBC (Bld) 15.0 % Low 20.0-45.0 [facility] Comment on above: Order Comment: No: D o not add to previous draw Performed By: #### 3 1595 #### [facility] [address] [place] [address], [facility] MCH (RBC) [Entitic mass] 27.8 pg Normal 27.0-33.0 [facility] Comment on above: Order Comment: No: D o not add to previous draw Performed By: #### 3 1595 #### [facility] [address] [facility] [place] [address], [facility] MCHC (RBC) [Mass/Vol] 33.9 g/dL Normal 32.0-35.0 [facility] Comment on above: Order Comment: No: D o not add to previous draw Performed By: #### 3 1595 #### [facility] [address] [facility] [place] [id number], [facility] MCV (RBC) [Entitic vol] 81.9 fL Low 82.0-98.0 T [facility] Comment on above: Order Comment: No: D o not add to previous draw Performed By: #### 3 1595 #### [facility] [address] [facility] [place] [address], [facility] Monocytes (Bld) [#/Vol] 1.1 10*3/uL High 0.1-1.0 [facility] Comment on above: Order Comment: No: D o not add to previous draw Performed By: #### 3 1595 #### [facility] [address] [facility] [place] [address], [facility] MONOS 10.3 % Normal 5.0-12.0 [facility] Comment on above: Order Comment: No: D o not add to previous draw Performed By: #### 3 1595 #### [facility] [address] [place] [id number], [facility] Neutrophils/100 WBC (Bld) 69.7 % Normal 40.0-72.0 [facility] Comment on above: Order Comment: No: D o not add to previous draw Performed By: #### 3 1595 #### [facility] [address] [place] [id number], [facility] Nucleated RBC/100 WBC (Bld) [Ratio] 0 % Normal 0-0 [facility] Comment on above: Order Comment: No: D o not add to previous draw Performed By: #### 3 1595 #### [facility] [address] [place] [id number], [facility] PLAT CNT 309 10*3/uL Normal 150-400 [facility] Comment on above: Order Comment: No: D o not add to previous draw Performed By: #### 3 1595 #### [facility] [address] [place] [address], [facility] RBC (Bld) [#/Vol] 4.64 10*6/uL Normal 3.80-5.00 [facility] Comment on above: Order Comment: No: D o not add to previous draw Performed By: #### 3 1595 #### [facility] [address] [place] [id number], [facility] WBC (Bld) [#/Vol] 10.70 10*3/uL High 4.00-10.60 [facility] Comment on above: Order Comment: No: D o not add to previous draw Performed By: #### 3 1595 #### [facility] [address] [place] [id number], [facility] MAGNESIUM BLOODon 03-02-2021 Magnesium [Mass/Vol] 1.7 mg/dL Low 1.9-2.7 [facility] Comment on above: Order Comment: No: D o not add to previous draw Performed By: #### 8 [id number] #### [facility] [address] [place] [address], [facility] PHOSPHORUS BLOODon Phosphate [Mass/Vol] 3.7 mg/dL Normal 2.5-5.0 [facility] Comment on above: Order Comment: No: D o not add to previous draw Performed By: #### 8 [id number] #### [facility] [address] [place] [address], [place] POC GLUCOSE LABon 03-02-2021 Glucose [Mass/Vol] 117 mg/dL High 70-100 [facility] Comment on above: Performed By: #### 3 1977 #### [facility] [address] [place] [address], [place] Glucose [Mass/Vol] 126 mg/dL High 70-100 [facility] Comment on above: Performed By: #### 8 5499 #### [facility] [address] [place] [address], [place] Glucose [Mass/Vol] 97 mg/dL Normal 70-100 [facility] Comment on above: Performed By: #### 8 5499 #### [facility] [address] [place] [address], [place] Glucose [Mass/Vol] 104 mg/dL High 70-100 [facility] Comment on above: Performed By: #### 8 5499 #### [facility] [address] [place] [address], [place] Glucose [Mass/Vol] 143 mg/dL High 70-100 [facility] Comment on above: Performed By: #### 8 5499 #### [facility] [address] [place] [address], [place] BASIC METABOLIC PANELon Calcium [Mass/Vol] 8.5 mg/dL Low 8.6-10.3 [facility] Comment on above: Order Comment: No: D o not add to previous draw Performed By: #### 0 0071, [id number] ####[facility] [place] [address], [facility] Chloride [Moles/Vol] 97 mmol/L Low 98-107 [facility] Comment on above: Order Comment: No: D o not add to previous draw Performed By: #### 0 0071, [id number] ####[facility] [place] [address], [place] CO2 [Moles/Vol] 30 mmol/L Normal 21-31 [facility] Comment on above: Order Comment: No: D o not add to previous draw Performed By: #### 0 0071, [id number] ####[facility] [facility] [place] [address], [facility] Creatinine [Mass/Vol] 0.53 mg/dL Low 0.60-1.20 [facility] Comment on above: Order Comment: No: D o not add to previous draw Performed By: #### 0 0071, [id number] ####[facility] [facility] [place] [address], [place] GFR/1.73 sq M.predicted among blacks MDRD (S/P/Bld) [Vol rate/Area] mL/min/{1.73_m2} Normal >60 [facility] Comment on above: Order Comment: No: D o not add to previous draw Performed By: #### 0 0071, [id number] ####[place] [address] [facility] [place] [address], [facility] GFR/1.73 sq M.predicted among non-blacks MDRD (S/P/Bld) [Vol rate/Area] mL/min/{1.73_m2} Normal >60 [facility] Comment on above: Order Comment: No: D o not add to previous draw Performed By: #### 0 0071, [id number] ####[facility] [place] [address], [place] Glucose [Mass/Vol] 98 mg/dL Normal 70-100 [facility] Comment on above: Order Comment: No: D o not add to previous draw Performed By: #### 0 0071, [id number] ####[facility] [place] [address], [facility] Potassium [Moles/Vol] 3.3 mmol/L Low 3.5-5.1 [facility] Comment on above: Order Comment: No: D o not add to previous draw Performed By: #### 0 0071, [id number] ####[facility] [place] [address], [facility] Sodium [Moles/Vol] 137 mmol/L Normal 136-145 [facility] Comment on above: Order Comment: No: D o not add to previous draw Performed By: #### 0 0071, [id number] ####[facility] [facility] [place] [address], [facility] Urea nitrogen [Mass/Vol] 10 mg/dL Normal 7-25 [facility] Comment on above: Order Comment: No: D o not add to previous draw Performed By: #### 0 0071, [id number] ####[facility] [facility] [place] [address], [facility] CBC COMPLETE BLOOD COUNTon 0 - Erythrocyte distribution width (RBC) [Ratio] 12.8 % Normal 11.5-15.0 [facility] Comment on above: Order Comment: No: D o not add to previous draw Performed By: #### 8 [id number] #### [facility] [address] [place] [address], [facility] Hematocrit (Bld) [Volume fraction] 37.7 % Normal 36.0-45.0 [facility] Comment on above: Order Comment: No: D o not add to previous draw Performed By: #### 8 [id number] #### [facility] [address] [place] [address], [place] Hemoglobin (Bld) [Mass/Vol] 12.2 g/dL Normal 12.0-15.0 [facility] Comment on above: Order Comment: No: D o not add to previous draw Performed By: #### 8 [id number] #### [facility] [address] [facility] [place] [address], [facility] MCH (RBC) [Entitic mass] 27.5 pg Normal 27.0-33.0 [facility] Comment on above: Order Comment: No: D o not add to previous draw Performed By: #### 8 [id number] #### [facility] [address] [facility] [place] [address], [facility] MCHC (RBC) [Mass/Vol] 32.4 g/dL Normal 32.0-35.0 [facility] Comment on above: Order Comment: No: D o not add to previous draw Performed By: #### 8 [id number] #### [facility] [address] [facility] [place] [address], [facility] MCV (RBC) [Entitic vol] 84.9 fL Normal 82.0-98.0 T [facility] Comment on above: Order Comment: No: D o not add to previous draw Performed By: #### 8 [id number] #### [facility] [address] [facility]. [address] Nucleated RBC/100 WBC (Bld) [Ratio] 0 % Normal 0-0 [facility] Comment on above: Order Comment: No: D o not add to previous draw Performed By: #### 8 [id number] #### [facility] [address] [place] [address], [facility] PLAT CNT 275 10*3/uL Normal 150-400 [facility] Comment on above: Order Comment: No: D o not add to previous draw Performed By: #### 8 [id number] #### [facility] [address] [facility] [address], [facility] RBC (Bld) [#/Vol] 4.44 10*6/uL Normal 3.80-5.00 [facility] Comment on above: Order Comment: No: D o not add to previous draw Performed By: #### 8 [id number] #### [facility] [address] [place] [address], [facility] WBC (Bld) [#/Vol] 11.44 10*3/uL High 4.00-10.60 [facility] Comment on above: Order Comment: No: D o not add to previous draw Performed By: #### 8 [id number] #### [facility] [address] [place] [address], [place] MAGNESIUM BLOODon 03-01-2021 Magnesium [Mass/Vol] 1.6 mg/dL Low 1.9-2.7 [facility] Comment on above: Order Comment: No: D o not add to previous draw Performed By: #### 0 0071, [id number] ####[facility] [place] [address], [facility] POC GLUCOSE LABon 03-01-2021 Glucose [Mass/Vol] 113 mg/dL High 70-100 [facility] Comment on above: Performed By: #### 8 [id number] #### [facility] [address] [place] [address], [place] Glucose [Mass/Vol] 137 mg/dL High 70-100 [facility] Comment on above: Performed By: #### 8 5499 #### [facility] [address] [place] [address], [place] Glucose [Mass/Vol] 102 mg/dL High 70-100 [facility] Comment on above: Performed By: #### 8 5499 #### [facility] [address] [place] [address], [place] Glucose [Mass/Vol] 132 mg/dL High 70-100 [facility] Comment on above: Performed By: #### 8 [id number] #### [facility] [address] [place] [address], [place] BASIC METABOLIC PANELon Calcium [Mass/Vol] 8.9 mg/dL Normal 8.6-10.3 [facility] Comment on above: Order Comment: No: D o not add to previous draw Criteria for reflexing a culture was not met. Please call the lab at [phone] within 24 hours of collection time if culture is needed Performed By: #### 3 0965 #### [facility] [address] [place] [address], [facility] Chloride [Moles/Vol] 98 mmol/L Normal 98-107 [facility] Comment on above: Order Comment: No: D o not add to previous draw Criteria for reflexing a culture was not met. Please call the lab at [phone] within 24 hours of collection time if culture is needed Performed By: #### 3 0965 #### [facility] [address] [place] [address], [facility] CO2 [Moles/Vol] 29 mmol/L Normal 21-31 [facility] Comment on above: Order Comment: No: D o not add to previous draw Criteria for reflexing a culture was not met. Please call the lab at [phone] within 24 hours of collection time if culture is needed Performed By: #### 3 0965 #### [facility] [address] [place] [address], [place] Creatinine [Mass/Vol] 0.65 mg/dL Normal 0.60-1.20 [facility] Comment on above: Order Comment: No: D o not add to previous draw Criteria for reflexing a culture was not met. Please call the lab at [phone] within 24 hours of collection time if culture is needed Performed By: #### 3 0965 #### [facility] [address] [place] [address], [place] GFR/1.73 sq M.predicted among blacks MDRD (S/P/Bld) [Vol rate/Area] mL/min/{1.73_m2} Normal >60 [facility] Comment on above: Order Comment: No: D o not add to previous draw Criteria for reflexing a culture was not met. Please call the lab at [phone] within 24 hours of collection time if culture is needed Performed By: #### 3 0965 #### [facility] [address] [place] [address], [facility] GFR/1.73 sq M.predicted among non-blacks MDRD (S/P/Bld) [Vol rate/Area] mL/min/{1.73_m2} Normal >60 [facility] Comment on above: Order Comment: No: D o not add to previous draw Criteria for reflexing a culture was not met. Please call the lab at [phone] within 24 hours of collection time if culture is needed Performed By: #### 3 0965 #### [facility] [address] [facility] [place] [address], [facility] Glucose [Mass/Vol] 90 mg/dL Normal 70-100 [facility] Comment on above: Order Comment: No: D o not add to previous draw Criteria for reflexing a culture was not met. Please call the lab at [phone] within 24 hours of collection time if culture is needed Performed By: #### 3 0965 #### [facility] [address] [place] [address], [facility] Potassium [Moles/Vol] 3.6 mmol/L Normal 3.5-5.1 [facility] Comment on above: Order Comment: No: D o not add to previous draw Criteria for reflexing a culture was not met. Please call the lab at [phone] within 24 hours of collection time if culture is needed Performed By: #### 3 0965 #### [facility] [address] [place] [address], [place] Sodium [Moles/Vol] 137 mmol/L Normal 136-145 [facility] Comment on above: Order Comment: No: D o not add to previous draw Criteria for reflexing a culture was not met. Please call the lab at [phone] within 24 hours of collection time if culture is needed Performed By: #### 3 0965 #### [facility] [address] [place] [address], [place] Urea nitrogen [Mass/Vol] 13 mg/dL Normal 7-25 [facility] Comment on above: Order Comment: No: D o not add to previous draw Criteria for reflexing a culture was not met. Please call the lab at [phone] within 24 hours of collection time if culture is needed Performed By: #### 3 0965 #### [facility] [address] [place] [address], [facility] CBC COMPLETE BLOOD COUNTon 0 02-28-2021 Erythrocyte distribution width (RBC) [Ratio] 13.0 % Normal 11.5-15.0 [facility] Comment on above: Order Comment: No: D o not add to previous draw Performed By: #### 8 [id number] #### [facility] [address] [place] [address], [facility] Hematocrit (Bld) [Volume fraction] 38.5 % Normal 36.0-45.0 [facility] Comment on above: Order Comment: No: D o not add to previous draw Performed By: #### 8 [id number] #### [facility] [address] [place] [address], [facility] Hemoglobin (Bld) [Mass/Vol] 11.9 g/dL Low 12.0-15.0 [facility] Comment on above: Order Comment: No: D o not add to previous draw Performed By: #### 8 [id number] #### [facility] [address] [place] [address], [facility] MCH (RBC) [Entitic mass] 26.6 pg Low 27.0-33.0 [facility] Comment on above: Order Comment: No: D o not add to previous draw Performed By: #### 8 [id number] #### [facility] [address] [place] [id number], [facility] MCHC (RBC) [Mass/Vol] 30.9 g/dL Low 32.0-35.0 [facility] Comment on above: Order Comment: No: D o not add to previous draw Performed By: #### 8 [id number] #### [facility] [address] [facility] [place] [address], [facility] MCV (RBC) [Entitic vol] 85.9 fL Normal 82.0-98.0 T he [facility] Comment on above: Order Comment: No: D o not add to previous draw Performed By: #### 8 [id number] #### [facility] [address] [facility] [place] [address], [facility] Nucleated RBC/100 WBC (Bld) [Ratio] 0 % Normal 0-0 [facility] Comment on above: Order Comment: No: D o not add to previous draw Performed By: #### 8 [id number] #### [facility] [address] [facility] [place] [address], [facility] PLAT CNT 290 10*3/uL Normal 150-400 [facility] Comment on above: Order Comment: No: D o not add to previous draw Performed By: #### 8 [id number] #### [facility] [address] [place] [address], [facility] RBC (Bld) [#/Vol] 4.48 10*6/uL Normal 3.80-5.00 [facility] Comment on above: Order Comment: No: D o not add to previous draw Performed By: #### 8 [id number] #### [facility] [address] [facility] [place] [address], [facility] WBC (Bld) [#/Vol] 11.24 10*3/uL High 4.00-10.60 [facility] Comment on above: Order Comment: No: D o not add to previous draw Performed By: #### 8 [id number] #### [facility] [address] [facility] [place] [address], [facility] MAGNESIUM BLOODon 02-28-2021 Magnesium [Mass/Vol] 1.9 mg/dL Normal 1.9-2.7 [facility] Comment on above: Order Comment: No: D o not add to previous draw Criteria for reflexing a culture was not met. Please call the lab at [phone] within 24 hours of collection time if culture is needed Performed By: #### 3 0965 #### [facility] [address] [place] [address], [facility] PHOSPHORUS BLOODon Phosphate [Mass/Vol] 2.8 mg/dL Normal 2.5-5.0 [facility] Comment on above: Order Comment: No: D o not add to previous draw Criteria for reflexing a culture was not met. Please call the lab at [phone] within 24 hours of collection time if culture is needed Performed By: #### 3 0965 #### [facility] [address] [place] [address], [facility] POC GLUCOSE LABon 02-28-2021 Glucose [Mass/Vol] 103 mg/dL High 70-100 [facility] Comment on above: Performed By: #### 3 1976 #### [facility] [address] [place] [address], [facility] Glucose [Mass/Vol] 100 mg/dL Normal 70-100 [facility] Comment on above: Performed By: #### 8 [id number] #### [facility] [address] [facility] [place] [address], [place] Glucose [Mass/Vol] 91 mg/dL Normal 70-100 [facility] Comment on above: Performed By: #### 8 [id number] #### [facility] [address] [place] [address], [place] Glucose [Mass/Vol] 95 mg/dL Normal 70-100 [facility] Comment on above: Performed By: #### 3 1976 #### [facility] [address] [place] [address], [place] BASIC METABOLIC PANELon Calcium [Mass/Vol] 8.8 mg/dL Normal 8.6-10.3 [facility] Comment on above: Order Comment: Fluid Collection, left mid abdomen Performed By: #### 4 1000, 65562, [id number] ####[facility] [place] [address], [place] Chloride [Moles/Vol] 101 mmol/L Normal 98-107 [facility] Comment on above: Order Comment: Fluid Collection, left mid abdomen Performed By: #### 4 1000, , [id number] ####[facility] [place] [address], [place] CO2 [Moles/Vol] 31 mmol/L Normal 21-31 [facility] Comment on above: Order Comment: Fluid Collection, left mid abdomen Performed By: #### 4 1000, , 26801 ####[facility] [place] [address], [place] Creatinine [Mass/Vol] 0.64 mg/dL Normal 0.60-1.20 [facility] Comment on above: Order Comment: Fluid Collection, left mid abdomen Performed By: #### 4 1000, , 28556 ####[facility] [place] [address], [place] GFR/1.73 sq M.predicted among blacks MDRD (S/P/Bld) [Vol rate/Area] mL/min/{1.73_m2} Normal >60 [facility] Comment on above: Order Comment: Fluid Collection, left mid abdomen Performed By: #### 4 1000, , 28174 ####[facility] [place] [address], [place] GFR/1.73 sq M.predicted among non-blacks MDRD (S/P/Bld) [Vol rate/Area] mL/min/{1.73_m2} Normal >60 [facility] Comment on above: Order Comment: Fluid Collection, left mid abdomen Performed By: #### 4 1000, , 68970 ####[facility] [place] [address], [place] Glucose [Mass/Vol] 107 mg/dL High 70-100 [facility] Comment on above: Order Comment: Fluid Collection, left mid abdomen Performed By: #### 4 1000, 19193, 32585 ####[facility] [place] [address], [facility] Potassium [Moles/Vol] 3.7 mmol/L Normal 3.5-5.1 [facility] Comment on above: Order Comment: Fluid Collection, left mid abdomen Performed By: #### 4 1000, 99475, 57968 ####[facility] [place] [address], [facility] Sodium [Moles/Vol] 139 mmol/L Normal 136-145 [facility] Comment on above: Order Comment: Fluid Collection, left mid abdomen Performed By: #### 4 1000, 38520, 46914 ####[facility] [facility] Urea nitrogen [Mass/Vol] 12 mg/dL Normal 7-25 [facility] Comment on above: Order Comment: Fluid Collection, left mid abdomen Performed By: #### 4 1000, 90780, 62246 ####[facility] [facility] [place] [address], [facility] CBC W/DIFFon 02-27-2021 ABS IMM GRANS 0.1 10*3/uL Normal 0.0-0.2 [facility] Comment on above: Order Comment: No: D o not add to previous draw Performed By: #### 8 1809 #### [facility] [address] [place] [address], [facility] ABS NEUTROPHILS 9.7 10*3/uL High 1.6-7.6 [facility] Comment on above: Order Comment: No: D o not add to previous draw Performed By: #### 8 5989 #### [facility] [address] [place] [id number], [facility] Basophils (Bld) [#/Vol] 0.0 10*3/uL Normal 0.0-0.2 [facility] Comment on above: Order Comment: No: D o not add to previous draw Performed By: #### 8 5499 #### [facility] [address] [place] [address], [facility] Basophils/100 WBC (Bld) 0.2 % Normal 0.0-1.0 T he [facility] Comment on above: Order Comment: No: D o not add to previous draw Performed By: #### 8 5499 #### [facility] [address] [place] [address], [facility] Eosinophils (Bld) [#/Vol] 0.1 10*3/uL Normal 0.0-0.5 [facility] Comment on above: Order Comment: No: D o not add to previous draw Performed By: #### 8 5499 #### [facility] [address] [place] [address], [facility] Eosinophils/100 WBC (Bld) 0.5 % Normal 0.0-6.0 [facility] Comment on above: Order Comment: No: D o not add to previous draw Performed By: #### 8 5499 #### [facility] [address] [place] [address], [facility] Erythrocyte distribution width (RBC) [Ratio] 13.0 % Normal 11.5-15.0 [facility] Comment on above: Order Comment: No: D o not add to previous draw Performed By: #### 8 5499 #### [facility] [address] [place] [address], [facility] Hematocrit (Bld) [Volume fraction] 39.8 % Normal 36.0-45.0 [facility] Comment on above: Order Comment: No: D o not add to previous draw Performed By: #### 8 5499 #### [facility] [address] [place] [address], [facility] Hemoglobin (Bld) [Mass/Vol] 12.6 g/dL Normal 12.0-15.0 [facility] Comment on above: Order Comment: No: D o not add to previous draw Performed By: #### 8 5499 #### [facility] [address] [facility] [place] [address], [facility] IMMATURE GRANS 0.5 % Normal 0.0-1.0 [facility] Comment on above: Order Comment: No: D o not add to previous draw Performed By: #### 8 5499 #### [facility] [address] [place] [address], [facility] Lymphocytes (Bld) [#/Vol] 1.5 10*3/uL Normal 1.2-4.0 [facility] Comment on above: Order Comment: No: D o not add to previous draw Performed By: #### 8 5499 #### [facility] [address] [place] [address], [facility] Lymphocytes/100 WBC (Bld) 11.8 % Low 20.0-45.0 [facility] Comment on above: Order Comment: No: D o not add to previous draw Performed By: #### 8 5499 #### [facility] [address] [facility] [place] [address], [facility] MCH (RBC) [Entitic mass] 27.6 pg Normal 27.0-33.0 [facility] Comment on above: Order Comment: No: D o not add to previous draw Performed By: #### 8 5499 #### [facility] [address] [facility] [place] [address], [facility] MCHC (RBC) [Mass/Vol] 31.7 g/dL Low 32.0-35.0 [facility] Comment on above: Order Comment: No: D o not add to previous draw Performed By: #### 8 [id number] #### [facility] [address] [place] [id number], [facility] MCV (RBC) [Entitic vol] 87.1 fL Normal 82.0-98.0 T usha [facility] Comment on above: Order Comment: No: D o not add to previous draw Performed By: #### 8 5499 #### [facility] [address] [place] [address], [facility] Monocytes (Bld) [#/Vol] 1.5 10*3/uL High 0.1-1.0 [facility] Comment on above: Order Comment: No: D o not add to previous draw Performed By: #### 8 5499 #### [facility] [address] [place] [address], [facility] MONOS 11.5 % Normal 5.0-12.0 [facility] Comment on above: Order Comment: No: D o not add to previous draw Performed By: #### 8 5499 #### [facility] [address] [facility] [place] [address], [facility] Neutrophils/100 WBC (Bld) 75.5 % High 40.0-72.0 [facility] Comment on above: Order Comment: No: D o not add to previous draw Performed By: #### 8 5499 #### [facility] [address] [facility] [place] [address], [facility] Nucleated RBC/100 WBC (Bld) [Ratio] 0 % Normal 0-0 [facility] Comment on above: Order Comment: No: D o not add to previous draw Performed By: #### 8 [id number] #### [facility] [address] [facility] [address], [facility] PLAT CNT 277 10*3/uL Normal 150-400 [facility] Comment on above: Order Comment: No: D o not add to previous draw Performed By: #### 8 [id number] #### [facility] [address] [facility] [place] [address], [facility] RBC (Bld) [#/Vol] 4.57 10*6/uL Normal 3.80-5.00 [facility] Comment on above: Order Comment: No: D o not add to previous draw Performed By: #### 8 [id number] #### [facility] [address] [place] [address], [facility] WBC (Bld) [#/Vol] 12.84 10*3/uL High 4.00-10.60 [facility] Comment on above: Order Comment: No: D o not add to previous draw Performed By: #### 8 [id number] #### [facility] [address] [place] [address], [facility] MAGNESIUM BLOODon 02-27-2021 Magnesium [Mass/Vol] 1.9 mg/dL Normal 1.9-2.7 [facility] Comment on above: Order Comment: No: D o not add to previous draw Performed By: #### 4 1000, 59417, 28555 ####[facility] [place] [address], [facility] PHOSPHORUS BLOODon Phosphate [Mass/Vol] 2.2 mg/dL Low 2.5-5.0 [facility] Comment on above: Order Comment: No: D o not add to previous draw Performed By: #### 4 1000, 39105, 77556 ####[facility] [facility] [place] [address], [facility] POC GLUCOSE LABon 02-27-2021 Glucose [Mass/Vol] 153 mg/dL High 70-100 [facility] Comment on above: Performed By: #### 8 5499 #### [facility] [address] [place] [address], [place] Glucose [Mass/Vol] 145 mg/dL High 70-100 [facility] Comment on above: Performed By: #### 8 5499 #### [facility] [address] [place] [address], [place] Glucose [Mass/Vol] 120 mg/dL High 70-100 [facility] Comment on above: Performed By: #### 8 5499 #### [facility] [address] [place] [address], [place] Glucose [Mass/Vol] 100 mg/dL Normal 70-100 [facility] Comment on above: Performed By: #### 3 1977 #### [facility] [address] [place] [address], [place] BASIC METABOLIC PANELon 12-3 Calcium [Mass/Vol] 9.3 mg/dL Normal 8.6-10.3 [facility] Comment on above: Order Comment: No: D o not add to previous draw Performed By: #### 8 [id number] #### [facility] [address] [place] [address], [place] Chloride [Moles/Vol] 102 mmol/L Normal 98-107 [facility] Comment on above: Order Comment: No: D o not add to previous draw Performed By: #### 8 [id number] #### [facility] [address] [place] [address], [place] CO2 [Moles/Vol] 29 mmol/L Normal 21-31 [facility] Comment on above: Order Comment: No: D o not add to previous draw Performed By: #### 8 5499 #### [facility] [address] [place] [address], [place] Creatinine [Mass/Vol] 0.69 mg/dL Normal 0.60-1.20 [facility] Comment on above: Order Comment: No: D o not add to previous draw Performed By: #### 8 5499 #### [facility] [address] [place] [address], [place] GFR/1.73 sq M.predicted among blacks MDRD (S/P/Bld) [Vol rate/Area] mL/min/{1.73_m2} Normal >60 [facility] Comment on above: Order Comment: No: D o not add to previous draw Performed By: #### 8 5499 #### [facility] [address] [place] [address], [place] GFR/1.73 sq M.predicted among non-blacks MDRD (S/P/Bld) [Vol rate/Area] mL/min/{1.73_m2} Normal >60 [facility] Comment on above: Order Comment: No: D o not add to previous draw Performed By: #### 8 5499 #### [facility] [address] [place] [address], [facility] Glucose [Mass/Vol] 132 mg/dL High 70-100 [facility] Comment on above: Order Comment: No: D o not add to previous draw Performed By: #### 8 5499 #### [facility] [address] [place] [id number], [facility] Potassium [Moles/Vol] 4.1 mmol/L Normal 3.5-5.1 [facility] Comment on above: Order Comment: No: D o not add to previous draw Performed By: #### 8 5499 #### [facility] [address] [place] [address], [facility] Sodium [Moles/Vol] 139 mmol/L Normal 136-145 [facility] Comment on above: Order Comment: No: D o not add to previous draw Performed By: #### 8 5499 #### [facility] [address] [place] [id number], [facility] Urea nitrogen [Mass/Vol] 11 mg/dL Normal 7-25 [facility] Comment on above: Order Comment: No: D o not add to previous draw Performed By: #### 8 5499 #### [facility] [address] [place] [id number], [place] CBC W/DIFFon 02-26-2021 ABS IMM GRANS 0.1 10*3/uL Normal 0.0-0.2 [facility] Comment on above: Order Comment: No: D o not add to previous draw Performed By: #### 8 5499 #### [facility] [address] [place] [address], [facility] ABS NEUTROPHILS 12.3 10*3/uL High 1.6-7.6 [facility] Comment on above: Order Comment: No: D o not add to previous draw Performed By: #### 8 5499 #### [facility] [address] [place] [id number], [facility] Basophils (Bld) [#/Vol] 0.0 10*3/uL Normal 0.0-0.2 [facility] Comment on above: Order Comment: No: D o not add to previous draw Performed By: #### 8 5499 #### [facility] [address] [facility] [place] [address], [facility] Basophils/100 WBC (Bld) 0.1 % Normal 0.0-1.0 T usha [facility] Comment on above: Order Comment: No: D o not add to previous draw Performed By: #### 8 [id number] #### [facility] [address] [place] [id number], [facility] Eosinophils (Bld) [#/Vol] 0.0 10*3/uL Normal 0.0-0.5 [facility] Comment on above: Order Comment: No: D o not add to previous draw Performed By: #### 8 5499 #### [facility] [address] [facility] [place] [address], [facility] Eosinophils/100 WBC (Bld) 0.0 % Normal 0.0-6.0 [facility] Comment on above: Order Comment: No: D o not add to previous draw Performed By: #### 8 [id number] #### [facility] [address] [facility] [place] [address], [facility] Erythrocyte distribution width (RBC) [Ratio] 13.0 % Normal 11.5-15.0 [facility] Comment on above: Order Comment: No: D o not add to previous draw Performed By: #### 8 [id number] #### [facility] [address] Hematocrit (Bld) [Volume fraction] 41.9 % Normal 36.0-45.0 [facility] Comment on above: Order Comment: No: D o not add to previous draw Performed By: #### 8 [id number] #### [facility] [address] [place] [id number], [facility] Hemoglobin (Bld) [Mass/Vol] 13.4 g/dL Normal 12.0-15.0 [facility] Comment on above: Order Comment: No: D o not add to previous draw Performed By: #### 8 [id number] #### [facility] [address] [place] [address], [facility] IMMATURE GRANS 0.5 % Normal 0.0-1.0 [facility] Comment on above: Order Comment: No: D o not add to previous draw Performed By: #### 8 5499 #### [facility] [address] [place] [address], [facility] Lymphocytes (Bld) [#/Vol] 1.4 10*3/uL Normal 1.2-4.0 [facility] Comment on above: Order Comment: No: D o not add to previous draw Performed By: #### 8 5499 #### [facility] [address] [place] [id number], [facility] Lymphocytes/100 WBC (Bld) 8.7 % Low 20.0-45.0 [facility] Comment on above: Order Comment: No: D o not add to previous draw Performed By: #### 8 [id number] #### [facility] [address] [place] [id number], [place] MCH (RBC) [Entitic mass] 27.7 pg Normal 27.0-33.0 [facility] Comment on above: Order Comment: No: D o not add to previous draw Performed By: #### 8 [id number] #### [facility] [address] [place] [id number] [place] [address] MCHC (RBC) [Mass/Vol] 32.0 g/dL Normal 32.0-35.0 [facility] Comment on above: Order Comment: No: D o not add to previous draw Performed By: #### 8 [id number] #### [facility] [address] [place] [address], [facility] MCV (RBC) [Entitic vol] 86.6 fL Normal 82.0-98.0 T he [facility] Comment on above: Order Comment: No: D o not add to previous draw Performed By: #### 8 [id number] #### [facility] [address] [place] [address], [facility] Monocytes (Bld) [#/Vol] 1.8 10*3/uL High 0.1-1.0 The [facility] Comment on above: Order Comment: No: D o not add to previous draw Performed By: #### 8 [id number] #### [facility] [address] [place] [address], [facility] MONOS 11.6 % Normal 5.0-12.0 The [facility] Comment on above: Order Comment: No: D o not add to previous draw Performed By: #### 8 [id number] #### [facility] [address] [place] [address], [facility] Neutrophils/100 WBC (Bld) 79.1 % High 40.0-72.0 The [facility] Comment on above: Order Comment: No: D o not add to previous draw Performed By: #### 8 [id number] #### [facility] [address] [place] [address], [facility] Nucleated RBC/100 WBC (Bld) [Ratio] 0 % Normal 0-0 The [facility] Comment on above: Order Comment: No: D o not add to previous draw Performed By: #### 8 [id number] #### [facility] [address] [place] [id number], [facility] PLAT CNT 296 10*3/uL Normal 150-400 The [facility] Comment on above: Order Comment: No: D o not add to previous draw Performed By: #### 8 [id number] #### [facility] [address] [place] [address], [facility] RBC (Bld) [#/Vol] 4.84 10*6/uL Normal 3.80-5.00 The [facility] Comment on above: Order Comment: No: D o not add to previous draw Performed By: #### 8 [id number] #### [facility] [address] [place] [address], [place] WBC (Bld) [#/Vol] 15.59 10*3/uL High 4.00-10.60 The [facility] Comment on above: Order Comment: No: D o not add to previous draw Performed By: #### 8 [id number] #### [facility] [address] [place] [address], [facility] MAGNESIUM BLOODon 02-26-2021 Magnesium [Mass/Vol] 1.7 mg/dL Low 1.9-2.7 The [facility] Comment on above: Order Comment: No: D o not add to previous draw Performed By: #### 8 [id number] #### [facility] [address] [place] [address], [facility] PHOSPHORUS BLOODon Phosphate [Mass/Vol] 3.5 mg/dL Normal 2.5-5.0 The [facility] Comment on above: Order Comment: No: D o not add to previous draw Performed By: #### 8 [id number] #### [facility] [address] [place] [address], [place] POC GLUCOSE LABon 02-26-2021 Glucose [Mass/Vol] 151 mg/dL High 70-100 The [facility] Comment on above: Performed By: #### 8 [id number] #### [facility] [address] [place] [address], [place] Glucose [Mass/Vol] 133 mg/dL High 70-100 The [facility] Comment on above: Performed By: #### 8 [id number] #### [facility] [address] [place] [address], [facility] Glucose [Mass/Vol] 134 mg/dL High 70-100 The [facility] Comment on above: Performed By: #### 8 [id number] #### [facility] [address] [place] [address], [facility] Glucose [Mass/Vol] 162 mg/dL High 70-100 The [facility] Comment on above: Performed By: #### 8 [id number] #### [facility] [address] [facility]. [place], [place] [id number] [place] [address] Operative Reporton Operative Report MR#: [id number] I [facility] Pt. Name: Mateus Carmichael Room #: [id number] Discharge Date: Birthdate: 1970 OPERATIVE REPORT DATE OF SURGERY: 02/25/2021 SURGEON: Foster Fine MD DIRECTOR OF OPTIMIZATION: Tiffanie Silver MD PGY3 PREOPERATIVE DIAGNOSIS: Ureteral identification for sigmoidectomy POSTOPERATIVE DIAGNOSIS: Ureteral identification for sigmoidectomy PROCEDURES PERFORMED: 1. Cystourethroscopy. 2. Bilateral ureteral catheter placement. ANESTHESIA: General anesthesia COMPLICATIONS: None. DRAINS: Bilateral ureteral catheters SPECIMEN: None ESTIMATED BLOOD LOSS: Less than 5 mL. INDICATIONS FOR THE PROCEDURE: Mateus Carmichael is a 51 year old female with a history of multiple episodes of sigmoid diverticulitis with microperforation despite being treated with steriods. The patient is undergoing an sigmoidectomy and the primary service requests assistance with identification of the ureter. Risks benefits and alternative procedures are explained, informed consent is obtained, and the patient elects to proceed. DETAILS OF THE PROCEDURE: The patient was correctly identified in the preoperative holding area. The patient was brought back to the operating room and placed in the dorsal lithotomy position. Anesthesia was administered; antibiotics administered by Anesthesia and primary team. EPC cuffs were on and functional. Patient was then prepped and draped in the usual sterile fashion. Once an appropriate time out had been performed, with all parties consenting, a 22 Nauruan cystoscope with a 30-degree lens was placed through the urethra into the bladder. The right ureteral orifice was cannulated with a 5 Nauruan ureteral catheter and advanced to the renal pelvis. Then the left ureteral orifice was cannulated with a 5 Nauruan ureteral catheter and advanced to the renal pelvis. The bladder was drained with a simmons cathter, and the ureteral catheters were secured to the simmons catheter with ureteral catheter attachments. The patient tolerated the procedure well and the primary service will proceed with their part of the operation. They will call if they need our assistance during the dissection. Dr. Fine was present and scrubbed for all critical portions of the procedure. PLAN: The ureteral catheters can be removed at the end of the case by the primary service. Please call with any questions. Electronically Signed by: Foster Fine MD 03/02/2021 02:14 P Foster Fine MD I was present for the entire procedure. Date Dict: 02/25/2021/08:46 P/Tiffanie Silver MD Date Trans: 02/25/2021 08:46 P/ [id number] cc: Ortega Merritt M.D. [address] [place] [address] The [facility] Operative Report MR#: [id number] S [facility] Pt. Name: Mateus Carmichael Room #: 0C Discharge Date: Birthdate: 1970 OPERATIVE REPORT DATE OF SURGERY: 02/25/2021 SURGEON: Shanice Navarro MD DIRECTOR OF OPTIMIZATION: Maximiliano Cruz, PGY-5. SERVICE: Colorectal Surgery. PREOPERATIVE DIAGNOSIS: Perforated sigmoid diverticulitis. POSTOPERATIVE DIAGNOSIS: Perforated sigmoid diverticulitis. PROCEDURES: 1. Sigmoidectomy with primary anastomosis, EEA 28. 2. Flexible sigmoidoscopy. HISTORY OF PRESENTING ILLNESS: This is a 51-year-old female known to have rheumatoid arthritis, presented with multiple episodes of sigmoid diverticulitis with microperforation. No abscess. She had 3 episodes this year. The patient is off steroids for 6 weeks. She was offered a sigmoidectomy with primary anastomosis and the patient was agreeable. A consent was signed preoperatively after explaining risks and benefits, and all questions were answered. OPERATIVE FINDINGS: The patient had a thickened sigmoid colon secondary to previous episode of diverticulitis. A sigmoidectomy was performed with primary anastomosis using EEA stapler. Flexible sigmoidoscopy was performed during the procedure with no air leak. Abdominal fascia was closed and skin was kept open. OPERATIVE TECHNIQUE: The patient was brought back to the operating room. She was put in a supine position. Time-out was done with operative staff. Cardio, pulmonary monitoring, EPC cuffs were placed and running. General anesthesia was carried by the anesthesia team. Abdomen was prepped and draped in the usual sterile fashion. The patient was put in lithotomy after that. Urology started with placement of stents. Please see separate dictation. Preoperative antibiotics were given. We started with a midline incision above and below the umbilicus. Our dissection was deepened in subcutaneous tissue, fascia was identified, we gained access into the abdominal cavity. An Levi wound protector was placed. Omentum that was adherent to the sigmoid colon was lysed with the LigaSure and distracted superiorly. The patient was placed in Trendelenburg position and the bowel was retracted superiorly. Sigmoid colon was identified. We started by mobilizing the sigmoid colon by taking down the line of Toldt with electrocautery. We did not need to mobilize the splenic flexure. However, mobilization was carried down to the proximal rectum. We also took down some adhesions in the pelvis including the ovary, which was stuck on the colon. Once we had sufficient mobilization and made sure the ureter is not in our surgical field to avoid any injury, we made a window within the distal sigmoid, proximal rectum area. Using a Contour green load, we stapled off the distal portion of our specimen. We then took down the mesentery using a LigaSure proximally until we had normal, non-diseased left colon. We then performed an enterotomy using electrocautery, placed the EEA anvil in the left colon, which then pierced through the tenia as part of our side-to-end anastomosis. The specimen was amputated with the enterotomy using a green load Contour stapler. The specimen was removed from the abdominal cavity and sent for pathology. A sizer was advanced through the anal canal and found adequate. We then placed an EEA staple through the anal canal, and without visualization, advanced it to the distal staple line. The anvil was attached to the EEA stapler and a side-to-end anastomosis was performed. A flexible sigmoidoscopy was performed after that confirming no air leak. We then inspected our surgical field and found that was hemostatic. Abdominal washout was performed. The fascia was closed with 0 looped PDS in a continuous fashion. Skin was kept open, packed with Kerlix, covered with ABD. The patient tolerated the procedure well, was extubated in the operating room, and sent to PACU in a stable condition. Stents were removed. INPUT: 900 of crystalloid. ESTIMATED BLOOD LOSS: [address] Navarro was present throughout the entirety of the procedure. Electronically Signed by: Shanice Navarro MD 02/25/2021 11:20 A Shanice Navarro MD I was present for the entire procedure. Date Dict: 02/25/2021/10:21 A/Maximiliano Cruz MD Date Trans: 02/25/2021 10:45 A/azam [id number] cc: Ortega Merritt M.D. [address] [place] [address] Normal The [facility] POC GLUCOSE LABon 02-25-2021 Glucose [Mass/Vol] 190 mg/dL High 70-100 The [facility] Comment on above: Performed By: #### 8 [id number] #### [facility] [address] [facility] [place] [address], [facility] Glucose [Mass/Vol] 123 mg/dL High 70-100 The [facility] Comment on above: Performed By: #### 8 [id number] #### [facility] [address] [facility] [place] [address], [facility] *MRSA/MSSA DNA NASALon 02-09 *MRSA/MSSA DNA NASAL Clinical Report: (D ) Specimen: NASAL SWAB Collected: 02/09/2021 09:22 Status: Final Last Updated: 02/09/2021 19:57 MSSA DNA (Final) Negative MRSA DNA (Final) Negative Normal The [facility] Comment on above: Performed By: #### 3 1595 #### [facility] [address] APTTon 02-09-2021 aPTT Coag (Bld) [Time] 29.9 s Normal 25.0-35.0 Th e [facility] Comment on above: Result Comment: ALL RESULTS MUST BE INTERPRETED WITH RESPECT TO BLOOD DRAWING ARTIFACT OR DILUTION ERROR OF ANTICOAGULANT AT THE TIME OF SAMPLING. THE APTT SHOULD NOT BE USED TO MONITOR UNFRACTIONATED HEPARIN THERAPY, THIS LABORATORY NO LONGER HAS AN ESTABLISHED THERAPEUTIC RANGE BASED ON THE APTT. IT IS RECOMMENDED THAT THE [facility] - HEPARIN ASSAY (ANTI-XA ACTIVITY) BE USED FOR THIS PURPOSE. Performed By: #### 8 [id number] #### [facility] [address] CBC COMPLETE BLOOD COUNTon 04-12-2020 Erythrocyte distribution width (RBC) [Ratio] 13.1 % Normal 11.5-15.0 The [facility] Comment on above: Performed By: #### 3 1595 #### [facility] [address] Hematocrit (Bld) [Volume fraction] 41.7 % Normal 36.0-45.0 The [facility] Comment on above: Performed By: #### 3 1595 #### [facility] [address] Hemoglobin (Bld) [Mass/Vol] 13.8 g/dL Normal 12.0-15.0 The [facility] Comment on above: Performed By: #### 3 1595 #### [facility] [address] [place] [address], [facility] MCH (RBC) [Entitic mass] 27.9 pg Normal 27.0-33.0 The [facility] Comment on above: Performed By: #### 3 1595 #### [facility] [address] [address], [facility] MCHC (RBC) [Mass/Vol] 33.1 g/dL Normal 32.0-35.0 The [facility] Comment on above: Performed By: #### 3 1595 #### [facility] [address] [facility] [place] [address], [facility] MCV (RBC) [Entitic vol] 84.4 fL Normal 82.0-98.0 T [facility] Comment on above: Performed By: #### 3 1595 #### [facility] [address] [facility] [place] [address], [facility] Nucleated RBC/100 WBC (Bld) [Ratio] 0 % Normal 0-0 The [facility] Comment on above: Performed By: #### 3 1595 #### [facility] [address] [facility] [place] [address], [facility] PLAT CNT 336 10*3/uL Normal 150-400 The [facility] Comment on above: Performed By: #### 3 1595 #### [facility] [address] [facility] [place] [address], [facility] RBC (Bld) [#/Vol] 4.94 10*6/uL Normal 3.80-5.00 The [facility] Comment on above: Performed By: #### 3 1595 #### [facility] [address] [facility] [place] [address], [facility] WBC (Bld) [#/Vol] 5.46 10*3/uL Normal 4.00-10.60 The [facility] Comment on above: Performed By: #### 3 1595 #### [facility] [address] [facility] [place] [address], [facility] COMP METABOLIC PANELon 02-09 Albumin [Mass/Vol] 4.3 g/dL Normal 3.5-5.7 The [facility] Comment on above: Performed By: #### 3 0965 #### [facility] [address] [place] [address], [place] ALKALINE PHOSPH 66 IU/L Normal 34-104 The [facility] Comment on above: Performed By: #### 3 0965 #### [facility] [address] [place] [address], [place] ALT [Catalytic activity/Vol] 49 U/L Normal 7-52 The [facility] Comment on above: Performed By: #### 3 0965 #### [facility] [address] [place] [address], [place] AST [Catalytic activity/Vol] 31 U/L Normal 13-39 The [facility] Comment on above: Performed By: #### 3 0965 #### [facility] [address] [place] [address], [place] Bilirubin [Mass/Vol] 0.5 mg/dL Normal 0.3-1.0 The [facility] Comment on above: Performed By: #### 3 0965 #### [facility] [address] [place] [address], [place] Calcium [Mass/Vol] 9.4 mg/dL Normal 8.6-10.3 The [facility] Comment on above: Performed By: #### 3 0965 #### [facility] [address] [place] [address], [place] Chloride [Moles/Vol] 102 mmol/L Normal 98-107 The [facility] Comment on above: Performed By: #### 3 0965 #### [facility] [address] [place] [address], [place] CO2 [Moles/Vol] 27 mmol/L Normal 21-31 The [facility] Comment on above: Performed By: #### 3 0965 #### [facility] [address] [place] [address], [place] Creatinine [Mass/Vol] 0.71 mg/dL Normal 0.60-1.20 The [facility] Comment on above: Performed By: #### 3 0965 #### [facility] [address] [place] [address], [place] GFR/1.73 sq M.predicted among blacks MDRD (S/P/Bld) [Vol rate/Area] mL/min/{1.73_m2} Normal >60 The [facility] Comment on above: Performed By: #### 3 0965 #### [facility] [address] [place] [address], [place] GFR/1.73 sq M.predicted among non-blacks MDRD (S/P/Bld) [Vol rate/Area] mL/min/{1.73_m2} Normal >60 The [facility] Comment on above: Performed By: #### 3 0965 #### [facility] [address] [place] [address], [place] Glucose [Mass/Vol] 102 mg/dL High 70-100 The [facility] Comment on above: Performed By: #### 3 0965 #### [facility] [address] [place] [address], [place] Potassium [Moles/Vol] 4.1 mmol/L Normal 3.5-5.1 The [facility] Comment on above: Performed By: #### 3 0965 #### [facility] [address] [place] [address], [place] Protein [Mass/Vol] 6.8 g/dL Normal 6.0-8.3 The [facility] Comment on above: Performed By: #### 3 0965 #### [facility] [address] [place] [address], [place] Sodium [Moles/Vol] 139 mmol/L Normal 136-145 The [facility] Comment on above: Performed By: #### 3 0965 #### [facility] [address] [place] [address], [place] Urea nitrogen [Mass/Vol] 13 mg/dL Normal 7-25 The [facility] Comment on above: Performed By: #### 3 0965 #### [facility] [address] [facility]. [address] PROTHROMBIN TIMEon INR Coag (PPP) [Relative time] 1.01 {INR} Normal 0.91-1.16 The [facility] Comment on above: Result Comment: ACCC P RECOMMENDED INR FOR WARFARIN THERAPY ------- CONDITION INR PROPHYLAXIS OF VENOUS THROMBOSIS 2-3 (HIGH-RISK SURGERY) TREATMENT OF VENOUS THROMBOSIS 2-3 TREATMENT OF PULMONARY EMBOLISM 2-3 PREVENTION OF SYSTEMIC EMBOLISM: 2-3 ACUTE MYOCARDIAL INFARCTION TISSUE HEART VALVES VALVULAR HEART DISEASE ATRIAL FIBRILLATION RECURRENT SYSTEMIC EMBOLISM MECHANICAL HEART VALVE 2.5-3.5 FROM: ORAL ANTICOAGULANTS. MECHANISM OF ACTION, CLINICAL EFFECTIVENESS, AND OPTIMAL THERAPEUTIC RANGE. CHEST 1995;108:231S-246S. Performed By: #### 8 [id number] #### [facility] [address] [facility]. [address] PT Coag (PPP) [Time] 13.3 s Normal 12.3-14.8 The [facility] Comment on above: Result Comment: ALL RESULTS MUST BE INTERPRETED WITH RESPECT TO BLOOD DRAWING ARTIFACT OR DILUTION ERROR OF ANTICOAGULANT AT THE TIME OF SAMPLING. Performed By: #### 8 [id number] #### [facility] [address] [facility] [address] TYPE AND SCREENon 02-09-2021 ABO INTERPRETATION B Normal The [facility] Comment on above: Performed By: #### 3 1976 #### [facility] [address] [place] [address], [place] RH INTERPRETATION Positive Normal The [facility] Comment on above: Performed By: #### 3 1976 #### [facility] [address] [place] [address], [place] URINALYSISon 02-09-2021 Appearance (U) CLEAR Normal CLEAR The [facility] Comment on above: Performed By: #### 8 [id number] #### [facility] [address] [place] [address], [place] Bilirubin Ql (U) Negative Normal NEGATIVE The [facility] Comment on above: Performed By: #### 8 [id number] #### [facility] [address] [place] [address], [place] Color (U) YELLOW Normal YELLOW The [facility] Comment on above: Performed By: #### 8 [id number] #### [facility] [address] [place] [address], [place] Glucose Ql (U) Negative Normal NEGATIVE The [facility] Comment on above: Performed By: #### 8 [id number] #### [facility] [address] [place] [address], [place] Hemoglobin Ql (U) Negative Normal NEGATIVE The [facility] Comment on above: Performed By: #### 8 [id number] #### [facility] [address] [place] [address], [place] KETONE Negative Normal NEGATIVE The [facility] Comment on above: Performed By: #### 8 [id number] #### [facility] [address] [place] [address], [place] LE[place] CELSO Negative Normal NEGATIVE The [facility] Comment on above: Performed By: #### 8 [id number] #### [facility] [address] [place] [address], [place] MICRO NOT DONE Normal The [facility] Comment on above: Result Comment: Micr oscopics not performed on urines with negative chemical reactions unless requested in original order Performed By: #### 8 [id number] #### [facility] [address] Nitrite Ql (U) Negative Normal NEGATIVE The [facility] Comment on above: Performed By: #### 8 [id number] #### [facility] [address] pH (U) 5.0 [pH] Normal 5.0-8.0 The [facility] Comment on above: Performed By: #### 8 [id number] #### [facility] [address] Protein Ql (U) Negative Normal NEGATIVE The [facility] Comment on above: Performed By: #### 8 [id number] #### [facility] [address] SPEC GRAV 1.019 Normal 1.015-1.020 The [facility] Comment on above: Performed By: #### 8 [id number] #### [facility] [address] Consultation Noteon 01-01-20 Consultation Note [id number]:[id number] Normal [facility] Vital Signs Date Time Vital Sign Value Performing Clinician Facility 05-31-2024 13:13040 Body height 167.64 cm Ortega Merritt II Work Phone: [facility] 05-31-2024 13:13040 Body mass index (BMI) [Ratio] 41.1 kg/m2 Ortega Merritt II Work Phone: [facility] 05-31-2024 13:13040 Body temperature 97.5 [degF] Ortega Merritt II Work Phone: [facility] 05-31-2024 13:13-040 Body weight 115.66 kg Ortega Merritt II Work Phone: [facility] 05-31-2024 13:13-0400 Diastolic blood pressure 77 mm[Hg] Ortega Merritt II Work Phone: [facility] 05-31-2024 13:13-0400 Heart rate 70 /min Ortega Merritt II Work Phone: [facility] 05-31-2024 13:13-0400 Respiratory rate 18 /min Ortega Merritt II Work Phone: [facility] 05-31-2024 13:13-0400 SaO2% (BldA) [Mass fraction] 96 % Ortega Merritt II Work Phone: [facility] 05-31-2024 13:13-0400 Systolic blood pressure 118 mm[Hg] Ortega Merritt II Work Phone: [facility] 04-24-2024 11:32-0500 Diastolic blood pressure 82 mm[Hg] Jose J Tristan MD Work Phone: [facility] 04-24-2024 11:32-0500 Systolic blood pressure 120 mm[Hg] Jose J Tristan MD Work Phone: [facility] 04-23-2024 13:38-0500 Body height 165.1 cm Chano Gannon MD Work Phone: [facility] 04-23-2024 13:38-0500 Body mass index (BMI) [Ratio] 42.1 kg/m2 Chano Gannon MD Work Phone: [facility] 04-23-2024 13:38-0500 Body weight 114.76 kg Chano Gannon MD Work Phone: [facility] 04-23-2024 13:38-0500 Diastolic blood pressure 74 mm[Hg] Chano Gannon MD Work Phone: [facility] 04-23-2024 13:38-0500 Heart rate 68 /min Chano Gannon MD Work Phone: [facility] 04-23-2024 13:38-0500 Systolic blood pressure 140 mm[Hg] Chano Gannon MD Work Phone: [facility] 04-17-2024 09:35-0500 Body height 165.1 cm Abeba Hemmer PA Work Phone: [facility] 04-17-2024 09:35-0500 Body mass index (BMI) [Ratio] 42.2 kg/m2 Abeba Hemmer PA Work Phone: [facility] 04-17-2024 09:35-0500 Body weight 115.03 kg Abeba Hemmer PA Work Phone: [facility] 04-17-2024 09:35-0500 Diastolic blood pressure 84 mm[Hg] Abeba Hemmer PA Work Phone: [facility] 04-17-2024 09:35-0500 Heart rate 68 /min Abeba Hemmer PA Work Phone: [facility] 04-17-2024 09:35-0500 Respiratory rate 16 /min Abeba Hemmer PA Work Phone: [facility] 04-17-2024 09:35-0500 SaO2% (BldA) [Mass fraction] 98 % Abeba Hemmer PA Work Phone: [facility] 04-17-2024 09:35-0500 Systolic blood pressure 152 mm[Hg] Abeba Hemmer PA Work Phone: [facility] 03-27-2024 11:08-0500 Body mass index (BMI) [Ratio] 39.27 kg/m2 Jose J Tristan MD Work Phone: [facility] 03-27-2024 11:08-0500 Body weight 107.05 kg Jose J Tristan MD Work Phone: [facility] 03-27-2024 11:08-0500 Diastolic blood pressure 82 mm[Hg] Jose J Tristan MD Work Phone: [facility] 03-27-2024 11:08-0500 Systolic blood pressure 120 mm[Hg] Jose J Tristan MD Work Phone: [facility] 03-26-2024 09:43-0500 Body height 165.1 cm Emanuel Beasley NP Work Phone: [facility] 03-26-2024 09:43-0500 Body mass index (BMI) [Ratio] 43.77 kg/m2 Emanuel Beasley NP Work Phone: [facility] 03-26-2024 09:43-0500 Body temperature 97.5 [degF] Emanuel Beasley NP Work Phone: [facility] 03-26-2024 09:43-0500 Body weight 119.3 kg Emanuel Beasley NP Work Phone: [facility] 03-15-2024 11:04-0500 Body height 167.64 cm [facility] 03-15-2024 11:04-0500 Body mass index (BMI) [Ratio] 40.4 kg/m2 [facility] 03-15-2024 11:04-0500 Body temperature 98.1 [degF] [facility] 03-15-2024 11:04-0500 Body weight 113.56 kg [facility] 03-15-2024 11:04-0500 Diastolic blood pressure 74 mm[Hg] [facility] 03-15-2024 11:04-0500 Heart rate 75 /min [facility] 03-15-2024 11:04-0500 Respiratory rate 18 /min [facility] 03-15-2024 11:04-0500 SaO2% (BldA) [Mass fraction] 98 % [facility] 03-15-2024 11:04-0500 Systolic blood pressure 121 mm[Hg] [facility] 03-04-2024 15:28-0500 Body height 165.1 cm Abeba CHEN Work Phone: [facility] 03-04-2024 15:28-0500 Body mass index (BMI) [Ratio] 43.77 kg/m2 Abeba CHEN Work Phone: [facility] 03-04-2024 15:28-0500 Body temperature 98.4 [degF] Abeba Hemmer PA Work Phone: [facility] 03-04-2024 15:28-0500 Body weight 119.3 kg Abeba Hemmer PA Work Phone: [facility] 03-04-2024 15:28-0500 Diastolic blood pressure 102 mm[Hg] Abeba Hemmer PA Work Phone: [facility] 03-04-2024 15:28-0500 Heart rate 99 /min Abeba Hemmer PA Work Phone: [facility] 03-04-2024 15:28-0500 Respiratory rate 16 /min Abeba Hemmer PA Work Phone: [facility] 03-04-2024 15:28-0500 SaO2% (BldA) [Mass fraction] 96 % Abeba Hemmer PA Work Phone: [facility] 03-04-2024 15:28-0500 Systolic blood pressure 158 mm[Hg] Abeba Hemmer PA Work Phone: [facility] 02-27-2024 08:34-0500 Body height 165.1 cm Gavin Schmitt DO Work Phone: [facility] 02-27-2024 08:34-0500 Body mass index (BMI) [Ratio] 44.43 kg/m2 Gavin Brown DO Work Phone: [facility] 02-27-2024 08:34-0500 Body temperature 97.39 [degF] Gavin Brown DO Work Phone: [facility] 02-27-2024 08:34-0500 Body weight 121.11 kg Gavin Brown DO Work Phone: [facility] 02-17-2024 13:08-0500 Hourly Rounding Gavin Oskar [facility] 02-17-2024 13:08-0500 Promise to Return Gavin Schmitt [facility] 02-17-2024 12:02-0500 Hourly Rounding Gavin Schmitt [facility] 02-17-2024 12:02-0500 Promise to Return Gavin Schmitt [facility] 02-17-2024 11:34-0500 Hourly Rounding Gavin Schmitt [facility] 02-17-2024 11:34-0500 Promise to Return Gavin Schmitt [facility] 02-17-2024 11:26-0500 Heart rate 75 /min Gavin Schmitt [facility] 02-17-2024 11:26-0500 SaO2% (BldA) [Mass fraction] 94 % Gavin Schmitt [facility] 02-17-2024 11:24-0500 Diastolic blood pressure 84 mm[Hg] Gavin Schmitt [facility] 02-17-2024 11:24-0500 Mean blood pressure 101 mm[Hg] Gavin Schmitt [facility] 02-17-2024 11:24-0500 Systolic blood pressure 135 mm[Hg] Gavin Schmitt [facility] 02-17-2024 11:00-0500 Body temperature 98.06 [degF] Gavin Schmitt [facility] 02-17-2024 07:41-0500 Heart rate 78 /min Gavin Schmitt [facility] 02-17-2024 07:41-0500 SaO2% (BldA) [Mass fraction] 98 % Gavin Schmitt [facility] 02-17-2024 07:41-0500 Respiratory rate 18 /min Gavin Schmitt [facility] 02-17-2024 07:37-0500 Body temperature 97.88 [degF] Gavin Schmitt [facility] 02-17-2024 07:37-0500 Diastolic blood pressure 88 mm[Hg] Gavin Brown [facility] 02-17-2024 07:37-0500 Mean blood pressure 111 mm[Hg] Gavin Brown [facility] 02-17-2024 07:37-0500 Systolic blood pressure 157 mm[Hg] Gavin Brown [facility] 02-17-2024 00:45-0500 Body temperature 98.78 [degF] Gavin [employer] [facility] 02-17-2024 00:45-0500 Diastolic blood pressure 80 mm[Hg] Gavin Brown [facility] 02-17-2024 00:45-0500 Heart rate 76 /min Gavin [employer] [facility] 02-17-2024 00:45-0500 Mean blood pressure 104 mm[Hg] Gavin Brown [facility] 02-17-2024 00:45-0500 Respiratory rate 18 /min Gavin [employer] [facility] 02-17-2024 00:45-0500 SaO2% (BldA) [Mass fraction] 96 % Gavin [employer] [facility] 02-17-2024 00:45-0500 Systolic blood pressure 152 mm[Hg] Gavin Brown [facility] 02-16-2024 19:44-0500 Mean blood pressure 101 mm[Hg] Gavin Brown [facility] 02-16-2024 19:44-0500 Body temperature 97.7 [degF] Gavin [employer] [facility] 02-16-2024 16:16-0500 Body temperature 97.88 [degF] Gavin Schmitt [facility] 02-16-2024 12:00-0500 Blood Pressure Location Gavin Schmitt [facility] 02-16-2024 12:00-0500 Mean blood pressure 105 mm[Hg] Gavin Schmitt [facility] 02-15-2024 16:28-0500 Blood Pressure Location Gavin Schmitt [facility] 02-15-2024 11:23-0500 Blood Pressure Location Gavin Schmitt [facility] 02-14-2024 12:25-0500 Body temperature 97.7 [degF] Gavin Schmitt [facility] 02-14-2024 12:25-0500 Mean blood pressure 102 mm[Hg] Gavin Schmitt [facility] 02-14-2024 12:25-0500 Respiratory rate 14 /min Gavin Schmitt [facility] 02-14-2024 12:20-0500 Respiratory rate 17 /min Gavin Schmitt [facility] 02-14-2024 12:05-0500 Respiratory rate 21 /min Gavin Schmitt [facility] 02-14-2024 11:52-0500 Body temperature 98.24 [degF] Gavin Schmitt [facility] 02-01-2024 12:49-0500 Body height 165.1 cm Gavin Schmitt DO Work Phone: [facility] 02-01-2024 12:49-0500 Body mass index (BMI) [Ratio] 44.43 kg/m2 Gavin Schmitt DO Work Phone: [facility] 02-01-2024 12:49-0500 Body weight 121.11 kg Gavin Schmitt DO Work Phone: [facility] 01-31-2024 12:32-0500 Diastolic blood pressure 85 mm[Hg] Gavin Schmitt [facility] 01-31-2024 12:32-0500 Heart rate 73 /min Gavin Schmitt [facility] 01-31-2024 12:32-0500 Mean blood pressure 104 mm[Hg] Gavin Schmitt [facility] 01-31-2024 12:32-0500 Systolic blood pressure 142 mm[Hg] Gavin Schmitt [facility] 01-31-2024 12:32-0500 Respiratory rate 18 /min Gavin Schmitt [facility] 01-31-2024 12:31-0500 Heart rate 76 /min Gavin Schmitt [facility] 01-31-2024 12:31-0500 SaO2% (BldA) [Mass fraction] 95 % Gavin Schmitt [facility] 01-31-2024 12:31-0500 Diastolic blood pressure 88 mm[Hg] Gavin Schmitt [facility] 01-31-2024 12:31-0500 Mean blood pressure 113 mm[Hg] Gavin Schmitt [facility] 01-31-2024 12:31-0500 Systolic blood pressure 162 mm[Hg] Gavin Schmitt [facility] 01-31-2024 10:51-0500 Diastolic blood pressure 90 mm[Hg] Abeba CHEN Work Phone: [facility] 01-31-2024 10:51-0500 Systolic blood pressure 146 mm[Hg] Abeba CHEN Work Phone: [facility] 01-31-2024 10:40-0500 Body height 165.1 cm Abeba CHEN Work Phone: [facility] 01-31-2024 10:40-0500 Body mass index (BMI) [Ratio] 44.56 kg/m2 Abeba Hemmer PA Work Phone: [facility] 01-31-2024 10:40-0500 Body weight 121.47 kg Abeba Hemmer PA Work Phone: [facility] 01-31-2024 10:40-0500 Heart rate 74 /min Abeba Hemmer PA Work Phone: [facility] 01-31-2024 10:40-0500 Respiratory rate 16 /min Abeba Hemmer PA Work Phone: [facility] 01-31-2024 10:40-0500 SaO2% (BldA) [Mass fraction] 97 % Abeba Hemmer PA Work Phone: [facility] 12-21-2023 13:56-0400 Body height 165.1 cm Gavin Schmitt DO Work Phone: [facility] 12-21-2023 13:56-0400 Body mass index (BMI) [Ratio] 44.6 kg/m2 Gavin Schmitt DO Work Phone: [facility] 12-21-2023 13:56-0400 Body temperature 97.39 [degF] Gavin Schmitt DO Work Phone: [facility] 12-21-2023 13:56-0400 Body weight 121.56 kg Gavin Schmitt DO Work Phone: [facility] 11-01-2023 10:38-0400 Body height 165.1 cm Abeba Hemmer PA Work Phone: [facility] 11-01-2023 10:38-0400 Body mass index (BMI) [Ratio] 44.73 kg/m2 Abeba Hemmer PA Work Phone: [facility] 11-01-2023 10:38-0400 Body weight 121.93 kg Abeba Hemmer PA Work Phone: [facility] 11-01-2023 10:38-0400 Diastolic blood pressure 88 mm[Hg] Abeba Hemmer PA Work Phone: [facility] [employer] 11-01-2023 10:38-0400 Heart rate 71 /min Abeba Hemmer PA Work Phone: [facility] 11-01-2023 10:38-0400 Respiratory rate 16 /min Abeba Hemmer PA Work Phone: [facility] 11-01-2023 10:38-0400 SaO2% (BldA) [Mass fraction] 98 % Abeba Hemmer PA Work Phone: [facility] 11-01-2023 10:38-0400 Systolic blood pressure 130 mm[Hg] Abeba Hemmer PA Work Phone: [facility] 07-04-2023 14:26-0400 Body height 165.1 cm Gavin Schmitt DO Work Phone: [facility] [employer] 07-04-2023 14:26-0400 Body mass index (BMI) [Ratio] 43.93 kg/m2 Gavinlázaro Schmitt DO Work Phone: [facility] [employer] 07-04-2023 14:26-0400 Body weight 119.75 kg Gavin Schmitt DO Work Phone: [facility] [employer] 11-20-2020 11:30-0400 Body height 167.64 cm Bryan Moctzeuma [facility] Other 11-20-2020 11:30-0400 Body mass index (BMI) [Ratio] 39.54 kg/m2 Bryan Moctezuma [facility] Other 11-20-2020 11:30-0400 Body weight 111.13 kg Bryan Moctezuma [facility] Other Encounters Encounter Date Encounter Type Care Provider Facility Start: 05-31-2024 End: 05-31-2024 ambulatory Ortega Merritt II Work Phone: [facility] Work Phone: Start: 05-31-2024 End: 05-31-2024 Departed Referred Ortega Merritt II Work Phone: [facility] Work Phone: Start: 05-31-2024 End: 05-31-2024 ambulatory Ortega Merritt II Work Phone: [facility] Work Phone: Start: 05-31-2024 End: 05-31-2024 Patient encounter procedure Ortega Merritt II Work Phone: [facility] Work Phone: Start: 05-29-2024 End: 05-29-2024 Bamboo flowsheet Niya Brmayra RELATIONS SPECIALIST [facility] Start: 05-29-2024 End: 05-29-2024 Bamboo flowsheet Niya Rizwanamayra RELATIONS SPECIALIST [facility] Start: 05-29-2024 End: 05-29-2024 ambulatory Niya Frey RELATIONS SPECIALIST [facility] Comment on above: Primary osteoarthrit is of left knee (Primary Dx); Acute postoperative pain of left knee; Difficulty walking; Status post left knee replacement Start: 05-27-2024 End: 05-27-2024 Bamboo flowsheet Sarah Major PT [facility] Start: 05-27-2024 End: 05-27-2024 Bamboo flowsheet Sarah Major PT [facility] Start: 05-27-2024 End: 05-27-2024 ambulatory Sarah Major PT [facility] Comment on above: Primary osteoarthrit is of left knee (Primary Dx); Acute postoperative pain of left knee; Difficulty walking; Status post left knee replacement Start: 05-24-2024 End: 05-24-2024 Bamboo flowsheet Jeffrey Lorelei RELATIONS SPECIALIST [facility] Start: 05-24-2024 End: 05-24-2024 Bamboo flowsheet Jeffrey Lorelei RELATIONS SPECIALIST [facility] Start: 05-24-2024 End: 05-24-2024 ambulatory Jeffrey Lorelei RELATIONS SPECIALIST [facility] Comment on above: Primary osteoarthrit is of left knee (Primary Dx); Acute postoperative pain of left knee; Difficulty walking Start: 05-22-2024 End: 05-22-2024 ambulatory Lolis Menjivar RELATIONS SPECIALIST [facility] Comment on above: Primary osteoarthrit is of left knee (Primary Dx); Acute postoperative pain of left knee; Difficulty walking Start: 05-20-2024 End: 05-20-2024 ambulatory NIYA FREY Not Available Start: 05-16-2024 End: 05-16-2024 ambulatory JEFFREY MOSELEY Not Available Start: 05-13-2024 End: 05-13-2024 Bamboo flowsheet Jeffrey Moseley RELATIONS SPECIALIST [facility] Start: 05-13-2024 End: 05-13-2024 Bamboo flowsheet Jeffrey Moseley RELATIONS SPECIALIST [facility] Start: 05-13-2024 End: 05-13-2024 ambulatory Jeffrey Moseley RELATIONS SPECIALIST [facility] Comment on above: Primary osteoarthrit is of left knee (Primary Dx); Acute postoperative pain of left knee; Difficulty walking; Status post left knee replacement Start: 05-10-2024 End: 05-13-2024 ambulatory SARAH MAJOR Not Available Start: 05-08-2024 End: 05-08-2024 ambulatory LOLIS MENJIVAR Not Available Start: 05-07-2024 End: 05-07-2024 ambulatory GAVIN A OSKAR Not Available Start: 05-07-2024 End: 05-07-2024 ambulatory GAVIN SCHMITT Not Available Start: 05-06-2024 End: 05-06-2024 ambulatory NIYA BRMAYRA Not Available Start: 05-01-2024 End: 05-01-2024 Bamboo flowsheet Sarah Major PT [facility] Start: 05-01-2024 End: 05-01-2024 Bamboo flowsheet Sarah Major PT [facility] Start: 05-01-2024 End: 05-01-2024 ambulatory Sarah Major PT [facility] Comment on above: Primary osteoarthrit is of left knee (Primary Dx); Acute postoperative pain of left knee; Difficulty walking; Status post left knee replacement Start: 04-29-2024 End: 04-29-2024 Bamboo flowsheet Niya Frey RELATIONS SPECIALIST [facility] Start: 04-29-2024 End: 04-29-2024 Bamboo flowsheet Niya Frey RELATIONS SPECIALIST [facility] Start: 04-29-2024 End: 04-29-2024 ambulatory Niya Frey RELATIONS SPECIALIST [facility] Comment on above: Primary osteoarthrit is of left knee (Primary Dx); Acute postoperative pain of left knee; Difficulty walking; Status post left knee replacement Start: 04-26-2024 End: 04-26-2024 Bamboo flowsheet Lolis Menjivar RELATIONS SPECIALIST [facility] Start: 04-26-2024 End: 04-26-2024 Bamboo flowsheet Lolis Menjivar RELATIONS SPECIALIST [facility] Start: 04-26-2024 End: 04-26-2024 ambulatory Lolis Menjivar RELATIONS SPECIALIST [facility] Comment on above: Primary osteoarthrit is of left knee (Primary Dx); Acute postoperative pain of left knee; Difficulty walking; Status post left knee replacement Start: 04-24-2024 End: 04-24-2024 Office outpatient visit 25 minutes Jose J Tristan MD Work Phone: [facility] Comment on above: 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, unspecified laterality (Primary Dx); Left ovarian cyst; Menopausal symptoms Start: 04-24-2024 End: 04-24-2024 ambulatory JOSE J TRISTAN Not Available Start: 04-24-2024 End: 04-24-2024 ambulatory Sarahyannick Major PT [facility] Comment on above: Primary osteoarthrit is of left knee (Primary Dx); Acute postoperative pain of left knee; Difficulty walking Start: 04-23-2024 End: 04-23-2024 Bamboo flowsheet Chano Gannon MD Work Phone: [facility] Start: 04-23-2024 End: 04-23-2024 Bamboo flowsheet Chano Gannon MD Work Phone: [facility] Start: 04-23-2024 End: 04-23-2024 Office outpatient new 45 minutes Chano Gannon MD Work Phone: [facility] Comment on above: Post-operative nause a and vomiting (Primary Dx); Hoarseness of voice; Chronic laryngitis Start: 04-23-2024 End: 04-23-2024 ambulatory CHANO GANNON Not Available Start: 04-22-2024 End: 04-22-2024 Bamboo flowsheet Lolis Menjivar RELATIONS SPECIALIST [facility] Start: 04-22-2024 End: 04-22-2024 Bamboo flowsheet Lolis Tilleyy RELATIONS SPECIALIST [facility] Start: 04-22-2024 End: 04-22-2024 ambulatory Lolis Menjivar RELATIONS SPECIALIST [facility] Comment on above: Primary osteoarthrit is of left knee (Primary Dx); Acute postoperative pain of left knee; Difficulty walking; Status post left knee replacement Start: 04-19-2024 End: 04-19-2024 Bamboo flowsheet Niya Frey RELATIONS SPECIALIST [facility] Start: 04-19-2024 End: 04-19-2024 Bamboo flowsheet Niya Frey RELATIONS SPECIALIST [facility] Start: 04-19-2024 End: 04-19-2024 ambulatory Niya Frey RELATIONS SPECIALIST [facility] Comment on above: Primary osteoarthrit is of left knee (Primary Dx); Acute postoperative pain of left knee; Difficulty walking Start: 04-17-2024 End: 04-17-2024 Bamboo flowsmac CHEN Work Phone: [facility] Start: 04-17-2024 End: 04-17-2024 Bamboo flowsheet Abeba CHEN Work Phone: [facility] Start: 04-17-2024 End: 04-17-2024 Office outpatient visit 25 minutes Abeba CHEN Work Phone: [facility] Comment on above: Hoarseness of voice (Primary Dx); Nausea; Left ovarian cyst; Nonintractable episodic headache, unspecified headache type; Primary insomnia; Benign essential hypertension (CMS/HCC); Restless leg syndrome; Dry skin dermatitis; Gastroesophageal reflux disease without esophagitis Start: 04-17-2024 End: 04-17-2024 ambulatory Lolis Menjivar RELATIONS SPECIALIST [facility] Comment on above: Primary osteoarthrit is of left knee (Primary Dx); Acute postoperative pain of left knee; Difficulty walking; Status post left knee replacement Start: 04-15-2024 End: 04-15-2024 Bamboo flowsheet Niya Frey RELATIONS SPECIALIST [facility] Start: 04-15-2024 End: 04-15-2024 Bamboo flowsheet Niya Frey RELATIONS SPECIALIST [facility] Start: 04-15-2024 End: 04-15-2024 ambulatory Niya Frey RELATIONS SPECIALIST [facility] Comment on above: Primary osteoarthrit is of left knee (Primary Dx); Acute postoperative pain of left knee; Difficulty walking; Status post left knee replacement Start: 04-12-2024 End: 04-12-2024 ambulatory LOLIS MENJIVAR Not Available Start: 04-11-2024 End: 04-11-2024 Bamboo flowsheet Jeffrey Moseley RELATIONS SPECIALIST [facility] Start: 04-11-2024 End: 04-11-2024 Bamboo flowsheet Jeffrey Moseley RELATIONS SPECIALIST [facility] Start: 04-11-2024 End: 04-11-2024 ambulatory Jeffrey Moseley RELATIONS SPECIALIST [facility] Comment on above: Primary osteoarthrit is of left knee (Primary Dx); Acute postoperative pain of left knee; Difficulty walking; Status post left knee replacement Start: 04-09-2024 End: 04-09-2024 Bamboo flowsheet Lolis Menjivar RELATIONS SPECIALIST [facility] Start: 04-09-2024 End: 04-09-2024 Bamboo flowsheet Lolis Menjivar RELATIONS SPECIALIST [facility] Start: 04-09-2024 End: 04-09-2024 ambulatory Lolis Menjivar RELATIONS SPECIALIST [facility] Comment on above: Primary osteoarthrit is of left knee (Primary Dx); Acute postoperative pain of left knee; Difficulty walking; Status post left knee replacement Start: 04-05-2024 End: 04-05-2024 Bamboo flowsheet Niya Frey RELATIONS SPECIALIST [facility] Start: 04-05-2024 End: 04-05-2024 Bamboo flowsheet Niya Frey RELATIONS SPECIALIST [facility] Start: 04-05-2024 End: 04-05-2024 ambulatory Niya Frey RELATIONS SPECIALIST [facility] Comment on above: Primary osteoarthrit is of left knee (Primary Dx); Acute postoperative pain of left knee; Difficulty walking; Status post left knee replacement Start: 04-03-2024 End: 04-03-2024 Bamboo flowsheet Sarah Major PT [facility] Start: 04-03-2024 End: 04-03-2024 Bamboo flowsheet Sarah Major PT [facility] Start: 04-03-2024 End: 04-03-2024 ambulatory Sarah Major PT [facility] Comment on above: Primary osteoarthrit is of left knee (Primary Dx); Acute postoperative pain of left knee; Difficulty walking; Status post left knee replacement Start: 04-01-2024 End: 04-01-2024 Bamboo flowsheet Niya Frey RELATIONS SPECIALIST [facility] Start: 04-01-2024 End: 04-01-2024 Bamboo flowsheet Niya Frey RELATIONS SPECIALIST [facility] Start: 04-01-2024 End: 04-01-2024 ambulatory Niya Frey RELATIONS SPECIALIST [facility] Comment on above: Primary osteoarthrit is of left knee (Primary Dx); Acute postoperative pain of left knee; Difficulty walking Start: 03-28-2024 End: 03-28-2024 Bamboo flowsheet Lolis Menjivar RELATIONS SPECIALIST [facility] Start: 03-28-2024 End: 03-28-2024 Bamboo flowsheet Lolis Tilleyy RELATIONS SPECIALIST [facility] Start: 03-28-2024 End: 03-28-2024 ambulatory Lolis Menjivar RELATIONS SPECIALIST [facility] Comment on above: Primary osteoarthrit is of left knee (Primary Dx); Acute postoperative pain of left knee; Difficulty walking; Status post left knee replacement Start: 03-27-2024 End: 03-27-2024 Bamboo flowsheet Jose J Tristan MD Work Phone: [facility] Start: 03-27-2024 End: 03-27-2024 Bamboo flowsheet Jose J Tristan MD Work Phone: [facility] Start: 03-27-2024 End: 03-27-2024 Office outpatient new 45 minutes Jose J Tristan MD Work Phone: [facility] Comment on above: Left ovarian cyst (P rimary Dx); Menopausal symptoms; Screening for HPV (human papillomavirus); Vaginal Pap smear Start: 03-27-2024 End: 03-27-2024 ambulatory JOSE J TRISTAN Not Available Start: 03-26-2024 End: 03-26-2024 Postop follow up visit related to original px Emanuel Beasley SENIOR TREASURY ANALYST Work Phone: [facility] Comment on above: S/P total knee arthr oplasty, left (Primary Dx); Nausea Start: 03-26-2024 End: 03-26-2024 ambulatory EMANUEL BEASLEY Not Available Start: 03-25-2024 End: 03-25-2024 Patient encounter procedure Ortega Merritt II Work Phone: [facility] Work Phone: Start: 03-25-2024 End: 03-25-2024 ambulatory Niyaomar Frey RELATIONS SPECIALIST [facility] Comment on above: Primary osteoarthrit is of left knee (Primary Dx); Acute postoperative pain of left knee; Difficulty walking Start: 03-22-2024 End: 03-22-2024 Bamboo flowsheet Niya Brink RELATIONS SPECIALIST [facility] Start: 03-22-2024 End: 03-22-2024 Bamboo flowsheet Niya Brink RELATIONS SPECIALIST [facility] Start: 03-22-2024 End: 03-22-2024 ambulatory Niya Frey RELATIONS SPECIALIST [facility] Comment on above: Primary osteoarthrit is of left knee (Primary Dx); Acute postoperative pain of left knee; Difficulty walking Start: 03-20-2024 End: 03-20-2024 Bamboo flowsheet Lolis Lyonbley RELATIONS SPECIALIST [facility] Start: 03-20-2024 End: 03-20-2024 Bamboo flowsheet Lolis Lyonbley RELATIONS SPECIALIST [facility] Start: 03-20-2024 End: 03-20-2024 ambulatory Lolis Tilleyy RELATIONS SPECIALIST [facility] Comment on above: Primary osteoarthrit is of left knee (Primary Dx); Acute postoperative pain of left knee; Difficulty walking Start: 03-18-2024 End: 03-18-2024 ambulatory Sarah Major PT [facility] Comment on above: Primary osteoarthrit is of left knee (Primary Dx); Acute postoperative pain of left knee; Difficulty walking; Status post left knee replacement Start: 03-15-2024 End: 03-15-2024 Bamboo flowsheet Niya Frey RELATIONS SPECIALIST [facility] Start: 03-15-2024 End: 03-15-2024 Bamboo flowsheet Niya Frey RELATIONS SPECIALIST [facility] Start: 03-15-2024 End: 03-15-2024 ambulatory [facility] Work Phone: Start: 03-15-2024 End: 03-15-2024 Patient encounter procedure [facility] Work Phone: Start: 03-13-2024 End: 03-13-2024 Bamboo flowsheet Lolis Menjivar RELATIONS SPECIALIST [facility] Start: 03-13-2024 End: 03-13-2024 Bamboo flowsheet Lolis Menjivar RELATIONS SPECIALIST [facility] Start: 03-13-2024 End: 03-13-2024 ambulatory Lolis Menjivar RELATIONS SPECIALIST [facility] Comment on above: Primary osteoarthrit is of left knee (Primary Dx); Acute postoperative pain of left knee; Difficulty walking; Status post left knee replacement Start: 03-11-2024 End: 03-11-2024 Bamboo flowsheet Niya Frey RELATIONS SPECIALIST [facility] Start: 03-11-2024 End: 03-11-2024 Bamboo flowsheet Niya Frey RELATIONS SPECIALIST [facility] Start: 03-11-2024 End: 03-11-2024 ambulatory Niya Frey RELATIONS SPECIALIST [facility] Comment on above: Primary osteoarthrit is of left knee (Primary Dx); Acute postoperative pain of left knee; Difficulty walking; Status post left knee replacement Start: 03-07-2024 End: 03-07-2024 Bamboo flowsheet Sarah Major PT [facility] Start: 03-07-2024 End: 03-07-2024 Bamboo flowsheet Sarah Major PT [facility] Start: 03-07-2024 End: 03-07-2024 ambulatory Sarah Major PT [facility] Comment on above: Primary osteoarthrit is of left knee (Primary Dx); Acute postoperative pain of left knee; Difficulty walking; Status post left knee replacement Start: 03-05-2024 End: 03-05-2024 ambulatory RAFAEL CHANDLER Not Available Start: 03-04-2024 End: 03-04-2024 Office outpatient visit 25 minutes Abeba Guevara PA Work Phone: [facility] Comment on above: Chronic migraine wit hout aura without status migrainosus, not intractable (CMS/HCC) (Primary Dx); Acute bronchitis, unspecified organism; Status post left knee replacement Start: 03-04-2024 End: 03-04-2024 Clinical Support Rafael Chandler PT Work Phone: [facility] Comment on above: Primary osteoarthrit is of left knee (Primary Dx); Acute postoperative pain of left knee; Difficulty walking; Status post left knee replacement Start: 03-01-2024 End: 03-01-2024 Clinical Support Rafael Chandler PT Work Phone: [facility] Comment on above: Primary osteoarthrit is of left knee (Primary Dx); Acute postoperative pain of left knee; Difficulty walking; Status post left knee replacement Start: 02-29-2024 End: 02-29-2024 ambulatory RAFAEL CHANDLER Not Available Start: 02-27-2024 End: 02-27-2024 Patient encounter procedure Gavin Schmitt DO Work Phone: [facility] Comment on above: Primary osteoarthrit is of left knee (Primary Dx); Status post total left knee replacement Start: 02-27-2024 End: 02-27-2024 ambulatory GAVIN SCHMITT Not Available Start: 02-26-2024 End: 02-26-2024 Clinical Support Rafael Chandler PT Work Phone: [facility] Comment on above: Primary osteoarthrit is of left knee (Primary Dx); Acute postoperative pain of left knee; Difficulty walking; Status post left knee replacement Start: 02-25-2024 End: 02-25-2024 ambulatory RAFAEL CHANDLER Not Available Start: 02-22-2024 End: 02-22-2024 Clinical Support Rafael Chandler PT Work Phone: [facility] Comment on above: Primary osteoarthrit is of left knee (Primary Dx); Acute postoperative pain of left knee; Difficulty walking; Status post left knee replacement Start: 02-19-2024 End: 02-19-2024 Clinical Support Rafael Chandler PT Work Phone: [facility] Comment on above: Primary osteoarthrit is of left knee (Primary Dx); Acute postoperative pain of left knee; Difficulty walking; Status post left knee replacement Start: 02-18-2024 End: 02-18-2024 Clinical Support Rafael Chandler PT Work Phone: [facility] Comment on above: Primary osteoarthrit is of left knee (Primary Dx); Acute postoperative pain of left knee; Difficulty walking; Status post left knee replacement Start: 02-17-2024 End: 02-17-2024 Clinisync Result Encounter Gavin Eloina Oskar DO Work Phone: [facility] Unsolicited Start: 02-17-2024 End: 02-17-2024 Clinisync Result Encounter Gavin Eloina Oskar DO Work Phone: [facility] Unsolicited Start: 02-16-2024 End: 02-16-2024 Clinisync Result Encounter Gavin Eloina Oskar DO Work Phone: [facility] Unsolicited Start: 02-16-2024 End: 02-16-2024 Clinisync Result Encounter Gavin Eloina Oskar DO Work Phone: [facility] Unsolicited Start: 02-15-2024 End: 02-15-2024 Clinisync Result Encounter Gavin Eloina Oskar DO Work Phone: [facility] Unsolicited Start: 02-15-2024 End: 02-15-2024 Clinisync Result Encounter Gavin Eloina Oskar DO Work Phone: [facility] Unsolicited Start: 02-14-2024 End: 02-14-2024 Clinisync Result Encounter Gavin Eloina Oskar DO Work Phone: [facility] Unsolicited Start: 02-14-2024 End: 02-14-2024 Clinisync Result Encounter Gavin Schmitt DO Work Phone: [facility] Unsolicited Start: 02-14-2024 End: 02-17-2024 ambulatory DO Gavin Schmitt Facility:[facility] Start: 02-14-2024 End: 02-17-2024 Observation Gavin Schmitt [facility] Start: 02-12-2024 End: 02-12-2024 ambulatory Cele Caro PT Work Phone: [facility] Comment on above: Primary osteoarthrit is of left knee Start: 02-08-2024 End: 02-08-2024 ambulatory ABEBA GUEVARA Not Available Start: 02-01-2024 End: 02-01-2024 Patient encounter procedure Gavin Schmitt DO Work Phone: [facility] Comment on above: Primary osteoarthrit is of both knees (Primary Dx) Start: 02-01-2024 End: 02-01-2024 ambulatory GAVIN SCHMITT Not Available Start: 01-31-2024 End: 01-31-2024 Bamboo flowsheet Abeba Guevara PA Work Phone: [facility] Start: 01-31-2024 End: 01-31-2024 Bamboo flowsheet Abeba Guevara PA Work Phone: [facility] Start: 01-31-2024 End: 01-31-2024 ambulatory DO Gavin Schmitt Facility:[facility] Start: 01-31-2024 End: 01-31-2024 Patient encounter procedure Gavin Schmitt [facility] Start: 01-31-2024 End: 01-31-2024 Office outpatient visit 25 minutes Abeba CHEN Work Phone: [facility] Comment on above: Benign essential hyp ertension (CMS/HCC) (Primary Dx); Encounter for screening mammogram for malignant neoplasm of breast; Acquired hypothyroidism (CMS/HCC); Morbid obesity (CMS/HCC); BMI 40.0-44.9, adult (CMS/HCC); History of severe nausea and vomiting after administration of anesthetic agent; Primary osteoarthritis of both knees Start: 01-31-2024 End: 01-31-2024 ambulatory ABEBA GUEVARA Not Available Start: 01-10-2024 End: 01-10-[address] [facility] Start: 01-10-2024 End: 01-10-2024 Encounter for other preprocedural examination [facility] Start: 01-04-2024 End: 01-04-2024 Refill Abeba Guevara PA Work Phone: [facility] Comment on above: Other iron deficienc y anemia Start: 12-21-2023 End: 12-21-2023 Bamboo flowsheet Gavin Schmitt DO Work Phone: [facility] Start: 12-21-2023 End: 12-21-2023 Bamboo flowsheet Gavin Schmitt DO Work Phone: [facility] Start: 12-21-2023 End: 12-21-2023 Patient encounter procedure Gavin Schmitt DO Work Phone: [facility] Comment on above: Primary osteoarthrit is of both knees (Primary Dx) Start: 12-21-2023 End: 12-21-2023 ambulatory GAVIN SCHMITT Not Available Start: 11-27-2023 End: 11-27-2023 Refdyllan Guevara PA Work Phone: [facility] Comment on above: Paroxysmal SVT (supr aventricular tachycardia) (CMS/HCC) Start: 11-15-2023 End: 11-15-2023 Patient encounter procedure II Ortega Merritt Work Phone: [facility] [address] Work Phone: Start: 11-15-2023 End: 11-15-2023 ambulatory II Ortega Merritt Work Phone: [facility] Work Phone: Start: 11-03-2023 End: 11-03-2023 Bamboo flowsheet Juliana Evans PA Work Phone: [facility] Start: 11-03-2023 End: 11-03-2023 Bamboo flowsheet Juliana Evans PA Work Phone: [facility] Start: 11-03-2023 End: 11-03-2023 Postop follow up visit related to original px Juliana Evans PA Work Phone: [facility] Comment on above: Encounter for remova l of cheko Start: 11-03-2023 End: 11-03-2023 ambulatory JULIANA EVANS Not Available Start: 11-01-2023 End: 11-01-2023 Bamboo flowsheet Abeba Guevara PA Work Phone: [facility] Start: 11-01-2023 End: 11-01-2023 Bamboo flowsheet Abeba Guevara PA Work Phone: [facility] Start: 11-01-2023 End: 11-01-2023 Patient encounter status Abeba Guevara PA Work Phone: [facility] Work Phone: Start: 11-01-2023 End: 11-01-2023 Periodic preventive med est patient 40-64yrs Abeba Guevara PA Work Phone: [facility] Comment on above: Wellness examination (Primary Dx); Osteoarthritis of spine with radiculopathy, lumbosacral region; Hiatal hernia; Small airways disease; Benign essential hypertension (CMS/HCC); Electrocardiogram abnormal; LBBB (left bundle branch block); Palpitations; Paroxysmal SVT (supraventricular tachycardia) (CMS/HCC); Presence of other vascular implants and grafts; Diverticular disease of colon; Diverticulosis large intestine w/o perforation or abscess w/bleeding; Gastroesophageal reflux disease without esophagitis; Fatty liver; Bilateral lower extremity edema; DDD (degenerative disc disease), lumbar; Internal derangement of right knee; Lumbosacral spondylosis without myelopathy; Primary osteoarthritis of both knees; Acquired hypothyroidism ([facility]); IGT (impaired glucose tolerance); Polycystic ovaries; Other iron deficiency anemia; Diverticulitis of colon with perforation; Intertrigo; Abnormal mammogram; Acute left-sided low back pain with left-sided sciatica; Seasonal allergic rhinitis due to pollen; Colostomy present ([facility]); History of hysterectomy; Hypokalemia; Menopausal symptoms; Chronic migraine without aura without status migrainosus, not intractable ([facility]); Presbyopia of both eyes; Presence of other specified devices; Pure hypertriglyceridemia ([facility]); Rheumatoid arthritis involving multiple sites with positive rheumatoid factor ([facility]); Sciatica of left side; Morbid obesity ([facility]); BMI 40.0-44.9, adult ([facility]); Myalgia Start: 11-01-2023 End: 11-01-2023 ambulatory ABEBA GUEVARA Not Available Start: 10-20-2023 End: 10-20-2023 Bamboo flowsheet Catalina Marte MD Work Phone: [facility] Start: 10-20-2023 End: 10-20-2023 Bambrandino flowsheet Catalina Marte MD Work Phone: [facility] Start: 10-20-2023 End: 10-20-2023 Patient encounter procedure Caatlina Marte MD Work Phone: [facility] Comment on above: Neoplasm of uncertai n behavior of skin Start: 10-20-2023 End: 10-20-2023 ambulatory CATALINA MARTE Not Available Start: 09-14-2023 End: 09-14-2023 ambulatory GAVIN SCHMITT Not Available Start: 08-24-2023 End: 08-24-2023 ambulatory CATALINA MARTE Not Available Start: 08-18-2023 End: 08-18-2023 ambulatory ABEBA GUEVARA Not Available Start: 08-01-2023 End: 08-01-2023 ambulatory GAVIN SCHMITT Not Available Start: 07-26-2023 End: 07-26-2023 ambulatory ABEBA GUEVARA Not Available Start: 07-25-2023 End: 07-25-2023 ambulatory GAVIN A OSKAR Not Available Start: 07-11-2023 End: 07-11-2023 ambulatory ABEBA GUEVARA Not Available Start: 07-04-2023 End: 07-04-2023 Patient encounter procedure Gavin Duvall Oskar DO Work Phone: [facility] Comment on above: Pain in both knees, unspecified chronicity (Primary Dx) Start: 07-04-2023 End: 07-04-2023 ambulatory GAVIN Eloina OSKAR Not Available Start: 06-08-2023 End: 06-08-2023 ambulatory ABEBA MORELANDJO Not Available Start: 04-04-2023 End: 04-04-2023 Patient encounter procedure II Ortega Merritt Work Phone: [facility] [address] Work Phone: Start: 04-04-2023 End: 04-04-2023 ambulatory II Ortega Merritt Work Phone: [facility] Work Phone: Start: 12-29-2022 End: 12-29-2022 ambulatory II Ortega Merritt Work Phone: [facility] Work Phone: Start: 12-29-2022 End: 12-29-2022 Patient encounter procedure II Ortega Merritt Work Phone: [facility] [address] Work Phone: Start: 10-05-2022 End: 10-05-2022 ambulatory II Ortega Merritt Work Phone: [facility] Work Phone: Start: 10-05-2022 End: 10-05-2022 Patient encounter procedure II Ortega Merritt Work Phone: [facility] [address] Work Phone: Start: 10-04-2022 End: 10-04-2022 ambulatory II Ortega Merritt Work Phone: [facility] Work Phone: Start: 10-04-2022 End: 10-04-2022 Patient encounter procedure II Ortega René Work Phone: [facility] [address] Work Phone: Start: 07-11-2022 End: 07-12-2022 ambulatory ABEBA GUEVARA Facility: Start: 06-22-2022 End: 06-22-2022 ambulatory II Ortega Merritt Work Phone: [facility] Work Phone: Start: 06-22-2022 End: 06-22-2022 Patient encounter procedure II Ortega Merritt Work Phone: [facility] [address] Work Phone: Start: 2022 End: 2022 ambulatory II Ortega Merritt Work Phone: [facility] Work Phone: Start: 2022 End: 2022 Patient encounter procedure II Ortega René Work Phone: [facility] Start: 2022 End: 2022 Patient encounter procedure II Ortega Merritt Work Phone: [facility] [address] Start: 07-30-2021 End: 07-30-2021 Emergency department patient visit CARLTON HAHN Facility:[facility] Start: 05-06-2021 End: 08-04-2021 Recurring ORTEGA MERRITT [facility] Start: 03-29-2021 End: 03-29-2021 Emergency department patient visit SANTIAGO FRY Facility:[facility] Start: 03-14-2021 End: 03-27-2021 Evaluation and management of inpatient REFERRED SELF Facility:[facility] Start: 02-25-2021 End: 03-05-2021 Evaluation and management of inpatient SHANICE NAVARRO Facility:[facility] Start: 11-30-2020 Telephone encounter Bryan Moctezuma [facility] Start: 11-20-2020 Patient encounter procedure Bryan BRIDGES G[facility] Procedures Date Procedure Procedure Detail Performing Clinician Start: 03-26-2024 Radiologic examinati on knee 3 views Emanuel Beasley NP Work Phone: Start: 03-25-2024 End: 03-25-2024 Mammography Niya Frey RELATIONS SPECIALIST Start: 02-27-2024 Radiologic examinati on knee 3 views Gavin Schmitt DO Work Phone: Start: 02-17-[address] [facility] CBC W/ AUTO DIFF J brendon Shcmitt DO Work Phone: Start: 02-16-[address] [facility] CBC W/ AUTO DIFF J brendon Schmitt DO Work Phone: Start: 02-15-[address] [facility] CBC W/ AUTO DIFF J brendon Schmitt DO Work Phone: Start: 02-15-2024 Total knee replacement Gavin Schmitt Start: 02-14-[address] [facility] CAPILLARY GLUCO SE POC Gavin Schmitt DO Work Phone: Start: 10-20-2023 SKIN EXCISION Catalina mast MD Work Phone: Start: 10-20-2023 SKIN REPAIR Catalina ruvalcaba MD Work Phone: Start: 07-04-2023 Radiologic examinati on knee 3 views Gavin Schmitt DO Work Phone: Start: 07-12-2022 H/O: hysterectomy History of hystere ctomy Catalina Marte MD Work Phone: Start: 01-06-2022 Mammography Catalina paige MD Work Phone: Start: 2022 Screening mammograph y of bilateral breasts II Ortega René Work Phone: Start: 03-23-2021 Antibody screen SANTIAGO FRY Comment on above: Performed By: [id number] #### [facility] [address] [facility]. [place], [place] [id number] [place] [address] Start: 03-15-2021 Antibody screen SANTIAGO FRY Comment on above: Performed By: [id number] #### [facility] [address] [facility]. [place], [place] [id number] [place] [address] Start: 02-09-2021 Antibody screen SANTIAGO FRY Comment on above: Performed By: #### [id number] #### [facility] [address] [facility]. [place], [place] [id number] [place] [address] Start: 01-16-2019 Colonoscopy Catalina paige MD Work Phone: Start: 06-22-2018 Arthroscopy of knee TIFFANY TRINO MERRITT Comment on above: right breast cyst excision 2 ANY Meyer RENÉ Comment on above: sebaceous Decompression of med myra nerve ORTEGA RENÉ Comment on above: right excion of sebaceous from side ORTEGA RENÉ Excision of lesion o f skin Gavin Schmitt Functional endoscopi c sinus surgery - anterior ethmoidectomy and frontal recess dissection ORTEGA MERRITT H/O: hysterectomy History of hysterectomy Abeba CHEN Work Phone: Hysterectomy ORTEGA MERRITT Large intestine excision David on Oskar Comment on above: [facility] repair of laceration of thumb ORTEGA MERRITT Plan of Treatment Date Care Activity Detail Author Start: 01-16-2029 Screening for malignant neoplasm of colon [facility] Start: 03-25-2025 Screening for malignant neoplasm of breast Mammogram [facility] Start: 10-28-2024 Influenza vaccination Influenza Vaccine (Season Ended) [facility] Start: 10-23-2024 End: 10-23-2024 Patient encounter procedure 10/23/2024 11:15 AM EDT Office Visit [facility] [address] [place] [address] Jose J Tristan MD [address] [place] [address] [facility] Start: 10-23-2024 End: 10-23-2024 Professional / ancillary services management 10/23/2024 10:30 AM EDT Ancillary Procedure [facility] [address] [place] [phone] [facility] Start: 08-26-2024 Influenza vaccination Influenza Vaccine (#1) [facility] Comment on above: Postponed from 10/29/2023 (Patient Refus ed) Start: 08-08-2024 End: 08-08-2024 Patient encounter procedure 08/08/2024 11:00 AM EDT Office Visit [facility] [address] [place] [id number] Gavin Schmitt DO [address] [place] [address] [facility] Start: 07-31-2024 End: 07-31-2024 Patient encounter procedure 07/31/2024 10:30 AM EDT Office Visit [facility] [address] [place] [address] Abeba Guevara PA [address] [place] [address] [facility] Start: 05-31-2024 Urine culture [facility] Start: 05-31-2024 Bacteria identified in Urine by Culture Urine Culture [facility] Start: 05-31-2024 End: 05-31-2024 ambulatory [facility] Start: 05-29-2024 End: 05-29-2024 ambulatory [facility] Comment on above: Arrived Start: 05-27-2024 End: 05-27-2024 ambulatory [facility] Comment on above: Arrived Start: 05-24-2024 End: 05-24-2024 ambulatory [facility] Comment on above: Arrived Start: 05-22-2024 End: 05-22-2024 ambulatory 05/22/2024 10:00 AM EDT Treatment [facility] [address] [facility] [address] [place] [address] Jeffrey Moseley, RELATIONS SPECIALIST [facility] Start: 05-20-2024 End: 05-20-2024 ambulatory 05/20/2024 11:00 AM EDT Treatment [facility] [address] [place] [address] Niya Frey, RELATIONS SPECIALIST [facility] Start: 05-16-2024 End: 05-16-2024 ambulatory 05/16/2024 1:00 PM EDT Treatment [facility] [address] [place] [address] Jeffrey Moseley, RELATIONS SPECIALIST [facility] Start: 05-13-2024 End: 05-13-2024 ambulatory 05/13/2024 10:30 AM EDT Treatment [facility] [address] [place] [address] Jeffrey Moseley, RELATIONS SPECIALIST Primary osteoarthritis of left knee (Primary Dx); Acute postoperative pain of left knee; Difficulty walking; Status post left knee replacement [facility] Comment on above: Primary osteoarthritis of left knee (Suzette everette Dx); Acute postoperative pain of left knee; Difficulty walking; Status post left knee replacement Start: 05-10-2024 End: 05-10-2024 ambulatory 05/10/2024 10:00 AM EDT Treatment [facility] [address] [facility] [address] [place] [address] Sarah Major, PT [facility] Start: 05-08-2024 End: 05-08-2024 ambulatory 05/08/2024 10:00 AM EDT Treatment [facility] [address] [place] [address] Niya Frey, RELATIONS SPECIALIST [facility] Start: 05-07-2024 End: 05-07-2024 Patient encounter procedure 05/07/2024 10:45 AM EDT Office Visit [facility] [address] [place] [id number] Gavin SchmittDO [address] [facility] [place] [address] [facility] Start: 05-06-2024 End: 05-06-2024 ambulatory 05/06/2024 9:30 AM EDT Treatment [facility] [address] [facility] [address] [place] [address] Niya Frey RELATIONS SPECIALIST [facility] Start: 05-03-2024 End: 05-03-2024 ambulatory [facility] Start: 05-01-2024 End: 05-01-2024 ambulatory 05/01/2024 10:00 AM EST Treatment [facility] [address] [facility] [address] [place] [address] Niya Frey RELATIONS SPECIALIST [facility] Start: 04-29-2024 End: 04-29-2024 ambulatory [facility] Comment on above: Arrived Start: 04-26-2024 End: 04-26-2024 ambulatory 04/26/2024 10:30 AM EST Treatment [facility] [address] [facility] [place] [address] Lolis Menjivar RELATIONS SPECIALIST [facility] Start: 04-24-2024 End: 04-24-2024 Patient encounter procedure 04/24/2024 11:30 AM EST Office Visit [facility] [address] [facility] [address] [place] [phone] Jose J Tristan MD [address] [facility] [address] [place] [address] [facility] Start: 04-24-2024 End: 04-24-2024 ambulatory [facility] Start: 04-23-2024 End: 04-23-2024 Patient encounter procedure [facility] Comment on above: Hoarseness of voice Start: 04-22-2024 End: 04-22-2024 ambulatory [facility] Comment on above: Arrived Start: 04-19-2024 End: 04-19-2024 ambulatory [facility] Comment on above: Arrived Start: 04-17-2024 End: 04-17-2024 ambulatory 04/17/2024 11:00 AM EST Treatment [facility] [address] [place] [address] Lolis Menjivar, RELATIONS SPECIALIST [facility] Start: 04-17-2024 End: 04-17-2024 Patient encounter procedure 04/17/2024 9:30 AM EST Office Visit [facility] [address] [facility] [address] [place] [address] Abeba Guevara PA [address] [place] [address] Arrived [facility] Comment on above: Arrived Start: 04-15-2024 End: 04-15-2024 ambulatory [facility] Comment on above: Primary osteoarthritis of left knee (Suzette everette Dx); Acute postoperative pain of left knee; Difficulty walking Start: 04-12-2024 End: 04-12-2024 Professional / ancillary services management 04/12/2024 9:00 AM EST Ancillary Procedure [facility] [address] [place] [address] [facility] Start: 04-11-2024 End: 04-11-2024 ambulatory [facility] Comment on above: Arrived Start: 04-09-2024 End: 04-09-2024 ambulatory [facility] Comment on above: Arrived Start: 04-05-2024 End: 04-05-2024 ambulatory [facility] Comment on above: Arrived Start: 04-03-2024 End: 04-03-2024 ambulatory [facility] Comment on above: Primary osteoarthritis of left knee (Suzette everette Dx); Acute postoperative pain of left knee; Difficulty walking; Status post left knee replacement Start: 04-01-2024 End: 04-01-2024 ambulatory [facility] Comment on above: Arrived Start: 03-28-2024 End: 03-28-2024 ambulatory [facility] Comment on above: Primary osteoarthritis of left knee (Suzette everette Dx); Acute postoperative pain of left knee; Difficulty walking; Status post left knee replacement Start: 03-27-2024 End: 03-27-2025 Follicle stimulating hormone Follicle stimulating hormone Lab Routine Menopausal symptoms Expected: 03/27/2024 (Approximate), Expires: 03/27/2025 [facility] Comment on above: Expected: 03/27/2024 (Approximate), Expi res: 03/27/2025 Start: 03-27-2024 End: 03-27-2024 Patient encounter procedure [facility] Comment on above: Well woman exam with routine gynecologic al exam; Cervical cancer screening; Screening for HPV (human papillomavirus); Left ovarian cyst Start: 03-26-2024 End: 03-26-2024 Patient encounter procedure 03/26/2024 9:45 AM EST Office Visit [facility] [address] [place] [address] Gavin Schmitt DO [address] [place] [address] [facility] Start: 03-25-2024 End: 03-25-2024 ambulatory [facility] Start: 03-22-2024 End: 03-22-2024 ambulatory [facility] Comment on above: Arrived Start: 03-20-2024 End: 03-20-2024 ambulatory [facility] Comment on above: Arrived Start: 03-18-2024 End: 03-18-2024 ambulatory 03/18/2024 12:00 PM EST Treatment [facility] [address] [facility] [address] [place] [address] Sarah Major, PT [facility] Start: 03-15-2024 End: 03-15-2024 ambulatory [facility] Comment on above: Arrived Start: 03-13-2024 End: 03-13-2024 ambulatory [facility] Comment on above: Arrived Start: 03-11-2024 End: 03-11-2024 ambulatory [facility] Comment on above: Arrived Start: 03-07-2024 End: 03-07-2024 ambulatory [facility] Comment on above: Arrived Start: 03-06-2024 End: 03-06-2024 Patient encounter procedure 03/06/2024 2:15 PM EST Office Visit [facility] [address] [place] [phone] Jose J Tristan MD [address] [place] [address] [facility] Start: 03-04-2024 End: 03-04-2024 Patient encounter procedure 03/04/2024 3:30 PM EST Office Visit [facility] [address] [place] [address] Abeba Guevara PA [address] [place] [address] [facility] Start: 02-27-2024 End: 02-27-2024 Patient encounter procedure 02/27/2024 8:45 AM EST Office Visit [facility] [address] [place] [phone] Gavin Schmitt, DO [address] [place] [address] [facility] Start: 02-12-2024 End: 02-12-2024 ambulatory 02/12/2024 1:30 PM EST Evaluation [facility] [address] [place] [address] Cele Caro, PT [address] [place] [address] [facility] Start: 02-01-2024 End: 02-01-2024 Patient encounter procedure 02/01/2024 1:00 PM EST Office Visit [facility] [address] [place] [phone] Gavin Schmitt, DO [address] [place] [address] [facility] Start: 01-31-2024 End: 04-02-2025 DBT Breast - bilateral screening Bilateral screening mammogram with tomosynthesis Imaging Routine Encounter for screening mammogram for malignant neoplasm of breast Expected: 01/31/2024, Expires: 04/02/2025 [facility] Work Phone: Comment on above: Expected: 01/31/2024, Expires: Start: 01-31-2024 End: 01-31-2024 Patient encounter procedure [facility] Comment on above: Arrived Start: 12-21-2023 End: 12-21-2023 Patient encounter procedure 12/21/2023 2:00 PM EDT Office Visit [facility] [address] [place] [phone] Gavin Schmitt DO [address] [place] [address] Arrived [facility] Comment on above: Arrived Start: 11-03-2023 End: 11-03-2023 Patient encounter procedure [facility] Comment on above: Arrived Start: 11-01-2023 End: 10-31-2024 25-hydroxyvitamin D3 [Mass/volume] in Serum or Plasma Vitamin D 25 hydroxy Total Lab Routine Wellness examination Myalgia Expected: 11/01/2023 (Approximate), Expires: 10/31/2024 [facility] Comment on above: Expected: 11/01/2023 (Approximate), Expi res: 10/31/2024 Start: 11-01-2023 End: 10-31-2024 CBC W Auto Differential panel - Blood CBC and differential Lab Routine Wellness examination Benign essential hypertension (CMS/HCC) Other iron deficiency anemia Expected: 11/01/2023 (Approximate), Expires: 10/31/2024 [facility] Work Phone: Comment on above: Expected: 11/01/2023 (Approximate), Expi res: 10/31/2024 Start: 11-01-2023 End: 10-31-2024 Comprehensive metabolic 2000 panel - Serum or Plasma Comprehensive metabolic panel Lab Routine Wellness examination Benign essential hypertension (CMS/HCC) Fatty liver Bilateral lower extremity edema IGT (impaired glucose tolerance) Hypokalemia Pure hypertriglyceridemia (CMS/HCC) Expected: 11/01/2023 (Approximate), Expires: 10/31/2024 [facility] Comment on above: Expected: 11/01/2023 (Approximate), Expi res: 10/31/2024 Start: 11-01-2023 End: 10-31-2024 Hemoglobin A1c/Hemoglobin.total in Blood Hemoglobin A1c Lab Routine Wellness examination IGT (impaired glucose tolerance) Expected: 11/01/2023 (Approximate), Expires: 10/31/2024 [facility] Comment on above: Expected: 11/01/2023 (Approximate), Expi res: 10/31/2024 Start: 11-01-2023 End: 10-31-2024 Iron + transferrin + TIBC Iron + transferrin + TIBC Lab Routine Wellness examination Other iron deficiency anemia Expected: 11/01/2023 (Approximate), Expires: 10/31/2024 [facility] Comment on above: Expected: 11/01/2023 (Approximate), Expi res: 10/31/2024 Start: 11-01-2023 End: 10-31-2024 Lipid 1996 panel - Serum or Plasma Lipid panel Lab Routine Wellness examination Benign essential hypertension (CMS/HCC) Pure hypertriglyceridemia (CMS/HCC) Expected: 11/01/2023 (Approximate), Expires: 10/31/2024 [facility] Comment on above: Expected: 11/01/2023 (Approximate), Expi res: 10/31/2024 Start: 11-01-2023 End: 10-31-2024 TSH W/REFLEX TO FT4 TSH W/REFLEX TO FT4 Lab Routine Wellness examination Acquired hypothyroidism (CMS/HCC) Expected: 11/01/2023 (Approximate), Expires: 10/31/2024 [facility] Comment on above: Expected: 11/01/2023 (Approximate), Expi res: 10/31/2024 Start: 11-01-2023 End: 11-01-2023 Patient encounter procedure [facility] Comment on above: Arrived Start: 10-29-2023 Influenza vaccination Influenza Vaccine (#1) [facility] Start: 10-20-2023 End: 10-20-2023 Patient encounter procedure 10/20/2023 10:30 AM EDT Office Visit [facility] [address] [place] [phone] Catalina Marte MD [address] [place] [address] Arrived [facility] Comment on above: Arrived Start: 01-06-2023 Screening for malignant neoplasm of breast Mammogram [facility] Start: 1970 Screening for malignant neoplasm of colon [facility] Dermatopathology exam Dermatopat hology exam Pathology and Cytology Timed Neoplasm of uncertain behavior of skin Release Upon Ordering for 1 Occurrences starting 10/20/2023 [facility] Work Phone: Comment on above: Release Upon Ordering for 1 Occurrences starting 10/20/2023 IGP, APT HPV,RFX 16/18,45 IGP, APT HPV,RFX 16/18,45 Lab Routine Screening for HPV (human papillomavirus) Vaginal Pap smear Ordered: 03/27/2024 [facility] Work Phone: Comment on above: Ordered: 03/27/2024 Payers Date Payer Category Payer Self-pay [id number] 2021 [facility] BCBS [id number] 2021 Unknown [id number]. 1.13.693. 2.7.3.801412.315 2009 Unknown [id number] 1971 Unknown [id number] 2.16.840.1.273361.3.579. 2.647 1971 Unknown [id number] 2.16.840.1.126884.3.579. 2.647 1971 Unknown [id number] 2.16.840.1.377441.3.579. 2.647 1971 Unknown [id number] 2.16.840.1.377803.3.579. 2.647 1971 Unknown [id number] 2.16.840.1.043837.3.579. 2.593 1971 Unknown [id number] 2.16.840.1.012284.3.579. 2.727 1971 Unknown [id number] 2.16.840.1.543173.3.579. 2.727 1971 Unknown [id number] 2.16.840.1.178233.3.579. 2.727 1971 Unknown [id number] 2.16.840.1.150433.3.579. 2.727 1971 Unknown [id number] 2.16.840.1.479286.3.579. 2.1259 1971 Unknown [id number] 2.16.840.1.424430.3.579. 2.1259 1971 Unknown [id number] 2.16.840.1.938384.3.579. 2.1259 1971 Unknown [id number] 2.16.840.1.462875.3.579. 2.1259 1971 Unknown [id number] 2.16.840.1.891459.3.579. 2.1259 1971 Unknown [id number] 2.16.840.1.485350.3.579. 2.1259 1971 Unknown [id number] 2.16.840.1.593119.3.579. 2.1258 1971 Unknown [id number] 2.16.840.1.989948.3.579. 2.1258 1971 Unknown [id number] 2.16.840.1.470711.3.579. 2.1258 1971 Unknown [id number] 2.16.840.1.685338.3.579. 2.1258 1971 Unknown [id number] 2.16.840.1.326490.3.579. 2.1258 1971 Unknown [id number] 2.16.840.1.552518.3.579. 2.1258 1971 Unknown [id number] 2.16.840.1.645942.3.579. 2.1258 1971 Unknown [id number] 2.16.840.1.407498.3.579. 2.1258 1971 Unknown [id number] 2.16.840.1.035716.3.579. 2.1258 1971 Unknown [id number] 2.16.840.1.552601.3.579. 2.1258 1971 Unknown [id number] 2.16.840.1.511162.3.579. 2.1258 1971 Unknown [id number] 2.16.840.1.671806.3.579. 2.1258 1971 Unknown [id number] 2.16.840.1.581678.3.579. 2.1258 1971 Unknown [id number] 2.16.840.1.509578.3.579. 2.1258 1971 Unknown [id number] 2.16.840.1.103785.3.579. 2.1258 1971 Unknown [id number] 2.16.840.1.042040.3.579. 2.125 1971 Unknown [id number] 2.16.840.1.305710.3.579. 2.1258 1971 Unknown [id number] 2.16.840.1.485016.3.579. 2.1258 1971 Unknown [id number] 2.16.840.1.266260.3.579. 2.1258 1971 Unknown [id number] 2.16.840.1.283176.3.579. 2.1258 1971 Unknown [id number] 2.16.840.1.942484.3.579. 2.1258 1971 Unknown [id number] 2.16.840.1.570778.3.579. 2.1258 1971 Unknown [id number] 2.16840.1.537719.3.579. 2.1258 1971 Unknown [id number] 2.16.840.1.240773.3.579. 2.1258 1971 Unknown [id number] 2.16.840.1.286823.3.579. 2.1258 1971 Unknown [id number] 2.16.840.1.316303.3.579. 2.1258 1971 Unknown [id number] 2.16.840.1.908660.3.579. 2.1258 1971 Unknown [id number] 2.16.840.1.840213.3.579. 2.1258 1971 Unknown [id number] 2.16.840.1.424315.3.579. 2.1258 1971 Unknown [id number] 2.16.840.1.924112.3.579. 2.1258 1971 Unknown [id number] 2.16.840.1.954205.3.579. 2.1258 1971 Unknown [id number] 2.16.840.1.422682.3.579. 2.1258 1971 Unknown [id number] 2.16.840.1.881495.3.579. 2.1258 1971 Unknown [id number] 2.16.840.1.993266.3.579. 2.1258 1971 Unknown [id number] 2.16.840.1.607744.3.579. 2.1258 1971 Unknown [id number] 2.16.840.1.980330.3.579. 2.1258 1971 Unknown [id number] 2.16.840.1.812378.3.579. 2.1258 1971 Unknown [id number] 2.16.840.1.382226.3.579. 2.1258 1971 Unknown [id number] 2.16.840.1.681793.3.579. 2.1258 1971 Unknown [id number] 2.16.840.1.355642.3.579. 2.1258 1971 Unknown [id number] 2.16.840.1.889782.3.579. 2.1258 1971 Unknown [id number] 2.16.840.1.357792.3.579. 2.1258 1971 Unknown [id number] 2.16.840.1.937368.3.579. 2.1258 1971 Unknown [id number] 2.16.840.1.809267.3.579. 2.1258 1971 Unknown [id number] 2.16.840.1.884170.3.579. 2.1258 1971 Unknown [id number] 2.16.840.1.350591.3.579. 2.1258 1971 Unknown [id number] 2.16.840.1.328870.3.579. 2.1258 1971 Unknown [id number] 2.16.840.1.279534.3.579. 2.1258 1971 Unknown [id number] 2.16.840.1.830712.3.579. 2.1258 1971 Unknown [id number] 2.16.840.1.949936.3.579. 2.1258 1971 Unknown [id number] 2.16.840.1.666730.3.579. 2.1258 1971 Unknown [id number] 2.16.840.1.449566.3.579. 2.1258 1971 Unknown [id number] 2.16.840.1.846379.3.579. 2.1258 1971 Unknown [id number] 2.16.840.1.662233.3.579. 2.1258 1971 Unknown [id number] 2.16.840.1.447450.3.579. 2.1258 1971 Unknown [id number] 2.16.840.1.848425.3.579. 2.1258 1971 Unknown [id number] 2.16.840.1.970891.3.579. 2.1258 1971 Unknown [id number] 2.16.840.1.010007.3.579. 2.1258 1971 Unknown [id number] 2.16.840.1.934038.3.579. 2.1258 1971 Unknown [id number] 2.16.840.1.391475.3.579. 2.1259 1959 Unknown [id number] Unknown [id number] 2.16.840.1.789420.3.579. 2.531 Unknown [id number] 2.16.840.1.583094.3.579. 2.531 Unknown [id number] 2.16.840.1.728677.3.579. 2.531 Social History Date Type Detail Facility Tobacco smoking status [facility] [employer] Other Start: 07-20-2022 End: 11-01-2023 Sex Assigned At Female [facility] [employer] Other Start: 1970 Sex Assigned At Female [facility] Start: 01-25-2023 End: 05-31-2024 Tobacco smoking status NHIS Never smoked tobacco [facility] Start: 01-25-2023 End: 04-23-2024 Tobacco use and exposure Smokeless tobacco non-user [facility] Start: 07-04-2023 End: 05-07-2024 Alcoholic beverage intake Ex-drinker (finding) [facility] Start: 07-20-2022 End: 11-01-2023 History of Social function [facility] How often do you nee d to have someone help you when you read instructions, pamphlets, or other written material from your doctor or pharmacy [SILS] Sometimes [facility] Within the last year , have you been afraid of your partner or ex-partner? No [facility] Are you now , , , , never or living with a partner? [facility] How often to you hav e a drink containing alcohol? Never [facility] How hard is it for y ou to pay for the very basics like food, housing, medical care, and heating Somewhat hard [facility] Do you feel stress - tense, restless, nervous, or anxious, or unable to sleep at night because your mind is troubled all the time - these days [OSQ] Only a little [facility] (I/We) worried wheth er (my/our) food would run out before (I/we) got money to buy more. Never true [facility] Start: 01-25-2023 Alcohol Comment Caffeine intak e : 1-2 cups per day green tea [facility] Start: 1970 Sex assigned at Not on file [facility] Start: 08-01-2023 End: 04-23-2024 Tobacco Comment Never [facility] Start: 08-01-2023 Alcohol Comment Havent had any in 20 years [facility] Tobacco smoking status No Smokin g Status Entered [facility] (I/We) worried isa er (my/our) food would run out before (I/we) got money to buy more. Sometimes true [facility] In the past 12 month s, was there a time when you were not able to pay the mortgage or rent on time? Yes [facility] Tobacco smoking stat us [facility] Unknown if ever smoked [facility] Work Phone: Start: 03-15-2024 End: 06-01-2024 Sex Female (finding) [facility] Medical Equipment Procedure Code Equipment Code Equipment Origin al Text Equipment Identifier Dates KNEE TOTAL ROBOT ARTHROPLASTY Oskar STEPHENS Gavin A 02/14/24 Unknown Knee L FDA Start: 02-14-2024 KNEE TOTAL ROBOT ARTHROPLASTY Oskar STEPHENSGavin 02/14/24 Unknown Knee L FDA Start: 02-14-2024 KNEE TOTAL ROBOT ARTHROPLASTY Oskar STEPHENS Gavin A 02/14/24 Unknown Knee L FDA Start: 02-14-2024 KNEE TOTAL ROBOT ARTHROPLASTY Oskar STEPHENS Gvain A 02/14/24 Unknown Knee L FDA Start: 02-14-2024 Functional Status Date Assessment Result Facility 01-31-2024 Functional Status No [facility] Clinical Notes 05-28-2018 to 05-29-2024 Sarah Major, PT - 05/27/2024 11:00 AM Jason Major, PT - 05/01/2024 9:30 AM Jose Tristan MD - 04/24/2024 11:30 AM Sury Major, PT - 04/24/2024 8:30 AM EST Note Date & Type Note Facility 05-29-2024 Note Attestation signed by Shanice Navarro MD at 05/29/2024 1:51 PM Saw the patient with the ostomy nurse. I agree with her above findings. We will also give the patient some medication for her nausea. If is not better soon I will recommend an EGD. Ostomy Care RN Treatment Note Mateus Carmichael is a 54-year-old female with a history of chronic diverticulitis, status post sigmoid resection complicated by an anastomotic leak. She underwent an exploratory laparotomy with takedown of the colorectal anastomosis and creation of an end colostomy on March 15, 2021, due to a pelvic abscess. Silver nitrate treatment is a commonly used method for addressing hypergranulation tissue, a condition where excess granulation tissue forms around a wound, hindering the healing process. Silver nitrate, applied topically in a controlled manner, works by cauterizing the tissue, effectively reducing the hypergranulation and promoting healing. The silver nitrate solution chemically reacts with the excess tissue, causing it to shrink and eventually fall away, allowing the wound to heal properly. This treatment may require multiple applications for optimal results. The nurse began by preparing the patient and the treatment area, ensuring proper hygiene and sterilization. With the patient comfortably positioned, the nurse carefully cleaned the hypergranulation tissue and surrounding area to remove any debris or bacteria. Next, using a specialized applicator, the nurse applied a solution of silver nitrate directly to the hypergranulation tissue, taking care to avoid healthy skin. The silver nitrate solution chemically reacted with the excess tissue, causing it to shrink and turn cole. The nurse used 2 applicators during the treatment. After the treatment was satisfactory, a normal saline solution was applied to stop the chemical reaction. Throughout the procedure, the nurse monitored the patient for any signs of discomfort or adverse reactions, providing reassurance and support as needed. 05/29/2024 Colostomy before silver nitrate treatment 05/29/2024 Colostomy after silver nitrate treatment The patient reported requiring four [employer] barrier rings per appliance change to adequately fill a large skin divot on her courtney-stomal skin. She stated that all other supplies are sufficient; however, she only receives enough barrier rings to use one per appliance change, despite needing four. Per the WOCN and Dr. Daisy, the use of four barrier rings per appliance change is necessary due to the patient's abdominal contour in the courtney-stomal area. Type of ostomy: Colostomy Location: LUQ abdomen Height: flush with the abdomen Size: 32 mm x 44 mm Effluent: brown soft formed stool Courtney-stomal skin: Intact with hypergranulation that was treated with today's visit Appliance: Patient used her own supplies after the silver nitrate treatment. Education: Patient was instructed to cut the barrier opening larger as stool occasionally leaks under the barrier opening when cut to the current size. Discharge plan: Home. Lolis LOPEZ, RN, CWON Wound & Ostomy Requirements Analyst [facility] 05-27-2024 History of Present illness Narrative Images from the original note were not included. Physical Therapy Treatment Note Patient Name: Mateus Carmichael Today's Date: 05/27/2024 Encounter Diagnoses Name Primary? Primary osteoarthritis of left knee Yes Acute postoperative pain of left knee Difficulty walking Status post left knee replacement Visit number: 30 (6 visits in home) Timed Code Treatment: 46 minutes Total Treatment Time: 66 minutes Time In: 10:56 AM Time Out: 12:05 AM History: Pt underwent surgery for left TKA on 02/14/24. Pt completed 6 in home PT sessions and now transitioning to out patient PT. Was using cane and walker prior to surgery due to knee pain. Precautions: Section Subjective: Pt states left leg is a little sore from being on her feet more yesterday. States she was out to do some shopping. Will see GI Doctor on Monday this week. Pain: 3/10 Objective: PT UPOC (03/07/2024) KNEE AROM: 5 to 80 degrees in supine PROM: 5 to 84 degrees with step stretch MMT: quad 3-/5; unable to perform SLR; fair VMO firing Functional: TUG with st cane: 42.69 seconds and 40.37 seconds Treatment: Manual Therapy: ( ) Delivered manual STM, PROM, Patella glides (inferior and lateral) to improve mobility. Therapeutic Exercise: (28 minutes supervised) Guided pt through ther and flex ex per grid to improve left LE, quad Strength, Endurance, Flexibility, ROM, HEP, Neural Mobilization, Power, and Core Stability as needed. (Nustep 10 minutes unsupervised) Pre workout warm up set to hills level 4 seat 18. 5 minutes unsupervised. Therapeutic Activity: (18 minutes supervised) Exercises to improve dynamic activities, stair negotiation, functional tasks, functional mobility to return to prior activity level as needed. Gait Training: as needed. Neuromuscular re-education: () Static and dynamic activity using various surfaces, NBOS, single leg to improve left LE proprioception and balance Modalities: (10 minutes ) Post session L knee ,CP in seated this date to reduce pain and swelling Assessment: Pt has completed 30 PT sessions following left TKA on 02/14/24. Pt able to achieve 115 degrees of left knee flexion following exercises this date. Continues to require min to mod UE assistance to ascend 6 inch step with left LE. Anticipate discharge at end of this week. Outcome Measure: Lower Extremity Functional Scale (LEFS): 7/80 on Rehab Diagnosis: Left knee pain and weakness; difficulty walking; decrease ROM and mobility. Short Term Goal: To be met in 2 weeks Goal 1: Pt to be instructed in home exercise program. - met Care Home Goals: To be met in 10 weeks Goal 1: Pt to report independence and compliance with home program. - Met Goal 2: Pt to achieve 120 degrees left knee flexion to assist with functional tasks such as squatting. - Progressing Goal 3: Pt to be lacking no greater than 1 degree left knee extension to assist with proper gait. - Met Goal 4: Pt to achieve 4+/5 strength left knee flexion and extension to assist with functional mobility and ADL's. - Progressing Goal 5: Pt to score no less than 50/80 on LEFS indicating improved QOL. - Progressing Goal 6: Pt to complete TUG with cane in less than 16.0 seconds indicating improved gait and mobility. - Met Pt will benefit from skilled PT for 2-3x/week from 05/10/2024 to 07/19/2024 to address the above impairments. I hereby deem this POC medically necessary. Please sign below. Date: documented in this encounter [facility] 05-01-2024 History of Present illness Narrative Images from the original note were not included. Physical Therapy Treatment Visit Patient Name: Mateus Carmichael Today's Date: 05/01/2024 Encounter Diagnoses Name Primary? Primary osteoarthritis of left knee Yes Acute postoperative pain of left knee Difficulty walking Status post left knee replacement Visit number: 26 (6 visits in home) Timed Code Treatment: 42 minutes Total Treatment Time: 42 minutes Time In: 0930 Time Out: 1018 History: Pt underwent surgery for left TKA on 02/14/24. Pt completed 6 in home PT sessions and now transitioning to out patient PT. Was using cane and walker prior to surgery due to knee pain. Precautions: Section Subjective: Pt states she continues to feel grinding in left knee, not sure why. States feeling more nausea today vs pain in left knee. Nausea has been worse since medications were changed. Pain: 4-5/10 Objective: PT UPOC (03/07/2024) KNEE AROM: 5 to 80 degrees in supine PROM: 5 to 84 degrees with step stretch MMT: quad 3-/5; unable to perform SLR; fair VMO firing Functional: TUG with st cane: 42.69 seconds and 40.37 seconds Treatment: Manual Therapy: (PRN) Delivered manual STM, PROM, Patella glides (inferior and lateral) to improve mobility. Therapeutic Exercise: (42 minutes supervised) Guided pt through ther and flex ex per grid to improve left LE, quad Strength, Endurance, Flexibility, ROM, HEP, Neural Mobilization, Power, and Core Stability as needed. Held several exercises this date due to pt not feeling well. Therapeutic Activity: () Exercises to improve dynamic activities, stair negotiation, functional tasks, functional mobility to return to prior activity level as needed. Gait Training: as needed. Neuromuscular re-education: Balance Training, Muscle Facilitation, Dynamic Stability, Core Stabilization, and Blood Flow Restriction Training (BFRT) as needed. Modalities: (PRN minutes ) Post session L knee ,CP in seated this date to reduce pain and swelling Assessment: Pt has completed 26 PT sessions following left TKA on 02/14/24. Held several exercises this date due to pt not feeling well. Pt lacking only 1 degree of left knee extension this date following static extension stretch. Will continue to progress as pt tolerates. Follow up with Ortho: May 07. Outcome Measure: Lower Extremity Functional Scale (LEFS): 7/80 on Rehab Diagnosis: Left knee pain and weakness; difficulty walking; decrease ROM and mobility. Short Term Goal: To be met in 2 weeks Goal 1: Pt to be instructed in home exercise program. Design Lead Goals: To be met in 10 weeks Goal 1: Pt to report independence and compliance with home program. MET Goal 2: Pt to achieve 120 degrees left knee flexion to assist with functional tasks such as squatting. Progressing Goal 3: Pt to be lacking no greater than 1 degree left knee extension to assist with proper gait. Progressing Goal 4: Pt to achieve 4+/5 strength left knee flexion and extension to assist with functional mobility and ADL's. Progressing Goal 5: Pt to score no less than 50/80 on LEFS indicating improved QOL. Progressing Goal 6: Pt to complete TUG with cane in less than 16.0 seconds indicating improved gait and mobility. Progressing Pt will benefit from skilled PT for 2-3x/week from 03/07/2024 to 05/16/2024 to address the above impairments. I hereby deem this POC medically necessary. Please sign below. Date: documented in this encounter [facility] 04-24-2024 History of Present illness Narrative Images from the original note were not included. Jose J Tristan MD Obstetrics and Gynecology Patient: Mateus Carmichael, : 1970 (54 y.o.) DOS 04/24/24 Exam Date: 04/24/2024 HPI: Pt had a CT of knee for arthritis. The CT incidentally showed a 5cm left adnexal cyst. Followup sono shows a 4.3cm x 4.0cm simple cyst of left ovary. She has no abd pain or any other symptoms. She had a hysterectomy/R S+O years ago FSH 51 Ca 125 9 Sono in my office shows left ovry with 2 simple cysts. No free fluid Visit Vitals BP 120/82 OB Status Hysterectomy Smoking Status Never OB History Para Term AB Living 2 2 2 0 0 2 SAB IAB Ectopic Multiple Live Births 0 0 0 0 2 # Outcome Date GA Lbr Daniel/2nd Weight Sex Type Anes PTL Lv 2 Term 1 Term Obstetric Comments Pap: 03/23-Neg BAYRON: HPV Neg Mammo: 03/25/24-Neg ([facility]) Hysterectomy Medication and Allergies Medication Documentation Review Audit Reviewed by Antoinette Durant MA (Accounts Payable Analyst) on 04/24/24 at 1132 Medication Order Taking? Sig Documenting Provider Last Dose Status acetaminophen (Tylenol) 325 MG tablet [id number] No Take 2 tablets every 6 hours by oral route. Historical ProviderMD Taking Active Airsupra 90-80 MCG/ACT aerosol [id number] INHALE 2 PUFFS FOUR TIMES DAILY NEEDED FOR SHORTNESS OF BREATH Jose J Tristan MD Active albuterol HFA 90 mcg/act inhaler [id number] No Inhale 1 puff every 4 (four) hours if needed for wheezing or shortness of breath. Historical Provider, Taking Active aspirin 81 MG EC tablet [id number] Take 81 mg by mouth Daily APRIL Caba Active carvedilol (Coreg) 12.5 MG tablet [id number] TAKE 1 TABLET BY MOUTH IN THE MORNING AND 1 TABLET IN THE EVENING WITH FOOD APRIL Caba Active cholecalciferol (Vitamin D-3) 50 MCG (1999) tablet [id number] No Take 1 tablet by mouth. Once a day Historical ProviderMD Taking Active clindamycin (Cleocin T) 1 % lotion [id number] No Apply thin later to affected areas on the body during flares, 30 day supply Catalina Marte MD Taking Active famotidine (Pepcid) 20 MG tablet [id number] Take 1 tablet (20 mg) by mouth at bedtime Chano Gannon MD Active Ferric Maltol (ACCRUFeR) 30 MG capsule [id number] Take 30 mg by mouth Daily APRIL Caba Active fluticasone (Flonase) 50 MCG/ACT nasal spray [id number] No Administer 2 sprays into each nostril. Once a day Historical Provider, Taking Active gabapentin (Neurontin) 300 MG capsule [id number] Take 1 capsule (300 mg) by mouth in the morning and 1 capsule (300 mg) before bedtime. APRIL Caba Active hydroxychloroquine (Plaquenil) 200 MG tablet [id number] No Take 1 tablet by mouth in the morning and 1 tablet before bedtime. Historical Provider, Taking Active levothyroxine (Synthroid) 150 MCG tablet [id number] Take 1 tablet (150 mcg) by mouth in the morning. Take before meals. APRIL Caba Active nystatin (Mycostatin) cream [id number] No APPLY 1 APPLICATION EXTERNALLY TWICE A DAY APRIL Caba Taking Active Discontinued 04/17/24 0954 ondansetron (Zofran) 4 MG tablet [id number] Take 1 tablet (4 mg) by mouth every 8 (eight) hours if needed for nausea or vomiting APRIL Caba Active Ostomy Supplies (Adapt Lubricating Deodorant) liquid [id number] No 1 application in the morning. APRIL Caba Taking Active pantoprazole (ProtoNix) 40 MG EC tablet [id number] Take 1 tablet (40 mg) by mouth Daily Do not crush, chew, or split. APRIL Caba Active rizatriptan RAILROAD FIRER (Maxalt-RAILROAD FIRER) 10 MG disintegrating tablet [id number] Take 1 tablet (10 mg) by mouth 2 (two) times a day as needed for migraine And place on top of tongue where it will dissolve, then swallow x1, may repeat at 2 hour intervals; do not exceed 30 mg in 24 hours APRIL Caba Active scopolamine (Transderm-Scop) 1 mg/72 hr patch [id number] 1 patch on the skin every 3rd (third) day Emanuel Beasley, CECELIA Active traMADol (Ultram) 50 MG tablet [id number] Take 50 mg by mouth every 4 (four) hours if needed for severe pain APRIL Caba Active triamcinolone (Kenalog) 0.1 % cream [id number] Apply topically 2 (two) times a day for 14 days APRIL Caba Active triamterene-hydroCHLOROthiazide (Dyazide) 37.5-25 MG capsule [id number] No TAKE 1 CAPSULE BY MOUTH DAILY NEEDED FOR SWELLING APRIL Caba Taking Active Allergies Allergen Reactions Meperidine Other reaction(s): Vomiting Other reaction(s): vomiting Meperidine Hcl GI intolerance Morphine GI intolerance Other reaction(s): Vomiting Chlorhexidine Other Other Reaction(s): burning Other reaction(s): burning Nabumetone Unknown Nalbuphine Unknown Past Medical History: Diagnosis Date Allergic rhinitis Arthritis, rheumatoid (CMS/HCC) Polanco's cyst Breast cyst 2013 Carpal tunnel syndrome COPD (chronic obstructive pulmonary disease) (CMS/HCC) Disease of thyroid gland (CMS/HCC) Diverticulitis 2020 Gastritis GERD (gastroesophageal reflux disease) GI bleed Hiatal hernia History of thumb surgery Hypertension ([facility]/HCC) Obesity Pelvic abscess in female 04/07/2021 intra-abd infection, pelvic abscess Peritoneal abscess ([facility]) 03/30/2021 Proteus (mirabilis) (morganii) causing dis classd elswhr 03/30/2021 RA (rheumatoid arthritis) ([facility]) Sigmoid diverticulitis 01/2021 Tear of meniscus of knee Vitamin D deficiency 2012 Past Surgical History: Procedure Laterality Date BREAST CYST EXCISION Right CARPAL TUNNEL RELEASE 2014 COLONOSCOPY 2013 COLOSTOMY 03/15/2021 CT GUIDED IMAGING FOR ABSCESS DRAIN 03/24/2021 CT GUIDED IMAGING FOR ABSCESS DRAIN CT GUIDED IMAGING FOR ABSCESS DRAIN 03/25/2021 CT GUIDED IMAGING FOR ABSCESS DRAIN CT GUIDED IMAGING FOR ABSCESS DRAIN 03/25/2021 CT GUIDED IMAGING FOR ABSCESS DRAIN CYSTOURETHROSCOPY 02/25/2021 Catheter Placement HYSTERECTOMY 12/2006 KNEE ARTHROPLASTY Left 02/14/2024 JAB KNEE SURGERY Right 06/22/2018 Scope JAB MENISCECTOMY SIGMOIDECTOMY 02/25/2021 with primary anastomosis TOTAL VAGINAL HYSTERECTOMY with RSO VAGINAL DELIVERY x2 Physical Exam: Objective OBGyn Exam Associated Treatments and Results - ICD-10-CM 1. 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 Left ovarian cyst N83.202 3. Menopausal symptoms N95.1 I suspect this is a benign cyst. Pt is asymptomatic . Plan observation. Repeat sono 6 mos Assessment/Plan No orders of the defined types were placed in this encounter. documented in this encounter [facility] 04-24-2024 History of Present illness Narrative Images from the original note were not included. Physical Therapy Treatment Visit Patient Name: Mateus Carmichael Today's Date: 04/24/2024 Encounter Diagnoses Name Primary? Primary osteoarthritis of left knee Yes Acute postoperative pain of left knee Difficulty walking Visit number: 23 (6 visits in home) Timed Code Treatment: 45 minutes Total Treatment Time: 55 minutes Time In: 8:28 AM Time Out: 9:29 AM History: Pt underwent surgery for left TKA on 02/14/24. Pt completed 6 in home PT sessions and now transitioning to out patient PT. Was using cane and walker prior to surgery due to knee pain. Precautions: Section Subjective: Pt states she is having more stiffness in left knee this morning vs pain. Pain: 3/10 Objective: PT UPOC (03/07/2024) KNEE AROM: 5 to 80 degrees in supine PROM: 5 to 84 degrees with step stretch MMT: quad 3-/5; unable to perform SLR; fair VMO firing Functional: TUG with st cane: 42.69 seconds and 40.37 seconds Treatment: Manual Therapy: (PRN minutes ) Delivered manual STM, PROM , scar mobilization to left knee to reduced edema, scar tissue and improve joint mobility Therapeutic Exercise: (30 minutes supervised) Guided pt through ther and flex ex per grid to improve left LE, quad Strength, Endurance, Flexibility, ROM, HEP, Neural Mobilization, Power, and Core Stability as needed. Therapeutic Activity: (15 minutes supervised) Exercises to improve dynamic activities, stair negotiation, functional tasks, functional mobility to return to prior activity level as needed. Gait Training: as needed. Neuromuscular re-education: Balance Training, Muscle Facilitation, Dynamic Stability, Core Stabilization, and Blood Flow Restriction Training (BFRT) as needed. Modalities: (10 minutes ) Post session L knee ,CP in seated this date to reduce pain and swelling Assessment: Pt has completed 23 PT sessions following left TKA on 02/14/24. Pt with 105 degrees of left knee flexion in supine; able to achieve 107 degrees with knee flexion stretch at steps. Follow up with Ortho: May 07. Outcome Measure: Lower Extremity Functional Scale (LEFS): 7 on Rehab Diagnosis: Left knee pain and weakness; difficulty walking; decrease ROM and mobility. Short Term Goal: To be met in 2 weeks Goal 1: Pt to be instructed in home exercise program. Design Lead Goals: To be met in 10 weeks Goal 1: Pt to report independence and compliance with home program. MET Goal 2: Pt to achieve 120 degrees left knee flexion to assist with functional tasks such as squatting. Progressing Goal 3: Pt to be lacking no greater than 1 degree left knee extension to assist with proper gait. Progressing Goal 4: Pt to achieve 4+/5 strength left knee flexion and extension to assist with functional mobility and ADL's. Progressing Goal 5: Pt to score no less than 50/80 on LEFS indicating improved QOL. Progressing Goal 6: Pt to complete TUG with cane in less than 16.0 seconds indicating improved gait and mobility. Progressing Pt will benefit from skilled PT for 2-3x/week from 03/07/2024 to 05/16/2024 to address the above impairments. I hereby deem this POC medically necessary. Please sign below. Date: documented in this encounter [facility] 04-23-2024 History of Present illness Narrative Images from the original note were not included. Subjective Patient ID: Mateus Carmichael is a 54 y.o. female who presents for Hoarseness Pt reports she has been hoarse since knee surgery 02/13. Pt reports she was told she was not intubated. Had an epidural. Gradually improving. Pt takes protonix. Pt had emesis daily for a week. Review of Systems HENT: Positive for sore throat and trouble swallowing. All other systems reviewed and are negative. Family History Problem Relation Name Age of Onset Diabetes Mother Veronica Mayfield Asthma Mother Veronica [place] Diabetes Father Braulio Mayfield Hypertension Father Braulio [place]field Heart disease Father Braulio [place] Cancer Father Braulio [place] Stroke Maternal Grandmother Ada Thornsberry Diabetes Maternal Grandmother Ada Thorn[place]berry No Known Problems Maternal Grandfather Cancer Paternal Grandmother Emelia Mayfield Cancer Paternal Grandfather Aftab Mayfield Hypertension Other Scoliosis Sister Mayra Vargas Active Ambulatory Problems Diagnosis Date Noted Abnormal mammogram 07/12/2022 Acute left-sided low back pain with left-sided sciatica 07/12/2022 Allergic rhinitis 07/12/2022 Benign essential hypertension (CMS/HCC) 07/12/2022 Morbid obesity (CMS/HCC) 07/12/2022 Colostomy present (CMS/HCC) 07/12/2022 Diverticulosis large intestine w/o perforation or abscess w/bleeding 07/12/2022 Esophageal reflux 03/20/2008 Fatty liver 07/12/2022 History of hysterectomy 07/12/2022 Hypokalemia 07/12/2022 IGT (impaired glucose tolerance) 07/12/2022 Internal derangement of right knee 07/12/2022 Iron deficiency anemia 07/12/2022 LBBB (left bundle branch block) 07/12/2022 Menopausal symptoms 07/12/2022 Migraines (CMS/HCC) 07/12/2022 Osteoarthritis of knee 07/12/2022 Osteoarthritis of spine with radiculopathy, lumbosacral region 07/12/2022 Paroxysmal SVT (supraventricular tachycardia) (CMS/HCC) 07/12/2022 Polycystic ovaries 03/20/2008 Presbyopia of both eyes 07/12/2022 Pure hypertriglyceridemia (CMS/HCC) 07/12/2022 Rheumatoid arthritis involving multiple sites with positive rheumatoid factor (CMS/HCC) 07/12/2022 Small airways disease 07/12/2022 Acquired hypothyroidism (CMS/HCC) 06/29/2022 Diverticular disease of colon 05/14/2020 Diverticulitis of colon with perforation 01/13/2021 Electrocardiogram abnormal 05/30/2018 Lumbosacral spondylosis without myelopathy 07/13/2017 Presence of other specified devices 03/30/2021 Presence of other vascular implants and grafts 03/30/2021 Sciatica 07/05/2017 Intertrigo 10/26/2022 Hiatal hernia 05/30/2018 DDD (degenerative disc disease), lumbar 05/30/2018 Palpitations 04/27/2023 Bilateral lower extremity edema 07/26/2023 BMI 40.0-44.9, adult ([facility]) 11/01/2023 Primary osteoarthritis of left knee 02/18/2024 Acute postoperative pain of left knee 02/18/2024 Difficulty walking 02/18/2024 Status post left knee replacement 02/18/2024 Primary insomnia 04/17/2024 Restless leg syndrome 04/17/2024 Resolved Ambulatory Problems Diagnosis Date Noted Class 2 obesity 07/12/2022 Diverticulitis 07/12/2022 Sinusitis 07/12/2022 Encntr for surgical aftcr following surgery on the dgstv sys 03/30/2021 Encounter for ostomy care education 08/03/2021 Impaired glucose tolerance test 12/31/2015 Pelvic abscess in female 04/07/2021 Peritoneal abscess ([facility]) 03/30/2021 Proteus (mirabilis) (morganii) causing dis classd elswhr 03/30/2021 Hypertension ([facility]) 03/04/2024 Past Medical History: Diagnosis Date Arthritis, rheumatoid (CMS/HCC) Polanco's cyst Breast cyst 2013 Carpal tunnel syndrome COPD (chronic obstructive pulmonary disease) (CMS/HCC) Disease of thyroid gland (CMS/HCC) Gastritis GERD (gastroesophageal reflux disease) GI bleed History of thumb surgery Obesity RA (rheumatoid arthritis) ([facility]/HCC) Sigmoid diverticulitis 01/2021 Tear of meniscus of knee Vitamin D deficiency 2013 Past Surgical History: Procedure Laterality Date BREAST CYST EXCISION Right CARPAL TUNNEL RELEASE 2014 COLONOSCOPY 2013 COLOSTOMY 03/15/2021 CT GUIDED IMAGING FOR ABSCESS DRAIN 03/24/2021 CT GUIDED IMAGING FOR ABSCESS DRAIN CT GUIDED IMAGING FOR ABSCESS DRAIN 03/25/2021 CT GUIDED IMAGING FOR ABSCESS DRAIN CT GUIDED IMAGING FOR ABSCESS DRAIN 03/25/2021 CT GUIDED IMAGING FOR ABSCESS DRAIN CYSTOURETHROSCOPY 02/25/2021 Catheter Placement HYSTERECTOMY 12/2006 KNEE ARTHROPLASTY Left 02/14/2024 JAB KNEE SURGERY Right 06/22/2018 Scope JAB MENISCECTOMY SIGMOIDECTOMY 02/25/2021 with primary anastomosis TOTAL VAGINAL HYSTERECTOMY with RSO VAGINAL DELIVERY x2 Allergies Allergen Reactions Meperidine Other reaction(s): Vomiting Other reaction(s): vomiting Meperidine Hcl GI intolerance Morphine GI intolerance Other reaction(s): Vomiting Chlorhexidine Other Other Reaction(s): burning Other reaction(s): burning Nabumetone Unknown Nalbuphine Unknown Current Outpatient Medications on File Prior to Visit Medication Sig Dispense Refill acetaminophen (Tylenol) 325 MG tablet Take 2 tablets every 6 hours by oral route. Airsupra 90-80 MCG/ACT aerosol INHALE 2 PUFFS FOUR TIMES DAILY NEEDED FOR SHORTNESS OF BREATH albuterol HFA 90 mcg/act inhaler Inhale 1 puff every 4 (four) hours if needed for wheezing or shortness of breath. aspirin 81 MG EC tablet Take 81 mg by mouth Daily carvedilol (Coreg) 12.5 MG tablet TAKE 1 TABLET BY MOUTH IN THE MORNING AND 1 TABLET IN THE EVENING WITH FOOD 200 tablet 3 cholecalciferol (Vitamin D-3) 50 MCG (2000 UT) tablet Take 1 tablet by mouth. Once a day clindamycin (Cleocin T) 1 % lotion Apply thin later to affected areas on the body during flares, 30 day supply 60 mL 11 Ferric Maltol (ACCRUFeR) 30 MG capsule Take 30 mg by mouth Daily 90 capsule 3 fluticasone (Flonase) 50 MCG/ACT nasal spray Administer 2 sprays into each nostril. Once a day gabapentin (Neurontin) 300 MG capsule Take 1 capsule (300 mg) by mouth in the morning and 1 capsule (300 mg) before bedtime. 60 capsule 2 hydroxychloroquine (Plaquenil) 200 MG tablet Take 1 tablet by mouth in the morning and 1 tablet before bedtime. levothyroxine (Synthroid) 150 MCG tablet Take 1 tablet (150 mcg) by mouth in the morning. Take before meals. 90 tablet 3 nystatin (Mycostatin) cream APPLY 1 APPLICATION EXTERNALLY TWICE A DAY 45 g 2 ondansetron (Zofran) 4 MG tablet Take 1 tablet (4 mg) by mouth every 8 (eight) hours if needed for nausea or vomiting 20 tablet 0 Ostomy Supplies (Adapt Lubricating Deodorant) liquid 1 application in the morning. 236 mL 5 pantoprazole (ProtoNix) 40 MG EC tablet Take 1 tablet (40 mg) by mouth Daily Do not crush, chew, or split. 30 tablet 2 rizatriptan RAILROAD FIRER (Maxalt-RAILROAD FIRER) 10 MG disintegrating tablet Take 1 tablet (10 mg) by mouth 2 (two) times a day as needed for migraine And place on top of tongue where it will dissolve, then swallow x1, may repeat at 2 hour intervals; do not exceed 30 mg in 24 hours 9 tablet 5 scopolamine (Transderm-Scop) 1 mg/72 hr patch [address] 1 patch on the skin every 3rd (third) day 10 patch 0 traMADol (Ultram) 50 MG tablet Take 50 mg by mouth every 4 (four) hours if needed for severe pain triamcinolone (Kenalog) 0.1 % cream Apply topically 2 (two) times a day for 14 days 45 g 0 triamterene-hydroCHLOROthiazide (Dyazide) 37.5-25 MG capsule TAKE 1 CAPSULE BY MOUTH DAILY NEEDED FOR SWELLING 100 capsule 3 [DISCONTINUED] gabapentin (Neurontin) 300 MG capsule Take 1 capsule (300 mg) by mouth in the morning and 1 capsule (300 mg) in the evening and 1 capsule (300 mg) before bedtime. Do all this for 14 days. 42 capsule 0 [DISCONTINUED] omeprazole (PriLOSEC) [address] capsule TAKE 1 CAPSULE BY MOUTH 30 MINUTES BEFORE MORNING MEAL 90 capsule 3 [DISCONTINUED] ondansetron (Zofran) 4 MG tablet Take 1 tablet (4 mg) by mouth every 8 (eight) hours if needed for nausea or vomiting 20 tablet 0 No current facility-administered medications on file prior to visit. Objective Last Recorded Vitals Vitals: 04/23/24 1338 BP: 140/74 Pulse: 68 ENT Physical Exam Constitutional Appearance: patient appears well-developed, well-nourished and well-groomed, Head and Face Appearance: head appears normal and face appears atraumatic; Ear Ear Canals: right ear canal normal; left ear canal normal; Tympanic Membranes: right tympanic membrane normal; left tympanic membrane normal; Nose External Nose: nares patent bilaterally; external nose normal; Internal Nose: septum normal; Oral Cavity/Oropharynx Tongue: normal; Oral mucosa: normal; Hard palate: normal; Soft palate: normal; Tonsils: normal; Neck Neck: neck normal; neck palpation normal; Thyroid: thyroid normal; Respiratory Inspection: breathing unlabored; normal breathing rate; Auscultation: breath sounds are clear; Cardiovascular Inspection: extremities are warm and well perfused; no peripheral edema present; Auscultation: regular rate and rhythm; Patient ID: Mateus Carmichael is a 54 y.o. female. Procedures A diagnostic flexible fiberoptic laryngoscopy was performed. The flexible fiberoptic laryngoscope was placed into the nose and advanced to the level of the tip of the epiglottis. Examination of the larynx including both surfaces of the epiglottis false and true vocal folds, arytenoids and surrounding mucosal surfaces show no evidence of lesion, ulceration or mass. Normal bilateral true vocal fold motion is present. Bilateral piriform sinuses and base of tongue appear without lesion Assessment/Plan Diagnoses and all orders for this visit: Post-operative nausea and vomiting Hoarseness of voice - Ambulatory referral to ENT Chronic laryngitis Pt most likely developed chronic laryngitis due to her severe PO N/V. I will strengthen her reflux regimen and recommend relative voice rest till back to normal Answers submitted by the patient for this visit: Sore Throat Questionnaire (Submitted on 04/23/2024) Chief Complaint: Sore throat Chronicity: recurrent Onset: more than 1 month ago Progression since onset: waxing and waning Pain worse on: neither Fever: no fever pain severity now: no pain hoarse voice: Yes documented in this encounter [facility] 04-17-2024 History of Present illness Narrative Images from the original note were not included. HPI Med Refill Additional comments: Ondansetron Insomnia Additional comments: Difficulty falling and staying asleep. She has not tried anything OTC d/t she wasn't sure if it would interact with her other meds. Has trouble staying asleep and falling asleep. Some nights getting 4 hours or less of sleep. It is to the point it is making her anxious. Last edited by APRIL Caba on 04/17/2024 9:49 AM. Subjective Patient ID: Mateus Carmichael is a 54 y.o. female who presents for hoarseness. Mateus is present today for follow up hoarseness. She was seen for this on 03/04/24, the hoarseness began after her surgery. She was diagnosed with bronchitis and rx'd z-pattie and Tessalon at the 03/04/24 o/v. She feels the hoarseness is getting worse especially after she eats and by the end of the day she feels she had to force the words out, mouth feels dry all the time, she is still coughing up light yellow phlegm, still nauseated, still has the rash on her legs but the arms are a little better. Has had headaches, nausea, rash, and hoarseness since having surgery. Gets very nauseated after she eats, every time. States she is still using the Scopolamine patches with some relief. Current Outpatient Medications on File Prior to Visit Medication Sig Dispense Refill acetaminophen (Tylenol) 325 MG tablet Take 2 tablets every 6 hours by oral route. Airsupra 90-80 MCG/ACT aerosol INHALE 2 PUFFS FOUR TIMES DAILY NEEDED FOR SHORTNESS OF BREATH albuterol HFA 90 mcg/act inhaler Inhale 1 puff every 4 (four) hours if needed for wheezing or shortness of breath. aspirin 81 MG EC tablet Take 81 mg by mouth Daily carvedilol (Coreg) 12.5 MG tablet TAKE 1 TABLET BY MOUTH IN THE MORNING AND 1 TABLET IN THE EVENING WITH FOOD 200 tablet 3 cholecalciferol (Vitamin D-3) 50 MCG (2000 UT) tablet Take 1 tablet by mouth. Once a day clindamycin (Cleocin T) 1 % lotion Apply thin later to affected areas on the body during flares, 30 day supply 60 mL 11 Ferric Maltol (ACCRUFeR) 30 MG capsule Take 30 mg by mouth Daily 90 capsule 3 fluticasone (Flonase) 50 MCG/ACT nasal spray Administer 2 sprays into each nostril. Once a day hydroxychloroquine (Plaquenil) 200 MG tablet Take 1 tablet by mouth in the morning and 1 tablet before bedtime. levothyroxine (Synthroid) 150 MCG tablet Take 1 tablet (150 mcg) by mouth in the morning. Take before meals. 90 tablet 3 nystatin (Mycostatin) cream APPLY 1 APPLICATION EXTERNALLY TWICE A DAY 45 g 2 Ostomy Supplies (Adapt Lubricating Deodorant) liquid 1 application in the morning. 236 mL 5 rizatriptan RAILROAD FIRER (Maxalt-RAILROAD FIRER) 10 MG disintegrating tablet Take 1 tablet (10 mg) by mouth 2 (two) times a day as needed for migraine And place on top of tongue where it will dissolve, then swallow x1, may repeat at 2 hour intervals; do not exceed 30 mg in 24 hours 9 tablet 5 scopolamine (Transderm-Scop) 1 mg/72 hr patch [address] 1 patch on the skin every 3rd (third) day 10 patch 0 traMADol (Ultram) 50 MG tablet Take 50 mg by mouth every 4 (four) hours if needed for severe pain triamterene-hydroCHLOROthiazide (Dyazide) 37.5-25 MG capsule TAKE 1 CAPSULE BY MOUTH DAILY NEEDED FOR SWELLING 100 capsule 3 [DISCONTINUED] gabapentin (Neurontin) 300 MG capsule Take 1 capsule (300 mg) by mouth in the morning and 1 capsule (300 mg) in the evening and 1 capsule (300 mg) before bedtime. Do all this for 14 days. 42 capsule 0 [DISCONTINUED] omeprazole (PriLOSEC) [address] capsule TAKE 1 CAPSULE BY MOUTH 30 MINUTES BEFORE MORNING MEAL 90 capsule 3 [DISCONTINUED] ondansetron (Zofran) 4 MG tablet Take 1 tablet (4 mg) by mouth every 8 (eight) hours if needed for nausea or vomiting 20 tablet 0 No current facility-administered medications on file prior to visit. I have reviewed and reconciled the history and medication list with the patient today. Allergies Allergen Reactions Meperidine Other reaction(s): Vomiting Other reaction(s): vomiting Meperidine Hcl GI intolerance Morphine GI intolerance Other reaction(s): Vomiting Chlorhexidine Other Other Reaction(s): burning Other reaction(s): burning Nabumetone Unknown Nalbuphine Unknown Social History Tobacco Use Smoking status: Never Smokeless tobacco: Never Vaping Use Vaping status: Never Used Substance Use Topics Alcohol use: Not Currently Comment: Havent had any in 20 years Drug use: Never Family History Problem Relation Name Age of Onset Diabetes Mother Veronica Mayfield Diabetes Father Braulio Mayfield Hypertension Father Braulio Mayfield Heart disease Father Brauliolucinda Billingse Cancer Father Braulio Billingse Stroke Maternal Grandmother Ada Thornsberry Diabetes Maternal Grandmother Ada Thornsberry No Known Problems Maternal Grandfather Cancer Paternal Grandmother Emelia Billingse Cancer Paternal Grandfather Aftab [place]field Hypertension Other Scoliosis Sister Mayra Vargas Past Medical History: Diagnosis Date Arthritis, rheumatoid (CMS/HCC) Polanco's cyst Breast cyst 2012 Carpal tunnel syndrome COPD (chronic obstructive pulmonary disease) (CMS/HCC) Diverticulitis 2020 Gastritis GERD (gastroesophageal reflux disease) GI bleed Hiatal hernia History of thumb surgery Hypertension (CMS/HCC) Pelvic abscess in female 04/07/2021 intra-abd infection, pelvic abscess Peritoneal abscess (CMS/HCC) 03/30/2021 Proteus (mirabilis) (morganii) causing dis classd elswhr 03/30/2021 RA (rheumatoid arthritis) (CMS/HCC) Sigmoid diverticulitis 01/2021 Tear of meniscus of knee Vitamin D deficiency 2012 Past Surgical History: Procedure Laterality Date BREAST CYST EXCISION Right CARPAL TUNNEL RELEASE 2014 COLONOSCOPY 2013 COLOSTOMY 03/15/2021 CT GUIDED IMAGING FOR ABSCESS DRAIN 03/24/2021 CT GUIDED IMAGING FOR ABSCESS DRAIN CT GUIDED IMAGING FOR ABSCESS DRAIN 03/25/2021 CT GUIDED IMAGING FOR ABSCESS DRAIN CT GUIDED IMAGING FOR ABSCESS DRAIN 03/25/2021 CT GUIDED IMAGING FOR ABSCESS DRAIN CYSTOURETHROSCOPY 02/25/2021 Catheter Placement HYSTERECTOMY 12/2006 KNEE ARTHROPLASTY Left 02/14/2024 JAB KNEE SURGERY Right 06/22/2018 Scope JAB MENISCECTOMY SIGMOIDECTOMY 02/25/2021 with primary anastomosis TOTAL VAGINAL HYSTERECTOMY with RSO VAGINAL DELIVERY x2 Visit Vitals BP 152/84 Pulse 68 Resp 16 Ht 5' 5 Wt 253 lb 9.6 oz SpO2 98% BMI 42.20 kg/m OB Status Hysterectomy Smoking Status Never BSA 2.3 m Review of Systems Constitutional: Positive for fatigue. Negative for chills and fever. HENT: Positive for voice change. Respiratory: Positive for cough. Negative for shortness of breath and wheezing. Cardiovascular: Negative for chest pain, palpitations and leg swelling. Gastrointestinal: Positive for nausea. Negative for abdominal pain, constipation, diarrhea and vomiting. Skin: Positive for rash. Neurological: Positive for headaches. Psychiatric/Behavioral: Positive for sleep disturbance. The patient is nervous/anxious. Objective Physical Exam Constitutional: General: She is not in acute distress. Appearance: She is well-developed. She is obese. Comments: Appears fatigued HENT: Head: Normocephalic and atraumatic. Mouth/Throat: Comments: Voice is hoarse Eyes: General: No scleral icterus. Conjunctiva/sclera: Conjunctivae normal. Cardiovascular: Rate and Rhythm: Normal rate and regular rhythm. Heart sounds: Normal heart sounds. No murmur heard. Pulmonary: Effort: Pulmonary effort is normal. No respiratory distress. Breath sounds: Normal breath sounds. No wheezing, rhonchi or rales. Musculoskeletal: Comments: Frequent leg movements during visit. Skin: General: Skin is warm and dry. Findings: Rash (Scattered small patches of very dry light erythema bilateral lower legs) present. Neurological: General: No focal deficit present. Mental Status: She is alert and oriented to person, place, and time. Gait: Gait abnormal (Using cane for ambulation). Psychiatric: Mood and Affect: Mood is anxious (mildly). Behavior: Behavior normal. Assessment/Plan Diagnoses and all orders for this visit: Hoarseness of voice - Ambulatory referral to ENT; Future Provided pt with referral to ENT for persistent hoarseness since her recent surgery. It has worsened since her last appointment. Nausea - ondansetron (Zofran) 4 MG tablet; Take 1 tablet (4 mg) by mouth every 8 (eight) hours if needed for nausea or vomiting Provided pt with refill on the above to continue to use as needed. Left ovarian cyst Getting lab drawn today for further evaluation and following with Dr. Tristan. Nonintractable episodic headache, unspecified headache type Secondary to spinal fluid leak after surgery. They have been slowly improving. Currently having one headache a week. Will continue to monitor. Primary insomnia She admits that she slept better with the Gabapentin. Will reassess after restarting the medication. Benign essential hypertension (CMS/HCC) BP elevated today, not sleeping well and anxious about her current health issues. Will recheck at follow up. Restless leg syndrome - gabapentin (Neurontin) 300 MG capsule; Take 1 capsule (300 mg) by mouth in the morning and 1 capsule (300 mg) before bedtime. Restart Gabapentin once a day for next few days, then can increase to BID if tolerating it well. Can discuss increasing to TID dosing in the future if needed as she was at that dosage previously. States this medication was very helpful for her in the past. Dry skin dermatitis - triamcinolone (Kenalog) 0.1 % cream; Apply topically 2 (two) times a day for 14 days Continue CeraVe to BLE, use twice a day. Start Triamcinolone as prescribed. Follow up if does not continue to improve and resolve. Gastroesophageal reflux disease without esophagitis - pantoprazole (ProtoNix) 40 MG EC tablet; Take 1 tablet (40 mg) by mouth Daily Do not crush, chew, or split. Will change pt from Omeprazole to Pantoprazole to see if that is more efficacious for patient. She is to contact the office if symptoms do not improve over the next 1-2 weeks. May need referral to GI for further evaluation, possible EGD. Follow up for Appointment As Scheduled. documented in this encounter [facility] 04-03-2024 History of Present illness Narrative Images from the original note were not included. Physical Therapy Treatment Visit Patient Name: Mateus Carmichael Today's Date: 04/03/2024 Encounter Diagnoses Name Primary? Primary osteoarthritis of left knee Yes Acute postoperative pain of left knee Difficulty walking Status post left knee replacement Visit number: 16 (6 visits in home) Timed Code Treatment: 39 minutes Total Treatment Time: 57 minutes Time In: 10:55 AM Time Out: 27697 History: Pt underwent surgery for left TKA on 02/14/24. Pt completed 6 in home PT sessions and now transitioning to out patient PT. Was using cane and walker prior to surgery due to knee pain. Precautions: Section Subjective: Pt states her RA had been worsening lately. Having more pain in right knee and bilateral hips. Using cane most of the day inside the home but will change to walker in the evenings. Pain: 5/10 Objective: PT UPOC (03/07/2024) KNEE AROM: 5 to 80 degrees in supine PROM: 5 to 84 degrees with step stretch MMT: quad 3-/5; unable to perform SLR; fair VMO firing Functional: TUG with st cane: 42.69 seconds and 40.37 seconds Treatment: Manual Therapy: (PRN minutes ) Delivered manual STM, PROM , scar mobilization to left knee to reduced edema, scar tissue and improve joint mobility Therapeutic Exercise: (39 minutes supervised) Guided pt through ther and flex ex per grid to improve left LE, quad Strength, Endurance, Flexibility, ROM, HEP, Neural Mobilization, Power, and Core Stability as needed. (Bike 6 minutes) seat 10 to 9 set to level 4, focusing on knee mobility Therapeutic Activity: (minutes supervised) Exercises to improve dynamic activities, stair negotiation, functional tasks, functional mobility to return to prior activity level as needed. Gait Training: as needed. Neuromuscular re-education: Balance Training, Muscle Facilitation, Dynamic Stability, Core Stabilization, and Blood Flow Restriction Training (BFRT) as needed. Modalities: (10 minutes ) Post session L knee ,CP in supine this date to reduce pain and swelling Assessment: Pt has completed 16 PT sessions following left TKA on 02/14/24. Pt continue to ambulate with use of RW outside of the home; using cane in the home. Pt achieves 105 degrees of left knee flexion this date with overpressure. Outcome Measure: Lower Extremity Functional Scale (LEFS): 7/80 on Rehab Diagnosis: Left knee pain and weakness; difficulty walking; decrease ROM and mobility. Short Term Goal: To be met in 2 weeks Goal 1: Pt to be instructed in home exercise program. Care Home Goals: To be met in 10 weeks Goal 1: Pt to report independence and compliance with home program. MET Goal 2: Pt to achieve 120 degrees left knee flexion to assist with functional tasks such as squatting. Progressing Goal 3: Pt to be lacking no greater than 1 degree left knee extension to assist with proper gait. Progressing Goal 4: Pt to achieve 4+/5 strength left knee flexion and extension to assist with functional mobility and ADL's. Progressing Goal 5: Pt to score no less than 50/80 on LEFS indicating improved QOL. Progressing Goal 6: Pt to complete TUG with cane in less than 16.0 seconds indicating improved gait and mobility. Progressing Pt will benefit from skilled PT for 2-3x/week from 03/07/2024 to 05/16/2024 to address the above impairments. I hereby deem this POC medically necessary. Please sign below. Date: documented in this encounter [facility] 03-27-2024 History of Present illness Narrative Images from the original note were not included. Jose J Tristan MD Obstetrics and Gynecology Patient: Mateus Eloina Carmichael, : 1970 (54 y.o.) DOS 03/27/24 Exam Date: 03/27/2024 HPI: Pt referred for for left ov cyst Pt had a CT of knee for arthritis. The CT incidentally showed a 5cm left adnexal cyst. Followup sono shows a 4.3cm x 4.0cm simple cyst of left ovary. She has no abd pain or any other symptoms. She had a hysterectomy/R S+O years ago. She does not know if she is menopausal Visit Vitals BP 120/82 Wt 236 lb BMI 39.27 kg/m OB Status Hysterectomy Smoking Status Never BSA 2.22 m OB History Para Term AB Living 2 2 2 0 0 2 SAB IAB Ectopic Multiple Live Births 0 0 0 0 2 # Outcome Date GA Lbr Daniel/2nd Weight Sex Type Anes PTL Lv 2 Term 1 Term Obstetric Comments Pap: Not up to date Mammo: 03/25/24-Neg ([facility]) Hysterectomy Medication and Allergies Medication Documentation Review Audit Reviewed by Antoinette Durant MA (Accounts Payable Analyst) on 03/27/24 at 1111 Medication Order Taking? Sig Documenting Provider Last Dose Status acetaminophen (Tylenol) 325 MG tablet [id number] Take 2 tablets every 6 hours by oral route. Historical ProviderMD Active Airsupra 90-80 MCG/ACT aerosol [id number] Yes INHALE 2 PUFFS FOUR TIMES DAILY NEEDED FOR SHORTNESS OF BREATH Jose J Tristan MD Active albuterol HFA 90 mcg/act inhaler [id number] Inhale 1 puff every 4 (four) hours if needed for wheezing or shortness of breath. Historical ProviderMD Active aspirin 81 MG EC tablet [id number] Take 81 mg by mouth Daily APRIL Caba Active carvedilol (Coreg) 12.5 MG tablet [id number] TAKE 1 TABLET BY MOUTH IN THE MORNING AND 1 TABLET IN THE EVENING WITH FOOD APRIL Caba Active cholecalciferol (Vitamin D-3) 50 MCG (1999) tablet [id number] Take 1 tablet by mouth. Once a day Historical ProviderMD Active clindamycin (Cleocin T) 1 % lotion [id number] Apply thin later to affected areas on the body during flares, 30 day supply Catalina Marte MD Active Ferric Maltol (ACCRUFeR) 30 MG capsule [id number] Take 30 mg by mouth Daily APRIL Caba Active fluticasone (Flonase) 50 MCG/ACT nasal spray [id number] Administer 2 sprays into each nostril. Once a day Historical Provider, Active gabapentin (Neurontin) 300 MG capsule [id number] Take 1 capsule (300 mg) by mouth in the morning and 1 capsule (300 mg) in the evening and 1 capsule (300 mg) before bedtime. Do all this for 14 days. Gavin Schmitt, DO 03/12/24 5625 hydroxychloroquine (Plaquenil) 200 MG tablet [id number] Take 1 tablet by mouth in the morning and 1 tablet before bedtime. Historical Provider, Active levothyroxine (Synthroid) 150 MCG tablet [id number] Take 1 tablet (150 mcg) by mouth in the morning. Take before meals. APRIL Caba Active nystatin (Mycostatin) cream [id number] APPLY 1 APPLICATION EXTERNALLY TWICE A DAY APRIL Caba Active omeprazole (PriLOSEC) [address] capsule [id number] TAKE 1 CAPSULE BY MOUTH 30 MINUTES BEFORE MORNING MEAL APRIL Caba Active ondansetron (Zofran) 4 MG tablet [id number] Take 1 tablet (4 mg) by mouth every 8 (eight) hours if needed for nausea or vomiting Emanuel Beasley NP Active Ostomy Supplies (Adapt Lubricating Deodorant) liquid [id number] 1 application in the morning. APRIL Caba Active rizatriptan RAILROAD FIRER (Maxalt-RAILROAD FIRER) 10 MG disintegrating tablet [id number] Take 1 tablet (10 mg) by mouth 2 (two) times a day as needed for migraine And place on top of tongue where it will dissolve, then swallow x1, may repeat at 2 hour intervals; do not exceed 30 mg in 24 hours APRIL Caba Active scopolamine (Transderm-Scop) 1 mg/72 hr patch [id number] 1 patch on the skin every 3rd (third) day Emanuel Beasley NP Active traMADol (Ultram) 50 MG tablet [id number] Take 1 tablet (50 mg) by mouth every 6 (six) hours if needed for severe pain for up to 7 days Emanuel Beasley NP Active triamterene-hydroCHLOROthiazide (Dyazide) 37.5-25 MG capsule [id number] TAKE 1 CAPSULE BY MOUTH DAILY NEEDED FOR SWELLING APRIL Caba Active Allergies Allergen Reactions Meperidine Other reaction(s): Vomiting Other reaction(s): vomiting Meperidine Hcl GI intolerance Morphine GI intolerance Other reaction(s): Vomiting Chlorhexidine Other Other Reaction(s): burning Other reaction(s): burning Nabumetone Unknown Nalbuphine Unknown Past Medical History: Diagnosis Date Arthritis, rheumatoid (CMS/HCC) Polanco's cyst Breast cyst 2012 Carpal tunnel syndrome COPD (chronic obstructive pulmonary disease) ([facility]/HCC) Diverticulitis 2020 Gastritis GERD (gastroesophageal reflux disease) GI bleed Hiatal hernia History of thumb surgery Hypertension ([facility]/HCC) Pelvic abscess in female 04/07/2021 intra-abd infection, pelvic abscess Peritoneal abscess ([facility]) 03/30/2021 Proteus (mirabilis) (morganii) causing dis classd elswhr 03/30/2021 RA (rheumatoid arthritis) ([facility]) Sigmoid diverticulitis 01/2021 Tear of meniscus of knee Vitamin D deficiency 2012 Past Surgical History: Procedure Laterality Date BREAST CYST EXCISION Right CARPAL TUNNEL RELEASE 2014 COLONOSCOPY 2013 COLOSTOMY 03/15/2021 CT GUIDED IMAGING FOR ABSCESS DRAIN 03/24/2021 CT GUIDED IMAGING FOR ABSCESS DRAIN CT GUIDED IMAGING FOR ABSCESS DRAIN 03/25/2021 CT GUIDED IMAGING FOR ABSCESS DRAIN CT GUIDED IMAGING FOR ABSCESS DRAIN 03/25/2021 CT GUIDED IMAGING FOR ABSCESS DRAIN CYSTOURETHROSCOPY 02/25/2021 Catheter Placement HYSTERECTOMY 12/2006 KNEE ARTHROPLASTY Left 02/14/2024 JAB KNEE SURGERY Right 06/22/2018 Scope JAB MENISCECTOMY SIGMOIDECTOMY 02/25/2021 with primary anastomosis TOTAL VAGINAL HYSTERECTOMY with RSO VAGINAL DELIVERY x2 Physical Exam: Objective Physical Exam Constitutional: Appearance: Normal appearance. She is obese. Genitourinary: Vulva normal. Vaginal cuff intact. No vaginal discharge or bleeding. No vaginal atrophy present. Right Adnexa: absent. Left Adnexa: not palpable. Cervix is absent. Uterus is absent. Breasts: Right: Normal. Left: Normal. Pulmonary: Effort: Pulmonary effort is normal. Abdominal: Palpations: Abdomen is soft. Neurological: Mental Status: She is alert. Associated Treatments and Results - ICD-10-CM 1. Left ovarian cyst N83.202 Ambulatory referral to Obstetrics / Gynecology 2. Menopausal symptoms N95.1 Follicle stimulating hormone Follicle stimulating hormone 3. Screening for HPV (human papillomavirus) Z11.51 IGP, APT HPV,RFX 16/18,45 4. Vaginal Pap smear Z12.72 IGP, APT HPV,RFX 16/18,45 Check [facility]SH repeat sono Assessment/Plan Orders Placed This Encounter Procedures IGP, APT HPV,RFX 16/18,45 Order Specific Question: Print requisition? Answer: Yes Follicle stimulating hormone Standing Status: Future Number of Occurrences: 1 Standing Expiration Date: 03/27/2025 Order Specific Question: Print requisition? Answer: Yes documented in this encounter [facility] 03-26-2024 History of Present illness Narrative Images from the original note were not included. HISTORY OF PRESENT ILLNESS: Mateus Carmichael is an 54 y.o. @ female. Patient is 5 weeks 6 days s/p LT TKA. States she is doing well but still having mild knee pain and nausea. She has been working with PT and feels she may have strained her lateral quadriceps. REVIEW OF SYSTEMS: General: Denies fever, fatigue or weight loss Lungs: Denies SOB Cardio: Denies chest pain GI: Denies indigestion or abdominal pain Neuro: Denies numbness or tingling, denies new onset paralysis Musculoskeletal: ( see note) PHYSICAL EXAM: Left Knee Exam Tenderness Left knee tenderness location: lateral quadriceps, expected post op pain. Range of Motion Extension: 5 Flexion: 100 (tightness on terminal flexion) Tests Varus: negative Valgus: negative Other Erythema: absent Scars: present (Well healing, no erythema) Sensation: normal Pulse: present Swelling: mild Effusion: consistent with surgery. Comments: Operative lower extremity was noted to be neurovascularly intact. Patient was able to motor feet, toes and ankles in all anatomic planes bilaterally with 5 out of 5 strength. Operative knee's patellar tracking was optimal and quad/ham strength was 5 out of 5 to operative lower extremity. There was no varus valgus, anterior-posterior, or rotatory instability noted to the operative knee. Swelling was well controlled, patella was not ballotable and compartments were soft to the operative lower extremity. Dorsalis pedis and posterior tibial pulses were present and equal bilaterally. There was no evidence of infection or ascending lymphangitis to operative lower extremity. Sensation to light touch was intact to all dermatomes to bilateral lower extremities. Negative Homans and negative Russel were noted bilaterally to lower extremities. Incision was healing without evidence of infection Procedures IMAGING: XR knee 3 views left Imaging Result: 03/26/2024: AP, LAT and Mccammon views of left knee showed surgical position and alignment of prosthetic components without evidence of loosening or wear to the femoral, tibial, or patellar components. The alignment appeared to be anatomic. There was no evidence of accelerated or asymmetric wear to the patellar button or tibial tray. There was no evidence of fracture and/or dislocation Impression: Stable LT TKA Emanuel Beasley APRN-NEWS COMMENTATOR ASSESSMENT: ICD-10-CM 1. S/P total knee arthroplasty, left Z96.652 XR knee 3 views left traMADol (Ultram) 50 MG tablet 2. Nausea R11.0 ondansetron (Zofran) 4 MG tablet scopolamine (Transderm-Scop) 1 mg/72 hr patch 72 hour patch PLAN: I reviewed xray findings with the patient and her which demonstrated stable LT TKA. She states she still has post op pain and nausea but it is improving. I will refill patients nausea meds and tramadol but did discuss with patient that we will begin tapering her pain medication. Patient verbalized understanding. She will continue working on ROM with PT and completing HEP. She will follow up in 6 weeks for RCK with Dr. Schmitt. Questions answered in laymen terms at the bedside. The diagnosis, home exercise plan and any ongoing restrictions/ recommendations reviewed. If unable to be reached in office, I recommend evaluation at nearest Emergency Room if any symptoms worsened or new symptoms develop for requiring urgent evaluation. VIK Meyers documented in this encounter [facility] 03-18-2024 History of Present illness Narrative Physical Therapy Treatment Visit Patient Name: Mateus Carmichael Today's Date: 03/18/2024 Encounter Diagnoses Name Primary? Primary osteoarthritis of left knee Yes Acute postoperative pain of left knee Difficulty walking Status post left knee replacement Visit number: 4 (6 visits in home) Timed Code Treatment: 39 minutes Total Treatment Time: 59 minutes Time In: 11:45 AM Time Out: 12:50 PM History: Pt underwent surgery for left TKA on 02/14/24. Pt completed 6 in home PT sessions and now transitioning to out patient PT. Was using cane and walker prior to surgery due to knee pain. Precautions: Section Subjective: Was at a yesterday and on her feet more. States left knee was really swollen last night. Took a water pill which helped some. RTD on 03/26/24. Pain: 10 Objective: PT UPOC (03/07/2024) KNEE AROM: 5 to 80 degrees in supine PROM: 5 to 84 degrees with step stretch MMT: quad 3-/5; unable to perform SLR; fair VMO firing Functional: TUG with st cane: 42.69 seconds and 40.37 seconds Treatment: Manual Therapy: () Delivered manual STM, PROM , scar mobilization to left knee to reduced edema, scar tissue and improve joint mobility Therapeutic Exercise: (26 minutes supervised) Guided pt through ther and flex ex per grid to improve left LE, quad Strength, Endurance, Flexibility, ROM, HEP, Neural Mobilization, Power, and Core Stability as needed. (Nustep 10 minutes unsupervised) seat to 18 set to hills level 3 Therapeutic Activity: (13 minutes supervised) Exercises to improve dynamic activities, functional tasks, functional mobility to return to prior activity level as needed. Gait Training: as needed. Neuromuscular re-education: Balance Training, Muscle Facilitation, Dynamic Stability, Core Stabilization, and Blood Flow Restriction Training (BFRT) as needed. Modalities: Heat, Ice, Electrical Stimulation, Ultrasound, Cervical Mechanical Traction, Lumbar Mechanical Traction, Iontophoresis, and Fluidotherapy as needed. CP x 10 mins in supine this date for pain and swelling X 10 minutes Assessment: Pt has completed 10 PT sessions following left TKA on 02/14/24. Pt continues to ambulate with use of RW, step to gait pattern noted this date. Left knee flexion limited to approx 90 degrees this date with self stretch in supine. Will continue to progress as pt tolerates. Outcome Measure: Lower Extremity Functional Scale (LEFS): 780 on Rehab Diagnosis: Left knee pain and weakness; difficulty walking; decrease ROM and mobility. Short Term Goal: To be met in 2 weeks Goal 1: Pt to be instructed in home exercise program. Design Lead Goals: To be met in 10 weeks Goal 1: Pt to report independence and compliance with home program. Goal 2: Pt to achieve 120 degrees left knee flexion to assist with functional tasks such as squatting. Goal 3: Pt to be lacking no greater than 1 degree left knee extension to assist with proper gait. Goal 4: Pt to achieve 4+/5 strength left knee flexion and extension to assist with functional mobility and ADL's. Goal 5: Pt to score no less than 50/80 on LEFS indicating improved QOL. Goal 6: Pt to complete TUG with cane in less than 16.0 seconds indicating improved gait and mobility. Pt will benefit from skilled PT for 2-3x/week from 03/07/2024 to 05/16/2024 to address the above impairments. I hereby deem this POC medically necessary. Please sign below. Date: documented in this encounter [facility] 03-15-2024 Evaluation note Diagnosis Onset Date Resolution Acute sinusitis acute February 272024 10:34am [facility] Work Phone: 1(366) 629-416301-17-2025 Evaluation note* Diagnosis Onset Date Resolution Status Admit Date Acute sinusitis acute February 272024 10:34am Dysuria noneactive May 31 1:04pm [facility] Work Phone: 1(332) 234-303601-06-2025 History of Present illness Narrative* APRIL Caba - 03/04/2024 3:30 PM EST Images from the original note were not included. [facility] Med Refill Additional comments: Kevin Last edited by Leah Watkins LPN on 03/04/2024 3:28 PM. Subjective Patient ID: Mateus Carmichael is a 54 y.o. female who presents for sinus issues. Mateus is present today for evaluation of cough. Admits cough with green phlegm, SOB, wheezing, sore throat (she just had a knee replacement on 02/14/24 and states she woke up with a sore throat and hoarseness), right ear pain. She has not been taking anything OTC. States her left knee is healing well. Doing PT. States after her surgery she was having intense headaches that medication was not helping. Was toldshe had a spinal fluid leak from the Epidural. Headaches have resolved. Current Outpatient Medications on File Prior to Visit Medication Sig Dispense Refill acetaminophen (Tylenol Extra Strength) 500 MG tablet Take 1 tablet (500 mg) by mouth every 4 (four)hours if needed for mild pain for up to 10 days 40 tablet 0 acetaminophen (Tylenol) 325 MG tablet Take 2 tablets every 6 hours by oral route. albuterol HFA 90 mcg/act inhaler Inhale 1 puff every 4 (four) hours if needed for wheezing or shortness of breath. aspirin 81 MG EC tablet Take 81 mg by mouth Daily carvedilol (Coreg) 12.5 MG tablet TAKE 1 TABLET BY MOUTH IN THE MORNING AND 1 TABLET IN THE EVENINGWITH FOOD 200 tablet 3 cholecalciferol (Vitamin D-3) 50 MCG (2000 UT) tablet Take 1 tablet by mouth. Once a day clindamycin (Cleocin T) 1 % lotion Apply thin later to affected areas on the body during flares, supply 60 mL 11 Ferric Maltol (ACCRUFeR) 30 MG capsule Take 30 mg by mouth Daily 90 capsule 3 fluticasone (Flonase) 50 MCG/ACT nasal spray Administer 2 sprays into each nostril. Once a day gabapentin (Neurontin) 300 MG capsule Take 1 capsule (300 mg) by mouth in the morning and 1 capsule(300 mg) in the evening and 1 capsule (300 mg) before bedtime. Do all this for 14 days. 42 capsule 0 hydroxychloroquine (Plaquenil) 200 MG tablet Take 1 tablet by mouth in the morning and 1 tablet before bedtime. levothyroxine (Synthroid) 150 MCG tablet Take 1 tablet (150 mcg) by mouth in the morning. Take before meals. 90 tablet 3 nystatin (Mycostatin) cream APPLY 1 APPLICATION EXTERNALLY TWICE A DAY 45 g 2 omeprazole (PriLOSEC) [address] capsule TAKE 1 CAPSULE BY MOUTH 30 MINUTES BEFORE MORNING MEAL 90 capsule 3 Ostomy Supplies (Adapt Lubricating Deodorant) liquid 1 application in the morning. 236 mL 5 rizatriptan RAILROAD FIRER (Maxalt-RAILROAD FIRER) 10 MG disintegrating tablet Take 10 mg by mouth. And place on top of tongue where it will dissolve, then swallow x1, may repeat at 2 hour intervals; do not exceed 30 mg in 24 hours scopolamine (Transderm-Scop) 1 mg/72 hr patch [address] 1 patch on the skin every 3rd (third) day 10 patch 0 traMADol (Ultram) 50 MG tablet Take 1-2 tablets (50-100 mg) by mouth every 4 (four) hours if needed(pain) for up to 7 days 40 tablet 0 triamterene-hydroCHLOROthiazide (Dyazide) 37.5-25 MG capsule TAKE 1 CAPSULE BY MOUTH DAILY NEEDED FOR SWELLING 100 capsule 3 [DISCONTINUED] ondansetron (Zofran) 4 MG tablet Take 4 mg by mouth. Every 8 hours as needed [DISCONTINUED] traMADol (Ultram) 50 MG tablet Take 1 tablet by mouth every 6 (six) hours if needed for moderate pain. No current facility-administered medications on file prior to visit. I have reviewed and reconciled the history and medication list with the patient today. Allergies Allergen Reactions Meperidine Other reaction(s): Vomiting Other reaction(s): vomiting Meperidine Hcl GI intolerance Morphine GI intolerance Other reaction(s): Vomiting Chlorhexidine Other Other Reaction(s): burning Other reaction(s): burning Nabumetone Unknown Nalbuphine Unknown Social History Tobacco Use Smoking status: Never Smokeless tobacco: Never Tobacco comments: Never Vaping Use Vaping status: Never Used Substance Use Topics Alcohol use: Not Currently Comment: Havent had any in 20 years Drug use: Never Family History Problem Relation Name Age of Onset Diabetes Mother Veronica [place] Diabetes Father Braulio [place]illingse Hypertension Father Braulio [place] Heart disease Father [place] Cancer Father Braulio [place] Stroke Maternal Grandmother Ada [place] Diabetes Maternal Grandmother Ada Thorn[place]berry No Known Problems Maternal Grandfather Cancer Paternal Grandmother Emelia [place]illingse Cancer Paternal Grandfather Aftab [place] Hypertension Other Scoliosis Sister Mayra Vargas Past Medical History: Diagnosis Date Arthritis, rheumatoid (CMS/HCC) Polanco's cyst Breast cyst 2012 Carpal tunnel syndrome COPD (chronic obstructive pulmonary disease) (CMS/HCC) Diverticulitis 2020 Gastritis GERD (gastroesophageal reflux disease) GI bleed Hiatal hernia History of thumb surgery Hypertension (CMS/HCC) Pelvic abscess in female 04/07/2021 intra-abd infection, pelvic abscess Peritoneal abscess (CMS/HCC) 03/30/2021 Proteus (mirabilis) (morganii) causing dis classd elswhr 03/30/2021 RA (rheumatoid arthritis) (CMS/HCC) Sigmoid diverticulitis 01/2021 Tear of meniscus of knee Vitamin D deficiency 2012 Past Surgical History: Procedure Laterality Date BREAST CYST EXCISION Right CARPAL TUNNEL RELEASE 2014 COLONOSCOPY 2013 COLOSTOMY 03/15/2021 CT GUIDED IMAGING FOR ABSCESS DRAIN 03/24/2021 CT GUIDED IMAGING FOR ABSCESS DRAIN CT GUIDED IMAGING FOR ABSCESS DRAIN 03/25/2021 CT GUIDED IMAGING FOR ABSCESS DRAIN CT GUIDED IMAGING FOR ABSCESS DRAIN 03/25/2021 CT GUIDED IMAGING FOR ABSCESS DRAIN CYSTOURETHROSCOPY 02/25/2021 Catheter Placement HYSTERECTOMY 12/2006 KNEE ARTHROPLASTY Left 02/14/2024 JAB KNEE SURGERY Right 06/22/2018 Scope JAB MENISCECTOMY SIGMOIDECTOMY 02/25/2021 with primary anastomosis TOTAL VAGINAL HYSTERECTOMY with RSO Visit Vitals BP (!) 158/102 Pulse 99 Temp 98.4 F Resp 16 Ht 5' 5 Wt 263 lb SpO2 96% BMI 43.77 kg/m Smoking Status Never BSA 2.34 m Review of Systems Constitutional: Negative for chills, fatigue and fever. HENT: Positive for ear pain, sore throat and trouble swallowing. Respiratory: Positive for cough, shortness of breath and wheezing. Cardiovascular: Negative for chest pain, palpitations and leg swelling. Gastrointestinal: Negative for abdominal pain, constipation, diarrhea, nausea and vomiting. Musculoskeletal: Positive for arthralgias, gait problem and joint swelling. Skin: Negative for rash. Objective Physical Exam Constitutional: General: She is not in acute distress. Appearance: She is well-developed. She is obese. She is ill-appearing. HENT: Head: Normocephalic and atraumatic. Right Ear: Tympanic membrane and ear canal normal. Left Ear: Tympanic membrane and ear canal normal. Nose: Right Turbinates: Not swollen. Left Turbinates: Not swollen. Comments: Turbinates erythematous Mouth/Throat: Mouth: Mucous membranes are moist. Pharynx: Posterior oropharyngeal erythema (Mild) present. Comments: Hoarse voice. Eyes: General: No scleral icterus. Conjunctiva/sclera: Conjunctivae normal. Cardiovascular: Rate and Rhythm: Normal rate and regular rhythm. Heart sounds: Normal heart sounds. No murmur heard. Pulmonary: Effort: Pulmonary effort is normal. No respiratory distress. Breath sounds: No wheezing, rhonchi or rales. Comments: Harsh lung sounds Lymphadenopathy: Cervical: No cervical adenopathy. Skin: General: Skin is warm and dry. Neurological: General: No focal deficit present. Mental Status: She is alert and oriented to person, place, and time. Gait: Gait abnormal (Using a walker for ambulation). Psychiatric: Mood and Affect: Mood normal. Behavior: Behavior normal. Assessment/Plan Diagnoses and all orders for this visit: Chronic migraine without aura without status migrainosus, not intractable (CMS/HCC) - rizatriptan RAILROAD FIRER (Maxalt-RAILROAD FIRER) 10 MG disintegrating tablet; Take 1 tablet (10 mg) by mouth 2 (two) times a day as needed for migraine And place on top of tongue where it will dissolve, then swallow x1, may repeat at 2 hour intervals; do not exceed 30 mg in 24 hours Refill provided on the Maxalt. Patient feels like it works well for her and denies s/e. She can continue with it as needed. Acute bronchitis, unspecified organism - fluconazole (Diflucan) 150 MG tablet; Take 1 tablet (150 mg) by mouth Daily for 1 day, THEN 1 tablet (150 mg) Daily for 1 day. Take doses 3 days apart. - azithromycin (Zithromax) 250 MG tablet; Take 2 tablets (500 mg) by mouth Daily for 1 day, THEN 1 tablet (250 mg) Daily for 4 days. - benzonatate (Tessalon) 200 MG capsule; Take 1 capsule (200 mg) by mouth 3 (three) times a day as needed for cough for up to 7 days Do not crush or chew. Start the above medications as directed. Can take Tessalon Perles prn for cough. Increase water intake, get plenty of rest. Can take Tylenol prn for any discomfort or fever. Cough into elbow. Wash hands often. Cough can linger with bronchitis. Follow up in our office if no improvement in one week. S/p left knee replacement Doing well with physical therapy. Using Tramadol and/or Tylenol prn for pain. Follow up with Dr. Gavin Schmitt as per his instruction. BP elevated today, will recheck at next appointment and adjust medication if needed at that time. Just had a PT session and is in more pain, and is currently sick. Follow up for Appointment As Scheduled. documented in this encounterSSM Health [id number] History of Present illness Narrative* Rafael Chandler, PT - 03/04/2024 10:00 AM EST Physical Therapy Physical Therapy Daily Visit Patient Name: Mateus Carmichael Today's Date: 03/04/2024 Subjective Current Problem: s/p left TKA with pain and difficulty walking. Pt is being seen today for follow up visit for s/p left TKA. Still having episodes of nausea and using zofran PRN. Date of Surgery: 02/14/2024 with 4 night stay due to nausea, spinal SMITH and high BP. Current deficits: Difficulty with all mobility secondary to recent left TKA and pain. Visit Number 2. (4 visits in 2023) Time In: 10:00 am; Time out: 10:38 am Total time: 38 minutes 24628 Ther x 28 minutes [id number] Gait Training x 10 minutes Precautions: WBAT left LE; left TKA protocol Pain Management: The patient is complaining of pain located in the left knee and thigh region. Painrating 4/10. The pain is improved by ice and medication 1 every 6 hours of Tramodol and Tylenol as needed. The pain is aggravated by activity. The pain is described as aching, throbbing and stiffness. Prior level of function: Ambulation: antalgic gait pattern on left LE. Assistive devices: FWW ADL and IADL: Independent. Home Environment: Pt lives with her in a two story home with 3-4 steps to enter. Has tub/shower combo with bench. Objective General Visit Information: Passive ROM: Left knee 5 to 90 degrees. Joint play: hypomobile. Manual muscle testing: Left knee flexion/extension: 3-/5. Palpation: Minimal warmth upon palpation,consistent with post-operative conditions. Surgical incision intact with sterile strips and open toair. Minimal edema Special tests: Negative Nelly Sign. Functional Mobility: Bed Mobility: Sleeping in recliner. Sit to Stand: SBA Stair Negotiation: SBA Ambulation: AK with walker with uneven reciprocal gait pattern; SBA with str cane with step to gaitrust Physical Education Intervention Physical Therapy Education: Pt was educated on the importance of cyrotherapy and elevation. Reviewed proper pillow placement under LE to maintain good extension. Stressed the importance also of ambulating at at least every other hour for 2-5 minutes duration and completion of HEP 2x/day. Patient was educated with regards to signs and symptoms to monitor with respect to blood clots and infection. Therapeutic Exercise : Pt completed left LE supine exercises of glut sets, quad sets, and ankle pumps (hourly) at this time, 10x; added supine heel slides. Standing exercises of heel raises, marches,hip abduction and ham curls. Completed standing knee flexion on step with gentle rocking, 10x. Completed 2 sets of 5 reps of LAQ with AAROM. HEP updated and instructed. Gait Training: Pt ambulated with walker, reciprocal gait pattern, 150' x 2 with minimal WB on Ue's on walker; mod indep.; worked on ambulating str cane ambulation this date; two point gait pattern atSBA; 150' x 3 patient noted some knee buckling at end of trials but was able to control; SBA. Therapeutic Activity: Worked on proper sit to stand, stand to sit transfers this date from reclinerand kitchen chair with good carryover with Supervision with verbal cues for proper sequencing and hand placement. Assessment & Plan Assessment Impairments: abnormal gait, abnormal or restricted ROM, impaired balance, impaired physical strength, pain with function and weight-bearing intolerance Barriers to therapy: Increased pain, edema,bruising and knee weakness. Prognosis: good Goals Short Term Goals Goal 1 : Patient will be independent with HEP with good compliance and independence. Goal 2 : Patient will demonstrate 3-90 degrees of passive range of motion of left knee flexion. Goal 3 : Patient will ambulate >6 minutes modified independently with wheeled walker with good reciprocal gait pattern. Goal 4 : Patient will demonstrate all sit< >stand transfers and supine< >sit bed mobility, modified independent with no cues for proper sequencing. Goal 5 : Patient will ascend/descend 3-4 steps with AD with supervision, step to gait pattern. Care Home Goals Goal 1 : Patient will demonstrate 0-110 degrees of active left knee flexion in order to improve indpendence with ambulation up and down steps. Goal 2 : Patient will demonstrate 4+/5 or better left knee strength in order to safely return to activities of interest. Goal 3 : Patient will ambulate community distances on even and uneven surfaces, independently with no AD, normalized gait pattern and < 1/10 report of pain in left knee. Goal 4 : Pt will ascend/descend full flight of stairs with railing with reciprical gait pattern independently. Goal 5 : Patient will demonstrate good static and dynamic standing balance for >15 mintues without LOB or increase in knee pain. Goal 6 : Pt will improve Tinetti Balance test to 28/28 to indicate no fall risk. Plan Planned modality interventions: cryotherapy Planned therapy interventions: bed mobility training, dressing changes, functional ROM exercises, gait training, home exercise program, manual therapy, neuromuscular re-education, soft tissue mobilization, strengthening, stretching, therapeutic activities and transfer training Frequency: 3x/week. Duration in weeks: 6 Treatment plan discussed with: patient Plan details: Educated to continue icing and elevating. Stressed importance of longer stretching into flexion; patient receptive. Pt to transition to OP at [facility] on 03/06/24 documented in this encounterSSM Health [id number] History of Present illness Narrative* Rafael Chandler, PT - 03/01/2024 11:00 AM EST Physical Therapy Physical Therapy Daily Visit Patient Name: Mateus Carmichael Today's Date: 03/01/2024 Subjective Current Problem: s/p left TKA with pain and difficulty walking. Pt is being seen today for follow up visit for s/p left TKA. Still having episodes of nausea and using zofran PRN. Date of Surgery: 02/14/2024 with 4 night stay due to nausea, spinal SMITH and high BP. Current deficits: Difficulty with all mobility secondary to recent left TKA and pain. Visit Number 1. (4 visits in 2023) Time In: 11:00 am; Time out: 11:40 am Total time: 40 minutes 12513 Ther x 30 minutes [id number] Gait Training x 10 minutes Precautions: WBAT left LE; left TKA protocol Pain Management: The patient is complaining of pain located in the left knee and thigh region. Painrating /10. The pain is improved by ice and medication 1 every 6 hours of Tramodol and Tylenol as needed. The pain is aggravated by activity. The pain is described as aching, throbbing and stiffness. Prior level of function: Ambulation: antalgic gait pattern on left LE. Assistive devices: FWW ADL and IADL: Independent. Home Environment: Pt lives with her in a two story home with 3-4 steps to enter. Has tub/shower combo with bench. Objective General Visit Information: Passive ROM: Left knee 5 to 85 degrees. Joint play: hypomobile. Manual muscle testing: Left knee flexion/extension: 3-/5. Palpation: Minimal warmth upon palpation,consistent with post-operative conditions. Surgical incision intact with sterile strips and open toair. Minimal edema Special tests: Negative Nelly Sign. Functional Mobility: Bed Mobility: Sleeping in recliner. Sit to Stand: SBA Stair Negotiation: SBA Ambulation: Unable to ambulate this date due to headache and nausea/vomiting. Physical Education Intervention Physical Therapy Education: Pt was educated on the importance of cyrotherapy and elevation. Reviewed proper pillow placement under LE to maintain good extension. Stressed the importance also of ambulating at at least every other hour for 2-5 minutes duration and completion of HEP 2x/day. Patient was educated with regards to signs and symptoms to monitor with respect to blood clots and infection. Therapeutic Exercise : Pt completed left LE supine exercises of glut sets, quad sets, and ankle pumps (hourly) at this time, 10x; added supine heel slides. Standing exercises of heel raises, marches,hip abduction and ham curls. Completed standing knee flexion on step with gentle rocking, 10x. Completed 2 sets of 5 reps of LAQ with AAROM. HEP updated and instructed. Gait Training: Pt ambulated with walker, reciprocal gait pattern, 150' x 2 with minimal WB on Ue's on walker; mod indep.; worked on ambulating str cane ambulation this date; two point gait pattern atSBA; 50' x 3 with forward and retro ambulation; patient noted some knee buckling at end of trials but was able to control; SBA. Worked on ascend/descending 4 steps with HR, SBA with step to gait pattern. Therapeutic Activity: Worked on proper sit to stand, stand to sit transfers this date from reclinerand kitchen chair with good carryover with Supervision with verbal cues for proper sequencing and hand placement. Assessment & Plan Assessment Impairments: abnormal gait, abnormal or restricted ROM, impaired balance, impaired physical strength, pain with function and weight-bearing intolerance Barriers to therapy: Increased pain, edema,bruising and knee weakness. Prognosis: good Goals Short Term Goals Goal 1 : Patient will be independent with HEP with good compliance and independence. Goal 2 : Patient will demonstrate 3-90 degrees of passive range of motion of left knee flexion. Goal 3 : Patient will ambulate >6 minutes modified independently with wheeled walker with good reciprocal gait pattern. Goal 4 : Patient will demonstrate all sit< >stand transfers and supine< >sit bed mobility, modified independent with no cues for proper sequencing. Goal 5 : Patient will ascend/descend 3-4 steps with AD with supervision, step to gait pattern. Care Home Goals Goal 1 : Patient will demonstrate 0-110 degrees of active left knee flexion in order to improve indpendence with ambulation up and down steps. Goal 2 : Patient will demonstrate 4+/5 or better left knee strength in order to safely return to activities of interest. Goal 3 : Patient will ambulate community distances on even and uneven surfaces, independently with no AD, normalized gait pattern and < 1/10 report of pain in left knee. Goal 4 : Pt will ascend/descend full flight of stairs with railing with reciprical gait pattern independently. Goal 5 : Patient will demonstrate good static and dynamic standing balance for >15 mintues without LOB or increase in knee pain. Goal 6 : Pt will improve Tinetti Balance test to 28/28 to indicate no fall risk. Plan Planned modality interventions: cryotherapy Planned therapy interventions: bed mobility training, dressing changes, functional ROM exercises, gait training, home exercise program, manual therapy, neuromuscular re-education, soft tissue mobilization, strengthening, stretching, therapeutic activities and transfer training Frequency: 3x/week. Duration in weeks: 6 Treatment plan discussed with: patient Plan details: Educated to continue icing and elevating. Stressed importance of longer stretching into flexion; patient receptive. documented in this encounterSSM Health [id number] History of Present illness Narrative* Gavin Duvall Oskar, DO - 02/27/2024 8:45 AM EST Images from the original note were not included. @[email or web address]@ Mateus Carmichael is a 54 y.o. female who presents for Follow-up and Post-op of the Left Knee HPI: History of Present Illness The patient is 13 days status post left total knee arthroplasty, with the surgery having been performed on 02/14/2024. She is accompanied by her . She reports satisfactory progress in her physical therapy, with an achieved flexion of 82 degrees. She is scheduled to transition to outpatient therapy next week. She has been utilizing a cryo cuff for pain management, but it has recently developed a leak. She has been managing her pain effectivelywith gabapentin, taken every 8 hours, and has not required oxycodone. She experienced increased soreness following an intensive physical therapy session yesterday, which was alleviated with additional icing. She also reports hoarseness post- surgery, which she attributes to the anesthesia. Supplemental Information She reports that her headaches have improved. She did not need a blood patch. Still using scopolamine patches. SUBJECTIVE: MEDICATIONS: Current Outpatient Medications Medication Instructions ACCRUFeR 30 mg, Oral, Daily acetaminophen (TYLENOL EXTRA STRENGTH) 500 mg, Oral, Every 4 hours PRN acetaminophen (Tylenol) 325 MG tablet Take 2 tablets every 6 hours by oral route. albuterol HFA 90 mcg/act inhaler 1 puff, Every 4 hours PRN carvedilol (Coreg) 12.5 MG tablet TAKE 1 TABLET BY MOUTH IN THE MORNING AND 1 TABLET IN THE EVENINGWITH FOOD cholecalciferol (Vitamin D-3) 50 MCG (1999 UT) tablet 1 tablet clindamycin (Cleocin T) 1 % lotion Apply thin later to affected areas on the body during flares, 30day supply fluticasone (Flonase) 50 MCG/ACT nasal spray 2 sprays gabapentin (NEURONTIN) 300 mg, Oral, 3 times daily hydroxychloroquine (Plaquenil) 200 MG tablet 1 tablet, 2 times daily levothyroxine (SYNTHROID) 150 mcg, Oral, Daily before breakfast nystatin (Mycostatin) cream APPLY 1 APPLICATION EXTERNALLY TWICE A DAY omeprazole (PriLOSEC) [address] capsule TAKE 1 CAPSULE BY MOUTH 30 MINUTES BEFORE MORNING MEAL ondansetron (ZOFRAN) 4 mg Ostomy Supplies (Adapt Lubricating Deodorant) liquid 1 application , Does not apply, Daily rizatriptan RAILROAD FIRER (MAXALT-RAILROAD FIRER) 10 mg scopolamine (Transderm-Scop) 1 mg/72 hr patch 72 hour patch 1 patch, Transdermal, Every 72 hours traMADol (Ultram) 50 MG tablet 1 tablet, Every 6 hours PRN traMADol (ULTRAM) 50-100 mg, Oral, Every 4 hours PRN triamterene-hydroCHLOROthiazide (Dyazide) 37.5-25 MG capsule TAKE 1 CAPSULE BY MOUTH DAILY NEEDED FOR SWELLING ALLERGIES: Allergies Allergen Reactions Meperidine Other reaction(s): Vomiting Other reaction(s): vomiting Meperidine Hcl GI intolerance Morphine GI intolerance Other reaction(s): Vomiting Chlorhexidine Other Other Reaction(s): burning Other reaction(s): burning Nabumetone Unknown Nalbuphine Unknown SURGICAL HISTORY: Past Surgical History: Procedure Laterality Date BREAST CYST EXCISION Right CARPAL TUNNEL RELEASE 2014 COLONOSCOPY 2013 COLOSTOMY 03/15/2021 CT GUIDED IMAGING FOR ABSCESS DRAIN 03/24/2021 CT GUIDED IMAGING FOR ABSCESS DRAIN CT GUIDED IMAGING FOR ABSCESS DRAIN 03/25/2021 CT GUIDED IMAGING FOR ABSCESS DRAIN CT GUIDED IMAGING FOR ABSCESS DRAIN 03/25/2021 CT GUIDED IMAGING FOR ABSCESS DRAIN CYSTOURETHROSCOPY 02/25/2021 Catheter Placement HYSTERECTOMY 12/2006 KNEE ARTHROPLASTY Left 02/14/2024 B KNEE SURGERY Right 06/22/2018 Scope JAB MENISCECTOMY SIGMOIDECTOMY 02/25/2021 with primary anastomosis TOTAL VAGINAL HYSTERECTOMY with RSO REVIEW OF SYMPTOMS: The review of systems, history and current medications list are all reviewed today. OBJECTIVE: Visit Vitals Temp 97.4 F Ht 5' 5 Wt 267 lb BMI 44.43 kg/m Smoking Status Never BSA 2.36 m Physical Exam The patient is ambulating with a walker. Her is present. The incisions on her musculoskeletal system are benign. Cheko and sutures are intact. There is no wound dehiscence, no drainage, no erythema. There is very mild swelling. No blisters. She can actively flex and extend the knee. Knee flexion is to about 80 degrees. Negative Homans. Plantar flexion, dorsiflexion of the ankle is intact. Foot is well perfused. Results Three views, bilateral PA weight-bearing/sunrise/lateral left knee, taken today and saved to the permanent medical record are reviewed. Prosthesis is unchanged in position and alignment. No signs of prosthetic wear or loosening. No periprosthetic fractures. ASSESSMENT AND PLAN: I reviewed the history, physical exam, diagnostic studies, and diagnosis with the patient. Assessment & Plan 1. Post-operative status following left total knee arthroplasty. She is currently 13 days post-surgery. Today, the cheko and sutures were successfully removed. She is scheduled to commence outpatient physical therapy in the upcoming week. Prescriptions for gabapentin, Tylenol, and tramadol have been forwarded to the [facility] pharmacy in [place]. She is advised to continue icing the knee and to take medication, such as Tylenol 500 mg, approximately an hour beforetherapy sessions to manage pain. She is also instructed to limit Tylenol intake to no more than 3000 mg per day. The cryo cuff will be replaced due to leakage. Follow-up The patient will follow up in 4 weeks, at which time radiographic imaging of the left knee will be performed. Diagnoses and all orders for this visit: Primary osteoarthritis of left knee - XR knee 3 views left - traMADol (Ultram) 50 MG tablet; Take 1-2 tablets (50-100 mg) by mouth every 4 (four) hours if needed (pain) for up to 7 days - acetaminophen (Tylenol Extra Strength) 500 MG tablet; Take 1 tablet (500 mg) by mouth every 4 (four) hours if needed for mild pain for up to 10 days - gabapentin (Neurontin) 300 MG capsule; Take 1 capsule (300 mg) by mouth in the morning and 1 capsule (300 mg) in the evening and 1 capsule (300 mg) before bedtime. Do all this for 14 days. Gavin Schmitt D.O. Attestation This note was created using voice recognition through [email or web address]. documented in this encounterSSM Health [id number] History of Present illness Narrative* Rafael Chandler, PT - 02/26/2024 10:00 AM EST Physical Therapy Physical Therapy Daily Visit Patient Name: Mateus Carmichael Today's Date: 02/26/2024 Subjective Current Problem: s/p left TKA with pain and difficulty walking. Pt is being seen today for follow up visit for s/p left TKA. Still having episodes of nausea and using zofran PRN. Date of Surgery: 02/14/2024 with 4 night stay due to nausea, spinal SMITH and high BP. Current deficits: Difficulty with all mobility secondary to recent left TKA and pain. Visit Number 4. Time In: 10:00 am; Time out: 10:40 am Total time: 40 minutes [id number] Ther x 30 minutes [id number] Gait Training x 10 minutes Precautions: WBAT left LE; left TKA protocol Pain Management: The patient is complaining of pain located in the left knee and thigh region. Painrating 5/10. The pain is improved by ice and medication 1 every 6 hours of percocet and Tylenol as needed. The pain is aggravated by activity. The pain is described as aching, throbbing and stiffness. Prior level of function: Ambulation: antalgic gait pattern on left LE. Assistive devices: FWW ADL and IADL: Independent. Home Environment: Pt lives with her in a two story home with 3-4 steps to enter. Has tub/shower combo with bench. Objective General Visit Information: Passive ROM: Left knee 5 to 82 degrees. Joint play: hypomobile. Manual muscle testing: Left knee flexion/extension: 3-/5. Palpation: Minimal warmth upon palpation,consistent with post-operative conditions. Surgical incision intact with Mepilex dressing. Minimal edema Special tests: Negative Nelly Sign. Functional Mobility: Bed Mobility: Sleeping in recliner. Sit to Stand: SBA Stair Negotiation: SBA Ambulation: Unable to ambulate this date due to headache and nausea/vomiting. Physical Education Intervention Physical Therapy Education: Pt was educated on the importance of cyrotherapy and elevation. Reviewed proper pillow placement under LE to maintain good extension. Stressed the importance also of ambulating at at least every other hour for 2-5 minutes duration and completion of HEP 2x/day. Patient was educated with regards to signs and symptoms to monitor with respect to blood clots and infection. Therapeutic Exercise : Pt completed left LE supine exercises of glut sets, quad sets, and ankle pumps (hourly) at this time, 10x; added supine heel slides. Standing exercises of heel raises, marches,hip abduction and ham curls. Completed standing knee flexion on step with gentle rocking, 10x. Completed 3 sets of 3 reps of LAQ with AAROM. HEP updated and instructed. Gait Training: Pt ambulated with walker, reciprocal gait pattern, 150' x 2 with minimal WB on Ue's on walker; mod indep.; worked on ambulating along kitchen counter with one handed support for pre-gait training toward str cane ambulation; 15' x 3 with forward and retro ambulation; patient noted some knee buckling but was able to control; SBA. Worked on ascend/descending 4 steps with HR, SBA with step to gait pattern. Therapeutic Activity: Worked on proper sit to stand, stand to sit transfers this date from reclinerand kitchen chair with good carryover with Supervision with verbal cues for proper sequencing and hand placement. Assessment & Plan Assessment Impairments: abnormal gait, abnormal or restricted ROM, impaired balance, impaired physical strength, pain with function and weight-bearing intolerance Barriers to therapy: Increased pain, edema,bruising and knee weakness. Prognosis: good Goals Short Term Goals Goal 1 : Patient will be independent with HEP with good compliance and independence. Goal 2 : Patient will demonstrate 3-90 degrees of passive range of motion of left knee flexion. Goal 3 : Patient will ambulate >6 minutes modified independently with wheeled walker with good reciprocal gait pattern. Goal 4 : Patient will demonstrate all sit< >stand transfers and supine< >sit bed mobility, modified independent with no cues for proper sequencing. Goal 5 : Patient will ascend/descend 3-4 steps with AD with supervision, step to gait pattern. Care Home Goals Goal 1 : Patient will demonstrate 0-110 degrees of active left knee flexion in order to improve indpendence with ambulation up and down steps. Goal 2 : Patient will demonstrate 4+/5 or better left knee strength in order to safely return to activities of interest. Goal 3 : Patient will ambulate community distances on even and uneven surfaces, independently with no AD, normalized gait pattern and < 1/10 report of pain in left knee. Goal 4 : Pt will ascend/descend full flight of stairs with railing with reciprical gait pattern independently. Goal 5 : Patient will demonstrate good static and dynamic standing balance for >15 mintues without LOB or increase in knee pain. Goal 6 : Pt will improve Tinetti Balance test to 28/28 to indicate no fall risk. Plan Planned modality interventions: cryotherapy Planned therapy interventions: bed mobility training, dressing changes, functional ROM exercises, gait training, home exercise program, manual therapy, neuromuscular re-education, soft tissue mobilization, strengthening, stretching, therapeutic activities and transfer training Frequency: 3x/week. Duration in weeks: 6 Treatment plan discussed with: patient Plan details: Educated to continue icing and elevating. documented in this [facility]12-26-2024 History of Present illness Narrative* Rafael Chandler, PT - 02/22/2024 11:20 AM EST Physical Therapy Physical Therapy Evaluation Patient Name: Mateus Carmichael Today's Date: 02/22/2024 Subjective Current Problem: s/p left TKA with pain and difficulty walking. Pt is being seen today for initial evaluation for s/p left TKA. Pt not feeling well at all upon PT arrival. Pt resting in recliner chair. Pt voiced she is not able to do much today. Date of Surgery: 02/14/2024 with 4 night stay due to nausea, spinal SMITH and high BP. Current deficits: Difficulty with all mobility secondary to recent left TKA and pain. Visit Number 3. Time In: 11:20 am; Time out: 12:00 pm Total time: 40 minutes [id number] Ther x 30 minutes [id number] Gait Training x 10 minutes Precautions: WBAT left LE; left TKA protocol Pain Management: The patient is complaining of pain located in the left knee and thigh region. Painrating 8/10. The pain is improved by ice and medication 1 every 6 hours of percocet and Tylenol as needed. The pain is aggravated by activity. The pain is described as aching, throbbing and stiffness. Prior level of function: Ambulation: antalgic gait pattern on left LE. Assistive devices: FWW ADL and IADL: Independent. Home Environment: Pt lives with her in a two story home with 3-4 steps to enter. Has tub/shower combo with bench. Objective General Visit Information: Passive ROM: Left knee 5 to 72 degrees. Joint play: hypomobile. Manual muscle testing: Left knee flexion/extension: 3-/5. Palpation: Minimal warmth upon palpation,consistent with post-operative conditions. Surgical incision intact with Mepilex dressing which wasremoved this date. Incision intact with cheko and no drainage. New Mepilex dressing applied. Special tests: Negative Nelly Sign. Functional Mobility: Bed Mobility: Sleeping in recliner. Sit to Stand: SBA Stair Negotiation: TBA Ambulation: Unable to ambulate this date due to headache and nausea/vomiting. Physical Education Intervention Physical Therapy Education: Pt was educated on the importance of cyrotherapy and elevation. Reviewed proper pillow placement under LE to maintain good extension. Stressed the importance also of ambulating at at least every other hour for 2-5 minutes duration and completion of HEP 2x/day. Patient was educated with regards to signs and symptoms to monitor with respect to blood clots and infection. Therapeutic Exercise : Pt completed left LE supine exercises of glut sets, quad sets, and ankle pumps (hourly) at this time, 10x; added supine heel slides. Standing exercises of heel raises, marches,hip abduction and ham curls. Added standing knee flexion on step with gentle rocking, 10x. Added 3 sets of 3 reps of LAQ with AAROM. HEP updated and instructed. Gait Training: Pt ambulated with walker, step to gait pattern, 150' x 2 with minimal WB on Ue's on walker; SBA. Therapeutic Activity: Worked on proper sit to stand, stand to sit transfers this date from reclinerand kitchen chair with good carryover with SBA with verbal cues for proper sequencing and hand placement. Assessment & Plan Assessment Impairments: abnormal gait, abnormal or restricted ROM, impaired balance, impaired physical strength, pain with function and weight-bearing intolerance Barriers to therapy: Increased pain, edema,bruising and knee weakness. Prognosis: good Goals Short Term Goals Goal 1 : Patient will be independent with HEP with good compliance and independence. Goal 2 : Patient will demonstrate 3-90 degrees of passive range of motion of left knee flexion. Goal 3 : Patient will ambulate >6 minutes modified independently with wheeled walker with good reciprocal gait pattern. Goal 4 : Patient will demonstrate all sit< >stand transfers and supine< >sit bed mobility, modified independent with no cues for proper sequencing. Goal 5 : Patient will ascend/descend 3-4 steps with AD with supervision, step to gait pattern. Design Lead Goals Goal 1 : Patient will demonstrate 0-110 degrees of active left knee flexion in order to improve indpendence with ambulation up and down steps. Goal 2 : Patient will demonstrate 4+/5 or better left knee strength in order to safely return to activities of interest. Goal 3 : Patient will ambulate community distances on even and uneven surfaces, independently with no AD, normalized gait pattern and < 1/10 report of pain in left knee. Goal 4 : Pt will ascend/descend full flight of stairs with railing with reciprical gait pattern independently. Goal 5 : Patient will demonstrate good static and dynamic standing balance for >15 mintues without LOB or increase in knee pain. Goal 6 : Pt will improve Tinetti Balance test to 28/28 to indicate no fall risk. Plan Planned modality interventions: cryotherapy Planned therapy interventions: bed mobility training, dressing changes, functional ROM exercises, gait training, home exercise program, manual therapy, neuromuscular re-education, soft tissue mobilization, strengthening, stretching, therapeutic activities and transfer training Frequency: 3x/week. Duration in weeks: 6 Treatment plan discussed with: patient Plan details: Educated to continue icing and elevating. Surgical incision healing nicely. documented in this encounterSSM Health [id number] History of Present illness Narrative* Rafale Chandler, PT - 02/19/2024 11:00 AM EST Physical Therapy Physical Therapy Evaluation Patient Name: Mateus Carmichael Today's Date: 02/19/2024 Subjective Current Problem: s/p left TKA with pain and difficulty walking. Pt is being seen today for initial evaluation for s/p left TKA. Pt not feeling well at all upon PT arrival. Pt resting in recliner chair. Pt voiced she is not able to do much today. Date of Surgery: 02/14/2024 with 4 night stay due to nausea, spinal SMITH and high BP. Current deficits: Difficulty with all mobility secondary to recent left TKA and pain. Visit Number 2. Time In: 10:00 am; Time out: 10:40 am Total time: 40 minutes [id number] Ther x 30 minutes [id number] Gait Training x 8 minutes Precautions: WBAT left LE; left TKA protocol Pain Management: The patient is complaining of pain located in the left knee and thigh region. Painrating 8/10. The pain is improved by ice and medication 1 every 6 hours of percocet and Tylenol as needed. The pain is aggravated by activity. The pain is described as aching, throbbing and stiffness. Prior level of function: Ambulation: antalgic gait pattern on left LE. Assistive devices: FWW ADL and IADL: Independent. Home Environment: Pt lives with her in a two story home with 3-4 steps to enter. Has tub/shower combo with bench. Objective General Visit Information: Passive ROM: Left knee 5 to 70 degrees. Joint play: hypomobile. Manual muscle testing: Left knee flexion/extension: 3-/5. Palpation: Minimal warmth upon palpation,consistent with post-operative conditions. Surgical incision intact with Mepilex dressing with no observable bleeding through dressing. Special tests: Negative Nelly Sign. Functional Mobility: Bed Mobility: Sleeping in recliner. Sit to Stand: SBA Stair Negotiation: TBA Ambulation: Unable to ambulate this date due to headache and nausea/vomiting. Physical Education Intervention Physical Therapy Education: Pt was educated on the importance of cyrotherapy and elevation. Reviewed proper pillow placement under LE to maintain good extension. Stressed the importance also of ambulating at at least every other hour for 2-5 minutes duration and completion of HEP 2x/day. Patient was educated with regards to signs and symptoms to monitor with respect to blood clots and infection. Therapeutic Exercise : Pt completed left LE supine exercises of glut sets, quad sets, and ankle pumps (hourly) at this time, 10x. Standing exercises of heel raises, marches, hip abduction and ham curls. HEP updated and instructed. Gait Training: Pt ambulated with walker, step to gait pattern, 150' x 2 with minimal WB on Ue's on walker; SBA. Therapeutic Activity: Worked on proper sit to stand, stand to sit transfers this date from reclinerand kitchen chair with good carryover with SBA with verbal cues for proper sequencing and hand placement. Assessment & Plan Assessment Impairments: abnormal gait, abnormal or restricted ROM, impaired balance, impaired physical strength, pain with function and weight-bearing intolerance Barriers to therapy: Increased pain, edema,bruising and knee weakness. Prognosis: good Goals Short Term Goals Goal 1 : Patient will be independent with HEP with good compliance and independence. Goal 2 : Patient will demonstrate 3-90 degrees of passive range of motion of left knee flexion. Goal 3 : Patient will ambulate >6 minutes modified independently with wheeled walker with good reciprocal gait pattern. Goal 4 : Patient will demonstrate all sit< >stand transfers and supine< >sit bed mobility, modified independent with no cues for proper sequencing. Goal 5 : Patient will ascend/descend 3-4 steps with AD with supervision, step to gait pattern. Care Home Goals Goal 1 : Patient will demonstrate 0-110 degrees of active left knee flexion in order to improve indpendence with ambulation up and down steps. Goal 2 : Patient will demonstrate 4+/5 or better left knee strength in order to safely return to activities of interest. Goal 3 : Patient will ambulate community distances on even and uneven surfaces, independently with no AD, normalized gait pattern and < 1/10 report of pain in left knee. Goal 4 : Pt will ascend/descend full flight of stairs with railing with reciprical gait pattern independently. Goal 5 : Patient will demonstrate good static and dynamic standing balance for >15 mintues without LOB or increase in knee pain. Goal 6 : Pt will improve Tinetti Balance test to 28/28 to indicate no fall risk. Plan Planned modality interventions: cryotherapy Planned therapy interventions: bed mobility training, dressing changes, functional ROM exercises, gait training, home exercise program, manual therapy, neuromuscular re-education, soft tissue mobilization, strengthening, stretching, therapeutic activities and transfer training Frequency: 3x/week. Duration in weeks: 6 Treatment plan discussed with: patient Plan details: Educated to continue icing and elevating. documented in this encounterSSM Health [id number] History of Present illness Narrative* Rafael Chandler, PT - 02/18/2024 10:00 AM EST Physical Therapy Physical Therapy Evaluation Patient Name: Mateus Carmichael Today's Date: 02/18/2024 Subjective Current Problem: s/p left TKA with pain and difficulty walking. Pt is being seen today for initial evaluation for s/p left TKA. Pt not feeling well at all upon PT arrival. Pt resting in recliner chair. Pt voiced she is not able to do much today. Date of Surgery: 02/14/2024 with 4 night stay due to nausea, spinal SMITH and high BP. Current deficits: Difficulty with all mobility secondary to recent left TKA and pain. Visit Number 1. Time In: 10:00 am; Time out: 10:40 am Total time: 40 minutes [id number] PT Eval x 20 minutes [id number] Ther x 10 minutes [id number] TherAct x 10 minutes Precautions: WBAT left LE; left TKA protocol Pain Management: The patient is complaining of pain located in the left knee and thigh region. Painrating 10/06. The pain is improved by ice and medication 1 every 6 hours of percocet and Tylenol as needed. The pain is aggravated by activity. The pain is described as aching, throbbing and stiffness. Prior level of function: Ambulation: antalgic gait pattern on left LE. Assistive devices: FWW ADL and IADL: Independent. Home Environment: Pt lives with her in a two story home with 3-4 steps to enter. Has tub/shower combo with bench. Objective General Visit Information: Vitals: HR: 67 BPM SaO2 95 % on RA BP 127/69 Passive ROM: Left knee 5 to 60 degrees. Joint play: hypomobile. Manual muscle testing: Left knee flexion/extension: 3-/5. Palpation: Minimal warmth upon palpation,consistent with post-operative conditions. Surgical incision intact with Mepilex dressing with no observable bleeding through dressing. Special tests: Negative Nelly Sign. Functional Mobility: Bed Mobility: Sleeping in recliner. Sit to Stand: SBA Stair Negotiation: TBA Ambulation: Unable to ambulate this date due to headache and nausea/vomiting. Tinetti Gait and Balance Assessment: Sitting balance: Steady, safe = 1. Rises from chair: UE used= 1. Attempts to rise: more then 1 attempt= 1. Immediate standing balance (first 5 seconds): Steady but uses walker or other support = 1. Standing balance: Steady but uses walker or other support = 1. Nudged: Staggers, grabs, catches self = 1. Eyes closed: Steady = 1. Turning 360 degrees: Discontinuous steps = 0 , Unsteady (grabs, staggers) = 0. Sitting down: Uses arms or not a smooth motion = 1. Balance Score: 8/16. Unable to assess gait portion due to headache and N/V. Gait score: -/12. Total Score = Balance + Gait 13/28. Tinetti tool score: < = 18 High. Physical Education Intervention Physical Therapy Education: Pt was educated on the importance of cyrotherapy and elevation. Reviewed proper pillow placement under LE to maintain good extension. Stressed the importance also of ambulating at at least every other hour for 2-5 minutes duration and completion of HEP 2x/day. Patient was educated with regards to signs and symptoms to monitor with respect to blood clots and infection. Therapeutic Exercise : Pt completed left LE supine exercises of glut sets, quad sets, and ankle pumps (hourly) at this time, 10x. HEP issued and instructed. Gait Training: Not assessed due to N/V and headache. Therapeutic Activity: Worked on proper sit to stand, stand to sit transfers this date from reclinerand kitchen chair with good carryover with SBA with verbal cues for proper sequencing and hand placement. Assessment & Plan Pt is not feeling well due to elevated headache from spinal SMITH and being very nauseated and vomiting during session. HEP was instructed and issued along with exercises she can trial if feeling better. Assessment Impairments: abnormal gait, abnormal or restricted ROM, impaired balance, impaired physical strength, pain with function and weight-bearing intolerance Barriers to therapy: Increased pain, edema,bruising and knee weakness. Prognosis: good Goals Short Term Goals Goal 1 : Patient will be independent with HEP with good compliance and independence. Goal 2 : Patient will demonstrate 3-90 degrees of passive range of motion of left knee flexion. Goal 3 : Patient will ambulate >6 minutes modified independently with wheeled walker with good reciprocal gait pattern. Goal 4 : Patient will demonstrate all sit< >stand transfers and supine< >sit bed mobility, modified independent with no cues for proper sequencing. Goal 5 : Patient will ascend/descend 3-4 steps with AD with supervision, step to gait pattern. Care Home Goals Goal 1 : Patient will demonstrate 0-110 degrees of active left knee flexion in order to improve indpendence with ambulation up and down steps. Goal 2 : Patient will demonstrate 4+/5 or better left knee strength in order to safely return to activities of interest. Goal 3 : Patient will ambulate community distances on even and uneven surfaces, independently with no AD, normalized gait pattern and < 1/10 report of pain in left knee. Goal 4 : Pt will ascend/descend full flight of stairs with railing with reciprical gait pattern independently. Goal 5 : Patient will demonstrate good static and dynamic standing balance for >15 mintues without LOB or increase in knee pain. Goal 6 : Pt will improve Tinetti Balance test to 28/28 to indicate no fall risk. Plan Planned modality interventions: cryotherapy Planned therapy interventions: bed mobility training, dressing changes, functional ROM exercises, gait training, home exercise program, manual therapy, neuromuscular re-education, soft tissue mobilization, strengthening, stretching, therapeutic activities and transfer training Frequency: 3x/week. Duration in weeks: 6 Treatment plan discussed with: patient Plan details: Educated to continue icing and elevating. Pt will continues to benefit from PT interventions to improve overall strength, ROM and functional mobility to achieve PLOF. This PT will follow up for another visit tomorrow. documented in this encounterSSM Health [id number] NotePatient Education - Text [place], [place] [facility] DISCHARGE INSTRUCTIONS: TOTAL KNEE ARTHROPLASTY INCISION CARE: The bandage may be changed by your home Physical Therapist at 7 days postoperatively and worn an additional 7 days. A new Mepilex bandage should then be placed. The bandage is waterproof, so you may shower at home. Steri-strips (paper tape strips) may be applied to the incision if any slight wound separation is noted. These should remain in place for five days and then they may come off in the shower. Please notify the office if any increase in redness, tenderness, drainage, fever, or wound separation is noted beyond this point. MEDICATIONS: You may resume your home medications at the time of discharge. Arixtra and Lovenox are mild blood thinners that prevent the development of blood clots in the legs. One of these has been used during your hospitalization. After discharge home you should continue the use of two stomach coated baby Aspirin tablets daily with your largest meal for 30 days after home discharge. Please notify your doctor if you have a stomach sensitivity to Aspirin or history of previous stomach ulcers. Pain medication has been prescribed as well. You may continue to use the pain medication every fourhours as needed. Any narcotic pain medication can cause side effects including stomach upset, constipation, or light-headedness. You should not drive or operate machinery, or drink alcohol while using the narcotic pain medication. You should not use other pain medications with this prescription pain medication unless further directed by your physician. PHYSICAL THERAPY Continue the range of motion and strengthening exercises initiated by Physical Therapy in the hospital. Continue weight bearing, as ordered, to the operated knee as directed in Physical Therapy. This will be with the use of a walker or crutches initially. Physical therapy as begun in the hospital will continue at home, possibly with the assistant professor of education of Home Health Physical Therapy or in the hospital as an outpatient. When you have become independent withthe physical therapy program, this will then be discontinued as a supervised program and you will be instructed to continue the physical therapy exercises at home. Your exercises are wadsworth to successful rehabilitation. You should gain full extension first, hopefully before hospital discharge, and gain 90 degrees flexion by one month post-op. Do the exercises daily, twice if preferred. DRIVING: Please do not drive for 4-6 weeks pending therapy progress. 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 It is therefore advised not to drive until after yourfirst office visit following surgery. FOLLOW-UP OFFICE VISIT: Gavin Schmitt DO [facility] [address] [place] [address] Reviewed: 07-19[facility]12-20-2024 NoteProgress Note-Physician Patient: MATEUS CARMICHAEL Age: 54 years Sex: Female : 1970 Associated Diagnoses: None Author: Gavin Schmitt DO POD 2 s/p L TKA still with nausea today, but improved this evening. pain controlled at bedside L LE: dressings dry, comp supple, ankle PF/DF intact. neg homans. brisk cap refill WBC 9.6 Hgb 11.9 Hct 34.9 Plt 272 eGFR 107 lytes WNL Plan: - D/C home tomorrow - toradol restarted, added tramadol to minimize oxycodone due to nausea Objective Vital Signs 02/16/2024 16:17 EST Heart Rate Monitored 78 bpm SpO2 95 % 02/16/2024 16:17 EST Respiratory Rate 16 br/min 02/16/2024 16:16 EST Systolic Blood Pressure 168 mmHg HI Diastolic Blood Pressure 70 mmHg 02/16/2024 16:16 EST Temperature Axillary 36.6 DegCFisher [facility] Comment on above:Result Comment: Electronically Signed By: Gavin Schmitt DO\.br\Date and Time Signed: 02/16/24 17:54 [id number] NoteProgress Note-Physician Patient: MATEUS CARMICHAEL Age: 54 years Sex: Female : 1970 Associated Diagnoses: None Author: Quirino Wright Jr, DO Preoperative Information Anesthesia Preop Info: Time patient last ate or drank 02/14/2024 00:00:00. Anesthesia history: Patient history: None. Family history+: None. Informed consent: Signed by patient. Re-evaluation prior to induction: Initial evaluation reviewed: No significant change. Review of Systems Eye: Negative except as documented in history of present illness. Ear/Nose/Mouth/Throat: Negative except as documented in history of present illness. Respiratory: Negative except as documented in history of present illness. Cardiovascular: Negative except as documented in history of present illness. Musculoskeletal: Negative except as documented in history of present illness. Neurologic: Negative except as documented in history of present illness. Health Status Allergies: Allergic Reactions (Selected) Severe Demerol- Vomiting. Morphine- Vomiting. Nubain- Airway constriction and tongue swelling. Severity Not Documented Chlorhexidine Gluconate- Burning. Problem list: All Problems Torn meniscus / SNOMED CT 352349807 / Confirmed right Fatty liver / SNOMED CT 941677131 / Confirmed Sciatica / SNOMED CT 30461451 / Confirmed Rheumatoid arthritis / SNOMED CT 769951516 / Confirmed Presbyopia of both eyes / SNOMED CT 98061868 / Confirmed Polycystic ovarian syndrome / SNOMED CT 331466671 / Confirmed Paroxysmal supraventricular tachycardia / SNOMED CT 826781199 / Confirmed Migraines / SNOMED CT 39539735 / Confirmed Abnormal mammogram / SNOMED CT 001250004 / Confirmed Block, bundle branch, left / SNOMED CT 446158889 / Confirmed Anemia, iron deficiency / SNOMED CT 282920686 / Confirmed Hypothyroid / SNOMED CT 36499583 / Confirmed Low blood potassium / SNOMED CT 96296201 / Confirmed Hypertension / SNOMED CT 9869593596 / Confirmed Hiatal hernia / SNOMED CT 078123435 / Confirmed Acid reflux / SNOMED CT 475213366 / Confirmed Diverticulosis / SNOMED CT 0861670342 / Confirmed DDD (degenerative disc disease), lumbar / SNOMED CT 92843431 / Confirmed Presence of colostomy / SNOMED CT 214935318 / Confirmed Histories Procedure history: Arthroscopy of knee ([id number]) on 06/22/2018 at 48 Years. Comments: 06/22/2018 17:50 GUILLERMINA Beasley RN, Nuris Perez right Hysterectomy ([id number]). Carpal tunnel release (394680830). Comments: 05/24/2018 12:41 Chantell Erickson RN right repair of laceration of thumb. breast cyst excision. Comments: 05/24/2018 12:42 Chantell Erickson RN sebaceous excion of sebaceous from side. FESS (functional endoscopic sinus surgery) anterior ethmoidectomy and frontal recess dissection ([id number]). Large bowel resection with colostomy (0113815697). Comments: 01/31/2024 12:41 RIZWAN Mccauley RN, Jenifer Canas [facility] Excision of lesion of skin on back (63990211). Social History Social & Psychosocial Habits Alcohol 01/31/2024 Risk Assessment: Denies Alcohol Use Substance Abuse 01/31/2024 Risk Assessment: Denies Substance Abuse Tobacco 01/31/2024 Risk Assessment: Denies Tobacco Use . Physical Examination Airway: Mallampati classification: II (soft palate, fauces, uvula visible). Respiratory: adequate air exchange. Cardiovascular: Regular rhythm. Plan [place] [employer] (ASA) physical status classification: Class III. Anesthetic Preoperative Plan: Anesthesia General. Regional Spinal.[facility]:Result Comment: Electronically Signed By: Quirino Wright Jr, DO\renee\Date and Time Signed: 02/16/24 13:25 [id number] NoteProgress Note-Physician Patient: MATEUS CARMICHAEL Age: 54 years Sex: Female : 1970 Associated Diagnoses: None Author: Quirino Wright Jr, DO Postoperative Information Postoperative disposition: Postoperative disposition: To PACU. Optimetrix number: Optimetrix number [id number]. Anesthetic utilized: General. Regional: Spinal. Health Status Allergies: Allergic Reactions (Selected) Severe Demerol- Vomiting. Morphine- Vomiting. Nubain- Airway constriction and tongue swelling. Severity Not Documented Chlorhexidine Gluconate- Burning. Physical Examination Vital Signs 02/14/2024 12:25 EST Temperature Temporal Artery 36.5 DegC Heart Rate Monitored 75 bpm Respiratory Rate Monitored 14 br/min Systolic Blood Pressure 145 mmHg HI Diastolic Blood Pressure 81 mmHg Blood Pressure Location Left arm Mean Arterial Pressure, Cuff 102 mmHg SpO2 97 % 02/14/2024 12:05 EST Heart Rate Monitored 90 bpm Respiratory Rate Monitored 21 br/min Systolic Blood Pressure 143 mmHg HI Diastolic Blood Pressure 77 mmHg Blood Pressure Location Left arm Mean Arterial Pressure, Cuff 99 mmHg SpO2 92 % 02/14/2024 12:00 EST Heart Rate Monitored 89 bpm Respiratory Rate Monitored 17 br/min Systolic Blood Pressure 102 mmHg Diastolic Blood Pressure 86 mmHg Blood Pressure Location Left arm Mean Arterial Pressure, Cuff 91 mmHg SpO2 99 % 02/14/2024 11:55 EST Heart Rate Monitored 95 bpm Respiratory Rate Monitored 20 br/min Systolic Blood Pressure 129 mmHg Diastolic Blood Pressure 88 mmHg Blood Pressure Location Left arm Mean Arterial Pressure, Cuff 102 mmHg SpO2 99 % 02/14/2024 11:52 EST Temperature Temporal Artery 36.8 DegC Heart Rate Monitored 100 bpm Systolic Blood Pressure 137 mmHg Diastolic Blood Pressure 86 mmHg Blood Pressure Location Left arm Mean Arterial Pressure, Cuff 103 mmHg SpO2 98 % Pain Assessment: Controlled. General: Awake, Alert, Appropriate. Respiratory: Adequate air exchange. Cardiovascular: Stable, Normal peripheral perfusion. Neurological: Normal sensory function, Normal motor function. Assessment Anesthetic outcome No anesthetic complications noted. Adequate pain relief. able to void without difficulty, able to ambulate with assist, tolerating PO intake, no N/V. Review / Management Condition: Stable. Plan Transfer/Discharge: Transfer/Discharge Discharge when meets criteria ( From PACU to floor ).[facility] above:Result Comment: Electronically Signed By: Quirino Wright Jr, DO\.br\Date and Time Signed: 02/16/24 13:25 [id number] NoteGetWell Learning Participants Patient GetWell Education Video Opioids: Know What's Safe [facility]12-20-2024 NoteGetWell Education Video Managing Pain While You're in the Hospital [facility] Learning Participants Patient GetWell Understands Education [facility]12-20-2024 NoteGetWell Understands Education Yes GetWell Education Video Preventing Falls: The Four Fall Stoppers [facility] Learning Participants [facility]12-20-2024 NoteGetWell Education Video Preventing Falls: Medicine Safety [facility] Learning Participants Patient GetWell Understands Education [facility]12-20-2024 NoteGetWell Learning Participants Patient GetWell Understands Education Yes GetWell Education Video Preventing Falls: Make Your Home [facility]12-[facility]-2024 Note GetWell Understands Education Yes GetWell Education Video Avoiding Infections in the Hospital [facility] Learning Participants [facility]12-19-2024 NoteProgress Note-Physician Patient: MATEUS CARMICHAEL Age: 54 years Sex: Female : 1970 Associated Diagnoses: None Author: Gavin Schmitt DO POD 1 s/p L TKA pain controlled. no CP/SOB. some nausea, but improving L LE: dressings dry, comp supple, ankle PF/DF intact. neg homans. brisk cap refill WBC 12.1 Hgb 12.3 Hct 36.2 Plt 295 eGFR 107 post op xrays reviewed yesterday. prosthesis in satisfactory position Plan: - D/C home later today vs tomorrow pending nausea symptoms Objective Vital Signs 02/15/2024 16:29 EST Heart Rate Monitored 87 bpm SpO2 97 % 02/15/2024 16:28 EST Systolic Blood Pressure 180 mmHg HI Diastolic Blood Pressure 76 mmHg 02/15/2024 16:28 EST Temperature Axillary 36.8 DegC [facility]:Result Comment: Electronically Signed By: Gavin Schmitt DO\.br\Date and Time Signed: 02/15/24 19:20 [id number] NoteInterdisciplinary Note - PT PT evaluation completed with an AMPAC score of 17/24. pt was able to perform bed mobility with Mi Aand transfers with CGA. Pt was able to ambulate with FWW with no LOB. Will follow daily. Recommendations to be provided on POD # 1Fcaroline [facility]12-18-2024 NoteInterdisciplinary Note - OT OT evaluation completed s/p L TKR on POD #0. AMPAC Score: 20/24. OT will continue to follow and provide discharge recommendations on POD #1.[facility]12-18-2024 NotePatient Education - Text [place], [place] [facility] DISCHARGE INSTRUCTIONS: TOTAL KNEE ARTHROPLASTY INCISION CARE: The bandage may be changed by your home Physical Therapist at 7 days postoperatively and worn an additional 7 days. A new Mepilex bandage should then be placed. The bandage is waterproof, so you may shower at home. Steri-strips (paper tape strips) may be applied to the incision if any slight wound separation is noted. These should remain in place for five days and then they may come off in the shower. Please notify the office if any increase in redness, tenderness, drainage, fever, or wound separation is noted beyond this point. MEDICATIONS: You may resume your home medications at the time of discharge. Arixtra and Lovenox are mild blood thinners that prevent the development of blood clots in the legs. One of these has been used during your hospitalization. After discharge home you should continue the use of two stomach coated baby Aspirin tablets daily with your largest meal for 30 days after home discharge. Please notify your doctor if you have a stomach sensitivity to Aspirin or history of previous stomach ulcers. Pain medication has been prescribed as well. You may continue to use the pain medication every fourhours as needed. Any narcotic pain medication can cause side effects including stomach upset, constipation, or light-headedness. You should not drive or operate machinery, or drink alcohol while using the narcotic pain medication. You should not use other pain medications with this prescription pain medication unless further directed by your physician. PHYSICAL THERAPY Continue the range of motion and strengthening exercises initiated by Physical Therapy in the hospital. Continue weight bearing, as ordered, to the operated knee as directed in Physical Therapy. This will be with the use of a walker or crutches initially. Physical therapy as begun in the hospital will continue at home, possibly with the assistant professor of education of Home Health Physical Therapy or in the hospital as an outpatient. When you have become independent withthe physical therapy program, this will then be discontinued as a supervised program and you will be instructed to continue the physical therapy exercises at home. Your exercises are wadsworth to successful rehabilitation. You should gain full extension first, hopefully before hospital discharge, and gain 90 degrees flexion by one month post-op. Do the exercises daily, twice if preferred. DRIVING: Please do not drive for 4-6 weeks pending therapy progress. 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 It is therefore advised not to drive until after yourfirst office visit following surgery. FOLLOW-UP OFFICE VISIT: Gavin Schmitt DO [facility] [address] [place], [place] [id number] Reviewed: 07-19[facility]12-18-2024 Evaluation + Plan note Extracted from: Title:ANES Post-operative Note---General Author: Quirino Wright Jr, DO Date:02/14/24 Plan Transfer/Discharge: Transfer/Discharge Discharge when meets criteria ( From PACU to floor ). Extracted from: Title:ANES Pre-operative Note 2022 Author:Quirino Wright Jr, DO Date:02/14/24 Plan [place] [employer] (ASA) physical status classification: Class III. Anesthetic Preoperative Plan: Anesthesia General. Regional Spinal. [facility] [id number] Hospital Discharge instructions Patient Education 02/14/2024 07:42:22 Oz Schmitt - Total Knee Arthroplasty (Custom) [place], [place] [facility] DISCHARGE INSTRUCTIONS: TOTAL KNEE ARTHROPLASTY INCISION CARE: The bandage may be changed by your home Physical Therapist at 7 days postoperatively and worn an additional 7 days. A new Mepilex bandage should then be placed. The bandage is waterproof, so you may shower at home. Steri-strips (paper tape strips) may be applied to the incision if any slight wound separation is noted. These should remain in place for five days and then they may come off in the shower. Please notify the office if any increase in redness, tenderness, drainage, fever, or wound separation is noted beyond this point. MEDICATIONS: You may resume your home medications at the time of discharge. Arixtra and Lovenox are mild blood thinners that prevent the development of blood clots in the legs. One of these has been used during your hospitalization. After discharge home you should continue the use of two stomach coated baby Aspirin tablets daily with your largest meal for 30 days after home discharge. Please notify your doctor if you have a stomach sensitivity to Aspirin or history of previous stomach ulcers. Pain medication has been prescribed as well. You may continue to use the pain medication every fourhours as needed. Any narcotic pain medication can cause side effects including stomach upset, constipation, or light-headedness. You should not drive or operate machinery, or drink alcohol while using the narcotic pain medication. You should not use other pain medications with this prescription pain medication unless further directed by your physician. PHYSICAL THERAPY Continue the range of motion and strengthening exercises initiated by Physical Therapy in the hospital. Continue weight bearing, as ordered, to the operated knee as directed in Physical Therapy. This will be with the use of a walker or crutches initially. Physical therapy as begun in the hospital will continue at home, possibly with the assistant professor of education of Home Health Physical Therapy or in the hospital as an outpatient. When you have become independent withthe physical therapy program, this will then be discontinued as a supervised program and you will be instructed to continue the physical therapy exercises at home. Your exercises are wadsworth to successful rehabilitation. You should gain full extension first, hopefully before hospital discharge, and gain 90 degrees flexion by one month post-op. Do the exercises daily, twice if preferred. DRIVING: Please do not drive for 4-6 weeks pending therapy progress. 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 It is therefore advised not to drive until after yourfirst office visit following surgery. FOLLOW-UP OFFICE VISIT: Gavin Schmitt, DO [facility] [address] [place] [id number] Reviewed: 07-19 Follow Up Care 01/15/2024 15:23:46 With:Gavni Schmitt Address: [address] [place] [phone]- Business (1) When:02/27/2024 08:45:00 With:ORTEGA MERRITT Address: [address] [place] [address] [place] [phone]- Business (1) When: Unknown Comments:No need to see PCP at this time unless symptoms worsen. [facility] 12-18-2024 NotePatient Education - Text [place], [place] [facility] DISCHARGE INSTRUCTIONS: TOTAL KNEE ARTHROPLASTY INCISION CARE: The bandage may be changed by your home Physical Therapist at 7 days postoperatively and worn an additional 7 days. A new Mepilex bandage should then be placed. The bandage is waterproof, so you may shower at home. Steri-strips (paper tape strips) may be applied to the incision if any slight wound separation is noted. These should remain in place for five days and then they may come off in the shower. Please notify the office if any increase in redness, tenderness, drainage, fever, or wound separation is noted beyond this point. MEDICATIONS: You may resume your home medications at the time of discharge. Arixtra and Lovenox are mild blood thinners that prevent the development of blood clots in the legs. One of these has been used during your hospitalization. After discharge home you should continue the use of two stomach coated baby Aspirin tablets daily with your largest meal for 30 days after home discharge. Please notify your doctor if you have a stomach sensitivity to Aspirin or history of previous stomach ulcers. Pain medication has been prescribed as well. You may continue to use the pain medication every fourhours as needed. Any narcotic pain medication can cause side effects including stomach upset, constipation, or light-headedness. You should not drive or operate machinery, or drink alcohol while using the narcotic pain medication. You should not use other pain medications with this prescription pain medication unless further directed by your physician. PHYSICAL THERAPY Continue the range of motion and strengthening exercises initiated by Physical Therapy in the hospital. Continue weight bearing, as ordered, to the operated knee as directed in Physical Therapy. This will be with the use of a walker or crutches initially. Physical therapy as begun in the hospital will continue at home, possibly with the assistant professor of education of Home Health Physical Therapy or in the hospital as an outpatient. When you have become independent withthe physical therapy program, this will then be discontinued as a supervised program and you will be instructed to continue the physical therapy exercises at home. Your exercises are wadsworth to successful rehabilitation. You should gain full extension first, hopefully before hospital discharge, and gain 90 degrees flexion by one month post-op. Do the exercises daily, twice if preferred. DRIVING: Please do not drive for 4-6 weeks pending therapy progress. 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 It is therefore advised not to drive until after yourfirst office visit following surgery. FOLLOW-UP OFFICE VISIT: Gavin Schmitt, [facility] [address] [place] [address] Reviewed: 07-19[facility]12-05-2024 History of Present illness Narrative* Gavin Schmitt DO - 02/01/2024 1:00 PM EST Images from the original note were not included. @ENCDATE@ Mateus Eloina Amol is a 54 y.o. female who presents for Follow-up of the Left Knee HPI: History of Present Illness The patient is a 54-year-old female here to discuss moving forward with surgery on her left knee. She is accompanied by her sister. She reports a worsening condition of her left knee, which has been causing her sleep disturbances for the past 2 to 3 weeks. She underwent a CT scan yesterday. She has a history of hiatal hernia and is concerned about the potential impact of a nerve block on her gastrointestinal system. She also inquires about the use of scopolamine patches prior to hospital admission. SUBJECTIVE: MEDICATIONS: Current Outpatient Medications Medication Instructions ACCRUFeR 30 mg, Oral, Daily acetaminophen (Tylenol) 325 MG tablet Take 2 tablets every 6 hours by oral route. albuterol HFA 90 mcg/act inhaler 1 puff, Every 4 hours PRN carvedilol (Coreg) 12.5 MG tablet TAKE 1 TABLET BY MOUTH IN THE MORNING AND 1 TABLET IN THE EVENINGWITH FOOD cholecalciferol (Vitamin D-3) 50 MCG (1999 UT) tablet 1 tablet clindamycin (Cleocin T) 1 % lotion Apply thin later to affected areas on the body during flares, 30day supply fluticasone (Flonase) 50 MCG/ACT nasal spray 2 sprays hydroxychloroquine (Plaquenil) 200 MG tablet 1 tablet, 2 times daily levothyroxine (SYNTHROID) 150 mcg, Oral, Daily before breakfast nystatin (Mycostatin) cream APPLY 1 APPLICATION EXTERNALLY TWICE A DAY omeprazole (PriLOSEC) [address] capsule TAKE 1 CAPSULE BY MOUTH 30 MINUTES BEFORE MORNING MEAL ondansetron (ZOFRAN) 4 mg Ostomy Supplies (Adapt Lubricating Deodorant) liquid 1 application , Does not apply, Daily rizatriptan RAILROAD FIRER (MAXALT-RAILROAD FIRER) 10 mg scopolamine (Transderm-Scop) 1 mg/72 hr patch 72 hour patch 1 patch, Transdermal, Every 72 hours traMADol (Ultram) 50 MG tablet 1 tablet, Every 6 hours PRN triamterene-hydroCHLOROthiazide (Dyazide) 37.5-25 MG capsule TAKE 1 CAPSULE BY MOUTH DAILY NEEDED FOR SWELLING ALLERGIES: Allergies Allergen Reactions Meperidine Other reaction(s): Vomiting Other reaction(s): vomiting Meperidine Hcl GI intolerance Morphine GI intolerance Other reaction(s): Vomiting Chlorhexidine Other Other Reaction(s): burning Other reaction(s): burning Nabumetone Unknown Nalbuphine Unknown SURGICAL HISTORY: Past Surgical History: Procedure Laterality Date BREAST CYST EXCISION Right CARPAL TUNNEL RELEASE 2014 COLONOSCOPY 2013 COLOSTOMY 03/15/2021 CT GUIDED IMAGING FOR ABSCESS DRAIN 03/24/2021 CT GUIDED IMAGING FOR ABSCESS DRAIN CT GUIDED IMAGING FOR ABSCESS DRAIN 03/25/2021 CT GUIDED IMAGING FOR ABSCESS DRAIN CT GUIDED IMAGING FOR ABSCESS DRAIN 03/25/2021 CT GUIDED IMAGING FOR ABSCESS DRAIN CYSTOURETHROSCOPY 02/25/2021 Catheter Placement HYSTERECTOMY 12/2006 KNEE SURGERY Right 06/22/2018 Scope JAB MENISCECTOMY SIGMOIDECTOMY 02/25/2021 with primary anastomosis TOTAL VAGINAL HYSTERECTOMY with RSO FAMILY HISTORY: Family History Problem Relation Name Age of Onset Diabetes Mother Veronica [place] Diabetes Father [place] Hypert[place] Father [place] Heart disease Father Braulio [facility] Father Braulio [place] Stroke Maternal Grandmother Ada Thornsberry Diabetes Maternal Grandmother Ada Thornsberry No Known Problems Maternal Grandfather Cancer Paternal Grandmother Emelia [place] Cancer Paternal Grandfather Aftabmaile [place] Hypertension Other Scoliosis Sister Mayra Vargas SOCIAL HISTORY: Social History Tobacco Use Smoking status: Never Smokeless tobacco: Never Tobacco comments: Never Vaping Use Vaping status: Never Used Substance Use Topics Alcohol use: Not Currently Comment: Havent had any in 20 years Drug use: Never Depression: Not on file REVIEW OF SYMPTOMS: Review of Systems The review of systems, history and current medications list are all reviewed today. OBJECTIVE: Visit Vitals Ht 5' 5 Wt 267 lb BMI 44.43 kg/m Smoking Status Never BSA 2.36 m Physical Exam Alert and oriented, no acute distress. Mood and affect are appropriate. Ambulating independently. Gait is nonantalgic. wearing brace on left knee. BILATERAL KNEES The patient's right knee lacks about 5 degrees of extension and flexes to around 110 degrees. The left knee has full extension and flexes to around 115 degrees. Roula's test is negative. There is no varus or valgus instability in the right knee. There is a slight effusion in the right knee. Anterior and posterior drawer tests are negative. The left knee also has a slight effusion. The medial patella is nontender. There is tenderness over the lateral patella. The lateral and medial joint line are tender. There is no varus or valgus instability in the left knee. HEENT The skull is normocephalic. There is no sign of trauma to the head or neck. Hearing is intact for conversational tones. Eye exam reveals conjugate gaze adequate for walking and transfers. CARDIAC The heart is regular rate and rhythm. RESPIRATORY Chest excursion is symmetric and unlabored with lungs clear. ABDOMEN Soft and non-distended. OSTEOPATHIC AND STRUCTURAL EXAM There is no gross evidence of clinically significant kyphosis, or lordosis, or significant leg length discrepancy in a sitting and standing position. Ortho Exam Results ASSESSMENT AND PLAN: I reviewed the history, physical exam, diagnostic studies, and diagnosis with the patient. Assessment & Plan Advanced degenerative osteoarthrosis, bilateral knees Rheumatoid arthritis The patient would like to proceed with a left total knee arthroplasty with [employer] robotic arm assistance. The Physihome platform will be utilized. Anticipate greater than 23 hour but less than 72 hour stay in the hospital following surgery. We will utilize tranexamic acid preoperatively and in traoperatively to minimize blood loss. We will enroll the patient in [facility] to assist with perioperative care. We will obtain a CT scan of the affected knee to assist with preoperative planning and intraoperative instrumentation. The CT scan will also allow for better assessment of the arthriticchanges including any potential subchondral deficiencies. The patient has significant joint dysfunction causing severe impairment of function associated withsevere discomfort to such a degree that relief of symptoms and limitations to function were not amenable to conservative non- surgical measures including rest, activity modification, a home exercise pr ogram, icing, NSAIDs, and injections. These methods failed to provide the patient with meaningful or long lasting relief. Based on subjective and objective evidence of anatomic and functional derangements that have imposed severe limitations on the patient in terms of mobility, comfort, and safety as documented in the chart, joint replacement surgery is both medically necessary and reasonable forthis patient. I reviewed the risk, benefits, complications, alternatives, and reasonable expectations. These risks include, but are not limited to, the risks of receiving an anesthetic, the risk of infection, the risk of neurovascular injury that could result in permanent disability, the risk of deep vein thrombosis that could result in potentially fatal pulmonary embolism. Any potential complication could require further surgical intervention. The patient acknowledges these risks and electively signed the consent form. At no time were any guarantees implied or stated. We will schedule the procedure at a mutually convenient time. The surgery will be performed under spinal anesthetic with regional nerve block. I am requesting the regional nerve block to assist with intraoperative and postoperative pain control. A scopolamine patch will be administered by the anesthesia team during her hospital stay to preventpostoperative nausea. A nerve block will be used for pain management, and a spinal anesthetic is preferred for easier recovery compared to general anesthesia. Anti-inflammatory medication will be used temporarily post-surgery to avoid reliance on narcotics, considering her history of a hiatal hernia. Preoperative recommendations have been obtained from patient's clinical application specialist, general surgeon, and machine shop specialist. There are no diagnoses linked to this encounter. A total of 30 to 39 minutes was spent on this patient encounter which included chart review, check in, nurse triage, history taking, physical examination, diagnostic study review, patient counseling and discussion, entering information into the patient's medical record, and coordinating patient care. Gavin Schmitt D.O. Attestation This note was created using voice recognition through [email or web address]. documented in this encounterMadeline Ville [id number] History of Present illness Narrative* APRIL Caba - 01/31/2024 10:30 AM EST Images from the original note were not included. HPI Med Refill Additional comments: scoplamine Last edited by Leah Watkins LPN on 01/31/2024 10:36 AM. Subjective Patient ID: Mateus Carmichael is a 54 y.o. female who presents for hypothyroid. Mateus is present today for follow up hypothyroidism. She is currently on Levothyroxine and her last TSH was low at 0.04 back in November. She also is scheduled for a left total knee replacement with Dr. Schmitt and is doing her PAT today at [facility]. Three months later she will be having the other knee replaced. Getting a CT and x-rays of her left knee today. Has appointment with Dr. Schmitt tomorrow, and eye appointment on Monday. Will also be going out to [place] to visit family this month. Also has been going up to [place] for her dad. Had stress test for the last two days. Has had a lot going on. Current Outpatient Medications on File Prior to Visit Medication Sig Dispense Refill acetaminophen (Tylenol) 325 MG tablet Take 2 tablets every 6 hours by oral route. albuterol HFA 90 mcg/act inhaler Inhale 1 puff every 4 (four) hours if needed for wheezing or shortness of breath. carvedilol (Coreg) 12.5 MG tablet TAKE 1 TABLET BY MOUTH IN THE MORNING AND 1 TABLET IN THE EVENINGWITH FOOD 200 tablet 3 cholecalciferol (Vitamin D-3) 50 MCG (2000 UT) tablet Take 1 tablet by mouth. Once a day clindamycin (Cleocin T) 1 % lotion Apply thin later to affected areas on the body during flares, supply 60 mL 11 Ferric Maltol (ACCRUFeR) 30 MG capsule Take 30 mg by mouth Daily 90 capsule 3 fluconazole (Diflucan) 150 MG tablet Take 1 tablet wait three days if still having syptoms take other tablet if needed 2 tablet 0 fluticasone (Flonase) 50 MCG/ACT nasal spray Administer 2 sprays into each nostril. Once a day hydroxychloroquine (Plaquenil) 200 MG tablet Take 1 tablet by mouth in the morning and 1 tablet before bedtime. levothyroxine (Synthroid) 150 MCG tablet Take 1 tablet (150 mcg) by mouth in the morning. Take before meals. 90 tablet 3 nystatin (Mycostatin) cream APPLY 1 APPLICATION EXTERNALLY TWICE A DAY 45 g 2 omeprazole (PriLOSEC) [address] capsule TAKE 1 CAPSULE BY MOUTH 30 MINUTES BEFORE MORNING MEAL 90 capsule 3 ondansetron (Zofran) 4 MG tablet Take 4 mg by mouth. Every 8 hours as needed Ostomy Supplies (Adapt Lubricating Deodorant) liquid 1 application in the morning. 236 mL 5 rizatriptan RAILROAD FIRER (Maxalt-RAILROAD FIRER) 10 MG disintegrating tablet Take 10 mg by mouth. And place on top of tongue where it will dissolve, then swallow x1, may repeat at 2 hour intervals; do not exceed 30 mg in 24 hours traMADol (Ultram) 50 MG tablet Take 1 tablet by mouth every 6 (six) hours if needed for moderate pain. triamterene-hydroCHLOROthiazide (Dyazide) 37.5-25 MG capsule TAKE 1 CAPSULE BY MOUTH DAILY NEEDED FOR SWELLING 100 capsule 3 [DISCONTINUED] scopolamine (Transderm-Scop) 1 mg/72 hr patch [address] 1 patch on the skin every 3rd (third) day. No current facility-administered medications on file prior to visit. I have reviewed and reconciled the history and medication list with the patient today. Allergies Allergen Reactions Meperidine Other reaction(s): Vomiting Other reaction(s): vomiting Meperidine Hcl GI intolerance Morphine GI intolerance Other reaction(s): Vomiting Chlorhexidine Other Other Reaction(s): burning Other reaction(s): burning Nabumetone Unknown Nalbuphine Unknown Social History Tobacco Use Smoking status: Never Smokeless tobacco: Never Tobacco comments: Never Vaping Use Vaping status: Never Used Substance Use Topics Alcohol use: Not Currently Comment: Havent had any in 20 years Drug use: Never Family History Problem Relation Name Age of Onset Diabetes Mother Veronicaeloina [place] Diabetes Father Braulio [place]se Hypertension Father Braulio [place] Heart disease Father Braulio [place] Cancer Father Braulio [place] Stroke Maternal Grandmother Ada [place] Diabetes Maternal Grandmother Ada Thornsberry No Known Problems Maternal Grandfather Cancer Paternal Grandmother Emelia [place] Cancer Paternal Grandfather Aftab [place] Hypertension Other Scoliosis Sister Mayra Vargas Past Medical History: Diagnosis Date Arthritis, rheumatoid (CMS/HCC) Polanco's cyst Breast cyst 2012 Carpal tunnel syndrome COPD (chronic obstructive pulmonary disease) (CMS/HCC) Diverticulitis 2020 Gastritis GERD (gastroesophageal reflux disease) GI bleed Hiatal hernia History of thumb surgery Hypertension (CMS/HCC) Pelvic abscess in female 04/07/2021 intra-abd infection, pelvic abscess Peritoneal abscess (CMS/HCC) 03/30/2021 Proteus (mirabilis) (morganii) causing dis classd elswhr 03/30/2021 RA (rheumatoid arthritis) (CMS/HCC) Sigmoid diverticulitis 01/2021 Tear of meniscus of knee Vitamin D deficiency 2012 Past Surgical History: Procedure Laterality Date BREAST CYST EXCISION Right CARPAL TUNNEL RELEASE 2014 COLONOSCOPY 2013 COLOSTOMY 03/15/2021 CT GUIDED IMAGING FOR ABSCESS DRAIN 03/24/2021 CT GUIDED IMAGING FOR ABSCESS DRAIN CT GUIDED IMAGING FOR ABSCESS DRAIN 03/25/2021 CT GUIDED IMAGING FOR ABSCESS DRAIN CT GUIDED IMAGING FOR ABSCESS DRAIN 03/25/2021 CT GUIDED IMAGING FOR ABSCESS DRAIN CYSTOURETHROSCOPY 02/25/2021 Catheter Placement HYSTERECTOMY 12/2006 KNEE SURGERY Right 06/22/2018 Scope JAB MENISCECTOMY SIGMOIDECTOMY 02/25/2021 with primary anastomosis TOTAL VAGINAL HYSTERECTOMY with RSO Visit Vitals BP 146/90 (BP Location: Left arm) Pulse 74 Resp 16 Ht 5' 5 Wt 267 lb 12.8 oz SpO2 97% BMI 44.56 kg/m Smoking Status Never BSA 2.36 m Review of Systems Constitutional: Negative for chills, fatigue and fever. Respiratory: Negative for cough, shortness of breath and wheezing. Cardiovascular: Negative for chest pain, palpitations and leg swelling. Gastrointestinal: Negative for abdominal pain, constipation, diarrhea, nausea and vomiting. Musculoskeletal: Positive for arthralgias. Skin: Negative for rash. Objective Physical Exam Constitutional: General: She is not in acute distress. Appearance: She is well-developed. She is obese. HENT: Head: Normocephalic and atraumatic. Eyes: General: No scleral icterus. Conjunctiva/sclera: Conjunctivae normal. Cardiovascular: Rate and Rhythm: Normal rate and regular rhythm. Heart sounds: Normal heart sounds. No murmur heard. Pulmonary: Effort: Pulmonary effort is normal. No respiratory distress. Breath sounds: Normal breath sounds. No wheezing, rhonchi or rales. Abdominal: Comments: Stoma noted Musculoskeletal: Comments: Brace in place on left knee Skin: General: Skin is warm and dry. Neurological: General: No focal deficit present. Mental Status: She is alert and oriented to person, place, and time. Gait: Gait abnormal (Straight cane for ambulation). Psychiatric: Mood and Affect: Mood normal. Behavior: Behavior normal. Assessment/Plan Diagnoses and all orders for this visit: Benign essential hypertension (CMS/HCC) BP is elevated today, however, she has had a lot going on this month and still has a lot to get done. Has been rushing. Did improve mildly on recheck. She had a stress test this week. Will await results. Encounter for screening mammogram for malignant neoplasm of breast - Bilateral screening mammogram with tomosynthesis; Future Provided patient with an order for an updated Mammogram. If results are negative/normal, will plan to continue with routine yearly screenings. Acquired hypothyroidism (CMS/HCC) Will continue to monitor with routine labs. Improved in November. Continue current medication dosage. Morbid obesity (CMS/HCC) Pt has lost a pound since her last appt. Encouraged portion control, decrease simple sugars and carbohydrates, gradually increase activity level. Aim for continued gradual steady weight loss. BMI 40.0-44.9, adult (CMS/HCC) See above. History of severe nausea and vomiting after administration of anesthetic agent - scopolamine (Transderm-Scop) 1 mg/72 hr patch 72 hour patch; Place 1 patch on the skin every 3rd (third) day Can use the above as needed. Reminded her to relay to her anesthesia team that she is using the scopolamine patch. Primary osteoarthritis of both knees The patient is seeing a medical library assistant for this condition, treatment is deferred to that specialist. Correspondence from that specialist and any available testing were reviewed during today's visit. She is following up with Dr. Schmitt this week and is scheduled for her left knee replacement. Follow up in about 6 months (around 07/31/2024) for Hypertension. documented in this encounterSSM Health [id number] [facility] Chief Complaint: Patient here for cardiac clearance prior to total knee arthroplasty, scheduled for 02/14/2024. She denies chest pain and SOB. Has LE edema, and using triamterene-hydrochlorothiazide PRN. Palpitations occur a few times a month. Had routine labs w/ lipid panel in Oct 2023. HPI: Mateus Carmichael is a 54 y.o. year old with past medical history of Left bundle branch block, hypertension, rheumatoid arthritis, PCOS GERD who was previosly evaluated at [facility]. She was last seen by Dr. Phillips in Dec 2018 for abnormal ECG. Had thyroid function last month, and routine labs in Sep 2022. Denies chest pain and lightheadedness. Still feels palpitations and gets SOB w/wo exertion. She takes carvedilol twice daily, but says PCP gave her metoprolol to take PRN for palpitations. Says she doesn't take this though. Denies smoking, illicit drug use, and hasn't used ETOH for the past 15 years. Reports moderate amount of daily caffeine intake. PMHx: HTN, RA, PCOS, DDD, GERD, sliding esophagous , hiatal hernia, migraines. PSHx: hysterectomy, right carpal tunnel FMHx: father - heart disease in his 30's 2/2 (pt thinks HF d/t prolonged steriod use s/p accident in his 20's), bladder CA, ; mother - COPD, enlarged heart that was found in her late 50's. UPDATE 01/10/2024 She is unable to walk up and down stairs due to her knee discomfort. She is short of breath with exertion. She denies chest pain. She denies orthopnea or paroxysmal external dyspnea. She has chronic lower extremity edema and wears compression stockings. Cardiology ROS: Review of Systems Cardiovascular: Positive for leg swelling and palpitations. Musculoskeletal: Positive for arthritis and joint pain. All other systems reviewed and are negative. Past Medical History She has a past medical history of Abnormal ECG, Hypertension, and LBBB (left bundle branch block). Surgical History She has a past surgical history that includes CT guided percutaneous peritoneal or retroperitoneal fluid collection drainage (03/24/2021); CT guided percutaneous peritoneal or retroperitoneal fluid collection drainage (03/25/2021); CT guided percutaneous peritoneal or retroperitoneal fluid collection drainage (03/25/2021); Knee arthroscopy w/ ACL reconstruction; Hysterectomy; and Carpal tunnel release. Social History She reports that she has never smoked. She has never used smokeless tobacco. She reports that she does not currently use alcohol. She reports that she does not use drugs. Family History Family History Problem Relation Name Age of Onset Coronary artery disease Father Heart disease Father Allergies Meperidine, Morphine, Nalbuphine, Chlorhexidine, and Nabumetone Medications Current Outpatient Medications: albuterol 90 mcg/actuation inhaler, albuterol sulfate HFA 90 mcg/actuation aerosol inhaler, Disp: , Rfl: carvedilol (Coreg) 12.5 mg tablet, Take 12.5 mg by mouth with breakfast and with evening meal., Disp: , Rfl: esomeprazole (NexIUM) [address] capsule, Take 40 mg by mouth., Disp: , Rfl: ferric maltol (Accrufer) 30 mg capsule, Take 30 mg by mouth in the morning., Disp: , Rfl: fluticasone (Flonase) 50 mcg/actuation nasal spray, fluticasone propionate 50 mcg/actuation nasal spray,suspension USE 2 SPRAYS IN EACH NOSTRIL ONCE DAILY, Disp: , Rfl: hydroxychloroquine (Plaquenil) 200 mg tablet, hydroxychloroquine 200 mg tablet TAKE 1 TABLET BY MOUTH TWICE A DAY, Disp: , Rfl: levothyroxine (Synthroid, Levoxyl) 175 mcg tablet, TAKE 1 TABLET BY MOUTH EVERY MORNING BEFORE A MEAL, Disp: , Rfl: metoprolol tartrate (Lopressor) 25 mg tablet, metoprolol tartrate 25 mg tablet TAKE 1 TABLET BY MOUTH EVERY 6 HOURS NEEDED FOR PALPITATIONS, Disp: , Rfl: nebivolol (Bystolic) 5 mg tablet, Bystolic 5 mg tablet, Disp: , Rfl: nystatin (Mycostatin) 100,000 unit/gram powder, Apply topically twice a day., Disp: , Rfl: rizatriptan (Maxalt) 10 mg tablet, Maxalt 10 mg tablet Take 1 tablet as needed by oral route., Disp: , Rfl: scopolamine (Transderm-Scop) 1 mg over 3 days patch 3 day, scopolamine 1 mg over 3 days transdermal patch, Disp: , Rfl: traMADol (Ultram) 50 mg tablet, tramadol 50 mg tablet, Disp: , Rfl: vitamin D3-folic acid 94 mcg- 1 mg tablet, Take 1 tablet by mouth., Disp: , Rfl: Last Recorded Vitals BP 150/82 (BP Location: Left arm, Patient Position: Sitting) Pulse 67 Ht 1.676 m (5' 6 ) Wt 121 kg (266 lb) SpO2 97% BMI 42.93 kg/m??? Physical Examination: GENERAL: alert and oriented x3, well developed, in no acute distress. HEAD: atraumatic, normocephalic, evidence of facial hirsutism EYES: SANDIP, EOMI. NECK: trachea midline, no JVD present, no carotid bruits present. CARDIAC: S1, S2 present. RRR. No murmur, rubs, or gallops. RESPIRATORY: CTAB, no increased effort of breathing, no rales, rhonchi, or wheezing. ABDOMEN: soft, nontender, nondi (more content not included)...[facility]11-07-2024 Telephone encounter Note* Telephone Encounter - APRIL Caba - 01/04/2024 11:35 AM EST Accrufer refill to [facility]. [facility] [id number] Miscellaneous Notes* Telephone Encounter - APRIL Caba - 01/04/2024 11:35 AM EST Accrufer refill to [facility]. documented in this encounterSSM Health [id number] History of Present illness Narrative* Gavin Schmitt DO - 12/21/2023 2:00 PM EDT Images from the original note were not included. @ENCDATE@ Mateus Duvall Amol is a 53 y.o. female who presents for Follow-up of the Left Knee and Follow-up of the Right Knee HPI: History of Present Illness The patient is a 53-year-old female here today to follow up on both of her knees. She is accompanied by her . She has been experiencing significant pain in both knees for the past 6 weeks, with the left knee causing more discomfort. She also reports a sensation of heaviness in her legs, which has improved charlie thyroid condition has been managed. Despite this improvement, she continues to experience pain in her knees, legs, and feet. She is not currently taking any medication other than Plaquenil for rheumatoid arthritis. Her machine shop specialist has recommended surgery, but she is hesitant due to concerns about her gastrointestinal health and weight. She has been using compression socks and knee sleeves for support. She has previously undergone a scope procedure on her right knee. She is considering knee replacement surgery and is seeking information about the process and recovery time. She also has a history of heart problems, including left bundle branch blockage and paroxysmal ventricular contractions, and is under the care of a clinical application specialist. She is not on any blood thinners but is taking carvedilol. SUBJECTIVE: MEDICATIONS: Current Outpatient Medications Medication Instructions ACCRUFeR 30 mg, Oral, Daily acetaminophen (Tylenol) 325 MG tablet Take 2 tablets every 6 hours by oral route. albuterol HFA 90 mcg/act inhaler 1 puff, Every 4 hours PRN carvedilol (Coreg) 12.5 MG tablet TAKE 1 TABLET BY MOUTH IN THE MORNING AND 1 TABLET IN THE EVENINGWITH FOOD cholecalciferol (Vitamin D-3) 50 MCG (1999 UT) tablet 1 tablet clindamycin (Cleocin T) 1 % lotion Apply thin later to affected areas on the body during flares, supply fluconazole (Diflucan) 150 MG tablet Take 1 tablet wait three days if still having syptoms take other tablet if needed fluticasone (Flonase) 50 MCG/ACT nasal spray 2 sprays hydroxychloroquine (Plaquenil) 200 MG tablet 1 tablet, 2 times daily levothyroxine (SYNTHROID) 150 mcg, Oral, Daily before breakfast nystatin (Mycostatin) cream APPLY 1 APPLICATION EXTERNALLY TWICE A DAY omeprazole (PriLOSEC) [address] capsule TAKE 1 CAPSULE BY MOUTH 30 MINUTES BEFORE MORNING MEAL ondansetron (ZOFRAN) 4 mg Ostomy Supplies (Adapt Lubricating Deodorant) liquid 1 application , Does not apply, Daily rizatriptan RAILROAD FIRER (MAXALT-RAILROAD FIRER) 10 mg scopolamine (Transderm-Scop) 1 mg/72 hr patch 72 hour patch 1 patch, Every 72 hours traMADol (Ultram) 50 MG tablet 1 tablet, Every 6 hours PRN triamterene-hydroCHLOROthiazide (Dyazide) 37.5-25 MG capsule TAKE 1 CAPSULE BY MOUTH DAILY NEEDED FOR SWELLING ALLERGIES: Allergies Allergen Reactions Meperidine Other reaction(s): Vomiting Other reaction(s): vomiting Meperidine Hcl GI intolerance Morphine GI intolerance Other reaction(s): Vomiting Chlorhexidine Other Other Reaction(s): burning Other reaction(s): burning Nabumetone Unknown Nalbuphine Unknown SURGICAL HISTORY: Past Surgical History: Procedure Laterality Date BREAST CYST EXCISION Right CARPAL TUNNEL RELEASE 2014 COLONOSCOPY 2013 COLOSTOMY 03/15/2021 CT GUIDED IMAGING FOR ABSCESS DRAIN 03/24/2021 CT GUIDED IMAGING FOR ABSCESS DRAIN CT GUIDED IMAGING FOR ABSCESS DRAIN 03/25/2021 CT GUIDED IMAGING FOR ABSCESS DRAIN CT GUIDED IMAGING FOR ABSCESS DRAIN 03/25/2021 CT GUIDED IMAGING FOR ABSCESS DRAIN CYSTOURETHROSCOPY 02/25/2021 Catheter Placement HYSTERECTOMY 12/2006 KNEE SURGERY Right 06/22/2018 Scope JAB MENISCECTOMY SIGMOIDECTOMY 02/25/2021 with primary anastomosis TOTAL VAGINAL HYSTERECTOMY with RSO FAMILY HISTORY: Family History Problem Relation Name Age of Onset Diabetes Mother Veronica [place] Diabetes Father Braulio [place] Hypertension Father Braulio [place] Heart disease Father Braulio [place] Cancer Father Braulio [place] Stroke Maternal Grandmother Ada Thornsberry Diabetes Maternal Grandmother Ada Thornsberry No Known Problems Maternal Grandfather Cancer Paternal Grandmother Emelia [place] Cancer Paternal Grandfather Aftab [place] Hypertension Other Scoliosis Sister Mayra Vargas SOCIAL HISTORY: Social History Tobacco Use Smoking status: Never Smokeless tobacco: Never Tobacco comments: Never Vaping Use Vaping status: Never Used Substance Use Topics Alcohol use: Not Currently Comment: Havent had any in 20 years Drug use: Never Depression: Not on file REVIEW OF SYMPTOMS: Review of Systems The review of systems, history and current medications list are all reviewed today. OBJECTIVE: Visit Vitals Temp 97.4 F Ht 5' 5 Wt 268 lb BMI 44.60 kg/m Smoking Status Never BSA 2.37 m Physical Exam Alert and oriented, no acute distress. Mood and affect are appropriate. Ambulating independently. Gait is nonantalgic. BILATERAL KNEES The patient's right knee lacks about 5 degrees of extension and flexes to around 110 degrees. The left knee has full extension and flexes to around 115 degrees. Roula's test is negative. There is no varus or valgus instability in the right knee. There is a slight effusion in the right knee. Anterior and posterior drawer tests are negative. The left knee also has a slight effusion. The medial patella is nontender. There is tenderness over the lateral patella. The lateral and medial joint line are tender. There is no varus or valgus instability in the left knee. Injection sites benign. HEENT The skull is normocephalic. There is no sign of trauma to the head or neck. Hearing is intact for conversational tones. Eye exam reveals conjugate gaze adequate for walking and transfers. CARDIAC The heart is regular rate and rhythm. RESPIRATORY Chest excursion is symmetric and unlabored with lungs clear. ABDOMEN Soft and non-distended. OSTEOPATHIC AND STRUCTURAL EXAM There is no gross evidence of clinically significant kyphosis, or lordosis, or significant leg length discrepancy in a sitting and standing position. Ortho Exam Results ASSESSMENT AND PLAN: I reviewed the history, physical exam, diagnostic studies, and diagnosis with the patient. Assessment & Plan Advanced degenerative osteoarthrosis, bilateral knees Rheumatoid arthritis The patient reports significant bilateral knee pain, with the left knee being more painful. She hasmaintained good range of motion and stability in both knees. Previous Zilretta injections were administered in July. The patient is considering knee replacement surgery, with the left knee being the likely candidate due to more severe pain and [id number] contact. A CT scan of the knee will be performed for surgical planning. The use of robotic technology in the surgery was discussed. A tentative date for the surgery is set for 02/14/2024, but this can be adjusted as needed. Post-surgery, she will undergo physical therapy both in the hospital and at home. The patient would like to proceed with a left total knee arthroplasty with [employer] robotic arm assistance. The Physihome platform will be utilized. Anticipate greater than 23 hour but less than 72 hour stay in the hospital following surgery. We will utilize tranexamic acid preoperatively and in traoperatively to minimize blood loss. We will enroll the patient in [facility] to assist with perioperative care. We will obtain a CT scan of the affected knee to assist with preoperative planning and intraoperative instrumentation. The CT scan will also allow for better assessment of the arthriticchanges including any potential subchondral deficiencies. The patient has significant joint dysfunction causing severe impairment of function associated withsevere discomfort to such a degree that relief of symptoms and limitations to function were not amenable to conservative non- surgical measures including rest, activity modification, a home exercise pr ogram, icing, NSAIDs, and injections. These methods failed to provide the patient with meaningful or long lasting relief. Based on subjective and objective evidence of anatomic and functional derangements that have imposed severe limitations on the patient in terms of mobility, comfort, and safety as documented in the chart, joint replacement surgery is both medically necessary and reasonable forthis patient. I reviewed the risk, benefits, complications, alternatives, and reasonable expectations. These risks include, but are not limited to, the risks of receiving an anesthetic, the risk of infection, the risk of neurovascular injury that could result in permanent disability, the risk of deep vein thrombosis that could result in potentially fatal pulmonary embolism. Any potential complication could require further surgical intervention. The patient acknowledges these risks and electively signed the consent form. At no time were any guarantees implied or stated. We will schedule the procedure at a mutually convenient time. The surgery will be performed under spinal anesthetic with regional nerve block. I am requesting the regional nerve block to assist with intraoperative and postoperative pain control. We will need preoperative recommendations from her Label Paster Dr. Galvin, general surgeon Dr. Navarro at [facility], and [place] clinical application specialist. Patient acknowledges increased risk for postoperative complications given elevated BMI. A total of 30 to 39 minutes was spent on this patient encounter which included chart review, check in, nurse triage, history taking, physical examination, diagnostic study review, patient counseling and discussion, entering information into the patient's medical record, and coordinating patient care. There are no diagnoses linked to this encounter. Gavin Schmitt D.O. Attestation This note was created using voice recognition through [employer]. documented in this encounterSSM Health [id number] Telephone encounter Note* Telephone Encounter - APRIL Caba - 11/27/2023 3:19 PM EDT Coreg sent NOM[facility] [id number] Miscellaneous Notes* Telephone Encounter - APRIL Caba - 11/27/2023 3:19 PM EDT Coreg sent documented in this encounterSSM Health [id number] History of Present illness Narrative* APRIL Coelho - 11/03/2023 12:30 PM EDT Images from the original note were not included. Staple Removal Patient here for suture removal: No complaints of redness, drainage or swelling at site, compliant with wound care. Location: Left upper back Procedure Performed: Excision Date of Procedure: 10/20/23 Margins clear. All pertinent medical history, medications, and allergies were reviewed. General Exam: alert , oriented to person, place, and time , normal affect, well appearing Unaccompanied A focused exam completed based on patient reported problems, see below: 1. Encounter for removal of cheko Left Upper Back Cheko are intact, skin edges are well approximated, mild erythema along incision line, no drainage or edema noted Staple removal today, see procedure note: Staple Removal Procedure: Grassflat were removed without difficulty. Tincture of Benzoin was applied around site in preparation of steri-strips. Steri-strips were applied Post-Procedure instructions: Instructed to discontinue wound care., Instructed to keep steri stripson for at least 5-7 days., Pathology results discussed. Next Visit: rec pt schedule 1 year FBSE documented in this encounterSSM Health [id number] History of Present illness Narrative* APRIL Caba - 11/01/2023 10:30 AM EDT Images from the original note were not included. Subjective Patient ID: Mateus Carmichael is a 53 y.o. female who presents for wellness. Subjective Mateus Carmichael is a 53 y.o. female and is here for a comprehensive physical exam. The patient reports she feels swollen on the left side of her body for about 2 weeks, she did take a water pill and did not feel it really helped. Feels like her knee on her left side is having a hard time supporting her , both knees are bothering her but left is worse. Has been wearing compression stockings, elevating. Will be going to see someone regarding her colostomy, having some irritation at the stomal site. Current Outpatient Medications on File Prior to Visit Medication Sig Dispense Refill acetaminophen (Tylenol) 325 MG tablet Take 2 tablets every 6 hours by oral route. albuterol HFA 90 mcg/act inhaler Inhale 1 puff every 4 (four) hours if needed for wheezing or shortness of breath. carvedilol (Coreg) 12.5 MG tablet Take 1 tablet (12.5 mg) by mouth in the morning and 1 tablet (12.5 mg) in the evening. Take with meals. Twice a day with food. 200 tablet 3 cholecalciferol (Vitamin D-3) 50 MCG (2000 UT) tablet Take 1 tablet by mouth. Once a day clindamycin (Cleocin T) 1 % lotion Apply thin later to affected areas on the body during flares, supply 60 mL 11 Ferric Maltol (ACCRUFeR) 30 MG capsule Take 30 mg by mouth in the morning. 90 capsule 3 fluconazole (Diflucan) 150 MG tablet Take 1 tablet wait three days if still having syptoms take other tablet if needed 2 tablet 0 fluticasone (Flonase) 50 MCG/ACT nasal spray Administer 2 sprays into each nostril. Once a day hydroxychloroquine (Plaquenil) 200 MG tablet Take 1 tablet by mouth in the morning and 1 tablet before bedtime. levothyroxine (Synthroid, Levoxyl) 175 MCG tablet TAKE 1 TABLET BY MOUTH EVERY MORNING BEFORE A MEAL. 100 tablet 3 nystatin (Mycostatin) cream APPLY 1 APPLICATION EXTERNALLY TWICE A DAY 45 g 2 omeprazole (PriLOSEC) [address] capsule TAKE 1 CAPSULE BY MOUTH 30 MINUTES BEFORE MORNING MEAL 90 capsule 3 ondansetron (Zofran) 4 MG tablet Take 4 mg by mouth. Every 8 hours as needed Ostomy Supplies (Adapt Lubricating Deodorant) liquid 1 application in the morning. 236 mL 5 rizatriptan RAILROAD FIRER (Maxalt-RAILROAD FIRER) 10 MG disintegrating tablet Take 10 mg by mouth. And place on top of tongue where it will dissolve, then swallow x1, may repeat at 2 hour intervals; do not exceed 30 mg in 24 hours scopolamine (Transderm-Scop) 1 mg/72 hr patch [address] 1 patch on the skin every 3rd (third) day. traMADol (Ultram) 50 MG tablet Take 1 tablet by mouth every 6 (six) hours if needed for moderate pain. triamterene-hydroCHLOROthiazide (Dyazide) 37.5-25 MG capsule TAKE 1 CAPSULE BY MOUTH DAILY NEEDED FOR SWELLING 100 capsule 3 [DISCONTINUED] Folic Acid-Cholecalciferol 1-5000 MG-UNIT tablet Take 1 tablet by mouth 1 (one) timeeach day at the same time. [DISCONTINUED] Nyamyc 579350 UNIT/GM powder APPLY TO AFFECTED AREA TWICE A DAY 45 g 3 No current facility-administered medications on file prior to visit. I have reviewed and reconciled the history and medication list with the patient today. Allergies Allergen Reactions Meperidine Other reaction(s): Vomiting Other reaction(s): vomiting Meperidine Hcl GI intolerance Morphine GI intolerance Other reaction(s): Vomiting Chlorhexidine Other Other Reaction(s): burning Other reaction(s): burning Nabumetone Unknown Nalbuphine Unknown Social History Tobacco Use Smoking status: Never Smokeless tobacco: Never Tobacco comments: Never Vaping Use Vaping status: Never Used Substance Use Topics Alcohol use: Not Currently Comment: Havent had any in 20 years Drug use: Never Family History Problem Relation Name Age of Onset Diabetes Mother Veronica Mayfield Diabetes Father Braulio Mayfield Hypertension Father Braulio Mayfield Heart disease Father Brauliolucinda [place] Cancer Father Braulio Mayfield Stroke Maternal Grandmother Ada Thornsberry Diabetes Maternal Grandmother Ada Thornsberry No Known Problems Maternal Grandfather Cancer Paternal Grandmother Emelia [place] Cancer Paternal Grandfather Aftab Mayfield Hypertension Other Scoliosis Sister Mayra Vargas Past Medical History: Diagnosis Date Arthritis, rheumatoid (CMS/HCC) Polanco's cyst Breast cyst 2012 Carpal tunnel syndrome COPD (chronic obstructive pulmonary disease) (CMS/HCC) Diverticulitis 2020 Gastritis GERD (gastroesophageal reflux disease) GI bleed Hiatal hernia History of thumb surgery Hypertension (CMS/HCC) Pelvic abscess in female 04/07/2021 intra-abd infection, pelvic abscess Peritoneal abscess ([facility]) 03/30/2021 Proteus (mirabilis) (morganii) causing dis classd elswhr 03/30/2021 RA (rheumatoid arthritis) ([facility]) Sigmoid diverticulitis 01/2021 Tear of meniscus of knee Vitamin D deficiency 2012 Past Surgical History: Procedure Laterality Date BREAST CYST EXCISION Right CARPAL TUNNEL RELEASE 2014 COLONOSCOPY 2013 COLOSTOMY 03/15/2021 CT GUIDED IMAGING FOR ABSCESS DRAIN 03/24/2021 CT GUIDED IMAGING FOR ABSCESS DRAIN CT GUIDED IMAGING FOR ABSCESS DRAIN 03/25/2021 CT GUIDED IMAGING FOR ABSCESS DRAIN CT GUIDED IMAGING FOR ABSCESS DRAIN 03/25/2021 CT GUIDED IMAGING FOR ABSCESS DRAIN CYSTOURETHROSCOPY 02/25/2021 Catheter Placement HYSTERECTOMY 12/2006 KNEE SURGERY Right 06/22/2018 Scope JAB MENISCECTOMY SIGMOIDECTOMY 02/25/2021 with primary anastomosis TOTAL VAGINAL HYSTERECTOMY with RSO Visit Vitals BP 130/88 Pulse 71 Resp 16 Ht 5' 5 Wt 268 lb 12.8 oz SpO2 98% BMI 44.73 kg/m Smoking Status Never BSA 2.37 m Review of Systems Constitutional: Negative for chills, fatigue and fever. HENT: Positive for tinnitus (Left). Negative for congestion, ear pain, rhinorrhea and sore throat. Eyes: Negative for pain, discharge and visual disturbance. Respiratory: Positive for shortness of breath (Slight BUCKLEY). Negative for cough and wheezing. Cardiovascular: Positive for palpitations (No change from baseline) and leg swelling. Negative for chest pain. Gastrointestinal: Negative for abdominal pain, constipation, diarrhea, nausea and vomiting. Genitourinary: Negative for difficulty urinating, dysuria and frequency. Musculoskeletal: Positive for arthralgias, gait problem and joint swelling. Negative for back pain. Skin: Negative for rash. Neurological: Negative for dizziness and numbness. Psychiatric/Behavioral: Negative for sleep disturbance. The patient is not nervous/anxious. Objective Physical Exam Constitutional: General: She is not in acute distress. Appearance: She is well-developed. She is obese. HENT: Head: Normocephalic and atraumatic. Right Ear: Tympanic membrane and ear canal normal. Left Ear: There is impacted cerumen. Nose: Nose normal. Mouth/Throat: Mouth: Mucous membranes are moist. Pharynx: No posterior oropharyngeal erythema. Eyes: General: No scleral icterus. Extraocular Movements: Extraocular movements intact. Conjunctiva/sclera: Conjunctivae normal. Pupils: Pupils are equal, round, and reactive to light. Cardiovascular: Rate and Rhythm: Normal rate and regular rhythm. Heart sounds: Normal heart sounds. No murmur heard. Pulmonary: Effort: Pulmonary effort is normal. No respiratory distress. Breath sounds: Normal breath sounds. No wheezing, rhonchi or rales. Abdominal: General: Bowel sounds are normal. There is no distension. Palpations: Abdomen is soft. Tenderness: There is no abdominal tenderness. There is no guarding. Comments: Colostomy in place. Musculoskeletal: General: No swelling or deformity. Normal range of motion. Cervical back: Normal range of motion and neck supple. No tenderness. Thoracic back: No bony tenderness. Lumbar back: Bony tenderness present. Negative right straight leg raise test and negative left straight leg raise test. Comments: Measured bilateral forearms and calves in the office and they are symmetric bilaterally. Skin: General: Skin is warm and dry. Capillary Refill: Capillary refill takes less than 2 seconds. Findings: No rash. Neurological: General: No focal deficit present. Mental Status: She is alert and oriented to person, place, and time. Cranial Nerves: Cranial nerves 2-12 are intact. No cranial nerve deficit or facial asymmetry. Sensory: No sensory deficit. Motor: No weakness or pronator drift. Coordination: Coordination normal. Gait: Gait normal. Deep Tendon Reflexes: Reflexes normal. Psychiatric: Mood and Affect: Mood normal. Behavior: Behavior normal. Thought Content: Thought content normal. Judgment: Judgment normal. Assessment/Plan Diagnoses and all orders for this visit: Wellness examination - CBC and differential; Future - Comprehensive metabolic panel; Future - Hemoglobin A1c; Future - Iron + transferrin + TIBC; Future - Lipid panel; Future - TSH W/REFLEX TO FT4; Future - Vitamin D 25 hydroxy Total; Future Wellness form reviewed in detail with the patient. Encouraged patient to stay up to date on immunizations and preventative testing. Encouraged healthy diet, stay active. Will continue with yearly wellness exams. Osteoarthritis of spine with radiculopathy, lumbosacral region This is a chronic medical condition that is stable since last assessment. No changes in treatment are suggested at this time. Hiatal hernia This is a chronic medical condition that is stable since last assessment. No changes in treatment are suggested at this time. Small airways disease This is a chronic medical condition that is stable since last assessment. No changes in treatment are suggested at this time. Benign essential hypertension (CMS/HCC) - CBC and differential; Future - Comprehensive metabolic panel; Future - Lipid panel; Future Patient's blood pressure is currently well controlled. Continue with current medications and I willcontinue to monitor. Electrocardiogram abnormal The patient is seeing a medical library assistant for this condition, treatment is deferred to that specialist. Correspondence from that specialist and any available testing were reviewed during today's visit. LBBB (left bundle branch block) The patient is seeing a medical library assistant for this condition, treatment is deferred to that specialist. Correspondence from that specialist and any available testing were reviewed during today's visit. Palpitations The patient is seeing a medical library assistant for this condition, treatment is deferred to that specialist. Correspondence from that specialist and any available testing were reviewed during today's visit. Paroxysmal SVT (supraventricular tachycardia) (CMS/HCC) The patient is seeing a medical library assistant for this condition, treatment is deferred to that specialist. Correspondence from that specialist and any available testing were reviewed during today's visit. Presence of other vascular implants and grafts The patient is seeing a medical library assistant for this condition, treatment is deferred to that specialist. Correspondence from that specialist and any available testing were reviewed during today's visit. Diverticular disease of colon This is a chronic medical condition that is stable since last assessment. No changes in treatment are suggested at this time. Diverticulosis large intestine w/o perforation or abscess w/bleeding This is a chronic medical condition that is stable since last assessment. No changes in treatment are suggested at this time. Gastroesophageal reflux disease without esophagitis This is a chronic medical condition that is stable since last assessment. No changes in treatment are suggested at this time. Fatty liver - Comprehensive metabolic panel; Future Will recheck liver function with today's labs. Bilateral lower extremity edema - Comprehensive metabolic panel; Future Reassurance given that her measurements were symmetric in the office today. She states when she took her water pill last, it made her feel off. Limit use. Continue compression stockings. Elevate as needed. Await lab results. DDD (degenerative disc disease), lumbar This is a chronic medical condition that is stable since last assessment. No changes in treatment are suggested at this time. Internal derangement of right knee The patient is seeing a medical library assistant for this condition, treatment is deferred to that specialist. Correspondence from that specialist and any available testing were reviewed during today's visit. Lumbosacral spondylosis without myelopathy This is a chronic medical condition that is stable since last assessment. No changes in treatment are suggested at this time. Primary osteoarthritis of both knees The patient is seeing a medical library assistant for this condition, treatment is deferred to that specialist. Correspondence from that specialist and any available testing were reviewed during today's visit. Acquired hypothyroidism ([facility]/HCC) - TSH W/REFLEX TO FT4; Future Will recheck thyroid function with today's labs. IGT (impaired glucose tolerance) - Comprehensive metabolic panel; Future - Hemoglobin A1c; Future Will recheck glucose with today's labs. Polycystic ovaries This is a chronic medical condition that is stable since last assessment. No changes in treatment are suggested at this time. Other iron deficiency anemia - CBC and differential; Future - Iron + transferrin + TIBC; Future Will recheck iron and CBC with today's labs. Diverticulitis of colon with perforation The patient is seeing a medical library assistant for this condition, treatment is deferred to that specialist. Correspondence from that specialist and any available testing were reviewed during today's visit. Intertrigo Denies current concerns. Will continue to monitor for symptoms. Abnormal mammogram Has updated order in system for mammogram. Will await those results. Acute left-sided low back pain with left-sided sciatica This is a chronic medical condition that is stable since last assessment. No changes in treatment are suggested at this time. Seasonal allergic rhinitis due to pollen This is a chronic medical condition that is stable since last assessment. No changes in treatment are suggested at this time. Colostomy present ([facility]) Pt having some issues with her colostomy site. Will provide pt with referral for management. Follows with Dr. Shanice Navarro Surgeon. History of hysterectomy Pt is s/p hysterectomy. Denies complaints. Hypokalemia - Comprehensive metabolic panel; Future Will recheck potassium level with today's labs. Menopausal symptoms This is a chronic medical condition that is stable since last assessment. No changes in treatment are suggested at this time. Chronic migraine without aura without status migrainosus, not intractable ([facility]) This is a chronic medical condition that is stable since last assessment. No changes in treatment are suggested at this time. Presbyopia of both eyes The patient is seeing a medical library assistant for this condition, treatment is deferred to that specialist. Correspondence from that specialist and any available testing were reviewed during today's visit. Presence of other specified devices The patient is seeing a medical library assistant for this condition, treatment is deferred to that specialist. Correspondence from that specialist and any available testing were reviewed during today's visit. Pure hypertriglyceridemia (CMS/HCC) - Comprehensive metabolic panel; Future - Lipid panel; Future Will recheck cholesterol level with today's labs. Rheumatoid arthritis involving multiple sites with positive rheumatoid factor (CMS/HCC) This is a chronic medical condition that is stable since last assessment. No changes in treatment are suggested at this time. Sciatica of left side This is a chronic medical condition that is stable since last assessment. No changes in treatment are suggested at this time. Morbid obesity (CMS/HCC) Has gained 10 pounds since 09/14/2023. Encouraged portion control, decrease simple sugars and carbohydrates, gradually increase activity level. Aim for gradual steady weight loss. BMI 40.0-44.9, adult (CMS/HCC) See above. Myalgia - Vitamin D 25 hydroxy Total; Future Will check Vitamin D level with today's labs. Follow up in about 3 months (around 01/31/2024). documented in this encounterSSM Health [id number] History of Present illness Narrative* Catalina Marte MD - 10/20/2023 10:30 AM EDT Images from the original note were not included. Subjective Mateus Carmichael is a 53 y.o. female who presents for the following: Excision. Location: Left Upper Back Date of biopsy: 08/24/2023 Diagnosis: Moderately atypical nevus Pre-Op Checklist: History of pacemaker/defibrillator: No History of joint replacement in the past 2 years: No History of HIV/Hepatitis B/Hepatitis C: No Latex allergy: No Is the patient currently on a blood thinner? No. All pertinent medical history, medications, and allergies were reviewed. Surgical assistants: Kateryna Loco LPN and Olive Burns LPN Objective Well appearing patient in no apparent distress; mood and affect are within normal limits. 1. Neoplasm of uncertain behavior of skin Left Upper Back Bingen macule at biopsy site Skin excision Lesion length (cm): 1.5 Lesion width (cm): 1.3 Margin per side (cm): 0.3 Total excision diameter (cm): 2.1 Informed consent: discussed and consent obtained Informed consent comment: Risks and possible complications were discussed as noted on the consent form. The consent form was signed prior to the procedure. Timeout: patient name, date of , surgical site, and procedure verified Timeout comment: Patient and provider identified site. Site was marked and excision was drawn out. Photo was taken and shown to patient, patient verified this is the correct site. Procedure prep: Patient was prepped and draped in usual sterile fashion (The planned incision lineswere drawn along relaxed skin tension lines, if possible, to minimize scarring and deformity of surrounding structures.) Prep type: Chlorhexidine Anesthesia: the lesion was anesthetized in a standard fashion Anesthesia comment: The local anesthetic was injected to create a field block at the site of the procedure. Anesthetic: 1% lidocaine w/ epinephrine 1-100,000 buffered w/ 8.4% NaHCO3 Instrument used: #15 blade Instrument used comment: Incisions were made as drawn, and the surrounding tissue was undermined until the skin edges could be approximated without undue tension. Any tissue redundancies were removed. Hemostasis achieved with: electrodesiccation Additional details: Amount of lidocaine used: 7 ml Estimated blood loss: < 1 ml Skin repair Complexity: Intermediate Final length (cm): 3.5 Reason for type of repair: allow closure of the large defect Undermining: edges undermined Undermining comment: The surrounding tissue was undermined until the skin edges could be approximated without undue tension. Any tissue redundancies were removed. Subcutaneous layers (deep stitches): Suture size: 3-0 (Biosyn) Stitches: Buried horizontal mattress (Closure was performed in a layered fashion with subcutaneous tissue closed first using tension-bearing absorbable sutures to the level of the superficial fascia.) Fine/surface layer approximation (top stitches): Fine approximation suture size: Cheko. Suture removal (days): 14 Outcome: patient tolerated procedure well with no complications Post-procedure details: sterile dressing applied and wound care instructions given Post-procedure details comment: It was emphasized to the patient to contact the office for any signs of infection, uncontrollable bleeding, or complications. Dressing type: bandage Specimen A - Dermatopathology exam Previous accession number: [id number] Follow up: 14 days for s/r documented in this encounterSSM Health [id number] History of Present illness Narrative* Gavin Schimtt, DO - 07/04/2023 2:30 PM EDT Subjective Mateus Carmichael is a 53 y.o. female who presents for Pain of the Right Knee and Pain of the Left Knee History of Present Illness The patient presents for evaluation of bilateral knee pain. The patient reports experiencing bilateral knee pain, with the left knee being more severely affected than the right. She has a history of surgery on the right knee on 06/22/2018 consisting of partial medial and partial lateral meniscectomies, chondroplasty, IO[place] to the [facility] She has been experiencing discomfort in the left knee for the past 2 months. The right knee pain isintermittent, contingent upon the level of physical activity she engages in. Dr[facility] Shanice [facility]at [facility] has advised her to maintain a constant walking regimen for weight loss. The left knee pain is identical to the right knee, with pain localized both medially and posteriorly. Prolonged weight-bearing activities result in swelling. She has attempted to manage the pain with compression socks and knee sleeves. The patient is unable to take steroids due to a history of bowel resection due to diverticulitis and perforation, a consequence of her RA medication. Her surgeon, Dr. Shanice Brown, has advised her to avoid injectable steroids. She is currently on hydroxychloroquine for her RA.A few months ago, she inadvertently stepped awkwardly, which exacerbated the pain. Approximately 2 weeks ago, she reinjured her left knee while exiting a car. She has a colostomy bag, which is to be d etermined to be permanent or reversed. Mateus enjoys golfing but has been unable to do so because of her various medical issues and musculoskeletal complaints. Review of Systems Objective Height 5' 5 , weight 264 lb. Physical Exam GENERAL She is alert and oriented, well nourished, well hydrated female in no acute distress. Mood and affect are appropriate. She walks with a nonantalgic gait. She is ambulating independently. BILATERAL KNEES The patient's right knee lacks about 5 degrees of extension and flexes to around 110 degrees. The left knee has full extension and flexes to around 115 degrees. Roula's test is negative. There is no varus or valgus instability in the right knee. There is a slight effusion in the right knee. Anterior and posterior drawer tests are negative. The left knee also has a slight effusion. The medial patella is nontender. There is tenderness over the lateral patella. The lateral and medial joint line are tender. There is no varus or valgus instability in the left knee. Monica's test is positive onthe left knee. Results Imaging X-rays of the knees, bilateral PA WB/sunrise/lateral taken today and saved to the [facility] show advanced arthritis in the right knee with complete loss of medial joint space, mild medial compartment joint space narrowing at the left knee, moderate PF arthritis bilaterally. Assessment & Plan 1. Degenerative osteoarthrosis, bilateral knees. The right knee exhibits advanced arthritis, while the left knee also exhibits mild arthritis, potentially a component of rheumatoid arthritis and internal derangement in the form of medial and/or lateral meniscus tear. The patient is advised to apply Voltaren gel to the affected areas. Additionally, Zilretta injections, a long-acting solution with less systemic effects than regular steroids, are potential treatment options. I will liaise with Dr. Shanice Brown to ascertain if the patient can proceed with the Zilretta injections. An MRI of the left knee will be authorized. The patient is advised to continue using a compression sleeve for swelling, apply ice, and engage in low-impact activities such as biking, elliptical machines, or pool exercises. A hinged knee brace was provided. A total of 30 to 39 minutes was spent on this patient encounter which included chart review, check in, nurse triage, history taking, physical examination, diagnostic study review, patient counseling and discussion, entering information into the patient's medical record, and coordinating patient care. Attestation documented in this encounterSSM Health [id number] NoteMR#: [id number] I [facility] Pt. Name: Mateus Carmichael Admitted: 03/14/2021 Discharged: 03/27/2021 Date of : 1970 Physician: Oanh Goetz MD DISCHARGE SUMMARY DISCHARGE ATTENDING: Dr. Navarro. PRINCIPAL DIAGNOSIS: Intraabdominal anastomotic leak. SECONDARY DIAGNOSES: Intrapelvic abscess, hypertension, and gastroesophageal reflux disease. PROCEDURES PERFORMED: During this hospital stay was exploratory laparotomy, takedown of the colorectal anastomosis and creation of end colostomy, which was performed on 03/15/[address] Oanh Goetz. HOSPITAL COURSE: The patient is a 51-year-old female, who presented to the Emergency Department for complaints of abdominal pain. The patient recently had a sigmoid colon diverticulitis and had underwent an open sigmoidectomy on February 25, 2021, by Dr. Navarro. She had a CT abdomen and pelvis, which showed free intraabdominal air and evidence of an anastomotic leak and she was taken emergently to the operating room, in which she underwent on the exploratory laparotomy with takedown of the colorectal anastomosis and creation of end colostomy. Urology was also in on the case for ureteral stent placement. Her postoperative course was waiting for return of bowel function. The patient was tolerating diet and having production from her colostomy of stool. She had a wound VAC in place again on her midline incision. On the , she had purulence coming out of the drainage and a CT abdomen and pelvis revealed a pelvic abscess. IR placed a drain on the and she also had a 2nd drain placed on by IR, in which they drained purulent drainage. On the day of discharge, she was tolerating a diet. She was up walking in the rooms with minimal assistance. Her discharge instructions included wound VAC change per her home health care agencies recommended every 72 hours. She had white sponge in the both deeper aspects of her wound and black sponge on top. She also was instructed to empty her NADJA drains and record the output daily. Infectious Disease was consulted for her stay and they recommended Zosyn for 2 weeks. She went home with a PICC line and home health care to help with infusions of her Zosyn as well as wound VAC changes and ostomy care. The patient already had her wound VAC from home and which was placed prior to her discharge from the hospital. She was going to receive her 5 o'clock dose of Zosyn on the day of discharge, and then the infusion company was going to come out on [place] morning to educate and hang her Zosyn morning dose. The patient was to follow up with Dr. Navarro in 1 to 2 weeks. She was given prescriptions for scopolamine patches to be changed every 3 days, oxycodone 5 mg every 6 hours as needed for pain. Her Zosyn per Infectious Disease orders and she could take Tylenol every 6 hours 650 mg as needed for pain. The patient understood all discharge instructions and was discharged in a stable condition. Electronically Signed by: Oanh Goetz MD 04/04/2021 07:30 P Oanh Goetz MD I have reviewed this discharge summary and confirmed the resident's documentation. Please note that there may be additional documentation from me. Date Dict: 03/27/2021/05:55 P/Lolis Jimenez NEWS COMMENTATOR Date Trans: 03/28/2021 05:59 A/azam [id number] [facility]01-08-2022 NoteMR#: [id number] I [facility] Pt. Name: Mateus Carmichael Admitted: 02/25/2021 Discharged: 03/05/2021 Date of : 1970 Physician: Shanice Navarro MD DISCHARGE SUMMARY PRINCIPAL DIAGNOSIS: Status post sigmoidectomy. PROCEDURES AND TREATMENT: Include the following: A 51-year-old female with past medical history of multiple episodes of sigmoid diverticulitis with microperforation despite steroid treatment, presented to [facility] for planned sigmoidectomy per Dr. Navarro. Postoperatively, the patient was admitted to await return of bowel function for pain control. Midline incision was kept open on assessment postoperatively. There was concern due to wound edges with necrotic appearance. She was seen and evaluated by Vascular Surgery, who recommended the patient have wound covered with a wound VAC after. Wound VAC placement, Social Work was consulted to help get a wound VAC therapy at home. This, however, did delay discharge today, wound VAC was accepted by insurance and home health care was set with the patient. Fresh wound VAC was put on prior to discharge. On day of discharge, the patient was tolerating a low residue diet without nausea or vomiting. The pain was controlled with oral regimen and she felt ready and safe to discharge home. All discharge instructions were explained to the patient, who verbalized understanding and was agreeable to plan. She was then discharged home with followup in the clinic. The patient was seen and examined on day of discharge and this discharge summary is in conjunction with any daily progress note from the day of discharge. Electronically Signed by: Shnaice Navarro MD 03/08/2021 10:51 A Shanice Navarro MD I personally saw this patient on the day of the encounter, performed the wadsworth portion(s) of the service and participated in the management and confirm the resident's documentation. Please note there may be an additional personal documentation from me. Date Dict: 03/05/2021/04:59 P/Meredith Wilkerson CNP Date Trans: 03/06/2021 02:20 A/azam [id number] cc: Ortega Merritt M.D. [address] [place], [place] [id number] Evaluation note* Encounter Date Diagnosis Assessment Notes Treatment Notes Treatment Clinical Notes Oct, Diverticulitis (ICD-10 - K57.92) Diverticulitis home care material was printed PATIENT STATES IMPROVING. WILL TRY TO GET RECENT COLONSOCPY REPORT FROM DR. SKAGGS OFFICE. Oct, Nausea (ICD-10 - R11.0) STATES THAT SHE DOES FEEL THIS AT TIMES. [facility] Other 04-01-2019 History general Narrative - Reported* Type Description Date Surgical History hysterectomy 2007 Surgical History knee surgery 05/2018 Surgical History rhinoplasty Surgical History cyst removal Surgical History thumb surgery Hospitalization History SEE ABOVE [facility] Other Evaluation + Plan note No data available for this section [facility] Future [facility]ments Appointment Date:02/14/2024 11:30:00 AM Scheduled Provider: Location:[facility] Appointment Type:Surgery [facility] Evaluation noteNo InformationNort [facility] Other Evaluation noteNo assessment information available [facility] Work Phone: Evaluation note* Diagnosis Pain in both knees, unspecified chronicity- Primary documented in this encounter [facility]Evaluation note* Diagnosis Primary osteoarthritis of both knees- Primary [facility] encounter [facility]* Diagnosis Other iron deficiency anemia documented in this encounter [facility] HealthcareEvaluation note* Diagnosis Benign essential hypertension (CMS/HCC)- Primary Essential hypertension, benign Encounter for screening mammogram for malignant neoplasm of breast Acquired hypothyroidism (CMS/HCC) Unspecified hypothyroidism Morbid obesity (CMS/HCC) Morbid obesity BMI 40.0-44.9, adult (CMS/HCC) History of severe nausea and vomiting after administration of anesthetic agent Primary osteoarthritis of both knees documented in this encounter [facility] HealthcareEvaluation note* Diagnosis Primary osteoarthritis of both knees- Primary documented in this encounter [facility] HealthcareEvaluation note* Diagnosis Primary osteoarthritis of left knee documented in this encounter [facility] HealthcareEvaluation note* Diagnosis Neoplasm of uncertain behavior of skin documented in this encounter [facility] HealthcareEvaluation note* Diagnosis Wellness examination- Primary Osteoarthritis of spine with radiculopathy, lumbosacral region Hiatal hernia Diaphragmatic hernia without mention of obstruction or gangrene Small airways disease Other diseases of lung, not elsewhere classified Benign essential hypertension (CMS/HCC) Essential hypertension, benign Electrocardiogram abnormal Nonspecific abnormal electrocardiogram (ECG) (EKG) LBBB (left bundle branch block) Other left bundle branch block Palpitations Paroxysmal SVT (supraventricular tachycardia) (CMS/HCC) Presence of other vascular implants and grafts Diverticular disease of colon Diverticulosis of colon (without mention of hemorrhage) Diverticulosis large intestine w/o perforation or abscess w/bleeding Gastroesophageal reflux disease without esophagitis Esophageal reflux Fatty liver Other chronic nonalcoholic liver disease Bilateral lower extremity edema DDD (degenerative disc disease), lumbar Degeneration of lumbar or lumbosacral intervertebral disc Internal derangement of right knee Lumbosacral spondylosis without myelopathy Primary osteoarthritis of both knees Acquired hypothyroidism (CMS/HCC) Unspecified hypothyroidism IGT (impaired glucose tolerance) Impaired glucose tolerance test Polycystic ovaries Other iron deficiency anemia Diverticulitis of colon with perforation Diverticulitis of colon (without mention of hemorrhage) Intertrigo Other specified erythematous condition Abnormal mammogram Abnormal mammogram, unspecified Acute left-sided low back pain with left-sided sciatica Seasonal allergic rhinitis due to pollen Colostomy present ([facility]) History of hysterectomy Acquired absence of both cervix and uterus Hypokalemia Hypopotassemia Menopausal symptoms Symptomatic menopausal or female climacteric states Chronic migraine without aura without status migrainosus, not intractable ([facility]) Presbyopia of both eyes Presence of other specified devices Pure hypertriglyceridemia ([facility]) Rheumatoid arthritis involving multiple sites with positive rheumatoid factor ([facility]) Sciatica of left side Morbid obesity ([facility]) Morbid obesity BMI 40.0-44.9, adult ([facility]) Myalgia Unspecified myalgia and myositis documented in this encounter [facility]* Diagnosis Encounter for removal of cheko Encounter for removal of sutures documented in this encounter [facility]* Diagnosis Paroxysmal SVT (supraventricular tachycardia) ([facility]) documented in this encounter [facility]* Diagnosis Primary osteoarthritis of left knee- Primary Acute postoperative pain of left knee Difficulty walking Difficulty in walking Status post left knee replacement documented in this encounter [facility]* Diagnosis Primary osteoarthritis of left knee- Primary Acute postoperative pain of left knee Difficulty walking Difficulty in walking Status post left knee replacement Primary osteoarthritis of left knee- Primary documented in this encounter [facility]* Diagnosis Primary osteoarthritis of left knee- Primary Status post total left knee replacement documented in this encounter [facility]* Diagnosis Primary osteoarthritis of left knee- Primary Acute postoperative pain of left knee Difficulty walking Difficulty in walking Status post left knee replacement documented in this encounter [facility]* Diagnosis Primary osteoarthritis of left knee- Primary Acute postoperative pain of left knee Difficulty walking Difficulty in walking Status post left knee replacement documented in this encounter [facility]* Diagnosis Chronic migraine without aura without status migrainosus, not intractable ([facility])- Primary Acute bronchitis, unspecified organism Status post left knee replacement documented in this encounter [facility]* Diagnosis Primary osteoarthritis of left knee- Primary Acute postoperative pain of left knee Difficulty walking Difficulty in walking Status post left knee replacement documented in this encounter [facility]* Diagnosis Primary osteoarthritis of left knee- Primary Acute postoperative pain of left knee Difficulty walking Difficulty in walking Status post left knee replacement documented in this encounter [facility]* Diagnosis Primary osteoarthritis of left knee- Primary Acute postoperative pain of left knee Difficulty walking Difficulty in walking Status post left knee replacement documented in this encounter [facility]* Diagnosis Primary osteoarthritis of left knee- Primary Acute postoperative pain of left knee Difficulty walking Difficulty in walking Status post left knee replacement documented in this encounter [facility]* Diagnosis Primary osteoarthritis of left knee- Primary Acute postoperative pain of left knee Difficulty walking Difficulty in walking documented in this encounter [facility]* Diagnosis Primary osteoarthritis of left knee- Primary Acute postoperative pain of left knee Difficulty walking Difficulty in walking documented in this encounter [facility]* Diagnosis Primary osteoarthritis of left knee- Primary Acute postoperative pain of left knee Difficulty walking Difficulty in walking documented in this encounter [facility]* Diagnosis S/P total knee arthroplasty, left- Primary Nausea Nausea alone Well woman exam with routine gynecological exam Routine gynecological examination Cervical cancer screening Screening for malignant neoplasm of the cervix Screening for HPV (human papillomavirus) Special screening examination for human papillomavirus (HPV) documented [facility] this encounter [facility]* Diagnosis Left ovarian cyst- Primary Other and unspecified ovarian cyst Menopausal symptoms Symptomatic menopausal or female climacteric states Screening for HPV (human papillomavirus) Special screening examination for human papillomavirus (HPV) Vaginal Pap smear Special screening for malignant neoplasms, vagina documented in this encounter [facility]* Diagnosis Primary osteoarthritis of left knee- Primary Acute postoperative pain of left knee Difficulty walking Difficulty in walking Status post left knee replacement documented in this encounter [facility]* Diagnosis Primary osteoarthritis of left knee- Primary Acute postoperative pain of left knee Difficulty walking Difficulty in walking Status post left knee replacement documented in this encounter [facility]* Diagnosis Primary osteoarthritis of left knee- Primary Acute postoperative pain of left knee Difficulty walking Difficulty in walking Status post left knee replacement documented in this encounter [facility]* Diagnosis Primary osteoarthritis of left knee- Primary Acute postoperative pain of left knee Difficulty walking Difficulty in walking Status post left knee replacement documented in this encounter [facility]* Diagnosis Hoarseness of voice- Primary Dysphonia Nausea Nausea alone Left ovarian cyst Other and unspecified ovarian cyst Nonintractable episodic headache, unspecified headache type Primary insomnia Persistent disorder of initiating or maintaining sleep Benign essential hypertension (CMS/HCC) Essential hypertension, benign Restless leg syndrome Restless legs syndrome (RLS) Dry skin dermatitis Contact dermatitis and other eczema due to other specified agent Gastroesophageal reflux disease without esophagitis Esophageal reflux documented in this encounter [facility]* Diagnosis Primary osteoarthritis of left knee- Primary Acute postoperative pain of left knee Difficulty walking Difficulty in walking Status post left knee replacement documented in this encounter [facility]* Diagnosis Primary osteoarthritis of left knee- Primary Acute postoperative pain of left knee Difficulty walking Difficulty in walking documented in this encounter [facility]* Diagnosis Post-operative nausea and vomiting- Primary Nausea with vomiting Hoarseness of voice Dysphonia Chronic laryngitis Left ovarian cyst Other and unspecified ovarian cyst Menopausal symptoms Symptomatic menopausal or female climacteric states documented in this encounter [facility]* Diagnosis Primary osteoarthritis of left knee- Primary Acute postoperative pain of left knee Difficulty walking Difficulty in walking Left ovarian cyst Other and unspecified ovarian cyst Menopausal symptoms Symptomatic menopausal or female climacteric states documented in [facility] encounter [facility]* Diagnosis Neoplasm of uncertain behavior of ovary, unspecified laterality- Primary Left ovarian cyst Other and unspecified ovarian cyst Menopausal symptoms Symptomatic menopausal or female climacteric states documented in this encounter [facility] Diagnosis Primary osteoarthritis of left knee- Primary Acute postoperative pain of left knee Difficulty walking Difficulty in walking Status post left knee replacement documented in this encounter [facility]* Diagnosis Primary osteoarthritis of left knee- Primary Acute postoperative pain of left knee Difficulty walking Difficulty in walking Status post left knee replacement documented in this encounter [facility]* Diagnosis Primary osteoarthritis of left knee- Primary Acute postoperative pain of left knee Difficulty walking Difficulty in walking documented in this encounter [facility]* Diagnosis Primary osteoarthritis of left knee- Primary Acute postoperative pain of left knee Difficulty walking Difficulty in walking documented in this encounter [facility]* Diagnosis Primary osteoarthritis of left knee- Primary Acute postoperative pain of left knee Difficulty walking Difficulty in walking Status post left knee replacement documented in this encounter [facility]ospital Discharge instructions No data available for this section [facility] No data available for this section [facility] Reason for visit Narrative* Consultation (Routine) - Closed Specialty Diagnoses / Procedures Referred By Contac t Referred To Contact Physical Therapy Diagnoses Primary osteoarthritis of left knee Procedures [place] OFFICE/OUTPATIENT [facility] OskarGavin, DO [address] [place] [address] Phone: tel: fax: Cele Caro, PT [address] [facility] [address] [place] [address] Phone: tel: fax: Referral ID Status Reason Start Date Expiration Date V isits Requested Visits Authorized [id number] Closed Specialty Services Required 02/01/2024 07/30/2024 99 99 [facility]* Rehabilitation - Outpatient (Routine) - Authorized Specialty Diagnoses / Procedures Referred By Tiff t Referred To Contact Physical Therapy Diagnoses Aftercare following left knee joint replacement surgery Presence of left artificial knee joint Procedures [place] OFFICE/OUTPATIENT [facility] 60 MINUTES Gavin Schmitt, DO [address] [facility] [place] [address] Phone: tel: fax: [facility] [address] [facility] [address] [place] [address] Phone: tel: fax: Referral ID Status Reason Start Date Expiration Date Visits Requested Visits Authorized [id number] Authorized Consult and Treat 02/28/2024 02/26/2025 1 99 [facility] N[facility]* OBGYN (Routine) - Closed Specialty Diagnoses / Procedures Referred By Contact Referred To Contact Obstetrics and Gynecology Diagnoses Left ovarian cyst Procedures [place] OFFICE[place]OUTPATIENT [facility] Abeba Guevara PA [address] [facility] [address] [place] [address] Phone: tel: fax: Jose J Tristan MD [address] [facility] [address] [place] [address] Phone: tel: fax: Referral ID Status Reason Start Date Expiration Date V isits Requested Visits Authorized [id number] Closed Specialty Services Required 02/12/2024 08/10/2024 1 1 [facility] Healthcare Summary Purpose Family History No Family History Records Found Relationship Condition Age at Onset Recorded Date/T jolene father Unknown mother Unknown Advance Directives No Advanced Directives Records Found Advance Directive Response Recorded Date/ Time Advance Directives No October 23, 2016 1:35pm Advance Directive Response Recorded Date/ Time Advance Directives No October 23, 2016 2:35pm Chief Complaint and Reason for Visit Chief Complaint Z12.31 Chief Complaint see order Chief Complaint See order Chief Complaint See order Z00.00 I10 E78.1 See order Chief Complaint S/o Chief Complaint Admit Date congested, can't talk, shortness of kirk th March 15, 2024 10:34am Chief Complaint Admit Date congested, can't talk, shortness of kirk th March 15, 2024 10:34am z12.31 March 25, 2024 1 1:19am Reason for Visit Admit Date Acute sinusitis March 15, 2024 1 0:34am Chief Complaint Admit Date congested, can't talk, shortness of kirk March 15, 2024 10:34am z12.31 March 25, 2024 1 1:19am Poss uti May 31, 2024 1:04 pm Reason for Visit Admit Date Acute sinusitis March 15, 2024 1 0:34am Dysuria May 31, 2024 1:04 pm Additional Source Comments INFORMATION SOURCE (unrecogn ized section and content) DATE CREATED AUTHOR 08/05/2021 [facility] DATE CREATED AUTHOR AUTHOR'S ORGANIZ ATION 08/13/2021 [facility] DATE CREATED AUTHOR AUTHOR'S ORGANIZ ATION 07/12/2022 [facility] DATE CREATED AUTHOR AUTHOR'S ORGANIZ ATION 02/17/2024 [facility] DATE CREATED AUTHOR AUTHOR'S ORGANIZ ATION 02/18/2024 [facility] DATE CREATED AUTHOR AUTHOR'S ORGANIZ ATION 02/19/2024 [facility] DATE CREATED AUTHOR AUTHOR'S ORGANIZ ATION 02/20/2024 [facility] DATE CREATED AUTHOR AUTHOR'S ORGANIZ ATION 02/22/2024 [facility] DATE CREATED AUTHOR AUTHOR'S ORGANIZ ATION 03/30/2024 [facility] DATE CREATED AUTHOR AUTHOR'S ORGANIZ ATION 04/20/2024 [facility] DATE CREATED AUTHOR AUTHOR'S ORGANIZ ATION 06/01/2024 [facility] DATE CREATED AUTHOR AUTHOR'S ORGANIZ ATION 06/01/2024 [facility] EPIC REASON FOR VISIT (unrecogniz ed section and content) Reason Comments Pain Reason Comments Follow-up Reason Comments Med Refill scoplamine Reason Comments Excision Reason Comments Suture / Staple Removal Reason Comments Med Refill Reason Comments Follow-up Post-op Reason Comments Med Refill Rizatriptan Reason Comments Post-op L TKA 02/14/24 Reason Comments Med Refill Ondansetron Insomnia Difficulty falling a nd staying asleep. She has not tried anything OTC d/t she wasn't sure if it would interact with her other meds. Has trouble staying asleep and falling asleep. Some nights getting 4 hours or less of sleep. It is to the point it is making her anxious. Reason Comments Hoarseness Specialty Diagnoses / Procedures Referred By Contac t Referred To Contact Otolaryngology Diagnoses Hoarseness of voice Procedures [place] OFFICE/OUTPATIENT NEW HIGH MDM 60 MINUTES Abeba Guevara PA [address] [facility] [address] [place] [address] Phone: tel: fax: Chano Gannon MD [address] [facility] [address] [place] [address] Phone: tel: fax: Referral ID Status Reason Start Date Expiration Date V isits Requested Visits Authorized [id number] Closed Specialty Services Required 04/17/2024 10/14/2024 1 1 Care Teams (unrecognized sec tion and content) Team Status: Active Member Role Status Dates Ortega Merritt II MD Primary Care Provider Active Team Status: Inactive Member Role Status Dates Ortega Merritt II MD Primary Care Provider Active ASHWINI Choudhury Attending Provider Active Team Status: Inactive Member Role Status Dates Ortega Merritt II MD Primary Care Provider Active ASHWINI Hdez Attending Provider Active Team Status: Inactive Member Role Status Dates Ortega Merritt II MD Primary Care Provider Active Porfirio Galvin MD Referring Provider Active ASHWINI Choudhury Attending Provider Active Team Status: Inactive Member Role Status Dates Ortega Merritt II MD Primary Care Provider, Attending Provider Active Team Status: Inactive Member Role Status Dates Ortega Merritt II MD Primary Care Provider Active Richie Galvin MD Referring Provider Active ASHWINI Choudhury Attending Provider Active Team Status: Inactive Member Role Status Dates Ortega Merritt II MD Primary Care Provider Active Start: April 04, 2023 End: April 04, 2023 Richie Galvin MD Attending Provider Active St art: April 04, 2023 End: April 04, 2023 Team Status: Inactive Member Role Status Dates Ortega Merritt II MD Primary Care Provider Active Start: November 15, 2023 End: November 15, 2023 ASHWINI Choudhury Attending Provider Active Start: November 15, 2023 End: November 15, 2023 Lathe Operator Relationship Specialty Start Date End Date Ortega Merritt MD [address] [facility] [address] [place] [address] [facility]/20 Abeba Guevara PA [address] [facility] [address] [place] [address] PCP - General Family Medicine 07/12/22 Lathe Operator Relationship Specialty Start Date End Date Abeba Guevara PA [address] [facility] [address] [place] [address] PCP - General Family Medicine 07/12/22 Lathe Operator Relationship Specialty Start Date End Date Abeba Guevara PA [address] [facility] [address] [place] [address] PCP - General Family Medicine 07/12/22 Lathe Operator Relationship Specialty Start Date End Date Abeba Guevara PA [address] [facility] [address] [place] [address] PCP - General Family Medicine 07/12/22 Lathe Operator Relationship Specialty Start Date End Date Abeba Guevara PA [address] [place] [address] PCP - General Family Medicine 07/12/22 Lathe Operator Relationship Specialty Start Date End Date Abeba Guevara PA [address] [place] [address] PCP - General Family Medicine 07/12/22 Lathe Operator Relationship Specialty Start Date End Date Ortega Merritt MD [address] [place] [address] PCP - General Internal Medicine 02/12/24 Abeba Guevara PA [address] [place] [address] Physician Certified Tumor Registrar Family Medicine 02/12/24 Lathe Operator Relationship Specialty Start Date End Date Ortega Merritt MD [address] [place] [address] PCP - General Internal Medicine 02/12/24 Abeba Guevara PA [address] [facility] [address] [place] [address] Physician Certified Tumor Registrar Family Medicine 02/12/24 Lathe Operator Relationship Specialty Start Date End Date Ortega Merritt MD [address] [place] [address] [facility] 06/20/20 Abeba Guevara PA [address] [place] [address] PCP - General Family Medicine 07/12/22 Lathe Operator Relationship Specialty Start Date End Date Ortega Merritt MD [address] [place] [address] PCP - [employer] 06/20/20 Abeba Guevara PA [address] [place] [address] PCP - General Family Medicine 07/12/22 Lathe Operator Relationship Specialty Start Date End Date Ortega Merritt MD [address] [address] [place] [address] PCP - [employer] 06/20/20 Abeba Guevara PA [address] [place] [address] PCP - General Family Medicine 07/12/22 Lathe Operator Relationship Specialty Start Date End Date Ortega Merritt MD [address] [address] [place] [address] PCP - [employer] 06/20/20 Abeba Guevara, APRIL [address] [place] [address] PCP - General Family Medicine 07/12/22 Lathe Operator Relationship Specialty Start Date End Date Ortega Merritt MD [address] [address] [place] [address] PCP - [employer] 06/20/20 Abeba Guevara PA [address] [place] [address] PCP - General Family Medicine 07/12/22 Lathe Operator Relationship Specialty Start Date End Date Ortega Merritt MD [address] [place] [address] PCP [facility] 06/20/20 Abeba Guevara PA [address] [place] [address] PCP - General Family Medicine 07/12/22 Lathe Operator Relationship Specialty Start Date End Date Ortega Merritt MD [address] [address] [place] [address] PCP - General Internal Medicine 02/12/24 Abeba Guevara PA [address] [facility] [address] [place] [address] Physician Certified Tumor Registrar Family Medicine 02/12/24 Lathe Operator Relationship Specialty Start Date End Date Ortega Merritt MD [address] [facility] [address] [place] [address] PCP - General Internal Medicine 02/12/24 Abeba Guevara PA [address] [facility] [address] [place] [address] Physician Certified Tumor Registrar Family Medicine 02/12/24 Lathe Operator Relationship Specialty Start Date End Date Ortega Merritt MD [address] [facility] [address] [place] [address] PCP - General Internal Medicine 02/12/24 Abeba Guevara PA [address] [facility] [address] [place] [address] Physician Certified Tumor Registrar Family Medicine 02/12/24 Lathe Operator Relationship Specialty Start Date End Date Ortega Merritt MD [address] [address] [place] [address] PCP - General Internal Medicine 02/12/24 Abeba Guevara PA [address] [facility] [address] [place] [address] Physician Certified Tumor Registrar Family Medicine 02/12/24 Lathe Operator Relationship Specialty Start Date End Date Ortega Merritt MD [address] [facility] [address] [place] [address] PCP - General Internal Medicine 02/12/24 Abeba Guevara PA [address] [facility] [address] [place] [address] Physician Certified Tumor Registrar Family Medicine 02/12/24 Lathe Operator Relationship Specialty Start Date End Date Ortega Merritt MD [address] [facility] [address] [place] [address] PCP - General Internal Medicine 02/12/24 Abeba Guevara PA [address] [facility] [address] [place] [address] Physician Certified Tumor Registrar Family Medicine 02/12/24 Lathe Operator Relationship Specialty Start Date End Date Ortega Merritt MD [address] [facility] [address] [place] [address] PCP - General Internal Medicine 02/12/24 Abeba Guevara PA [address] [facility] [address] [place] [address] Physician Certified Tumor Registrar Family Medicine 02/12/24 Lathe Operator Relationship Specialty Start Date End Date Ortega Merritt MD [address] [facility] [address] [place] [address] PCP - General Internal Medicine 02/12/24 Abeba Guevara PA [address] [facility] [address] [place] [address] Physician Certified Tumor Registrar Family Medicine 02/12/24 Lathe Operator Relationship Specialty Start Date End Date Ortega Merritt MD [address] [facility] [address] [place] [address] PCP - General Internal Medicine 02/12/24 Abeba Guevara PA [address] [facility] [address] [place] [address] Physician Certified Tumor Registrar Family Medicine 02/12/24 Lathe Operator Relationship Specialty Start Date End Date Ortega Merritt MD [address] [facility] [address] [place] [address] PCP - General Internal Medicine 02/12/24 Abeba Guevara PA [address] [facility] [address] [place] [address] Physician Certified Tumor Registrar Family Medicine 02/12/24 Lathe Operator Relationship Specialty Start Date End Date Ortega Merritt MD [address] [facility] [address] [place] [address] PCP - General Internal Medicine 02/12/24 Abeba Guevara PA [address] [facility] [address] [place] [address] Physician Certified Tumor Registrar Family Medicine 02/12/24 Lathe Operator Relationship Specialty Start Date End Date Ortega Merritt MD [address] [facility] [address] [place] [address] PCP - General Internal Medicine 02/12/24 Abeba Guevara PA [address] [facility] [address] [place] [address] Physician Certified Tumor Registrar Family Medicine 02/12/24 Team Status: Inactive Member Role Status Dates Ortega Merritt II MD Primary Care Provider Active Start: March 15, 2024 End: March 15, 2024 Heidy Ling , [employer] Attending Provider Active Start: March 15, 2024 End: March 15, 2024 Lathe Operator Relationship Specialty Start Date End Date rOtega Merritt MD [address] [facility] [address] [place] [address] PCP - General Internal Medicine 02/12/24 Abeba Guevara PA [address] [facility] [address] [place] [address] Physician Certified Tumor Registrar Family Medicine 02/12/24 Lathe Operator Relationship Specialty Start Date End Date Ortega Merritt MD [address] [facility] [address] [place] [address] PCP - General Internal Medicine 02/12/24 Abeba Guevara PA [address] [facility] [address] [place] [address] Physician Certified Tumor Registrar Family Medicine 02/12/24 Lathe Operator Relationship Specialty Start Date End Date Ortega Merritt MD [address] [facility] [address] [place] [address] PCP - General Internal Medicine 02/12/24 Abeba Guevara PA [address] [facility] [address] [place] [address] Physician Certified Tumor Registrar Family Medicine 02/12/24 Lathe Operator Relationship Specialty Start Date End Date Ortega Merritt MD [address] [facility] [address] [place] [address] PCP - General Internal Medicine 02/12/24 Abeba Guevara PA [address] [facility] [address] [place] [address] Physician Certified Tumor Registrar Family Medicine 02/12/24 Lathe Operator Relationship Specialty Start Date End Date Ortega Merritt MD [address] [facility] [address] [place] [address] PCP - General Internal Medicine 02/12/24 Abeba Guevara PA [address] [facility] [address] [place] [address] Physician Certified Tumor Registrar Family Medicine 02/12/24 Team Status: Inactive Member Role Status Dates Ortega Merritt II MD Primary Care Provider Active Start: March 25, 2024 End: March 25, 2024 Abeba Guevara NP-C Attending Provider Active St art: March 25, 2024 End: March 25, 2024 Lathe Operator Relationship Specialty Start Date End Date Ortega Merritt MD [address] [facility] [address] [place] [address] PCP - General Internal Medicine 02/12/24 Abeba Guevara PA [address] [facility] [address] [place] [address] Physician Certified Tumor Registrar Family Medicine 02/12/24 Lathe Operator Relationship Specialty Start Date End Date Ortega Merritt MD [address] [facility] [address] [place] [address] PCP - General Internal Medicine 02/12/24 Abeba Guevara PA [address] [facility] [address] [place] [address] Physician Certified Tumor Registrar Family Medicine 02/12/24 Lathe Operator Relationship Specialty Start Date End Date Ortega Merritt MD [address] [facility] [address] [place] [address] PCP - General Internal Medicine 02/12/24 Abeba Guevara PA [address] [facility] [address] [place] [address] Physician Certified Tumor Registrar Family Medicine 02/12/24 Lathe Operator Relationship Specialty Start Date End Date Ortega Merritt MD [address] [facility] [address] [place] [address] PCP - General Internal Medicine 02/12/24 Abeba Guevara PA [address] [facility] [address] [place] [address] Physician Certified Tumor Registrar Family Medicine 02/12/24 Lathe Operator Relationship Specialty Start Date End Date Ortega Merritt MD [address] [facility] [address] [place] [address] PCP - General Internal Medicine 02/12/24 Abeba Guevara PA [address] [facility] [address] [place] [address] Physician Certified Tumor Registrar Family Medicine 02/12/24 Lathe Operator Relationship Specialty Start Date End Date Ortega Merritt MD [address] [facility] [address] [place] [address] PCP - General Internal Medicine 02/12/24 Abeba Guevara PA [address] [facility] [address] [place] [address] Physician Certified Tumor Registrar Family Medicine 02/12/24 Lathe Operator Relationship Specialty Start Date End Date Ortega Merritt MD [address] [facility] [address] [place] [address] PCP - General Internal Medicine 02/12/24 Abeba Guevara PA [address] [facility] [address] [place] [address] Physician Certified Tumor Registrar Family Medicine 02/12/24 Lathe Operator Relationship Specialty Start Date End Date Ortega Merritt MD [address] [facility] [address] [place] [address] PCP - General Internal Medicine 02/12/24 Abeba Guevara PA [address] [facility] [address] [place] [address] Physician Certified Tumor Registrar Family Medicine 02/12/24 Lathe Operator Relationship Specialty Start Date End Date Ortega Merritt MD [address] [facility] [address] [place] [address] PCP - General Internal Medicine 02/12/24 Abeba Guevara PA [address] [facility] [address] [place] [address] Physician Certified Tumor Registrar Family Medicine 02/12/24 Lathe Operator Relationship Specialty Start Date End Date Ortega eMrritt MD [address] [facility] [address] [place] [address] PCP - General Internal Medicine 02/12/24 Abeba Guevara PA [address] [facility] [address] [place] [address] Physician Certified Tumor Registrar Family Medicine 02/12/24 Lathe Operator Relationship Specialty Start Date End Date Ortega Merritt MD [address] [facility] [address] [place] [address] PCP - General Internal Medicine 02/12/24 Abeba Guevara PA [address] [facility] [address] [place] [address] Physician Certified Tumor Registrar Family Medicine 02/12/24 Team Status: Inactive Member Role Status Dates Ortega Merritt II MD Primary Care Provider Active Start: May 31, 2024 End: May 31, 2024 Antoinette Kelley APRN Attending Provider Active S tart: May 31, 2024 End: May 31, 2024 Team Status: Inactive Member Role Status Dates Antoinette Kelley APRN Attending Provider Active S tart: May 31, 2024 End: May 31, 2024 Goals (unrecognized section and content) Goals may be documented in a n alternate section FOR RECORDS PERTAINING TO PATIENTS WHO ARE OR HAVE BEEN ENROLLED IN A CHEMICAL DEPENDENCY/SUBSTANCEABUSE PROGRAM, SOME INFORMATION MAY BE OMITTED. This clinical summary was aggregated from multiple sources. Caution should be exercised in using it in the provision of clinical care. This summary normalizes information from multiple sources, and as a consequence, information in this document may materially change the coding, format and clinical context of patient data. In addition, data may be omitted in some cases. CLINICAL DECISIONS SHOULD BE BASED ON THE PRIMARY CLINICAL RECORDS. [facility]. provides no warranty or guarantee of the accuracy or completeness of information in this document.
--- NOTE | 2024-06-02 06:03 | ED.GENADUL1 ---
HPI HPI - General Adult General Chief complaint: Abdominal Pain Stated complaint: Skinn Time Seen by Provider: 06/02/24 05:58 Source: patient Mode of arrival: ambulance Limitations: no limitations History of Present Illness HPI narrative: past history of perforated diverticulitis with resultant left lower colostomy 3 years ago. Had knee surgery 02/19 and after surgery experienced recurrent vomiting. Nausea and vomiting have continued since surgery. she controls it with Scopolamine patch and zofran. Last use of Scopolamine patch 4 days ago. Now presents via squad with recurrent vomiting and diarrhea into her colostomy bag since about 1 AM . states vomited about 4 times despite taking zofran. Abdomen is sore from vomiting. States she ate pizza last PM. No one at home has similar illness. Denies hematemsis Related Data Allergies Allergy/AdvReac Type Severity Reaction Status Date / Time morphine AdvReac Unknown Unknown Verified 06/02/24 05:57 meperidine (From Demerol) AdvReac Vomiting Verified 06/02/24 05:57 nubaine AdvReac Unknown Uncoded 06/02/24 05:57 Opioid HPI Opioid Management Most Recent Opioid Data: Last Pain Scale 5 06/02/24 06:37 06/02/24 Last ED Pain Assessment 06/02/24 06:37 Review of Systems ROS Status of ROS 10 or more systems reviewed and unremarkable except as noted in history and below PFSH PFSH Social History Little interest or pleasure in doing things: not at all Feeling down, depressed, or hopeless: not at all Exam Constitutional Vital Signs, click to edit/add: Last Vital Signs Temp 98.3 F 06/02/24 05:43 Pulse 99 H 06/02/24 05:43 Resp 20 06/02/24 05:43 BP 124/95 H 06/02/24 05:43 Pulse Ox 97 06/02/24 05:43 O2 Del Method Room Air 06/02/24 05:43 Common normals: no apparent distress, average body habitus, oriented x3, no limitations, healthy appearing, alert and well nourished [facility] Common normals: normocephalic and head/scalp atraumatic Eye Common normals: PERRL and EOMs intact bilaterally Respiratory Common normals: normal respiratory effort, no retractions, no use of accessory muscles and clear to auscultation bilaterally Cardio Common normals: regular rate, regular rhythm, S1 normal heart sound and S2 normal heart sound GI Common normals: Normal to inspection, nondistended, normoactive bowel sounds present, soft to palpation and non-tender Extremity Common normals: normal to inspection and full ROM Neuro Common normals: oriented x3, CN's II-XII intact bilaterally, moves all extremities and no focal motor deficits Psych Appearance: grossly normal Course Vital Signs Vital signs: Vital Signs Temperature 98.3 F 06/02/24 05:43 Pulse Rate 99 H 06/02/24 05:43 Respiratory Rate 20 06/02/24 05:43 Blood Pressure 124/95 H 06/02/24 05:43 Pulse Oximetry 97 06/02/24 05:43 Oxygen Delivery Method Room Air 06/02/24 05:43 Temperature 98.3 F 06/02/24 05:43 Pulse Rate 99 H 06/02/24 05:43 Respiratory Rate 20 06/02/24 05:43 Blood Pressure 124/95 H 06/02/24 05:43 Pulse Oximetry 97 06/02/24 05:43 Oxygen Delivery Method Room Air 06/02/24 05:43 Medical Decision Making [facility] Narrative Medical decision making narrative: patient has chronic nausea since knee surgery 02/19 .Now presents with recurrent nausea and vomiting and diarrhea( has colostomy bag). States abdomen is sore from vomiting. Her exam is unremarkable. Labs ordered . Patient took zofran at home and was given it again via Squad. She is still nauseated. Given dose of Phenergan. care transferred to Dr Weinstein at change of shift Lab Data Labs: Lab Results 06/02/24 Range/Units 05:45 WBC 9.2 (4.0-11.0) 10^3/uL RBC 5.95 H (4.20-5.40) 10^6/uL Hgb 15.3 (12.0-16.0) g/dL Hct 47.0 (36.0-48.0) % MCV 79.0 L (81.0-99.0) fL MCH 25.7 L (26.7-34.0) pg MCHC 32.6 (29.9-35.2) g/dL RDW 13.1 (11.0-15.0) % Plt Count 307 (150-450) 10^3/uL MPV 10.0 (9.5-13.5) fL Seg Neuts % (Manual) 88.0 H (43.0-75.0) Lymphocytes % (Manual) 6.0 L (20.5-60.0) % Monocytes % (Manual) 6.0 (1.7-12.0) % Eosinophils % (Manual) 0.0 L (0.9-7.0) % Basophils % (Manual) 0.0 L (0.2-2.0) % Neutrophils # (Manual) 8.09 H (1.4-6.5) 10^3/uL Lymphocytes # (Manual) 0.55 L (1.20-3.80) 10^3/uL Monocytes # (Manual) 0.55 (0.30-0.80) 10^3/uL Eosinophils # (Manual) 0.00 (0.00-0.70) 10^3/uL Basophils # (Manual) 0.00 (0.00-0.10) 10^3/uL Sodium 139 (136-145) mmol/L Potassium 3.8 (3.5-5.1) mmol/L Chloride 102 (98-107) mmol/L Carbon Dioxide 25.6 (21.0-32.0) mmol/L Anion Gap 15.2 BUN 9.0 (7.0-18.0) mg/dL Creatinine 0.71 (0.55-1.02) mg/dL Est GFR ( Amer) >60 (>=60 mL/min/1.73m^2) Est GFR (Non-Af Amer) >60 (>=60 mL/min/1.73m^2) BUN/Creatinine Ratio 12.7 Glucose 163 H (74-106) mg/dL Calcium 9.5 (8.5-10.1) mg/dL Total Bilirubin 0.9 (0.2-1.0) mg/dL AST 26 (15-37) U/L ALT 41 (14-59) U/L Alkaline Phosphatase 82 (46-116) U/L Troponin I High Sens 7.5 (4.0-51.3) pg/mL Total Protein 7.8 (6.4-8.2) g/dL Albumin 3.9 (3.4-5.0) g/dL Globulin 3.9 g/dL Albumin/Globulin Ratio 1.0 Lipase 41.0 (16.0-77.0) U/L Discharge Plan Discharge Chief Complaint: Abdominal Pain Clinical Impression: Gastroenteritis Patient Disposition: Still a Patient Print Language: Chinese Referrals: JENNIFER SHELTON [Primary Care Provider] - 1 week
[2024-06-02 06:19] LABS: Hemoglobin 15.3 g/dL (12.0-16.0); Mean Corpuscular HGB Conc 32.6 g/dL (29.9-35.2); Mean Corpuscular Hemoglobin 25.7 pg (26.7-34.0); Platelet Count 307 10^3/uL (150-450); Red Blood Count 5.95 10^6/uL (4.20-5.40); Red Cell Distribution Width 13.1 % (11.0-15.0); White Blood Count 9.2 10^3/uL (4.0-11.0)
[2024-06-02] MEDS: PROMETHAZINE HCL 12.5 MG in 0.9 % SODIUM CHLORIDE 50 ML 202 MG IV (06:27)
[2024-06-02] MEDS: 0.9 % SODIUM CHLORIDE 1,000 ML 999 ML IV (06:28)
[2024-06-02 06:32] LABS: Lymphocytes Absolute Manual 0.55 10^3/uL (1.20-3.80); Monocytes Absolute Manual 0.55 10^3/uL (0.30-0.80); Segmented Neut Absolute Manual 8.09 10^3/uL (1.4-6.5)
[2024-06-02 06:34] LABS: Alanine Aminotransferase 41 U/L (14-59); Albumin Level 3.9 g/dL (3.4-5.0); Alkaline Phosphatase 82 U/L (46-116); Anion Gap 15.2; Aspartate Amino Transferase 26 U/L (15-37); BUN Creatinine Ratio 12.7; Bilirubin Total 0.9 mg/dL (0.2-1.0); Calcium 9.5 mg/dL (8.5-10.1); Carbon Dioxide 25.6 mmol/L (21.0-32.0); Chloride 102 mmol/L (98-107); Estimated GFR (African America >60 (>=60 mL/min/1.73m^2); Estimated GFR (Non-African Ame >60 (>=60 mL/min/1.73m^2); Globulin 3.9 g/dL; Glucose 163 mg/dL (74-106); Potassium 3.8 mmol/L (3.5-5.1); Sodium 139 mmol/L (136-145); Total Protein 7.8 g/dL (6.4-8.2); Troponin I High Sensitivity 7.5 pg/mL (4.0-51.3)
[2024-06-02 07:03] LABS: Magnesium 1.6 mg/dL (1.8-2.4)
[2024-06-02 07:11] LABS: Lactate/Lactic Acid 1.7 mmol/L (0.4-2.0)
[2024-06-02 07:56] LABS: Bilirubin Urine NEGATIVE (NEGATIVE); Blood Urine NEGATIVE (NEGATIVE); Clarity Urine CLEAR (CLEAR); Color Urine YELLOW (YELLOW); Glucose Urine UA NEGATIVE (NEGATIVE); Ketones Urine NEGATIVE (NEGATIVE); Leukocyte Esterase Urine NEGATIVE (NEGATIVE); Nitrite Urine NEGATIVE (NEGATIVE); Protein Urine NEGATIVE (NEG/TRACE); Specific Gravity Urine 1.015 (1.005-1.025); Urobilinogen Urine 0.2 EU/dL (0.2-1.0); pH Urine 7.5 (5.0-9.0)
[2024-06-02 08:15] LABS: Bacteria Urine TRACE #/HPF (NONE SEEN); Cast Seen? NONE SEEN #/LPF (NONE SEEN); Crystals Seen? None Seen #/HPF (None Seen); Mucus Urine SMALL (NONE SEEN); RBC Urine NONE SEEN #/HPF (0-2); Squamous Epithelial Cell Urine FEW #/LPF (NONE/RARE); Urine Culture Indicated NO; WBC Urine NONE SEEN #/HPF (NONE SEEN)
== END 2024-06-02 08:56 | disposition home or self-care (01) ==
PROVIDERS: Emergency Provider Internal Medicine; PCP Internal Medicine
DX: K52.9 Noninfective gastroenteritis and colitis, unspecified (principal); E83.42 Hypomagnesemia; Z93.3 Colostomy status
CPT/HCPCS: 36415; 80053; 81001; 83605; 83690; 83735; 84484; 85007; 85027; 96361; 96365; 99284; J2550